=== PATIENT | male | born 1945 | race Caucasian/White ===

== ENCOUNTER → 2017-02-13 | Outpatient (CLI) | payer OTHER, MEDICARE | LOC: RAD 08:57 | PROVIDERS: ATTEND Specialist | DX: C20 Malignant neoplasm of rectum (principal); C78.7 Secondary malignant neoplasm of liver and intrahepatic bile duct | CPT/HCPCS: 71250; 74176 ==

== ENCOUNTER → 2017-05-06 | Outpatient (CLI) | payer OTHER, MEDICARE ==
--- NOTE | 2017-05-06 10:31 | RADIOLOGY REPORT (SQ) ---
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 Images reviewed with lung, soft tissue and bone windows. Reconstructed coronal and sagittal MPR images reviewed. All images st ored on PACS. All CT scanners at this facility use dose modulation, iterative reconstruction, and/or weight based d osing when appropriate to reduce radiation dose to as low as reasonably achievable (ALARA). [facility]: Dose Right [facility]: CareDose [facility]: Dose Right [facility]: Teradose 4D [facility]: [employer] RADIATION DOSE: Up-to-date CT equipment and radiation dose reduction techniques were employed. CTDIv ol: 7.8 - 9.2 mGy. DLP: 831 mGy-cm. mGy. LIMITATIONS: No technical limitations. FINDINGS: LUNGS AND PLEURA: There are no pulmonary nodules. There is subsegmental atelectasis versu s limited infiltrate in the right lower lobe posteriorly. There is no pleural effusion. HILAR AND MEDIASTINAL STRUCTURES: No identified masses or abnormal nodes. No obvious aneurysm. HEART AND VASCULAR STRUCTURES: No aneurysm. No pericardial effusion. UPPER ABDOMEN: See separate report of the CT of the abdomen. THYROID AND OTHER SOFT TISSUES: No masses. No adenopathy. BONES: No significant finding. HARDWARE: There is injection port on the right. OTHER: No other significant findings. IMPRESSION: 1. There is no evidence of metastases in the chest. 2. There is subsegmental atelectasis versus infiltrate in the right lower lobe posteriorly. TECHNICAL DOCUMENTATION: JOB ID: [id number] Quality ID # [id number]: Final reports with documentation of one or more dose reduction techniques (e.g., Au tomated exposure control, adjustment of the mA and/or kV according to patient size, use of iterative reconstruction technique) 2010 [employer]- All Rights Reserved
--- NOTE | 2017-05-06 10:55 | RADIOLOGY REPORT (SQ) ---
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 Images reviewed with lung, soft tissue, and bone windows. Reconstructed coronal and sagittal MPR images reviewed. Al l images stored on PACS. All CT scanners at this facility use dose modulation, iterative reconstruction, and/or weight based d osing when appropriate to reduce radiation dose to as low as reasonably achievable (ALARA). [facility]: Dose Right [facility]: CareDose [facility]: Dose Right [facility]: Teradose 4D [facility]: [employer] RADIATION DOSE: 17mGy. LIMITATIONS: None. FINDINGS: LOWER CHEST: See separate report of the CT of the chest. NON-CONTRASTED LIVER, SPLEEN, ADRENALS: There is continued improvement in the hepatic metastases. A lesion in the dome of the liver that measured 34 mm on the earlier study measures 28 mm on the curren t study. The spleen is unremarkable. The adrenal glands are normal. PANCREAS: No masses. No peripancreatic inflammatory changes. GALLBLADDER: Several gallstones are present. The largest is about 10 mm. There is no ductal dilatat ion. RIGHT KIDNEY AND URETER: No suspicious masses. Assessment limited by lack of IV contrast. No signif icant calcifications. No hydronephrosis or hydroureter. LEFT KIDNEY AND URETER: No suspicious masses. Assessment limited by lack of IV contrast. No signifi cant calcifications. No hydronephrosis or hydroureter. AORTA AND RETROPERITONEUM: No aneurysm. No retroperitoneal masses or adenopathy. BOWEL AND PERITONEAL CAVITY: An ostomy is present in the left abdomen. There is no evidence of obstr uction. There are diverticula arising from the sigmoid colon with no associated inflammatory changes . A rectal mass is present seen best on image 84 series 604. This mass appears slightly more bulky than on the prior study from February. The mass measures 40 mm in transverse diameter on image 84 serie s 604. On the comparable coronal image from the prior study this mass measures 35.6 mm. APPENDIX: Normal. PELVIS, BLADDER, AND ABDOMINAL WALL:Rectal mass as described above. The urinary bladder is unremarka ble. The prostate gland is prominent. BONES: No osseous metastases are seen. OTHER: No other significant finding. IMPRESSION: 1. There is improvement in the appearance of the hepatic metastases. 2. The rectal mass appears to have increased in bulk slightly. 3. Diverticulosis coli. 4. Prominent prostate gland. TECHNICAL DOCUMENTATION: JOB ID: [id number] Quality ID # 436: Final reports with documentation of one or more dose reduction techniques (e.g., Au tomated exposure control, adjustment of the mA and/or kV according to patient size, use of iterative reconstruction technique) 2010 [email or web address]- All Rights Reserved
== END ==
LOC: RAD 09:03
PROVIDERS: ATTEND Specialist
DX: C20 Malignant neoplasm of rectum (principal)
CPT/HCPCS: 71250; 74176

== ENCOUNTER → 2017-07-22 | Outpatient (CLI) | payer MEDICARE ==
--- NOTE | 2017-07-22 11:30 | RADIOLOGY REPORT (SQ) ---
EXAM DESCRIPTION: CT CHEST WITHOUT COMPLETED DATE/TIME: 07/22/2017 9:11 am REASON FOR STUDY: RECTAL CA (C20) C20 MALIGNANT NEOPLASM OF RECTUM COMPARISON: 05/06/2017 TECHNIQUE: CT scan performed of the chest without intravenous contrast. Images reviewed with lung, soft tissue and bone windows. Reconstructed coronal and sagittal MPR images reviewed. All images st ored on PACS. All CT scanners at this facility use dose modulation, iterative reconstruction, and/or weight based d osing when appropriate to reduce radiation dose to as low as reasonably achievable (ALARA). [facility]: Dose Right [facility]: CareDose [facility]: Dose Right [facility]: Teradose 4D [facility]: [employer] RADIATION DOSE: mGy. LIMITATIONS: No technical limitations. FINDINGS: LUNGS AND PLEURA: There are no suspicious pulmonary nodules. There is bibasilar interstit ial airspace disease most likely fibrosis. There is a small pneumatocele in the superior segment of the left lower lobe unchanged. HILAR AND MEDIASTINAL STRUCTURES: No identified masses or abnormal nodes. No obvious aneurysm. HEART AND VASCULAR STRUCTURES: No aneurysm. No pericardial effusion. UPPER ABDOMEN: Stable in appearance. There are hepatic metastases. THYROID AND OTHER SOFT TISSUES: No masses. No adenopathy. BONES: No significant finding. HARDWARE: None in the chest. OTHER: No other significant findings. IMPRESSION: No interval change in the chest. 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 No evidence of m etastatic disease. TECHNICAL DOCUMENTATION: JOB ID: [id number] Quality ID # 436: Final reports with documentation of one or more dose reduction techniques (e.g., Au tomated exposure control, adjustment of the mA and/or kV according to patient size, use of iterative reconstruction technique) 2010 [email or web address]- All Rights Reserved
--- NOTE | 2017-07-22 11:43 | RADIOLOGY REPORT (SQ) ---
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 Images reviewed with lung, soft tissue, and bone windows. Reconstructed coronal and sagittal MPR images revi ewed. All images stored on PACS. All CT scanners at this facility use dose modulation, iterative reconstruction, and/or weight based d osing when appropriate to reduce radiation dose to as low as reasonably achievable (ALARA). [facility]: Dose Right [facility]: CareDose [facility]: Dose Right [facility]: Teradose 4D [facility]: [employer] RADIATION DOSE: Up-to-date CT equipment and radiation dose reduction techniques were employed. CTDIv ol: 6.6 - 8.0 mGy. DLP: 713 mGy-cm.mGy. LIMITATIONS: None. FINDINGS: LOWER CHEST: See separate report of the CT of the chest. NON-CONTRASTED LIVER, SPLEEN, ADRENALS: Hepatic metastases. The lesion measured and dome of the live r on the earlier study now measures 31.4 mm, an increase in size since the most recent previous study . 2 smaller adjacent lesions are slightly smaller than on the earlier study. PANCREAS: No masses. No peripancreatic inflammatory changes. GALLBLADDER: Cholelithiasis. RIGHT KIDNEY AND URETER: No suspicious masses. Assessment limited by lack of IV contrast. No signif icant calcifications. No hydronephrosis or hydroureter. LEFT KIDNEY AND URETER: No suspicious masses. Assessment limited by lack of IV contrast. No signifi cant calcifications. No hydronephrosis or hydroureter. AORTA AND RETROPERITONEUM: No aneurysm. No retroperitoneal masses or adenopathy. BOWEL AND PERITONEAL CAVITY: A colostomy is present on the left with associated ventral hernia that c ontains a loop of bowel. There is no evidence of bowel obstruction. Sigmoid diverticula are present . There is no significant change in the appearance of the rectum. APPENDIX: Not identified. PELVIS, BLADDER, AND ABDOMINAL WALL:There is a colostomy in the left lower quadrant. There is a loop of small bowel within it with no evidence of obstruction. BONES: No significant findings. OTHER: No other significant finding. IMPRESSION: 1. Hepatic metastases. 1 in the dome of the liver is slightly larger than on the prior study, but 2 smaller adjacent lesions are slightly smaller. 2. The rectum appears stable. 3. Colostomy with ventral hernia containing a loop of small bowel with no evidence of obstruction. 4. Diverticulosis coli. COMMENT: Quality ID # 436: Final reports with documentation of one or more dose reduction techniques (e.g., Automated exposure control, adjustment of the mA and/or kV according to patient size, use of iterative reconstruction technique) TECHNICAL DOCUMENTATION: JOB ID: [id number] 8226 [email or web address]- All Rights Reserved
== END ==
LOC: RAD 08:44
PROVIDERS: ATTEND Physician Assistant
DX: C20 Malignant neoplasm of rectum (principal); C78.7 Secondary malignant neoplasm of liver and intrahepatic bile duct
CPT/HCPCS: 71250; 74176

== ENCOUNTER → 2017-10-25 | Outpatient (CLI) | payer MEDICARE ==
--- NOTE | 2017-10-25 08:56 | RADIOLOGY REPORT (SQ) ---
EXAM DESCRIPTION: CT ABD/PELVIS WITH IV ORAL COMPLETED DATE/TIME: 10/25/2017 8:16 am REASON FOR STUDY: RECTAL CA (C20) C20 MALIGNANT NEOPLASM OF RECTUM COMPARISON: Prior CT chest abdomen and pelvis 10/22/2016, 02/13/2017, 05/06/2017, 07/22/2017 TECHNIQUE: CT scan of the abdomen and pelvis performed using helical scanning technique with dynamic intravenous contrast injection. Patient drank oral contrast. Images reviewed with lung, soft tissue , and bone windows. Reconstructed coronal and sagittal MPR images reviewed. Delayed images for evalua tion of the urinary system also acquired. All images stored on PACS. All CT scanners at this facility use dose modulation, iterative reconstruction, and/or weight based d osing when appropriate to reduce radiation dose to as low as reasonably achievable (ALARA). [facility]: Dose Right [facility]: CareDose [facility]: Dose Right [facility]: Teradose 4D [facility]: [employer] CONTRAST TYPE AND DOSE: contrast/concentration: Isovue 370.00 mg/ml; Total Contrast Delivered: 92.0 ml; Total Saline Delivered: 62.0 ml Patient has had prior episodes of hives after IV contrast. He was pre-medicated today with an oral s teroid prep and had no immediate post injection allergic reaction. RENAL FUNCTION: Creatinine 1.2 RADIATION DOSE: CT Rad equipment meets quality standard of care and radiation dose reduction techniq ues were employed. CTDIvol: 8.6 - 9.9 mGy. DLP: 1028 mGy-cm.. LIMITATIONS: None. FINDINGS: LOWER CHEST: No significant findings. No nodules or infiltrates. LIVER: Index lesion in the subdiaphragmatic right lobe liver on axial image 6, currently 2.6 cm in si ze (was 2.6 cm on 07/22/2017, 2.7 cm on 05/06/2017, and 3.4 cm 02/13/2017. Multiple other less than 2 cm liver lesions are stable compared to prior exams. Normal contrast enhancement of the portal veins and hepatic veins. SPLEEN: Normal size. No focal lesions. PANCREAS: No masses. No significant calcifications. No adjacent inflammation or peripancreatic fluid collections. Pancreatic duct not dilated. GALLBLADDER: Gallstones. No inflammatory changes to suggest cholecystitis. ADRENAL GLANDS: No significant masses or asymmetry. RIGHT KIDNEY AND URETER: No solid masses. Less than 1 cm right lower pole renal cortical cyst No sig nificant calcifications. No hydronephrosis or hydroureter. LEFT KIDNEY AND URETER: No solid masses. No significant calcifications. No hydronephrosis or hydr oureter. AORTA AND VESSELS: No aneurysm. No dissection. Renal arteries, SMA, celiac without stenosis. RETROPERITONEUM: No retroperitoneal adenopathy, hemorrhage or masses. BOWEL AND PERITONEAL CAVITY: Patient drank oral contrast. There is no evidence of bowel obstruction. Patient is post left lower quadrant colostomy with a moderate-sized stomal hernia containing multip le small bowel loops which are nonobstructed. There is a right inguinal hernia containing nonobstruc lizette small bowel loops. At the distal sigmoid colon, a soft tissue mass is present measuring 6 x 4.4 cm in size, best shown o n axial image 72 (stable compared to 07/22/2017, slightly larger than on 05/06/2017 and 02/13/2017 where it measured about 5.4 x 3.8 cm in size). Residual sigmoid colon diverticuli without CT signs of acute diverticulitis. No free intraperitoneal air or fluid. APPENDIX: Normal. PELVIS: No mass. No free fluid. Normal bladder. ABDOMINAL WALL: Right lower quadrant inguinal hernia containing nonobstructed small bowel. Stomal he rnia containing nonobstructed small bowel BONES: No significant or acute findings. OTHER: No other significant finding. IMPRESSION: Stable appearance compared to 07/22/2017, stable liver metastatic lesions, primary rectos igmoid soft tissue tumor in the pelvis. TECHNICAL DOCUMENTATION: JOB ID: [id number] Quality ID # 436: Final reports with documentation of one or more dose reduction techniques (e.g., Au tomated exposure control, adjustment of the mA and/or kV according to patient size, use of iterative reconstruction technique) 2010 [employer]- All Rights Reserved
== END ==
LOC: RAD 10-24 09:07
PROVIDERS: ATTEND Internal Medicine Hematology & Oncology
DX: C20 Malignant neoplasm of rectum (principal); C78.7 Secondary malignant neoplasm of liver and intrahepatic bile duct
CPT/HCPCS: 74177

== ENCOUNTER → 2018-03-20 | Outpatient (CLI) | payer OTHER ==
--- NOTE | 2018-03-20 12:17 | RADIOLOGY REPORT (SQ) ---
EXAM DESCRIPTION: CT ABD/PELVIS WITH IV ORAL COMPLETED DATE/TIME: 03/20/2018 9:17 am REASON FOR STUDY: RECTAL CA (C20) C20 MALIGNANT NEOPLASM OF RECTUM COMPARISON: 10/25/2017 TECHNIQUE: CT scan of the abdomen and pelvis performed with intravenous and oral contrast using rd karlene scanning technique with dynamic intravenous contrast injection. Images reviewed with lung, soft t issue, and bone windows. Reconstructed coronal and sagittal MPR images reviewed. Delayed images for e valuation of the urinary system also acquired. All images stored on PACS. All CT scanners at this facility use dose modulation, iterative reconstruction, and/or weight based d osing when appropriate to reduce radiation dose to as low as reasonably achievable (ALARA). [facility]: Dose Right [facility]: CareDose [facility]: Dose Right [facility]: Teradose 4D [facility]: [employer] CONTRAST TYPE AND DOSE: contrast/concentration: Isovue 370.00 mg/ml; Total Contrast Delivered: 90.0 ml; Total Saline Delivered: 70.0 ml Patient pre-medicated due to history of contrast allergy. RENAL FUNCTION: BUN 16 creatinine 1.1 RADIATION DOSE: CT Rad equipment meets quality standard of care and radiation dose reduction techniq ues were employed. CTDIvol: 6.6 - 7.5 mGy. DLP: 1217 mGy-cm. . LIMITATIONS: None. FINDINGS: LOWER CHEST: No significant findings. No nodules or infiltrates. LIVER: Stable poorly marginated low-density lesions in the liver, the largest subdiaphragmatic right lobe measuring about 2.3 cm. No new lesions. SPLEEN: Normal size. No focal lesions. PANCREAS: No masses. No significant calcifications. No adjacent inflammation or peripancreatic fluid collections. Pancreatic duct not dilated. GALLBLADDER: No identified stones by CT criteria. No inflammatory changes to suggest cholecystitis. ADRENAL GLANDS: No significant masses or asymmetry. RIGHT KIDNEY AND URETER: No solid masses. No significant calcifications. No hydronephrosis or hyd roureter. LEFT KIDNEY AND URETER: No solid masses. No significant calcifications. No hydronephrosis or hydr oureter. AORTA AND VESSELS: No aneurysm. RETROPERITONEUM: No retroperitoneal adenopathy, hemorrhage or masses. BOWEL AND PERITONEAL CAVITY: Rectosigmoid mass 4.8 x 4.3 cm AP by transverse diameter, previously abo ut 6.0 x 4.5 cm. No adenopathy or ascites. APPENDIX: Normal. PELVIS: See above. Normal urinary bladder. ABDOMINAL WALL: Large left lower quadrant anterior abdominal wall parastomal hernia. BONES: No acute findings. OTHER: No other significant finding. IMPRESSION: 1. Slight decrease in size of rectosigmoid mass. 2. Stable hepatic metastasis. TECHNICAL DOCUMENTATION: JOB ID: [id number] Quality ID # 436: Final reports with documentation of one or more dose reduction techniques (e.g., Au tomated exposure control, adjustment of the mA and/or kV according to patient size, use of iterative reconstruction technique) 2010 [employer]- All Rights Reserved Reading location - IP/workstation name: [email or web address]
== END ==
LOC: RAD 08:25
PROVIDERS: ATTEND Internal Medicine Hematology & Oncology
DX: C20 Malignant neoplasm of rectum (principal)
CPT/HCPCS: 74177

== ENCOUNTER → 2018-07-08 | Outpatient (CLI) | payer OTHER ==
--- NOTE | 2018-07-08 12:10 | RADIOLOGY REPORT (SQ) ---
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 Images reviewed with lung, soft tissue and bone windows. Reconstructed coronal and sagittal MPR and MIP images reviewed. All images stored on PACS. All CT scanners at this facility use dose modulation, iterative reconstruction, and/or weight based d osing when appropriate to reduce radiation dose to as low as reasonably achievable (ALARA). [facility]: Dose Right [facility]: CareDose [facility]: Dose Right [facility]: Teradose 4D [facility]: [employer] CONTRAST TYPE AND DOSE: 89.5 mL Isovue 370 RENAL FUNCTION: Creatinine 1.3 RADIATION DOSE: . LIMITATIONS: None. FINDINGS: LUNGS AND PLEURA: There is a new 10.5 mm nodule in the superior segment of the right lower lobe. This is suspicious for metastatic disease. Basilar interstitial markings remain prominent wi th mild bronchiectasis consistent with fibrosis. HILAR AND MEDIASTINAL STRUCTURES: No identified masses or abnormal nodes. HEART AND VASCULAR STRUCTURES: No aneurysm or dissection. No central pulmonary emboli. No pericardi al effusion. HARDWARE: [id number] is in place. UPPER ABDOMEN: Small hepatic lesions are again noted. Please refer to the CT abdomen pelvis for furt her discussion. THYROID AND OTHER SOFT TISSUES: No masses. No adenopathy. BONES: No significant finding. OTHER: No other significant finding. IMPRESSION: New 10.5 mm nodule in the superior segment right lower lobe. Neoplasm is suspected. TECHNICAL DOCUMENTATION: JOB ID: [id number] Quality ID # 436: Final reports with documentation of one or more dose reduction techniques (e.g., Au tomated exposure control, adjustment of the mA and/or kV according to patient size, use of iterative reconstruction technique) 2010 [employer] All Rights Reserved Reading location - IP/workstation name: [email or web address]
--- NOTE | 2018-07-08 12:15 | RADIOLOGY REPORT (SQ) ---
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 No oral contrast. Images reviewed with lung, soft tissue, and bone windows. Reconstructed coronal and sagittal MPR images reviewed. Delayed images for evaluation of the urinary system also acquired. All images stored on PACS. All CT scanners at this facility use dose modulation, iterative reconstruction, and/or weight based d osing when appropriate to reduce radiation dose to as low as reasonably achievable (ALARA). [facility]: Dose Right [facility]: CareDose [facility]: Dose Right [facility]: Teradose 4D [facility]: [employer] CONTRAST TYPE AND DOSE: contrast/concentration: Isovue 350.00 mg/ml; Total Contrast Delivered: 89.0 ml; Total Saline Delivered: 70.0 ml RENAL FUNCTION: Creatinine 1.3 RADIATION DOSE: CT Rad equipment meets quality standard of care and radiation dose reduction techniq ues were employed. CTDIvol: 5.9 - 7.3 mGy. DLP: 1454 mGy-cm.. LIMITATIONS: None. FINDINGS: LOWER CHEST: Basilar fibrosis is again noted. LIVER: There are persistent areas of decreased attenuation within the dome of the liver consistent wi th known metastases. There stable lesions in the left lobe and inferior aspect of the right lobe. N o new findings in the liver. SPLEEN: Normal size. No focal lesions. PANCREAS: No masses. No significant calcifications. No adjacent inflammation or peripancreatic fluid collections. Pancreatic duct not dilated. GALLBLADDER: There are gallstones. No inflammation. ADRENAL GLANDS: No significant masses or asymmetry. RIGHT KIDNEY AND URETER: No solid masses. No significant calcifications. No hydronephrosis or hyd roureter. LEFT KIDNEY AND URETER: No solid masses. No significant calcifications. No hydronephrosis or hydr oureter. AORTA AND VESSELS: No aneurysm. No dissection. Renal arteries, SMA, celiac without stenosis. RETROPERITONEUM: No retroperitoneal adenopathy, hemorrhage or masses. BOWEL AND PERITONEAL CAVITY: There are postsurgical changes with an ostomy in the left lower quadrant . No obstruction. No inflammatory changes. The sigmoid mass is grossly unchanged. APPENDIX: Not identified. PELVIS: There are small left inguinal lymph nodes. These are stable in appearance. ABDOMINAL WALL: No masses. No hernias. BONES: There is an old left inferior pubic ramus fracture. No lytic or sclerotic process ease. OTHER: No other significant finding. IMPRESSION: 1. Sigmoid mass is grossly unchanged. 2. Multiple hepatic lesions are stable in appearance. TECHNICAL DOCUMENTATION: JOB ID: [id number] Quality ID # 436: Final reports with documentation of one or more dose reduction techniques (e.g., Au tomated exposure control, adjustment of the mA and/or kV according to patient size, use of iterative reconstruction technique) 2010 [employer]- All Rights Reserved Reading location - IP/workstation name: [email or web address]
== END ==
LOC: RAD 09:02
PROVIDERS: ATTEND Internal Medicine
DX: C20 Malignant neoplasm of rectum (principal); J84.10 Pulmonary fibrosis, unspecified; R91.1 Solitary pulmonary nodule; K80.80 Other cholelithiasis without obstruction; K76.9 Liver disease, unspecified
CPT/HCPCS: 71260; 74177; 82565

== ENCOUNTER 2018-09-22 17:49 | Emergency (ER) | payer OTHER, MEDICARE ==
--- NOTE | 2018-09-22 18:34 | ER Document Report ---
ED General <SAM DE LEON - Last Filed: 09/23/18 09:01> - General Mode of Arrival: Medic Information source: Patient, Relative, Emergency Med Personnel, [facility] Records TRAVEL OUTSIDE OF THE [place] IN LAST 30 DAYS: No - HPI Onset: This morning Onset/Duration: Sudden Quality of pain: Throbbing - Throbbing ongoing rectal pain Severity: Moderate Pain Level: 2 Associated symptoms: denies: Body/muscle aches, Chest pain, Fever, Nausea, Vomiting, Shortness of breath, Sweating, Weakness Exacerbated by: Denies Relieved by: Denies Similar symptoms previously: No Recently seen / treated by doctor: Yes <HONG HAM - Last Filed: 09/23/18 11:11> - General Stated Complaint: BLEEDING FROM STOMA Time Seen by Provider: 09/22/18 18:16 Notes: 72-year-old male with stage IV rectal cancer with metastasis, colectomy in 2017 presents via EMS from home with complaints of significant bleeding from his ostomy site. Patient was a long-term Coumadin user but was recently switched to Eliquis 1 week ago due to inability to control the patient's INR. Patient is currently undergoing chemotherapy with Dr. Currie. He also complains of rectal pain that has been ongoing for 4 months. Patient denies any fever, chills, nausea, vomiting, abdominal pain, trauma to the ostomy site. (HONG HAM) - Related Data Allergies/Adverse Reactions: Iodinated Contrast- Oral and IV Dye Adverse Reaction (Mild, Verified 10/21/16 20 :47) Hives Past Medical History - General Information source: Patient, Relative, Emergency Med Personnel, [facility] Records - Social History Smoking Status: Former Smoker Frequency of alcohol use: None Drug Abuse: None Lives with: Spouse/Significant other Family History: None, CAD - Father, Malignancy - Brother with prostate cancer. Father with bladder cancer. Patient has suicidal ideation: No Patient has homicidal ideation: No - Past Medical History Cardiac Medical History: Reports: Hx Hypertension, Hx Heart Murmur - Present since childhood Neurological Medical History: Denies: Hx Seizures Endocrine Medical History: Reports: Hx Diabetes Mellitus Type 2 - With peripheral neuropathy GI Medical History: Reports: Hx Irritable Bowel Past Surgical History: Reports: Hx Herniorrhaphy - Left inguinal, Hx Orthopedic Surgery - Left ankle-knee, neck - Immunizations Hx Pneumococcal Vaccination: 09/05/16 <HONG HAM - Last Filed: 09/23/18 11:11> Review of Systems <SAM DE LEON - Last Filed: 09/23/18 09:01> <HONG HAM - Last Filed: 09/23/18 11:11> - Review of Systems Notes: REVIEW OF SYSTEMS: CONSTITUTIONAL : Denies fever, chills, or sweats. Denies recent illness. Denies weight loss, recent hospitalizations. EENT: Denies visual changes, eye pain. Denies sore throat, oral lesions, difficulty swallowing. CARDIOVASCULAR: Denies chest pain. Denies palpitations. Denies lower extremity edema. RESPIRATORY: Denies cough. Denies shortness of breath, wheezing. GASTROINTESTINAL: Denies abdominal pain or distention. Denies nausea, vomiting , or diarrhea. Denies blood in vomitus, or per rectum. Denies black, tarry stools. Denies constipation. GENITOURINARY: Denies difficulty urinating, painful urination, frequency, blood in urine, testicular pain or penile discharge. MUSCULOSKELETAL: Denies back or neck pain or stiffness. Denies joint pain or swelling. SKIN: Denies rash, lesions or sores. HEMATOLOGIC : Denies easy bruising or bleeding. LYMPHATIC: Denies swollen glands. NEUROLOGICAL: Denies confusion or altered mental status. Denies loss of consciousness. Denies dizziness or lightheadedness. Denies headache. Denies weakness or paralysis. Denies problems difficulty with ambulation, slurred speech. Denies sensory loss, numbness, or tingling. Denies seizures. PSYCHIATRIC: Denies anxiety or stress. Denies depression, suicidal ideation, or (HONG HAM) Physical Exam <SAM DE LEON - Last Filed: 09/23/18 09:01> - Vital signs Interpretation: Hypertensive. No: Febrile <HONG HAM - Last Filed: 09/23/18 11:11> - Vital signs Vitals: Resp Pulse Ox 16 96 09/22/18 18:01 09/22/18 18:01 - Notes Notes: PHYSICAL EXAMINATION: GENERAL: Well-appearing, well-nourished and in no acute distress. HEAD: Atraumatic, normocephalic. EYES: Pupils equal round and reactive to light, extraocular movements intact, sclera anicteric, conjunctiva are normal. ENT: Nares patent, oropharynx clear without exudates. Moist mucous membranes. NECK: Normal range of motion, supple without lymphadenopathy LUNGS: Breath sounds clear to auscultation bilaterally and equal. No wheezes rales or rhonchi. HEART: Regular rate and rhythm without murmurs ABDOMEN: Mild distention, left-sided ostomy no active bleeding but with a towel full of blood covering it. Exam is without guarding,or rebound. Left-sided stomal hernia. Brown stool from the stoma with friable stoma surface. Musculoskeletal: Normal range of motion, no pitting or edema. No cyanosis. NEUROLOGICAL: Cranial nerves grossly intact. Normal speech, normal gait. Normal sensory, motor exams PSYCH: Normal mood, normal affect. SKIN: Pale (HONG HAM) Course - Laboratory Result Diagrams: 09/23/18 07:01 09/22/18 19:15 <SAM DE LEON - Last Filed: 09/23/18 09:01> - Laboratory Result Diagrams: 09/23/18 07:01 09/22/18 19:15 - Diagnostic Test Radiology reviewed: Image reviewed, Reports reviewed <HONG HAM - Last Filed: 09/23/18 11:11> - Re-evaluation Re-evalutation: 09/23/18 09:01 Hemoglobin has improved. Patient otherwise not had any more recurrence of bleeding while here in ER. Patient again was evaluated by Dr. Merlos who also consulted Dr. Luong he recommended the patient be discharged. Dr. Merlos stated that he relayed this to the patient's. I relayed to the patient that I also be will be discharged recommend following up with his specialist and Dr. Luong. (SAM DE LEON) 09/22/18 18:34 72-year-old male with metastatic rectal cancer presents with bleeding from his ostomy site. He states that he had 2 episodes of voluminous bright red bleeding from his ostomy site that started this morning. He states home health aides assessed him, observed him and that it did not reoccur until this afternoon. He denies any prior similar symptoms. He did recently switch from Coumadin to Eliquis 1 week ago. Vital signs reviewed upon arrival patient is hypertensive but afebrile and not tachycardic. Exam is significant for a well- appearing male in no acute distress. He does not appear toxic or dehydrated. He is in no acute distress. Patient's ostomy is not currently bleeding but there is a towel that is soaked with blood. I did contact Dr. Reyna to consult to him regarding whether or not imaging is required at this time. Patient's surgery was performed by Dr. Luong and 2016. 09/22/18 18:58 I did speak to Dr. Reyna who does not recommend any imaging at this time. He does recommend discontinuation of Eliquis, a hemoglobin check. If the patient is not actively bleeding he can be discharged home with follow-up with Dr. Luong. If he has another episode of bleeding he advises admission to the hospitalist with Dr. Luong on consult for tomorrow. 09/22/18 19:[address] a call out to the patient's oncologist Dr. Cordova. Patient's hemoglobin came back at 7.8. The most recent prior hemoglobin I have is from December 2016 where the patient's hemoglobin was 12.6. 09/22/18 20:[address] Fay saw the patient's oncologist reports that the patient's recent hemoglobin was approximately 10. He has not required any blood transfusions recently. She is agreeable with stopping Eliquis but states that Eliquis will remain in the patient's system for approximately 12 hours.. She states that he has had complaint of rectal pain for some time and recent CAT scans do not show any obvious reason that he should continue to have pain. His oncologist believes that there has been a progression of disease. 09/22/18 20:[address] Reyna after seeing patient's hemoglobin of 7.8. He still states that after transfusion at the patient has not replied that he can be discharged home. 09/22/18 20:53 Patient and were informed of my discussions with general surgery and oncology. They are agreeable with the planned of blood transfusion, observation and discharge home if no rebleeding occurs. 09/22/18 21:58 Spoke to the patient's oncologist again regarding whether the patient requires irradiated blood. She states unless the patient is neutropenic he can receive nonirradiated blood products. 11/12/18 23:06 Patient reevaluated again he has had no further bleeding. He reports that he has had several bowel movements into the ostomy without blood. He is currently receiving blood transfusion. 09/22/18 23:38 I was informed by the nurse that the patient had a recurrence of significant bleeding from the stoma. Dr. Reyna made aware and will see the patient. 09/23/18 00:10 Dr. Reyna at bedside and is requesting Xeroform. He believes the bleeding is coming from the friable skin of the stoma and not internally. He is requesting observation in the emergency department until the morning when Dr. Luong is due in. He states that he will speak to Dr. Luong and have the patient seen in the emergency department first thing. 09/23/18 00:[address] Reyna again who has ordered FFP for the patient and recommends repeat INR in the morning. The plan is still to keep the patient in the emergency department with evaluation by Dr. Luong in the morning. 09/23/18 02:24 Patient reevaluated he is resting comfortably. He is currently receiving FFP. He is already received 1 unit of PRBCs. He is having some rectal pain which again is not new for the patient. 09/23/18 11:09 Patient will continue to be observed in Emergency department per surgery request. Plan is for repeat surgical exam after PRBCs and FFP. Orders placed repeat blood work in am. (HONG HAM) - Vital Signs Vital signs: Temp Pulse Resp BP Pulse Ox 98.6 F 77 14 158/82 H 98 09/23/18 05:30 09/23/18 05:30 09/23/18 09:01 09/23/18 08:00 09/23/18 09:01 - Laboratory Laboratory results interpreted by hi: 09/22/18 09/22/18 09/22/18 19:15 19:15 20:37 RBC 2.37 L Hgb 7.8 L Hct 22.6 L RDW 16.2 H PT 18.6 H APTT 36.9 H Glucose 152 H ALT 20 L Total Protein 5.8 L Albumin 2.9 L Crossmatch 09/22/18 09/23/18 09/23/18 20:37 07:01 07:01 RBC 2.98 L Hgb 9.5 L Hct 27.4 L RDW 17.9 H PT 17.0 H APTT Glucose ALT Total Protein Albumin Crossmatch See Detail Critical Care Note - Critical Care Note Total time excluding time spent on procedures (mins): 50 - Minutes of critical care time spent in direct contact evaluating and reevaluating the patient, treating symptoms, reviewing labs and studies and speaking with family and consultants excluding any procedures <FATOUMATASATHISH - Last Filed: 09/23/18 11:11> Discharge <HALEYSAM - Last Filed: 09/23/18 09:01> <FATOUMATASATHISH - Last Filed: 09/23/18 11:11> - Discharge Clinical Impression: Stomal bleeding, History of DVT (deep vein thrombosis), Blood loss anemia, Elevated INR, Hyperglycemia, Hypoalbuminemia, Rectal cancer metastasized to liver Hypertension Qualifiers: Hypertension type: unspecified Qualified Code(s): I10 - Essential (primary) hypertension Condition: Good Disposition: HOME, SELF-CARE Instructions: Anemia ([facility]) Additional Instructions: Discontinue your Eliquis. I have discussed this with your oncologist and she is aware that this is our plan. Follow-up with Dr. Luong as already scheduled. Forms: Elevated Blood Pressure Referrals: KEVIN FATIMA MD [Primary Care Provider] - Follow up as needed PADMINI LUONG MD [ACTIVE STAFF] - Follow up tomorrow
[2018-09-22] MEDS ORDERED: PANTOPRAZOLE SODIUM 40 MG VIAL IV ONE (19:22)
[2018-09-22] MEDS ORDERED: ONDANSETRON HCL INJ/PF 4 MG/2 ML SDV IV ONE (19:22)
[2018-09-22] MEDS ORDERED: MORPHINE SULFATE 10 MG/ML INJ IV ONE (19:22)
[2018-09-22 19:34] LABS: ABSOLUTE EOSINOPHILS # (AUTO) 0.1 10^3/uL (0.0-0.6); ABSOLUTE LYMPHOCYTES (AUTO) 1.5 10^3/uL (0.5-4.7); ABSOLUTE MONOCYTES (AUTO) 0.7 10^3/uL (0.1-1.4); ABSOLUTE NEUT (AUTO) 3.2 10^3/uL (1.7-8.2); BASOPHILS % (AUTO) 0.5 % (0-2); HEMATOCRIT 22.6 % (37.9-51.0); LYMPHOCYTES % (AUTO) 27.3 % (13-45); MEAN CORPUSCULAR HEMOGLOBIN 32.8 pg (27.0-33.4); MEAN CORPUSCULAR HGB CONC 34.3 g/dL (32.0-36.0); MEAN CORPUSCULAR VOLUME 96 fl (80-97); MONOCYTES % (AUTO) 12.4 % (3-13); PLATELET COUNT 207 10^3/uL (150-450); RED BLOOD COUNT 2.37 10^6/uL (4.35-5.55); RED CELL DISTRIBUTION WIDTH 16.2 % (11.5-14.0); SEGMENTED NEUTROPHILS % (AUTO) 58.8 % (42-78); TOTAL CELLS COUNTED % (AUTO) 100 %; WHITE BLOOD COUNT 5.5 10^3/uL (4.0-10.5)
[2018-09-22 19:38] LABS: HEMOGLOBIN 7.8 g/dL (13.5-17.0)
[2018-09-22] MEDS ORDERED: NORMAL SALINE 250 ML IV PRN ×2 (19:43)
[2018-09-22 19:51] LABS: ALANINE AMINOTRANSFERASE 20 U/L (21-72); ALBUMIN 2.9 g/dL (3.5-5.0); ALKALINE PHOSPHATASE 82 U/L (38-126); ANION GAP 10 (5-19); ASPARTATE AMINO TRANSFERASE 28 U/L (17-59); BILIRUBIN,DIRECT 0.1 mg/dL (0.0-0.4); BILIRUBIN,TOTAL 0.2 mg/dL (0.2-1.3); BLOOD UREA NITROGEN 18 mg/dL (7-20); CALCIUM 9.2 mg/dL (8.4-10.2); CARBON DIOXIDE 24 mmol/L (22-30); CHLORIDE 105 mmol/L (98-107); GLUCOSE 152 mg/dL (75-110); POTASSIUM 4.1 mmol/L (3.6-5.0); SODIUM 138.9 mmol/L (137-145); TOTAL PROTEIN 5.8 g/dL (6.3-8.2)
[2018-09-22 21:19] LABS: INTERNATIONAL RATION (INR) 1.47; PROTHROMBIN TIME 18.6 SEC (11.4-15.4)
[2018-09-22 21:20] LABS: PARTIAL THROMBOPLASTIN TIME 36.9 SEC (23.5-35.8)
--- NOTE | 2018-09-22 21:32 | RADIOLOGY REPORT (SQ) ---
EXAM DESCRIPTION: XR ABDOMEN SUPINE AND ERECT WITH CHEST (ABD ACUTE SERIES) COMPLETED DATE/TME: 09/22/2018 19:33 CLINICAL HISTORY: 72 years, Male, abd distention COMPARISON: EXAM DESCRIPTION: CLINICAL HISTORY: abd distention COMPARISON: None. FINDINGS: Single view of the chest is submitted. There is moderate stool in the colon. Central catheter tip is at the distal SVC. Cardiac silhouette is normal. No focal parenchymal or pleural disease. No acute bony abnormality. There is no significant pulmonary vascular engorgement. IMPRESSION: Moderate stool. No other acute abnormality. NUMBER OF VIEWS: TECHNIQUE: LIMITATIONS: None. FINDINGS: IMPRESSION: 2010 [employer]- All Rights Reserved
[2018-09-22] MEDS ORDERED: FUROSEMIDE INJ/PF 20 MG/2 ML SDV IV ONE (23:06)
[2018-09-22] MEDS ORDERED: DIPHENHYDRAMINE HCL 50 MG/ML VIAL IV ONE (23:07)
[2018-09-22] MEDS ORDERED: TRANEXAMIC ACID INJ/PF 1,000 MG/10 ML SDV IV ONE (23:35)
[2018-09-23] MEDS ORDERED: NORMAL SALINE 250 ML IV PRN (00:17)
--- NOTE | 2018-09-23 00:17 | PDOC CONSULTATION ---
Consultation Consult Date: 09/22/18 Consult reason:: bleeding from stoma History of Present Illness Admission Date/PCP: KEVIN FATIMA MD Patient complains of: bleeding from stoma History of Present Illness: ALIYA LÓPEZ is a 72 year old male with metastatic rectal ca post colostomy by Dr Luong 2 years ago. Has been on coumadin but changed to Eloquis because of uncontrolled INR/PT. Also c/o rectal pains Today went to ED because of bleeding from the colostomy site and tonight bled again with a pulsatile flow from the caudal part of the colostomy. His stools sre not affected by this bleeding. Past Medical History Cardiac Medical History: Reports: Hypertension, Heart Murmur - Present since childhood Neurological Medical History: Denies: Seizures Endocrine Medical History: Reports: Diabetes Mellitus Type 2 - With peripheral neuropathy Past Surgical History Past Surgical History: Reports: Herniorrhaphy - Left inguinal, Orthopedic Surgery - Left ankle-knee, neck Social History Lives with: Spouse/Significant other Smoking Status: Former Smoker Frequency of Alcohol Use: None Hx Recreational Drug Use: No Drugs: None Hx Prescription Drug Abuse: No Family History Family History: None, CAD - Father, Malignancy - Brother with prostate cancer. Father with bladder cancer. Parental Family History Reviewed: Yes Children Family History Reviewed: No Sibling(s) Family History Reviewed.: No Medication/Allergy Home Medications: Amitriptyline HCl [Elavil 50 mg Tablet] 50 mg PO QHS 10/25/16 Amlodipine Besylate 10 mg PO DAILY 10/25/16 Biotin 10,000 mcg PO DAILY 10/25/16 Cholecalciferol (Vitamin D3) [Vitamin D3 5000 unit Capsule] 5,000 units PO DAILY 10/25/16 Cinnamon Bark [Cinnamon Bark 500 mg Capsule] 500 mg PO BID 10/25/16 Melatonin/Pyridoxine HCl (B6) [Melatonin 5 mg Tablet] 1 each PO DAILY 10/25/16 Metoprolol Tartrate 100 mg PO BID 10/25/16 Zinc 50 mg PO DAILY 10/25/16 Cyanocobalamin (Vitamin B-12) [Vitamin B-12 1000 mcg Tablet] 1,000 mcg PO DAILY #30 tablet 10/30/16 Docusate Sodium [Colace 100 mg Capsule] 100 mg PO Q12 #60 capsule 10/30/16 Ferrous Sulfate 325 mg PO BID #60 tablet. 10/30/16 Oxycodone HCl 5 mg PO Q4HP PRN #60 tablet 10/30/16 Allergies/Adverse Reactions: Iodinated Contrast- Oral and IV Dye Adverse Reaction (Mild, Verified 10/21/16 20 :47) Hives Review of Systems Constitutional: PRESENT: other - denies fever/chills Eyes: PRESENT: other - no visual/hearing changes Cardiovascular: PRESENT: other - no chest pains/cough Gastrointestinal: PRESENT: other - bleeding from colostomy site Genitourinary: PRESENT: other - no dysuria Integumentary: PRESENT: wounds - colostomy Neurological: PRESENT: other - no seizures Hematologic/Lymphatic: PRESENT: easy bleeding, easy bruising - along colostomy Physical Exam Vital Signs: Temp Pulse Resp BP Pulse Ox 98.8 F 66 18 153/75 H 100 09/22/18 22:40 09/22/18 22:40 09/22/18 22:40 09/22/18 22:40 09/22/18 22:40 Intake & Output 09/21/18 09/22/18 09/23/18 06:59 06:59 06:59 Intake Total 0 Balance 0 Weight 78.3 kg General appearance: PRESENT: no acute distress Head exam: PRESENT: atraumatic Eye exam: PRESENT: conjunctiva pale Mouth exam: PRESENT: moist Neck exam: PRESENT: full ROM Respiratory exam: PRESENT: clear to auscultation juan daniel Cardiovascular exam: PRESENT: RRR Pulses: PRESENT: normal radial pulses Vascular exam: PRESENT: normal capillary refill GI/Abdominal exam: PRESENT: other - colostomy is functioning. There is a raw area that looks friable around the ostomy site roughly about 5 cm. No active bleeding right now Rectal exam: PRESENT: deferred Extremities exam: PRESENT: full ROM Musculoskeletal exam: PRESENT: ambulatory Neurological exam: PRESENT: alert, oriented to person, oriented to place, oriented to time, oriented to situation Psychiatric exam: PRESENT: appropriate affect Skin exam: PRESENT: normal color, warm Results Laboratory Results: 09/22/18 19:15 09/22/18 19:15 09/22/18 09/22/18 09/22/18 19:15 19:15 20:37 WBC 5.5 RBC 2.37 L Hgb 7.8 L Hct 22.6 L MCV 96 MCH 32.8 MCHC 34.3 RDW 16.2 H Plt Count 207 Seg Neutrophils % 58.8 Lymphocytes % 27.3 Monocytes % 12.4 Eosinophils % 1.0 Basophils % 0.5 Absolute Neutrophils 3.2 Absolute Lymphocytes 1.5 Absolute Monocytes 0.7 Absolute Eosinophils 0.1 Absolute Basophils 0.0 Sodium 138.9 Potassium 4.1 Chloride 105 Carbon Dioxide 24 Anion Gap 10 BUN 18 Creatinine 0.93 Est GFR ( Amer) > 60 Est GFR (Non-Af Amer) > 60 Glucose 152 H Calcium 9.2 Total Bilirubin 0.2 AST 28 ALT 20 L Alkaline Phosphatase 82 Total Protein 5.8 L Albumin 2.9 L Blood Type AB POSITIVE Antibody Screen NEGATIVE Impressions: Acute Abdomen Series 09/22/18 19:33 IMPRESSION: Moderate stool. No other acute abnormality. NUMBER OF VIEWS: TECHNIQUE: LIMITATIONS: None. FINDINGS: IMPRESSION: 2010 [employer]- All Rights Reserved Assessment & Plan - Diagnosis (1) Blood loss anemia Is this a current diagnosis for this admission?: Yes (2) Elevated INR Is this a current diagnosis for this admission?: Yes (3) History of DVT (deep vein thrombosis) Is this a current diagnosis for this admission?: Yes (4) Rectal cancer metastasized to liver Is this a current diagnosis for this admission?: Yes (5) Status post colostomy Is this a current diagnosis for this admission?: Yes - Time Time Spent: 30 to 50 Minutes - Plan Summary Plan Summary: Transfuse Stopped eloquis May give 1 unit FFP The surface around ostomy appears friable and if the bleeder is isolated may cause more problems if this is sutured. Try medical therapy with FFP,Glue such as tisseel. Will re-evaluate in am after PRBC and FFP 2 pieces of xeroform gauze were applied on the surface to hopefully apply gentle pressure over it if bleeds again.
[2018-09-23] MEDS ORDERED: FENTANYL CITRATE INJ/PF 100 MCG/2 ML AMPUL IV ONE (02:05)
[2018-09-23] MEDS ORDERED: TRANEXAMIC ACID INJ/PF 1,000 MG/10 ML SDV IV ONE (03:02)
[2018-09-23] MEDS ORDERED: MORPHINE SULFATE 10 MG/ML INJ IV ONE (04:54)
[2018-09-23 07:20] LABS: HEMATOCRIT 27.4 % (37.9-51.0); MEAN CORPUSCULAR HEMOGLOBIN 31.9 pg (27.0-33.4); MEAN CORPUSCULAR HGB CONC 34.8 g/dL (32.0-36.0); PLATELET COUNT 218 10^3/uL (150-450); RED BLOOD COUNT 2.98 10^6/uL (4.35-5.55); RED CELL DISTRIBUTION WIDTH 17.9 % (11.5-14.0); WHITE BLOOD COUNT 6.5 10^3/uL (4.0-10.5)
[2018-09-23 07:34] LABS: HEMOGLOBIN 9.5 g/dL (13.5-17.0); MEAN CORPUSCULAR VOLUME 92 fl (80-97)
[2018-09-23 07:43] LABS: INTERNATIONAL RATION (INR) 1.32
[2018-09-23 09:25] VITALS: BP 158/82
--- NOTE | 2018-09-23 21:39 | PDOC PROGRESS REPORT ---
Subjective Progress Note for:: 09/23/18 Subjective:: no pains Reason For Visit: BLEEDING FROM STOMA Physical Exam Vital Signs: Temp Pulse Resp BP Pulse Ox 98.6 F 77 14 158/82 H 98 09/23/18 05:30 09/23/18 05:30 09/23/18 09:01 09/23/18 08:00 09/23/18 09:01 Intake & Output 09/22/18 09/23/18 09/24/18 06:59 06:59 06:59 Intake Total 517 Balance 517 Weight 78.3 kg Exam: colostomy site no bleeding and colostomy functioning Results Laboratory Results: 09/23/18 07:01 09/22/18 19:15 09/22/18 09/23/18 20:37 07:01 WBC 6.5 RBC 2.98 L Hgb 9.5 L Hct 27.4 L MCV 92 D MCH 31.9 MCHC 34.8 RDW 17.9 H Plt Count 218 Blood Type AB POSITIVE Antibody Screen NEGATIVE Impressions: Acute Abdomen Series 09/22/18 19:33 IMPRESSION: Moderate stool. No other acute abnormality. NUMBER OF VIEWS: TECHNIQUE: LIMITATIONS: None. FINDINGS: IMPRESSION: 2010 [employer]- All Rights Reserved Assessment & Plan - Diagnosis (1) Blood loss anemia Is this a current diagnosis for this admission?: Yes (2) Elevated INR Is this a current diagnosis for this admission?: Yes (3) History of DVT (deep vein thrombosis) Is this a current diagnosis for this admission?: Yes (4) Rectal cancer metastasized to liver Is this a current diagnosis for this admission?: Yes (5) Status post colostomy Is this a current diagnosis for this admission?: Yes - Time Time Spent with patient: 15-24 minutes - Plan Summary Plan Summary: After 2 units PRBC his hb is now 9.5 and after a unit of FFP his INR is now 1.3 His colostomy remains dry. He can be discharge this am to go to his oncologist for chemotherapy. Should be off Eloquis.
== END 2018-09-23 09:25 | disposition home or self-care (01) ==
LOC: ER 17:49
DX: K94.01 Colostomy hemorrhage (principal); C78.7 Secondary malignant neoplasm of liver and intrahepatic bile duct; E88.09 Other disorders of plasma-protein metabolism, not elsewhere classified; D50.0 Iron deficiency anemia secondary to blood loss (chronic); E11.65 Type 2 diabetes mellitus with hyperglycemia; I10 Essential (primary) hypertension; Z86.718 Personal history of other venous thrombosis and embolism; Z85.048 Personal history of other malignant neoplasm of rectum, rectosigmoid junction, and anus; Z79.01 Long term (current) use of anticoagulants
CPT/HCPCS: 36591; 96376; 99291; 96374; 96375; 86900; 86901; 36415; 36430; 86850; 85025; 85027; 85610; 85730; 80053; 86920; 74022; P9017; P9016; J1200; J3010; J1940; J2270 ×2; S0164; J2405; J3490

== ENCOUNTER 2018-09-25 05:40 | Observation (INO) | payer OTHER, MEDICARE ==
--- NOTE | 2018-09-25 06:00 | ER Document Report ---
ED Medical Screen (RME) - General Chief Complaint: Wound Recheck Stated Complaint: POSSIBLE BLEEDING Time Seen by Provider: 09/25/18 05:49 Notes: 72-year-old male chief complaint of bleeding from his stoma. Discharged yesterday after he had been admitted for bleeding from the same. Has stage IV rectal cancer, on chemotherapy, just taken off Eliquis because of bleeding problems. States he got up to go to the bathroom and it started sprain, bleeding has currently stopped, he denies feeling lightheaded or passing out. TRAVEL OUTSIDE OF THE [place] 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 Renal/ Medical History: Denies: Hx Peritoneal Dialysis GI Medical History: Reports: Hx Irritable Bowel Past Surgical History: Reports: Hx Herniorrhaphy - Left inguinal, Hx Orthopedic Surgery - Left ankle-knee, neck Physical Exam - Vital signs Vitals: Temp Pulse Resp BP Pulse Ox 98.7 F 70 18 160/78 H 98 09/25/18 05:48 09/25/18 05:48 09/25/18 05:48 09/25/18 05:48 09/25/18 05:48 - Abdominal Inspection: Other - Left lower abdominal swelling with stoma at the swelling site which is irritated and erythematous but not currently bleeding Course - Re-evaluation Re-evalutation: I have greeted and performed a rapid initial assessment of this patient. A comprehensive ED assessment and evaluation of the patient, analysis of test results and completion of the medical decision making process will be conducted by additional ED providers. - Vital Signs Vital signs: Temp Pulse Resp BP Pulse Ox 98.7 F 70 18 160/78 H 98 09/25/18 05:48 09/25/18 05:48 09/25/18 05:48 09/25/18 05:48 09/25/18 05:48 Doctor's Discharge - Discharge Referrals: KEVIN FATIMA MD [Primary Care Provider] - Follow up as needed
[2018-09-25] MEDS ORDERED: OXYCODONE HCL IR 5 MG TABLET PO ONE (06:43)
[2018-09-25 06:54] LABS: HEMATOCRIT 25.6 % (37.9-51.0); HEMOGLOBIN 8.8 g/dL (13.5-17.0); MEAN CORPUSCULAR HGB CONC 34.4 g/dL (32.0-36.0); MEAN CORPUSCULAR VOLUME 93 fl (80-97); PLATELET COUNT 238 10^3/uL (150-450); RED BLOOD COUNT 2.75 10^6/uL (4.35-5.55); RED CELL DISTRIBUTION WIDTH 18.7 % (11.5-14.0); WHITE BLOOD COUNT 5.1 10^3/uL (4.0-10.5)
[2018-09-25] MEDS ORDERED: MORPHINE SULFATE 10 MG/ML INJ IV ONE (06:59)
[2018-09-25 07:01] LABS: ALANINE AMINOTRANSFERASE 18 U/L (21-72); ALBUMIN 3.3 g/dL (3.5-5.0); ALKALINE PHOSPHATASE 75 U/L (38-126); ANION GAP 12 (5-19); ASPARTATE AMINO TRANSFERASE 28 U/L (17-59); BILIRUBIN,DIRECT 0.1 mg/dL (0.0-0.4); BILIRUBIN,TOTAL 0.2 mg/dL (0.2-1.3); BLOOD UREA NITROGEN 34 mg/dL (7-20); CALCIUM 9.2 mg/dL (8.4-10.2); CARBON DIOXIDE 21 mmol/L (22-30); CHLORIDE 109 mmol/L (98-107); GLUCOSE 107 mg/dL (75-110); SODIUM 141.7 mmol/L (137-145); TOTAL PROTEIN 6.5 g/dL (6.3-8.2)
[2018-09-25 07:03] LABS: INTERNATIONAL RATION (INR) 1.32
--- NOTE | 2018-09-25 07:06 | ER Document Report ---
ED General - General Chief Complaint: Wound Recheck Stated Complaint: POSSIBLE BLEEDING Time Seen by Provider: 09/25/18 05:49 TRAVEL OUTSIDE OF THE [place] IN LAST 30 DAYS: No - HPI Notes: Patient is a 72-year-old male that presents to the emergency department for chief complaint of bleeding from ostomy. Patient has metastatic rectal cancer and had a colostomy placed by Dr. Luong. Patient has had recent bleeding issues with his colostomy. He was seen here a few days ago for bleeding and had his Eliquis stopped. He has not been on anticoagulation since Saturday. The bleeding was able to be controlled and he was discharged home from the emergency room. Patient states he had more bleeding last night. It seems to be coming from an excoriated area on top of the ostomy. He denies any injury to the ostomy. He states that EMS was able to get bleeding controlled. He denies any lightheadedness nausea or vomiting. He does have rectal pain which is chronic for him and seems to be improving with his fentanyl patch. He is currently getting chemotherapy. Past Medical History: Metastatic rectal cancer Past Surgical History: Colostomy Social History: Denies drugs alcohol and tobacco Family History: Reviewed and noncontributory for presenting illness Allergies: Reviewed, see documented allergy list. REVIEW OF SYSTEMS: CONSTITUTIONAL : No fever No chills No diaphoresis No recent illness EENT: No vision changes No congestion No sore throat CARDIOVASCULAR: No chest pain No palpitations RESPIRATORY: No shortness of breath No cough No difficulty breathing GASTROINTESTINAL: No abdominal pain Rectal pain No nausea No vomiting No diarrhea GENITOURINARY: No dysuria No hematuria No difficulty urinating MUSCULOSKELETAL: No back pain No leg pain No arm pain SKIN: Bleeding ostomy No rashes No lesions LYMPHATIC: No swollen, enlarged glands. NEUROLOGICAL: No lightheadedness No headache No weakness No paresthesias PSYCHIATRIC: No anxiety No depression PHYSICAL EXAMINATION: Vital signs reviewed, nursing noted reviewed. GENERAL: Well-appearing, well-nourished and in no acute distress. HEAD: Atraumatic, normocephalic. EYES: Eyes appear normal, extraocular movements intact, sclera anicteric, conjunctiva are normal. ENT: nares patent, oropharynx clear without exudates. Moist mucous membranes. NECK: Normal range of motion, supple without lymphadenopathy LUNGS: Breath sounds clear to auscultation bilaterally and equal. No wheezes rales or rhonchi. HEART: Regular rate and rhythm without murmurs ABDOMEN: Soft, mild tenderness around ostomy site and left abdomen, normoactive bowel sounds. No rebound, guarding, or rigidity. No masses appreciated. EXTREMITIES: Nontender, good range of motion, no pitting or edema. NEUROLOGICAL: No focal neurological deficits. Moves all extremities spontaneously Motor and sensory grossly intact on exam. PSYCH: Normal mood, normal affect. SKIN: Warm, Dry, normal turgor. Excoriated ostomy in left lower abdomen with no active bleeding - Related Data Allergies/Adverse Reactions: Iodinated Contrast- Oral and IV Dye Adverse Reaction (Mild, Verified 10/21/16 20 :47) Hives Past Medical History - Social History Smoking Status: Former Smoker Chew tobacco use (# tins/day): No Frequency of alcohol use: None Drug Abuse: None Family History: None, CAD - Father, Malignancy - Brother with prostate cancer. Father with bladder cancer. Patient has suicidal ideation: No Patient has homicidal ideation: No - Past Medical History Cardiac Medical History: Reports: Hx Congestive Heart Failure, Hx Hypertension, Hx Heart Murmur - Present since childhood Neurological Medical History: Denies: Hx Seizures Endocrine Medical History: Reports: Hx Diabetes Mellitus Type 2 - With peripheral neuropathy Renal/ Medical History: Denies: Hx Peritoneal Dialysis GI Medical History: Reports: Hx Irritable Bowel Past Surgical History: Reports: Hx Bowel Surgery - colostomy, Hx Herniorrhaphy - Left inguinal, Hx Orthopedic Surgery - Left ankle-knee, neck - Immunizations Hx Pneumococcal Vaccination: 09/05/16 Review of Systems - Review of Systems Notes: Dictated Physical Exam - Vital signs Vitals: Temp Pulse Resp BP Pulse Ox 98.7 F 70 18 160/78 H 98 09/25/18 05:48 09/25/18 05:48 09/25/18 05:48 09/25/18 05:48 09/25/18 05:48 - Notes Notes: Dictated Course - Re-evaluation Re-evalutation: 09/25/18 07:13 Vitals reviewed. Nursing notes reviewed. Patient has no active bleeding at this time. I discussed his case with Dr. Scruggs, general surgery, who will admit the patient for likely revision of his ostomy because of his continued issues with bleeding. I also discussed patient's care with Dr. Stoll who will be placed on consult. Patient was given a dose of morphine for pain around his ostomy and rectum. Patient and family in agreement with this plan. Laboratory 09/25/18 09/25/18 06:25 06:25 WBC 5.1 RBC 2.75 L Hgb 8.8 L Hct 25.6 L MCV 93 MCH 32.0 MCHC 34.4 RDW 18.7 H Plt Count 238 Total Counted 100 Seg Neutrophils % Not Reportable Seg Neuts % (Manual) 54 Lymphocytes % Not Reportable Lymphocytes % (Manual) 34 Monocytes % Not Reportable Monocytes % (Manual) 9 Eosinophils % Not Reportable Eosinophils % (Manual) 2 Basophils % Not Reportable Basophils % (Manual) 0 Metamyelocytes % 1 H Absolute Neutrophils Not Reportable Abs Neuts (Manual) 2.8 Absolute Lymphocytes Not Reportable Abs Lymphs (Manual) 1.7 Absolute Monocytes Not Reportable Abs Monocytes (Manual) 0.5 Absolute Eosinophils Not Reportable Absolute Eos (Manual) 0.1 Absolute Basophils Not Reportable Abs Basophils (Manual) 0.0 Toxic Granulation 1+ Large Platelets PRESENT Platelet Comment ADEQUATE Anisocytosis 2+ Tear Drop Cells 1+ Ovalocytes 1+ Schistocytes SLIGHT Sodium 141.7 Potassium 4.0 Chloride 109 H Carbon Dioxide 21 L Anion Gap 12 BUN 34 H Creatinine 1.18 Est GFR ( Amer) > 60 Est GFR (Non-Af Amer) > 60 Glucose 107 Calcium 9.2 Total Bilirubin 0.2 Direct Bilirubin 0.1 Neonat Total Bilirubin Not Reportable Neonat Direct Bilirubin Not Reportable Neonat Indirect Bili Not Reportable AST 28 ALT 18 L Alkaline Phosphatase 75 Total Protein 6.5 Albumin 3.3 L 09/25/18 07:35 Lab work shows anemia with a hemoglobin of 8.8. Patient has no active bleeding and is hemodynamically stable, blood transfusion not currently indicated. He is stable at time of admission - Vital Signs Vital signs: Temp Pulse Resp BP Pulse Ox 98.7 F 70 19 140/79 H 99 09/25/18 05:48 09/25/18 05:48 09/25/18 07:01 09/25/18 07:01 09/25/18 07:01 - Laboratory Result Diagrams: 09/25/18 06:25 09/25/18 06:25 Laboratory results interpreted by me: 11/15/18 11/15/18 06:25 06:25 RBC 2.75 L Hgb 8.8 L Hct 25.6 L RDW 18.7 H Metamyelocytes % 1 H Chloride 109 H Carbon Dioxide 21 L BUN 34 H ALT 18 L Albumin 3.3 L Discharge - Discharge Clinical Impression: Bleeding from colostomy stoma, Rectal pain Anemia Qualifiers: Anemia type: other cause Other causes of anemia: other cause, not classified Qualified Code(s): D64.89 - Other specified anemias Condition: Stable Disposition: ADMITTED INPATIENT Admitting Provider: Surgicalist Unit Admitted: Surgical Floor
[2018-09-25 07:19] LABS: ABSOLUTE LYMPHOCYTES# (MANUAL) 1.7 10^3/uL (0.5-4.7); ABSOLUTE MONOCYTES # (MANUAL) 0.5 10^3/uL (0.1-1.4); ABSOLUTE NEUTROPHILS# (MANUAL) 2.8 10^3/uL (1.7-8.2); BASOPHILS % (MANUAL) 0 % (0-2); EOSINOPHILS % (MANUAL) 2 % (0-6); LYMPHOCYTES % (MANUAL) 34 % (13-45); METAMYELOCYTES % (MANUAL) 1 % (0); MONOCYTES % (MANUAL) 9 % (3-13); SEGMENTED NEUTROPHILS % (MAN) 54 % (42-78); TOTAL CELLS COUNTED 100
[2018-09-25 07:20] LABS: ANISOCYTOSIS 2+; OVALOCYTES 1+; PLATELET COMMENT ADEQUATE; PLATELET LARGE PRESENT; SCHISTOCYTES SLIGHT; TEAR DROP CELLS 1+; TOXIC GRANULATION 1+
[2018-09-25] MEDS ORDERED: OXYCODONE-ACETAMINOPHEN 5-325 MG TABLET PO PRN (08:37)
--- NOTE | 2018-09-25 08:37 | PDOC H&P ---
History of Present Illness Admission Date/PCP: 09/25/18 07:18 KEVIN FATIMA MD Patient complains of: Pelvic pain and bleeding at ostomy History of Present Illness: ALIYA LÓPEZ is a 72 year old male with history of metastatic rectal cancer diagnosed 2 years ago that was treated with diverting colostomy followed by chemotherapy. Patient was noted with liver metastasis at that time. Patient apparently had good response with chemotherapy with shrinkage of his liver tumors. He had been on Coumadin for left leg DVT in the remote past and this anticoagulation was switched over to Eliquis recently. Since switching over to Eliquis he has had bleeding from his stoma which was treated with local measures in the ER several days ago. He was subsequently sent home but he had recurrent arterial bleeding this morning that was controlled with compression. He has had no more bleeding since arrival to the emergency department. Patient has been experiencing over the past several weeks severe pelvic pain that is unrelenting. Somewhat improved with position. The pain has been somewhat tolerable with the fentanyl patch, allowing him to sleep. Past Medical History Cardiac Medical History: Reports: Congestive Heart Failure, Hypertension, Heart Murmur - Present since childhood Neurological Medical History: Denies: Seizures Endocrine Medical History: Reports: Diabetes Mellitus Type 2 - With peripheral neuropathy GI Medical History: Reports: Other - History of rectal cancer. Past Surgical History Past Surgical History: Reports: Colostomy, Herniorrhaphy - Left inguinal, Orthopedic Surgery - Left ankle-knee, neck, Other - Neck mass resection in the remote past Social History Smoking Status: Former Smoker Frequency of Alcohol Use: None Hx Recreational Drug Use: No Drugs: None Hx Prescription Drug Abuse: No Family History Family History: None, CAD - Father, Malignancy - Brother with prostate cancer. Father with bladder cancer. Parental Family History Reviewed: No Children Family History Reviewed: No Sibling(s) Family History Reviewed.: No Medication/Allergy Allergies/Adverse Reactions: Iodinated Contrast- Oral and IV Dye Adverse Reaction (Mild, Verified 10/21/16 20 :47) Hives Review of Systems All systems: reviewed and no additional remarkable complaints except as stated Constitutional: PRESENT: weight loss Gastrointestinal: PRESENT: constipation, other - Pelvic pain and bleeding at his ostomy Musculoskeletal: PRESENT: back pain Neurological: PRESENT: other - Diabetic neuropathy Hematologic/Lymphatic: PRESENT: easy bleeding Physical Exam Vital Signs: Temp Pulse Resp BP Pulse Ox 98.7 F 70 19 140/79 H 99 09/25/18 05:48 09/25/18 05:48 09/25/18 07:01 09/25/18 07:01 09/25/18 07:01 General appearance: PRESENT: no acute distress, cooperative Eye exam: PRESENT: conjunctiva pink Respiratory exam: PRESENT: rhonchi - At the right base Cardiovascular exam: PRESENT: RRR GI/Abdominal exam: PRESENT: other - Soft, nondistended, nontender to palpation. Left lower quadrant ostomy in place. There is friability at the edges but no active bleeding. There is a softball sized parastomal hernia that is not reducible. There is no erythema and there is no tenderness. Rectal exam: PRESENT: other - There is no erythema in the perianal region. There is prolapsed rectal tissue that is easily reducible. No fluctuance. There is no significant perianal pain with digital rectal exam. I can feel a mass coming down into the pelvis at the tip of my finger but I do not feel any mucosal irregularities. Extremities exam: PRESENT: other - No tenderness and no swelling. Neurological exam: PRESENT: alert, awake Psychiatric exam: PRESENT: appropriate affect Skin exam: PRESENT: warm Assessment & Plan - Diagnosis (1) Bleeding from colostomy stoma Is this a current diagnosis for this admission?: Yes Plan: Appears to have stopped. Will bring the patient in for observation in light of the recurrence of his bleeding. Check coag studies. With his recurrent bleed, will stop his anticoagulation indefinitely. (2) Pelvic pain Is this a current diagnosis for this admission?: Yes Plan: Likely due to his rectal cancer. We will plan to obtain a CT scan with oral and IV contrast after I have hydrated him sufficiently. (3) Rhonchi at right lung base Is this a current diagnosis for this admission?: Yes Plan: Will obtain a chest CT along with his abdominal pelvic CT in light of his pulmonary findings in this patient with history of metastatic rectal cancer.
[2018-09-25] MEDS ORDERED: FENTANYL 25 MCG/HR PATCH.TD72 TD SCH ×3 (10:00→20:12)
[2018-09-25] MEDS ORDERED: MORPHINE SULFATE 10 MG/ML INJ ONE (12:02)
[2018-09-25] MEDS: NORMAL SALINE 1000 ML 1,000 ML IV PRN (13:29)
[2018-09-25 15:26] LABS: PARTIAL THROMBOPLASTIN TIME 79.1 SEC (23.5-35.8)
[2018-09-25] MEDS: MORPHINE SULFATE 10 MG/ML INJ IV PRN (15:27)
--- NOTE | 2018-09-25 20:20 | PDOC PROGRESS REPORT ---
Subjective Progress Note for:: 09/25/18 Subjective:: Extremely poor control of his pelvic pain. Patient received morphine and he has his fentanyl patch on and he has had no relief. Reason For Visit: BLEEDING OSTOMY,METASTATIC RECTAL CANCER Physical Exam Vital Signs: Temp Pulse Resp BP Pulse Ox 99.6 F 78 16 162/73 H 98 09/25/18 19:53 09/25/18 19:53 09/25/18 19:53 09/25/18 19:53 09/25/18 19:53 Intake & Output 09/24/18 09/25/18 09/26/18 06:59 06:59 06:59 Intake Total 948 Output Total 475 Balance 473 Weight 76.2 kg General appearance: PRESENT: cooperative, mild distress - restless due to his pain Assessment & Plan - Diagnosis (1) Pelvic pain Is this a current diagnosis for this admission?: Yes Plan: Pending CT scan. Likely malignancy related. Patient has a contrast allergy and contrast protocol is being instituted tonight. Will hydrate the patient as well tonight and will plan CT scan tomorrow. In regards to his pain control will increase his fentanyl patch and restart his oxycodone. I will place consult to [place] pain management service for tomorrow. I have also addressed possible DNR status with the patient and patient does want to be at full resuscitation for now.
[2018-09-25] MEDS ORDERED: NORMAL SALINE 1000 ML 2,000 ML IV ONE (21:30)
[2018-09-25] MEDS: AMITRIPTYLINE HCL 50 MG TABLET PO SCH (21:33)
[2018-09-25] MEDS: FAMOTIDINE 20 MG TABLET PO PRN (21:33)
[2018-09-25] MEDS: DIPHENHYDRAMINE HCL 50 MG CAPSULE PO PRN (21:33)
[2018-09-25] MEDS: OXYCODONE HCL SR 10 MG TABLET PO SCH (21:34)
[2018-09-25] MEDS: PREDNISONE 20 MG TABLET PO PRN (21:34)
[2018-09-25] MEDS ORDERED: FENTANYL 25 MCG/HR PATCH.TD72 TD ONE (22:20)
[2018-09-26] MEDS: NORMAL SALINE 1000 ML 1,000 ML IV PRN ×3 (05:42→21:29)
[2018-09-26] MEDS: MORPHINE SULFATE 10 MG/ML INJ IV PRN (08:09)
[2018-09-26] MEDS: OXYCODONE-ACETAMINOPHEN 5-325 MG TABLET PO PRN ×4 (08:30→21:29)
--- NOTE | 2018-09-26 08:31 | PDOC CONSULTATION ---
Consultation Consult Date: 09/26/18 Consult reason:: Hematology/Oncology consultation was requested for patient with rectal cancer and active bleeding. History of Present Illness Admission Date/PCP: 09/25/18 07:18 KEVIN FATIMA MD History of Present Illness: ALIYA LÓPEZ is a 72 year old male who was diagnosed with Stage IV Rectal adenocarcinoma 10/2016. He had liver mets at the time of diagnosis. He underwent diverting colostomy in Oct 2016 and since that time has been on palliative chemotherapy. In Aug 2018, he showed signs of progression and chemotherapy was changed. It has not been thought that he has been a surgical candidate at any point thus far. Recently, he has been having increased BMs though his rectum as well as his ostomy site. His rectal pain has become worse. He had been on warfarin for recurrent DVTs until 2017 when he was changed to Eliquis. Over the last week, he has presented twice to the ED with arterial bleed at the site of his ostomy. His Eliquis was stopped. He has required blood transfusions due to the amount of bleeding. He also recently started on duragesic for the pain control. This morning, he states that he pain remained severe last night and the bleeding seems to have stopped. He is scheduled for CT scan this morning. Past Medical History Cardiac Medical History: Reports: Congestive Heart Failure, Hypertension, Heart Murmur - Present since childhood Neurological Medical History: Denies: Seizures Endocrine Medical History: Reports: Diabetes Mellitus Type 2 - With peripheral neuropathy Malignancy Medical History: Reports: Colorectal Cancer GI Medical History: Reports: Other - History of rectal cancer. Hematology: Reports: Other - DVTs Past Surgical History Past Surgical History: Reports: Colostomy, Herniorrhaphy - Left inguinal, Orthopedic Surgery - Left ankle-knee, neck, Other - Neck mass resection in the remote past. Port placement Social History Information Source: Patient Lives with: Spouse/Significant other Smoking Status: Former Smoker Frequency of Alcohol Use: None Hx Recreational Drug Use: No Drugs: None Hx Prescription Drug Abuse: No - Advance Directive Resuscitation Status: Full Code Family History Family History: CAD - Father, Malignancy - Brother with prostate cancer. Father with bladder cancer. Parental Family History Reviewed: Yes - Father of gallbladder cancer at age 81 Children Family History Reviewed: No Sibling(s) Family History Reviewed.: Yes - Brother with prostate cancer Medication/Allergy Home Medications: Amitriptyline HCl [Elavil 50 mg Tablet] 50 mg PO QHS 09/25/18 Ascorbic Acid [Vitamin C 500 mg Tablet] 500 mg PO DAILY 09/25/18 Zinc 50 mg PO DAILY 09/25/18 Allergies/Adverse Reactions: Iodinated Contrast- Oral and IV Dye Adverse Reaction (Mild, Verified 10/21/16 20 :47) Hives Review of Systems Constitutional: ABSENT: fever(s), headache(s) Eyes: ABSENT: visual disturbances Ears: ABSENT: hearing changes Nose, Mouth, and Throat: ABSENT: sore throat Cardiovascular: ABSENT: chest pain, palpitations Respiratory: ABSENT: dyspnea Gastrointestinal: PRESENT: other - Rectal pain, black stools, bleeding Genitourinary: ABSENT: dysuria Musculoskeletal: PRESENT: back pain Integumentary: ABSENT: rash Neurological: PRESENT: other - neuropathy. ABSENT: weakness Psychiatric: ABSENT: anxiety, depression Hematologic/Lymphatic: PRESENT: easy bleeding Physical Exam Vital Signs: Temp Pulse Resp BP Pulse Ox 99.4 F 78 16 153/72 H 100 09/25/18 23:41 09/25/18 23:41 09/25/18 23:41 09/25/18 23:41 09/25/18 23:41 Intake & Output 09/25/18 09/26/18 09/27/18 06:59 06:59 06:59 Intake Total 4598 Output Total 1575 Balance 3023 Weight 76.3 kg General appearance: PRESENT: no acute distress, thin Exam: 72 year old male. Head exam: PRESENT: normocephalic Eye exam: PRESENT: EOMI Mouth exam: PRESENT: tongue midline Teeth exam: PRESENT: edentulous Neck exam: ABSENT: lymphadenopathy, tenderness Respiratory exam: PRESENT: clear to auscultation juan daniel, unlabored Cardiovascular exam: PRESENT: RRR GI/Abdominal exam: PRESENT: soft, other - Ostomy with hernia. No current active bleeding.. ABSENT: tenderness Extremities exam: ABSENT: pedal edema Musculoskeletal exam: PRESENT: normal inspection Neurological exam: PRESENT: alert, awake, oriented to person, oriented to place , oriented to time, oriented to situation Psychiatric exam: PRESENT: appropriate affect Skin exam: PRESENT: normal color Assessment & Plan - Diagnosis (1) Rectal cancer metastasized to liver Is this a current diagnosis for this admission?: Yes Plan: Most recent chemotherapy was 5-FU, leukovorin, Irinotecan on 09/09/2018. Further treatment on hold. Await CT scan results (2) Bleeding from colostomy stoma Is this a current diagnosis for this admission?: Yes Plan: His blood thinners have been on hold. His PT/PTT are both elevated. I am unsure why. I will repeat these levels and add mixing study if still abnormal. His LFTs have been normal. (3) Rectal pain Is this a current diagnosis for this admission?: Yes Plan: Continue Duragesic 50 mcg q 72 hours as well as PRN pain meds. (4) History of DVT (deep vein thrombosis) Is this a current diagnosis for this admission?: Yes Plan: No blood thinners for now with active bleeding. - Plan Summary Plan Summary: Please feel free to call me with questions or concerns.
[2018-09-26] MEDS ORDERED: NORMAL SALINE 1000 ML 2,000 ML IV ONE (09:00)
[2018-09-26 09:15] LABS: INTERNATIONAL RATION (INR) 1.28; PROTHROMBIN TIME 16.6 SEC (11.4-15.4)
[2018-09-26 09:16] LABS: PARTIAL THROMBOPLASTIN TIME 36.9 SEC (23.5-35.8)
[2018-09-26] MEDS ORDERED: NORMAL SALINE 1000 ML 1,000 ML IV ONE ×2 (09:30→11:30)
[2018-09-26] MEDS: OXYCODONE HCL SR 10 MG TABLET PO SCH ×2 (09:35→21:26)
[2018-09-26] MEDS: ASCORBIC ACID 500 MG TABLET PO SCH (09:35)
[2018-09-26] MEDS: FAMOTIDINE 20 MG TABLET PO PRN (09:35)
[2018-09-26] MEDS: PREDNISONE 20 MG TABLET PO PRN (09:36)
[2018-09-26] MEDS: DIPHENHYDRAMINE HCL 50 MG CAPSULE PO PRN (09:36)
[2018-09-26] MEDS ORDERED: (PENDING PHARMACY ID) (Zinc [Zinc] 50 MG) PO SCH (10:00)
[2018-09-26] MEDS ORDERED: DIPHENHYDRAMINE HCL 50 MG CAPSULE PO ONE (14:00)
[2018-09-26] MEDS ORDERED: PREDNISONE 20 MG TABLET PO ONE (14:00)
[2018-09-26] MEDS ORDERED: FAMOTIDINE 20 MG TABLET PO ONE (14:00)
--- NOTE | 2018-09-26 14:49 | RADIOLOGY REPORT (SQ) ---
EXAM DESCRIPTION: CT CHEST WITH; CT ABD/PELVIS WITH IV ORAL COMPLETED DATE/TIME: 09/26/2018 2:11 pm REASON FOR STUDY: rectal cancer restaging COMPARISON: CT chest abdomen and pelvis 07/08/2018 CT abdomen pelvis 03/20/2018, 10/25/2017 CT chest 07/22/2017 CONTRAST TYPE AND DOSE: contrast/concentration: Isovue 350.00 mg/ml; Total Contrast Delivered: 82.0 ml; Total Saline Delivered: 68.0 ml RENAL FUNCTION: Creatinine 1.2 TECHNIQUE: CT scan of the chest performed using helical scanning technique with dynamic intravenous contrast injection. Images reviewed with lung, soft tissue and bone windows. Reconstructed coronal a nd sagittal MPR images reviewed. All images stored on PACS. CT scan of the abdomen and pelvis performed with intravenous and with oral contrastusing helical scan arpan technique with dynamic intravenous contrast injection. Images reviewed with lung, soft tissue a nd bone windows. Reconstructed coronal and sagittal MPR images reviewed. Delayed images for evaluat ion of the urinary system also acquired and evaluated. All images stored on PACS. All CT scanners at this facility use dose modulation, iterative reconstruction, and/or weight based d osing when appropriate to reduce radiation dose to as low as reasonably achievable (ALARA). [facility]: Dose Right [facility]: CareDose [facility]: Dose Right [facility]: Teradose 4D [facility]: Smart Technologies RADIATION DOSE: CT Rad equipment meets quality standard of care and radiation dose reduction techniq ues were employed. CTDIvol: 6.2 - 7.3 mGy. DLP: 1098 mGy-cm. . LIMITATIONS: None. FINDINGS: CHEST: LUNGS AND PLEURA: Increasing size and number of pulmonary nodules compared to prior CT chest exam 06/12 as follows: 1.7 cm nodule superior segment right lower lobe image 52 (was 1 cm diameter 07/08/2018) 1 cm lingular nodule axial image 78 (was less than 5 mm diameter 07/08/2018) Multiple new less than 5 mm nodules are present around the periphery of both lungs Stable scarring in the right posterior costophrenic sulcus. No pleural effusions. No pneumothorax. No acute infiltrates. HILAR AND MEDIASTINAL STRUCTURES: No identified masses or abnormal nodes. HEART AND VASCULAR STRUCTURES: No aneurysm or dissection. No central pulmonary emboli. No pericardi al effusion. HARDWARE: Right jugular central line tip superior vena cava THYROID AND OTHER SOFT TISSUES: No masses. No adenopathy. BONES: No significant finding. OTHER: No other significant finding. ABDOMEN AND PELVIS: LIVER: Increase in size of liver metastatic lesions, index lesions are as follows: Posterior right lobe liver 3.9 x 3.7 cm axial image 21 (was 2.2 x 2 cm 07/08/2018) Left lobe liver 4.2 x 3.1 cm axial image 24 (was 3.4 x 2.3 cm 07/08/2018) SPLEEN: Normal size. No focal lesions. PANCREAS: No masses. No significant calcifications. No adjacent inflammation or peripancreatic fluid collections. Pancreatic duct not dilated. GALLBLADDER: Gallstones are present. No gallbladder wall thickening or pericholecystic fluid ADRENAL GLANDS: No significant masses or asymmetry. RIGHT KIDNEY AND URETER: No solid masses. No significant calcification. No hydronephrosis or hydroure ter. LEFT KIDNEY AND URETER: No solid masses. No significant calcification. No hydronephrosis or hydrouret er. AORTA AND VESSELS: No aneurysm. No dissection. Renal arteries, SMA, celiac without stenosis. RETROPERITONEUM: No retroperitoneal adenopathy, hemorrhage or masses. BOWEL AND PERITONEAL CAVITY: Patient drank oral contrast. No bowel obstruction. Left lower quadrant colostomy with stomal hernia containing multiple nonobstructed small bowel loops. Patient has a Brian pouch with residual tumor measuring 11 cm craniocaudad by 7 cm transverse by 7 cm AP. There is loss of discrete fat planes between the mass and presacral fat, and increased atten uation of the fat in the perirectal region. Blurring of fat planes between the colon mass and semina l vesicle/ prostate. These findings represent progression of pelvic disease. APPENDIX: Normal. ABDOMINAL WALL: Left lower quadrant colostomy with stomal hernia containing nonobstructed small bowel loops PELVIS: Residual colon tumor along the Brian pouch, increased in size since 07/08/2018 now with bl urring of fat planes between the mass and the presacral fat, and between the mass and the prostate an d seminal vesicles BONES: No significant or acute findings. OTHER: No other significant finding. IMPRESSION: Progression of disease in the chest, liver, and pelvis TECHNICAL DOCUMENTATION: JOB ID: [id number] Quality ID # [id number]: Final reports with documentation of one or more dose reduction techniques (e.g., Au tomated exposure control, adjustment of the mA and/or kV according to patient size, use of iterative reconstruction technique) 2010 [employer]- All Rights Reserved Reading location - IP/workstation name: [email or web address]
--- NOTE | 2018-09-26 15:15 | PDOC PROGRESS REPORT ---
Subjective Progress Note for:: 09/26/18 Subjective:: Patient a little confused; is having good ostomy output. Reason For Visit: BLEEDING OSTOMY,METASTATIC RECTAL CANCER Physical Exam Vital Signs: Temp Pulse Resp BP Pulse Ox 98.0 F 71 12 176/87 H 97 09/26/18 11:26 09/26/18 11:26 09/26/18 11:26 09/26/18 11:26 09/26/18 11:26 Intake & Output 09/25/18 09/26/18 09/27/18 06:59 06:59 06:59 Intake Total 4598 733 Output Total 1575 Balance 3023 733 Weight 76.3 kg General appearance: PRESENT: no acute distress GI/Abdominal exam: PRESENT: other - Parastomal hernia appreciated, soft and partially reducible; copious amount of stool in the bag Results Impressions: Abdomen/Pelvis CT 09/25/18 00:00 IMPRESSION: Progression of disease in the chest, liver, and pelvis Chest CT 09/25/18 00:00 IMPRESSION: Progression of disease in the chest, liver, and pelvis Assessment & Plan - Diagnosis (1) Metastasis from rectal cancer Is this a current diagnosis for this admission?: Yes Plan: Impression: Patient just returned from CT scanning of the chest abdomen and pelvis. There are multiple pulmonary metastases, and the 2 dominant liver metastases and pelvic tumor have all expanded in size. The radiologist impression is that the disease has progressed. Recommendations: 1. I spoke with Dr. Stoll who is patient's medical oncologist currently following the patient in the hospital. I suggested that the patient be transferred to the internal medicine service as the principal problem at this point is diffuse metastatic disease refractory to therapeutic intent. I will make an effort to contact the on-call hospitalist and facilitate transfer. 2. Please reconsult surgery if specific service required. - Time Time Spent with patient: 15-24 minutes Smoking Cessation Education: over 10 minutes
--- NOTE | 2018-09-26 17:58 | PDOC PROGRESS REPORT ---
Subjective Progress Note for:: 09/26/18 Subjective:: I returned today to discuss CT results and plans for further treatment. Reason For Visit: BLEEDING OSTOMY,METASTATIC RECTAL CANCER Physical Exam Vital Signs: Temp Pulse Resp BP Pulse Ox 98.0 F 71 12 176/87 H 97 09/26/18 11:26 09/26/18 11:26 09/26/18 11:26 09/26/18 11:26 09/26/18 11:26 Intake & Output 09/25/18 09/26/18 09/27/18 06:59 06:59 06:59 Intake Total 4598 733 Output Total 1575 Balance 3023 733 Weight 76.3 kg Results Impressions: Abdomen/Pelvis CT 09/25/18 00:00 IMPRESSION: Progression of disease in the chest, liver, and pelvis Chest CT 09/25/18 00:00 IMPRESSION: Progression of disease in the chest, liver, and pelvis Assessment & Plan - Diagnosis (1) Rectal cancer metastasized to liver Is this a current diagnosis for this admission?: Yes (2) Bleeding from colostomy stoma Is this a current diagnosis for this admission?: Yes (3) Rectal pain Is this a current diagnosis for this admission?: Yes (4) History of DVT (deep vein thrombosis) Is this a current diagnosis for this admission?: Yes - Time Time Spent with patient: 25-34 minutes - Plan Summary Plan Summary: Patient was seen while was on phone during conference call and Dr. Lowery (Hospitalist). Patient was also discussed with Dr. Luong earlier today. I reviewed the CT report with the patient and in detail and a copy was given to them. There has been marked progression in the primary tumor in the rectum, as well as the liver and lungs. I gave patient list of NCCN recommendations for further systemic treatments. They will consider these options. However, these cannot be started until he is out of the hospital. No further anticoagulation. Further decision as to bleeding to be determined by Surgeons and primary team. His PT/PTT have greatly improved, but PT was still elevated. May consider oral Vit k 5 mg PO x 2-3 doses. However, I believe most of the bleeding is due to anatomic problems. I will continue to follow. Please call with any questions.
--- NOTE | 2018-09-26 19:40 | PDOC CONSULTATION ---
Consultation Consult Date: 09/26/18 Attending physician:: JUSTIN HILL Consult reason:: Nonsurgical complications of metastatic colorectal cancer. History of Present Illness Admission Date/PCP: 09/25/18 07:18 KEVIN FATIMA MD Patient complains of: Acute arterial bleeding from his ostomy site History of Present Illness: ALIYA MCKEON is a 72 year old male who has presented to the emergency room on 2 occasions over the last several days with acute severe (requiring transfusion ) bright red arterial bleeding from his colostomy site. The bleeding appeared to be coming from the division of a small artery located superficially in the soft tissues just beneath the mucosa of the "lip" of the colostomy. The bleeding was controlled with pressure and with an injection to induce cautery ( probably epinephrine). The patient has also has severe abdominal pain and back pain related to his metastatic colorectal cancer which was the reason for his colostomy to have been placed 2 years ago. Recently he has been using fentanyl patches for his pain and was also started on Eliquis for control of his hypercoagulable state secondary to his carcinoma. He has a history of deep venous thromboses and prior to Eliquis had been on Coumadin. He was initially admitted to the hospital by the surgical service but as there is no surgically treatable disease that have asked the hospitalist service to consult and assume care. The patient is also being seen by the oncology service. Past Medical History Cardiac Medical History: Reports: Congestive Heart Failure, Hypertension, Heart Murmur - Present since childhood Pulmonary Medical History: Denies: Asthma, Chronic Obstructive Pulmonary Disease (COPD), Sleep Apnea EENT Medical History: Reports: None, Other - DVTs Neurological Medical History: Denies: Multiple Sclerosis, Seizures Endocrine Medical History: Reports: Diabetes Mellitus Type 2 - With peripheral neuropathy Denies: Diabetes Mellitus Type 1, Hyperthyroidism Renal/ Medical History: Denies: Chronic Kidney Disease, Nephrolithiasis Malignancy Medical History: Reports: Colorectal Cancer GI Medical History: Reports: Other - History of rectal cancer. 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 Port placement Social History Information Source: Patient Lives with: Spouse/Significant other Smoking Status: Former Smoker Frequency of Alcohol Use: None Hx Recreational Drug Use: No Drugs: None Hx Prescription Drug Abuse: No - Advance Directive Resuscitation Status: Full Code Surrogate healthcare decision maker:: Family History Family History: CAD - Father, Malignancy - Brother with prostate cancer. Father with bladder cancer. Parental Family History Reviewed: Yes Children Family History Reviewed: Yes Sibling(s) Family History Reviewed.: Yes Medication/Allergy Home Medications: Amitriptyline HCl [Elavil 50 mg Tablet] 50 mg PO QHS 09/25/18 Ascorbic Acid [Vitamin C 500 mg Tablet] 500 mg PO DAILY 09/25/18 Zinc 50 mg PO DAILY 09/25/18 Allergies/Adverse Reactions: Iodinated Contrast- Oral and IV Dye Adverse Reaction (Mild, Verified 10/21/16 20 :47) Hives Review of Systems Constitutional: ABSENT: anorexia, chills, fever(s) Eyes: ABSENT: visual disturbances, other - Ocular pain Ears: ABSENT: hearing changes, other - Ear pain Nose, Mouth, and Throat: ABSENT: mouth pain, sore throat Cardiovascular: ABSENT: chest pain, dyspnea on exertion, orthropnea, palpitations Respiratory: ABSENT: cough, dyspnea Gastrointestinal: PRESENT: as per HPI, abdominal pain - Chronic, other - Arterial bleeding from colostomy margin. ABSENT: bloating, constipation, diarrhea, dysphagia, hematochezia, melena, nausea, vomiting Genitourinary: ABSENT: dysuria, hematuria Musculoskeletal: ABSENT: deformity, joint swelling Integumentary: ABSENT: pruritus, rash Neurological: PRESENT: numbness - Left lower extremity, paresthesias - Left lower extremity, tingling - Left lower extremity. ABSENT: abnormal speech, confusion, convulsions, focal weakness, memory loss, tremor(s) Psychiatric: ABSENT: anxiety, depression, hallucinations Endocrine: ABSENT: cold intolerance, heat intolerance Hematologic/Lymphatic: PRESENT: easy bleeding - Especially when on warfarin, easy bruising - Especially when on warfarin Allergic/Immunologic: ABSENT: seasonal rhinorrhea, other - Insect bite allergies Physical Exam Vital Signs: Temp Pulse Resp BP Pulse Ox 98.2 F 73 16 180/81 H 95 09/26/18 14:56 09/26/18 14:56 09/26/18 14:56 09/26/18 14:56 09/26/18 14:56 Intake & Output 09/24/18 09/25/18 09/26/18 23:59 23:59 23:59 Intake Total 1948 3974 Output Total 475 1100 Balance 1473 2874 Weight 76.2 kg 76.3 kg General appearance: PRESENT: no acute distress, cooperative Head exam: PRESENT: atraumatic, normocephalic Eye exam: PRESENT: conjunctiva pink, EOMI Ear exam: PRESENT: normal external ear exam. ABSENT: bleeding, drainage Mouth exam: PRESENT: neck supple, tongue midline Neck exam: ABSENT: JVD, thyromegaly, tracheal deviation Respiratory exam: PRESENT: clear to auscultation juan daniel, symmetrical, unlabored Cardiovascular exam: PRESENT: RRR. ABSENT: clicks, diastolic murmur, gallop, rubs, systolic murmur Vascular exam: PRESENT: normal capillary refill. ABSENT: pallor GI/Abdominal exam: PRESENT: hernia - Large hernia at the base of the colostomy easily reducible., normal bowel sounds, soft. ABSENT: distended, tenderness Rectal exam: PRESENT: deferred Extremities exam: ABSENT: joint swelling, pedal edema Musculoskeletal exam: PRESENT: ambulatory, full ROM. ABSENT: deformity, dislocation Neurological exam: PRESENT: alert, oriented to person, oriented to place, oriented to time, oriented to situation, CN II-XII grossly intact. ABSENT: motor sensory deficit - To gross exam Psychiatric exam: PRESENT: appropriate affect, normal mood Skin exam: PRESENT: dry, intact, warm. ABSENT: jaundice, rash, urticaria Results Impressions: Abdomen/Pelvis CT 09/25/18 00:00 IMPRESSION: Progression of disease in the chest, liver, and pelvis Chest CT 09/25/18 00:00 IMPRESSION: Progression of disease in the chest, liver, and pelvis Assessment & Plan - Diagnosis (1) Bleeding from colostomy stoma Is this a current diagnosis for this admission?: Yes Plan: Patient's bleeding from his colostomy stoma is currently resolved. If he continues to have hemostasis over the next 24-48 hours he will be discharged to home and follow-up with Dr. Stoll at her oncology clinic for further evaluation and treatment. As there is no surgical disease present at this time the hospitalist service will take over the care of Mr. Mckeon. Thank you for your consultation and will look forward to working with you again in the future. (2) Blood loss anemia Is this a current diagnosis for this admission?: Yes Plan: Patient did have anemia secondary to his acute blood loss and did require transfusion. His hemoglobin will be followed by daily evaluations of his CBC. (3) Colorectal cancer, stage IV Is this a current diagnosis for this admission?: Yes Plan: Patient has significant pain related to his locally invasive and metastatic disease. His pain control will be continued utilizing IV morphine for severe breakthrough pain, oral oxycodone for lesser breakthrough pain and fentanyl ( dermal patch) as the baseline pain control agent. (4) Hypertension Qualifiers: Hypertension type: essential hypertension Qualified Code(s): I10 - Essential (primary) hypertension Is this a current diagnosis for this admission?: Yes Plan: Patient has essential hypertension and at the present time he is taking no antihypertensive agents. Blood pressure control will be closely considered but as he has no longer having significant bleeding it would probably be appropriate to start him back on a appropriate antihypertensive agent to control his essential hypertension. The metabolic factors associated with hypertension will be followed with a daily metabolic profile and magnesium level. (5) Diabetes mellitus type 2 in nonobese Is this a current diagnosis for this admission?: Yes Plan: Patient gives a history of having diabetes which he has been controlling with diet. Hemoglobin A1c will be obtained to evaluate his status. Additionally his endocrine status will be evaluated utilizing a panel and a lipid profile and a thyroid panel. (6) Chronic anticoagulation Is this a current diagnosis for this admission?: Yes Plan: Chronic anticoagulation has been discontinued due to the patient's arterial bleeding requiring transfusion. At some point in the future this may be reconsidered however at the present time and for this foreseeable near future there is no intent to resume anticoagulation (7) History of DVT (deep vein thrombosis) Is this a current diagnosis for this admission?: Yes Plan: Patient has a history of DVT for which he was on chronic anticoagulation. He has a hypercoagulable state due to his carcinoma. However with the patient's acute arterial bleeding requiring transfusion it is been decided that the patient should not have further anticoagulation therapy as the risk of the DVT is not as severe as the risk of an acute life-threatening hemorrhage. - Time Time Spent: Greater than 70 Minutes Within: within 72 hours
[2018-09-26] MEDS: AMITRIPTYLINE HCL 50 MG TABLET PO SCH (21:30)
[2018-09-27] MEDS: MORPHINE SULFATE 10 MG/ML INJ IV PRN ×2 (00:08→12:47)
[2018-09-27] MEDS: OXYCODONE-ACETAMINOPHEN 5-325 MG TABLET PO PRN ×2 (07:24→15:23)
[2018-09-27] MEDS: NORMAL SALINE 1000 ML 1,000 ML IV PRN (07:24)
[2018-09-27 09:03] LABS: INTERNATIONAL RATION (INR) 1.29; PROTHROMBIN TIME 16.7 SEC (11.4-15.4)
[2018-09-27 09:04] LABS: PARTIAL THROMBOPLASTIN TIME 33.4 SEC (23.5-35.8)
[2018-09-27 09:08] LABS: HEMATOCRIT 25.3 % (37.9-51.0); HEMOGLOBIN 8.7 g/dL (13.5-17.0); MEAN CORPUSCULAR HEMOGLOBIN 31.8 pg (27.0-33.4); MEAN CORPUSCULAR HGB CONC 34.4 g/dL (32.0-36.0); MEAN CORPUSCULAR VOLUME 92 fl (80-97); PLATELET COUNT 229 10^3/uL (150-450); RED BLOOD COUNT 2.74 10^6/uL (4.35-5.55); RED CELL DISTRIBUTION WIDTH 18.8 % (11.5-14.0); WHITE BLOOD COUNT 5.4 10^3/uL (4.0-10.5)
[2018-09-27 09:13] LABS: ALANINE AMINOTRANSFERASE 17 U/L (21-72); ALBUMIN 2.9 g/dL (3.5-5.0); ALKALINE PHOSPHATASE 72 U/L (38-126); ANION GAP 12 (5-19); ASPARTATE AMINO TRANSFERASE 26 U/L (17-59); BILIRUBIN,DIRECT 0.1 mg/dL (0.0-0.4); BILIRUBIN,TOTAL 0.3 mg/dL (0.2-1.3); BLOOD UREA NITROGEN 19 mg/dL (7-20); CARBON DIOXIDE 19 mmol/L (22-30); CHLORIDE 110 mmol/L (98-107); GLUCOSE 120 mg/dL (75-110); POTASSIUM 3.8 mmol/L (3.6-5.0); SODIUM 140.9 mmol/L (137-145); TOTAL PROTEIN 5.8 g/dL (6.3-8.2)
[2018-09-27 09:27] LABS: ABSOLUTE LYMPHOCYTES# (MANUAL) 1.5 10^3/uL (0.5-4.7); ABSOLUTE MONOCYTES # (MANUAL) 0.5 10^3/uL (0.1-1.4); ABSOLUTE NEUTROPHILS# (MANUAL) 3.3 10^3/uL (1.7-8.2); BASOPHILS % (MANUAL) 0 % (0-2); EOSINOPHILS % (MANUAL) 0 % (0-6); LYMPHOCYTES % (MANUAL) 28 % (13-45); METAMYELOCYTES % (MANUAL) 1 % (0); MONOCYTES % (MANUAL) 10 % (3-13); SEGMENTED NEUTROPHILS % (MAN) 61 % (42-78); TOTAL CELLS COUNTED 100
[2018-09-27 09:30] LABS: PLATELET CLUMPS PRESENT; PLATELET COMMENT ADEQUATE; POIKILOCYTOSIS 1+; TEAR DROP CELLS 1+
[2018-09-27] MEDS ORDERED: PHYTONADIONE 5 MG TABLET PO SCH (10:00)
[2018-09-27] MEDS: OXYCODONE HCL SR 10 MG TABLET PO SCH (11:23)
[2018-09-27] MEDS: ASCORBIC ACID 500 MG TABLET PO SCH (11:25)
--- NOTE | 2018-09-27 13:00 | PDOC DISCHARGE SUMMARY ---
General - Admit/Disc Date/PCP Admission Date/Primary Care Provider: 09/25/18 07:18 KEVIN FATIMA MD Discharge Date: 09/27/18 - Discharge Diagnosis (1) Bleeding from colostomy stoma Is this a current diagnosis for this admission?: Yes Summary: Patient's bleeding from his colostomy stoma is currently resolved. If he continues to have hemostasis over the next 24-48 hours he will be discharged to home and follow-up with Dr. Stoll at her oncology clinic for further evaluation and treatment. (2) Blood loss anemia Is this a current diagnosis for this admission?: Yes Summary: Patient did have anemia secondary to his acute blood loss and did require transfusion. His hemoglobin was followed with daily evaluations of his CBC. (3) Colorectal cancer, stage IV Is this a current diagnosis for this admission?: Yes Summary: Patient has significant pain related to his locally invasive and metastatic disease. His pain control will be continued oral OxyContin and a Duragesic patch for severe breakthrough pain, oral oxycodone. (4) Hypertension Is this a current diagnosis for this admission?: Yes Summary: Patient has essential hypertension and was restarted on metoprolol 100 mg p.o. prior to discharge to be continued with his home metoprolol 100 mg p.o. twice daily therapy. (5) Diabetes mellitus type 2 in nonobese Is this a current diagnosis for this admission?: Yes Summary: Patient gives a history of having diabetes which he has been controlling with diet. Diet control will be continued upon discharge. (6) Chronic anticoagulation Is this a current diagnosis for this admission?: Yes Summary: Chronic anticoagulation has been discontinued due to the patient's arterial bleeding requiring transfusion. At some point in the future this may be reconsidered however at the present time and for this foreseeable near future there is no intent to resume anticoagulation. (7) History of DVT (deep vein thrombosis) Is this a current diagnosis for this admission?: Yes Summary: Patient had been on chronic anticoagulation for this problem. At this point patient will discontinue use of anticoagulants which may be resumed at some future date by his primary care provider, surgeon or oncologist. - Additional Information Resuscitation Status: Full Code Discharge Diet: As Tolerated, Diabetic Discharge Activity: Activity As Tolerated, Walk Frequently Prescriptions: Fentanyl [Duragesic 50 Mcg/Hr Transdermal Patch] 1 each TD Q3D 30 Days #10 patch.td72 Oxycodone HCl/Acetaminophen [Percocet 5-325 mg Tablet] 1 tab PO Q4HP PRN 10 Days #30 tablet PRN Reason: Oxycodone HCl [Oxycontin Sr 10 mg Tablet] 10 mg PO Q12 30 Days #60 tab.sr.12h Home Medications: Amitriptyline HCl [Elavil 50 mg Tablet] 50 mg PO QHS 09/25/18 Ascorbic Acid [Vitamin C 500 mg Tablet] 500 mg PO DAILY 09/25/18 Zinc 50 mg PO DAILY 09/25/18 Fentanyl [Duragesic 50 Mcg/Hr Transdermal Patch] 1 each TD Q3D 30 Days #10 patch.td72 09/27/18 Oxycodone HCl [Oxycontin Sr 10 mg Tablet] 10 mg PO Q12 30 Days #60 tab.sr.12h Oxycodone HCl/Acetaminophen [Percocet 5-325 mg Tablet] 1 tab PO Q4HP PRN 10 Days #30 tablet 09/27/18 History of Present Illness Patient complains of: Bleeding from colostomy site History of Present Illness: ALIYA LÓPEZ is a 72 year old male who has presented to the emergency room on 2 occasions over the last several days with acute severe (requiring transfusion ) bright red arterial bleeding from his colostomy site. The bleeding appeared to be coming from the division of a small artery located superficially in the soft tissues just beneath the mucosa of the "lip" of the colostomy. The bleeding was controlled with pressure and with an injection to induce cautery ( probably epinephrine). The patient has also has severe abdominal pain and back pain related to his metastatic colorectal cancer which was the reason for his colostomy to have been placed 2 years ago. Recently he has been using fentanyl patches for his pain and was also started on Eliquis for control of his hypercoagulable state secondary to his carcinoma. He has a history of deep venous thromboses and prior to Eliquis had been on Coumadin. He was initially admitted to the hospital by the surgical service but as there is no surgically treatable disease that have asked the hospitalist service to consult and assume care. The patient is also being seen by the oncology service. Hospital Course Hospital Course: Mr. López had no new bleeding for 72 hours and therefore it was felt he could be discharged to home in improved and stable condition on the afternoon of 09/27. Patient will be seen in follow-up by his oncologist and his surgeon at appointments of their choosing. He is feeling quite well today but is somewhat upset after reading through his CAT scan report which I provided for him. He feels that he was not completely informed or correctly informed at the time of his previous CAT scan which showed metastatic disease that he was told to the best of his recollection of events that his CAT scan showed that he was clear of cancer. I have asked the patient to discuss this matter with his oncologist and his surgeon at his upcoming visits. Physical Exam Vital Signs: Temp Pulse Resp BP Pulse Ox 98.5 F 55 L 16 168/71 H 100 09/27/18 07:57 09/27/18 07:57 09/27/18 07:57 09/27/18 07:57 09/27/18 07:57 Intake & Output 09/25/18 09/26/18 09/27/18 23:59 23:59 23:59 Intake Total 1948 4819 1432 Output Total 475 1100 Balance 1473 3719 1432 Weight 76.2 kg 76.3 kg 76.8 kg General appearance: PRESENT: no acute distress, cooperative Head exam: PRESENT: atraumatic, normocephalic Eye exam: PRESENT: conjunctiva pink, EOMI Ear exam: PRESENT: normal external ear exam Mouth exam: PRESENT: neck supple Respiratory exam: PRESENT: clear to auscultation juan daniel, symmetrical, unlabored Cardiovascular exam: PRESENT: RRR, other - No murmurs clicks gallops or rubs Vascular exam: PRESENT: normal capillary refill. ABSENT: pallor Rectal exam: PRESENT: deferred Extremities exam: ABSENT: joint swelling, pedal edema Musculoskeletal exam: PRESENT: ambulatory. ABSENT: deformity, dislocation Neurological exam: PRESENT: alert, oriented to person, oriented to place, oriented to time, oriented to situation, CN II-XII grossly intact. ABSENT: motor sensory deficit - On gross exam Psychiatric exam: PRESENT: appropriate affect, normal mood Skin exam: PRESENT: dry, intact, warm. ABSENT: jaundice, rash, urticaria Results Laboratory Results: 09/27/18 08:50 09/27/18 08:50 09/27/18 09/27/18 08:50 08:50 WBC 5.4 RBC 2.74 L Hgb 8.7 L Hct 25.3 L MCV 92 MCH 31.8 MCHC 34.4 RDW 18.8 H Plt Count 229 Seg Neutrophils % Not Reportable Lymphocytes % Not Reportable Monocytes % Not Reportable Eosinophils % Not Reportable Basophils % Not Reportable Absolute Neutrophils Not Reportable Absolute Lymphocytes Not Reportable Absolute Monocytes Not Reportable Absolute Eosinophils Not Reportable Absolute Basophils Not Reportable Sodium 140.9 Potassium 3.8 Chloride 110 H Carbon Dioxide 19 L Anion Gap 12 BUN 19 Creatinine 0.88 Est GFR ( Amer) > 60 Est GFR (Non-Af Amer) > 60 Glucose 120 H Calcium 9.0 Magnesium 2.0 Total Bilirubin 0.3 AST 26 ALT 17 L Alkaline Phosphatase 72 Total Protein 5.8 L Albumin 2.9 L Impressions: Abdomen/Pelvis CT 09/25/18 00:00 IMPRESSION: Progression of disease in the chest, liver, and pelvis Chest CT 09/25/18 00:00 IMPRESSION: Progression of disease in the chest, liver, and pelvis Qualifiers - * PATIENT BEING DISCHARGED WITH ANY OF THE FOLLOWING DIAGNOSIS: No Plan Discharge Plan: Discharged home in improved and stable condition Time Spent: Greater than 30 Minutes
[2018-09-27] MEDS ORDERED: METOPROLOL SUCCINATE 50 MG TAB.SR.24H PO ONE (13:30)
[2018-09-27 14:39] VITALS: BP 179/73
--- NOTE | 2018-09-27 14:46 | PDOC PROGRESS REPORT ---
Subjective Progress Note for:: 09/27/18 Subjective:: Patient having increased pain today. Had more discharge/stool from rectum. No further bleeding from ostomy. Reason For Visit: BLEEDING OSTOMY,METASTATIC RECTAL CANCER Physical Exam Vital Signs: Temp Pulse Resp BP Pulse Ox 98.9 F 67 20 179/73 H 100 09/27/18 12:33 09/27/18 12:33 09/27/18 12:33 09/27/18 12:33 09/27/18 12:33 Intake & Output 09/26/18 09/27/18 09/28/18 06:59 06:59 06:59 Intake Total 4598 2609 992 Output Total 1575 Balance 3023 2609 992 Weight 76.3 kg 76.8 kg General appearance: PRESENT: no acute distress, well-developed, well-nourished Head exam: PRESENT: normocephalic Eye exam: PRESENT: EOMI Teeth exam: PRESENT: other - Dentures in place. Respiratory exam: PRESENT: unlabored GI/Abdominal exam: PRESENT: soft, other - hernia at ostomy. Ostomy functioning well. Extremities exam: ABSENT: pedal edema Musculoskeletal exam: PRESENT: normal inspection Neurological exam: PRESENT: alert, awake, oriented to person, oriented to place , oriented to time, oriented to situation Psychiatric exam: PRESENT: appropriate affect Skin exam: PRESENT: normal color Results Laboratory Results: 09/27/18 08:50 09/27/18 08:50 09/27/18 09/27/18 08:50 08:50 WBC 5.4 RBC 2.74 L Hgb 8.7 L Hct 25.3 L MCV 92 MCH 31.8 MCHC 34.4 RDW 18.8 H Plt Count 229 Seg Neutrophils % Not Reportable Lymphocytes % Not Reportable Monocytes % Not Reportable Eosinophils % Not Reportable Basophils % Not Reportable Absolute Neutrophils Not Reportable Absolute Lymphocytes Not Reportable Absolute Monocytes Not Reportable Absolute Eosinophils Not Reportable Absolute Basophils Not Reportable Sodium 140.9 Potassium 3.8 Chloride 110 H Carbon Dioxide 19 L Anion Gap 12 BUN 19 Creatinine 0.88 Est GFR ( Amer) > 60 Est GFR (Non-Af Amer) > 60 Glucose 120 H Calcium 9.0 Magnesium 2.0 Total Bilirubin 0.3 AST 26 ALT 17 L Alkaline Phosphatase 72 Total Protein 5.8 L Albumin 2.9 L Impressions: Abdomen/Pelvis CT 09/25/18 00:00 IMPRESSION: Progression of disease in the chest, liver, and pelvis Chest CT 09/25/18 00:00 IMPRESSION: Progression of disease in the chest, liver, and pelvis Assessment & Plan - Diagnosis (1) Rectal cancer metastasized to liver Is this a current diagnosis for this admission?: Yes Plan: He is considering further treatment options. Will plan to start in the next 1- 2 weeks. Due to the progression in all area, I believe systemic chemotherapy is the best option currently. (2) Bleeding from colostomy stoma Is this a current diagnosis for this admission?: Yes Plan: Currently controlled. Patient's ostomy phlange will be changed prior to discharge to make sure no further bleeding prior to discharge. His port will be de-accessed prior to admission. (3) Rectal pain Is this a current diagnosis for this admission?: Yes Plan: He will continue duragesic 50 mcg for now and I will continue to adjust as outpatient, as needed. (4) History of DVT (deep vein thrombosis) Is this a current diagnosis for this admission?: Yes Plan: All blood thinners currently on hold, but will need to consider restarting something in the near future if no further bleeding. His PT/PTT were both elevated on admission. Unsure as to why. Perhaps antibiotic or diet related. Now back to normal. - Plan Summary Plan Summary: I agree with plans for discharge today. Will follow-up as scheduled in my office.
[2018-09-28] MEDS ORDERED: FENTANYL 25 MCG/HR PATCH.TD72 TD SCH (17:00)
== END 2018-09-27 15:45 | disposition home or self-care (01) ==
LOC: ER 05:40 → EH 07:18 → INTOOBSV 07:18 → 3N 09:40 → 4S 14:22
PROVIDERS: ADMIT Surgery; ATTEND Emergency Medicine
DX: K94.01 Colostomy hemorrhage (principal); Y83.3 Surgical operation with formation of external stoma as the cause of abnormal reaction of the patient, or of later complication, without mention of misadventure at the time of the procedure; D62 Acute posthemorrhagic anemia; C18.9 Malignant neoplasm of colon, unspecified; C78.7 Secondary malignant neoplasm of liver and intrahepatic bile duct; C79.89 Secondary malignant neoplasm of other specified sites; C78.01 Secondary malignant neoplasm of right lung; G89.3 Neoplasm related pain (acute) (chronic); I10 Essential (primary) hypertension; M54.9 Dorsalgia, unspecified; E11.42 Type 2 diabetes mellitus with diabetic polyneuropathy; D68.69 Other thrombophilia; K59.00 Constipation, unspecified; M81.0 Age-related osteoporosis without current pathological fracture; K43.5 Parastomal hernia without obstruction or gangrene; R10.2 Pelvic and perineal pain; K62.89 Other specified diseases of anus and rectum; Z79.01 Long term (current) use of anticoagulants; Z86.718 Personal history of other venous thrombosis and embolism; Z87.891 Personal history of nicotine dependence; Z86.14 Personal history of Methicillin resistant Staphylococcus aureus infection; Z91.041 Radiographic dye allergy status
CPT/HCPCS: 99284; 96374; 86900; 86901; 36415 ×3; 86850; 83735; 85025 ×2; 85610 ×3; 85730 ×3; 80053 ×2; 71260; 74177; J3490 ×4; J2270 ×2; J7512 ×2; J7030 ×3; J1642

== ENCOUNTER 2018-09-27 19:20 | Emergency (ER) | payer OTHER, MEDICARE ==
--- NOTE | 2018-09-27 20:37 | ER Document Report ---
ED General - General Chief Complaint: GI Bleeding Stated Complaint: COLOSTOMY PROBLEM Time Seen by Provider: 09/27/18 20:10 Mode of Arrival: Ambulatory Information source: Patient Notes: 72-year-old male presents emergency department complaints of shortness of breath , arterial bleeding from his colostomy site. Patient was in the emergency department on 09/22/18 and 09/25/18 for similar. Patient was admitted to the hospitalist with a surgical consult. The bleeding was coming from a division of a small artery located superficially in the soft tissue just beneath the mucosa of the colostomy. It was controlled with pressure and injection to induce cautery. Patient was initially on Coumadin because he has a history of DVT. He is switched to Eliquis last week. Patient had CT of the chest, abdomen pelvis in the hospital which showed metastatic colorectal cancer. Oncology was consulted. Patient was discharged 3 hours ago. Says that he was sitting on the toilet when he noticed something retrofit installer his colostomy bag. He saw it was filled with blood. He removed the colostomy bag and applied direct pressure. Patient says that he's now having shortness of breath. is concerned he has a PE with his history of DVT and cessation of anticoagulants. Intermittent chest pain throughout the last few days. No current chest pain. TRAVEL OUTSIDE OF THE [place] IN LAST 30 DAYS: No - HPI Onset: Just prior to arrival Onset/Duration: Sudden Quality of pain: Achy Associated symptoms: Chest pain, Shortness of breath Exacerbated by: Denies Relieved by: Denies Similar symptoms previously: Yes Recently seen / treated by doctor: Yes - Related Data Allergies/Adverse Reactions: Iodinated Contrast- Oral and IV Dye Adverse Reaction (Mild, Verified 10/21/16 20 :47) Hives Past Medical History - General Information source: Patient - Social History Smoking Status: Never Smoker Chew tobacco use (# tins/day): No Family History: CAD - Father, Malignancy - Brother with prostate cancer. Father with bladder cancer. 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 Denies: Hx Diabetes Mellitus Type 1, Hx Hyperthyroidism Renal/ Medical History: Denies: Hx Peritoneal Dialysis Malignancy Medical History: Reports Hx Colorectal Cancer GI Medical History: Reports: Hx Irritable Bowel. Denies: Hx Cirrhosis, Hx Crohn 's Disease, Hx Ulcerative Colitis Musculoskeletal Medical History: Reports Hx Arthritis, Denies Hx Fibromyalgia, Denies Hx Gout Skin Medical History: Denies Hx Eczema, Denies Hx Psoriasis Infectious Medical History: Reports: Hx MRSA - Left leg cellulitis Past Surgical History: Reports: Hx Bowel Surgery - colostomy, Hx Colostomy, Hx Herniorrhaphy - Left inguinal, Hx Orthopedic Surgery - Left ankle-knee, neck, Other - Neck mass resection in the remote past. Port placement - Immunizations Hx Pneumococcal Vaccination: 09/05/16 Review of Systems - Review of Systems Constitutional: No symptoms reported EENT: No symptoms reported Cardiovascular: Chest pain Respiratory: Short of breath Gastrointestinal: Other - bleeding from colostomy bag Genitourinary: No symptoms reported Male Genitourinary: No symptoms reported Musculoskeletal: No symptoms reported Skin: No symptoms reported Hematologic/Lymphatic: No symptoms reported Neurological/Psychological: No symptoms reported -: Yes All other systems reviewed and negative Physical Exam - Vital signs Vitals: Resp Pulse Ox 19 99 09/27/18 19:29 09/27/18 19:29 - Notes Notes: PHYSICAL EXAMINATION: GENERAL: Well-appearing, well-nourished and in no acute distress. HEAD: Atraumatic, normocephalic. EYES: Pupils equal round and reactive to light, extraocular movements intact, sclera anicteric, conjunctiva are normal. ENT: Nares patent, oropharynx clear without exudates. Moist mucous membranes. NECK: Normal range of motion, supple without lymphadenopathy LUNGS: Breath sounds clear to auscultation bilaterally and equal. No wheezes rales or rhonchi. HEART: Regular rate and rhythm without murmurs ABDOMEN: Soft, no active bleeding from stoma. Surface of stoma appears friable. Normal active bowel sounds. Musculoskeletal: Normal range of motion, no pitting or edema. No cyanosis. NEUROLOGICAL: Cranial nerves grossly intact. Normal speech, normal gait. Normal sensory, motor exams PSYCH: Normal mood, normal affect. SKIN: Warm, Dry, normal turgor, no rashes or lesions noted. Course - Re-evaluation Re-evalutation: 09/27/18 23:38 No bleeding from stoma site in the ED. Labs and imaging obtained. Hemoglobin and PT similar to previous. Troponin was negative. CTA chest done as the d- deimer was elevated and patient complained of shortness of breath. No PE, Dissection appreciated. On re-evaluation, vitals are stable. Patient has no complaints. No bleeding from stoma site. I will discharge patient home to follow up with General surgery and oncology outpatient. Patient and are agreeable with the plan of care. 09/27/18 23:45 EKG: rate 64, [place] interval 168, QRSD 92, QTc 405. Normal sinus rhythm. - Vital Signs Vital signs: Temp Pulse Resp BP Pulse Ox 97.6 F 71 14 166/82 H 98 09/27/18 19:45 09/27/18 19:45 09/27/18 22:01 09/27/18 22:00 09/27/18 22:01 - Laboratory Result Diagrams: 09/27/18 19:40 09/27/18 19:40 Laboratory results interpreted by me: 09/27/18 09/27/18 09/27/18 19:40 19:40 19:40 RBC 2.89 L Hgb 9.3 L Hct 26.8 L RDW 18.4 H Metamyelocytes % 1 H PT 16.6 H D-Dimer 2.66 H Chloride 109 H Carbon Dioxide 21 L BUN 29 H Glucose 163 H ALT 19 L Total Protein 6.1 L Albumin 3.0 L Discharge - Discharge Clinical Impression: Colostomy hemorrhage Condition: Good Disposition: HOME, SELF-CARE Instructions: High Blood Pressure ([facility]) Additional Instructions: Follow up with your general surgeon and oncologist this week. Take medications as directed. Return for worsening symptoms. Referrals: KEVIN FATIMA MD [Primary Care Provider] - Follow up as needed
[2018-09-27 20:47] LABS: INTERNATIONAL RATION (INR) 1.28; PROTHROMBIN TIME 16.6 SEC (11.4-15.4)
[2018-09-27 20:48] LABS: PARTIAL THROMBOPLASTIN TIME 30.9 SEC (23.5-35.8)
[2018-09-27 20:50] LABS: D-DIMER 2.66 ug/mL (0.00-0.50)
[2018-09-27 20:51] LABS: HEMATOCRIT 26.8 % (37.9-51.0); HEMOGLOBIN 9.3 g/dL (13.5-17.0); MEAN CORPUSCULAR HGB CONC 34.5 g/dL (32.0-36.0); MEAN CORPUSCULAR VOLUME 93 fl (80-97); PLATELET COUNT 247 10^3/uL (150-450); RED BLOOD COUNT 2.89 10^6/uL (4.35-5.55); RED CELL DISTRIBUTION WIDTH 18.4 % (11.5-14.0); WHITE BLOOD COUNT 6.4 10^3/uL (4.0-10.5)
[2018-09-27 20:52] LABS: ALANINE AMINOTRANSFERASE 19 U/L (21-72); ALKALINE PHOSPHATASE 77 U/L (38-126); ANION GAP 9 (5-19); ASPARTATE AMINO TRANSFERASE 36 U/L (17-59); BILIRUBIN,DIRECT 0.3 mg/dL (0.0-0.4); BILIRUBIN,TOTAL 0.4 mg/dL (0.2-1.3); BLOOD UREA NITROGEN 29 mg/dL (7-20); CALCIUM 9.3 mg/dL (8.4-10.2); CARBON DIOXIDE 21 mmol/L (22-30); CHLORIDE 109 mmol/L (98-107); GLUCOSE 163 mg/dL (75-110); POTASSIUM 3.6 mmol/L (3.6-5.0); SODIUM 139.3 mmol/L (137-145); TOTAL PROTEIN 6.1 g/dL (6.3-8.2)
--- NOTE | 2018-09-27 21:18 | RADIOLOGY REPORT (SQ) ---
EXAM DESCRIPTION: XR CHEST 1 VIEW COMPLETED DATE/TME: 09/27/2018 20:35 CLINICAL HISTORY: 72 years, Male, chest pain COMPARISON: EXAM DESCRIPTION: CLINICAL HISTORY: chest pain COMPARISON: None. FINDINGS: Single view of the chest is submitted. Central catheter tip is at the right atrium. Cardiac silhouette is normal. No focal parenchymal or pleural disease. No acute bony abnormality. There is no significant pulmonary vascular engorgement. IMPRESSION: No evidence of acute cardiopulmonary disease. NUMBER OF VIEWS: TECHNIQUE: LIMITATIONS: None. FINDINGS: IMPRESSION: 2010 [facility] [employer]- All Rights Reserved
[2018-09-27] MEDS ORDERED: METHYLPREDNISOLONE INJ 125 MG/2 ML SDV IV ONE (21:23)
[2018-09-27] MEDS ORDERED: DIPHENHYDRAMINE HCL 50 MG/ML VIAL IV ONE (21:23)
[2018-09-27 21:26] LABS: ABSOLUTE LYMPHOCYTES# (MANUAL) 1.8 10^3/uL (0.5-4.7); ABSOLUTE MONOCYTES # (MANUAL) 0.6 10^3/uL (0.1-1.4); BASOPHILS % (MANUAL) 0 % (0-2); EOSINOPHILS % (MANUAL) 0 % (0-6); LYMPHOCYTES % (MANUAL) 28 % (13-45); METAMYELOCYTES % (MANUAL) 1 % (0); MONOCYTES % (MANUAL) 10 % (3-13); SEGMENTED NEUTROPHILS % (MAN) 61 % (42-78); TOTAL CELLS COUNTED 100
[2018-09-27 21:28] LABS: ANISOCYTOSIS 1+; POIKILOCYTOSIS 3+; TOXIC GRANULATION SLIGHT
[2018-09-27 21:29] LABS: HELMET CELLS 1+; OVALOCYTES 2+; PLATELET COMMENT ADEQUATE; TEAR DROP CELLS 2+
[2018-09-27] MEDS ORDERED: HYDROMORPHONE HCL INJ/PF 2 MG/ML AMPULE IV ONE (22:00)
--- NOTE | 2018-09-27 23:23 | RADIOLOGY REPORT (SQ) ---
EXAM DESCRIPTION: CT CHEST ANGIOGRAPHY WITHOUT THEN WITH IV CONTRAST COMPLETED DATE/TME: 09/27/2018 21:22 CLINICAL HISTORY: 72 years, Male, shortness of breath COMPARISON: None. TECHNIQUE: 633 Images stored on PACS. All CT scanners at this facility use dose modulation, iterative reconstruction, and/or weight based dosing when appropriate to reduce radiation dose to as low as reasonably achievable (ALARA). [facility]: Dose Right [facility]: CareDose [facility]: Dose Right [facility]: Teradose 4D [facility]: Matchbox LIMITATIONS: None. FINDINGS: Focfid-w-Wlqw catheter in place. The mediastinal vasculature enhances normally. There is no intraluminal filling defect to suggest pulmonary embolus. Negative for thoracic aortic aneurysm or dissection. Limited evaluation of the upper abdomen shows fatty infiltrative change to the liver. Nodular contour to the liver likely reflecting cirrhotic change. The spleen is enlarged measuring 16.5 cm. Multiple varices throughout the upper abdomen. A prominent appearance to the adrenal glands bilaterally. Osseous structures of the thorax are grossly intact. No pneumothorax. The visualized airways are patent. There are multiple noncalcified pulmonary nodules bilaterally, worrisome for metastatic disease. The largest is in the posterior right lung base measuring 1.68 cm. Minor bibasilar bronchiectasis and bronchial wall thickening. Minor emphysematous changes. Possible cavitary component to one of the nodules measuring 4.5 mm, in the right middle lobe anteriorly. IMPRESSION: Negative for pulmonary embolus, thoracic aortic aneurysm, or dissection. Multiple bilateral pulmonary nodules, highly suspicious for metastatic disease. The largest is in the posterior right lung base. Fatty infiltrate of change to the liver with suspected cirrhotic change. Splenomegaly with extensive varices of the upper abdomen. TECHNICAL DOCUMENTATION: Quality ID # [id number]: Final reports with documentation of one or more dose reduction techniques (e.g., Automated exposure control, adjustment of the mA and/or kV according to patient size, use of iterative reconstruction technique) 2010 [employer]- All Rights Reserved
[2018-09-28] VITALS: BP 180/86
--- NOTE | 2018-09-28 10:48 | EKG REPORT ---
SEVERITY:- NORMAL ECG - SINUS RHYTHM : Confirmed by: Krishna Jay 28-Sep-2018 10:48:06
== END 2018-09-28 | disposition home or self-care (01) ==
LOC: ER 19:20
DX: K94.01 Colostomy hemorrhage (principal); I50.9 Heart failure, unspecified; R07.9 Chest pain, unspecified; I11.0 Hypertensive heart disease with heart failure; E11.9 Type 2 diabetes mellitus without complications; Z86.14 Personal history of Methicillin resistant Staphylococcus aureus infection
CPT/HCPCS: 93005; 99285; 96374; 96375; 36415; 85025; 85610; 85730; 80053; 84484; 85379; 71045; 71275; 93010; J1200; J2930; J1170

== ENCOUNTER 2018-09-28 23:17 | Inpatient (IN) | payer OTHER, MEDICARE ==
[2018-09-29 00:45] LABS: HEMATOCRIT 23.8 % (37.9-51.0); HEMOGLOBIN 8.1 g/dL (13.5-17.0); MEAN CORPUSCULAR HEMOGLOBIN 31.6 pg (27.0-33.4); MEAN CORPUSCULAR VOLUME 93 fl (80-97); PLATELET COUNT 254 10^3/uL (150-450); RED BLOOD COUNT 2.56 10^6/uL (4.35-5.55); RED CELL DISTRIBUTION WIDTH 18.3 % (11.5-14.0); WHITE BLOOD COUNT 11.8 10^3/uL (4.0-10.5)
[2018-09-29 00:54] LABS: ALANINE AMINOTRANSFERASE 17 U/L (21-72); ALBUMIN 3.1 g/dL (3.5-5.0); ALKALINE PHOSPHATASE 82 U/L (38-126); ANION GAP 14 (5-19); ASPARTATE AMINO TRANSFERASE 33 U/L (17-59); BILIRUBIN,DIRECT 0.2 mg/dL (0.0-0.4); BILIRUBIN,TOTAL 0.2 mg/dL (0.2-1.3); BLOOD UREA NITROGEN 37 mg/dL (7-20); CALCIUM 9.2 mg/dL (8.4-10.2); CARBON DIOXIDE 21 mmol/L (22-30); CHLORIDE 107 mmol/L (98-107); GLUCOSE 227 mg/dL (75-110); LIPASE 121.7 U/L (23-300); POTASSIUM 4.3 mmol/L (3.6-5.0); SODIUM 141.7 mmol/L (137-145)
[2018-09-29 01:07] LABS: ABSOLUTE LYMPHOCYTES# (MANUAL) 3.5 10^3/uL (0.5-4.7); ABSOLUTE MONOCYTES # (MANUAL) 1.2 10^3/uL (0.1-1.4); ABSOLUTE NEUTROPHILS# (MANUAL) 7.1 10^3/uL (1.7-8.2); BASOPHILS % (MANUAL) 0 % (0-2); EOSINOPHILS % (MANUAL) 0 % (0-6); LYMPHOCYTES % (MANUAL) 30 % (13-45); MONOCYTES % (MANUAL) 10 % (3-13); SEGMENTED NEUTROPHILS % (MAN) 60 % (42-78); TOTAL CELLS COUNTED 100
[2018-09-29 01:08] LABS: ANISOCYTOSIS 2+; PLATELET COMMENT ADEQUATE; POLYCHROMASIA 1+
[2018-09-29 01:12] LABS: INTERNATIONAL RATION (INR) 1.17; PARTIAL THROMBOPLASTIN TIME 29.9 SEC (23.5-35.8); PROTHROMBIN TIME 15.5 SEC (11.4-15.4)
--- NOTE | 2018-09-29 01:21 | ER Document Report ---
ED GI Bleed / Rectal Pain - General Chief Complaint: GI Bleeding Stated Complaint: GI BLEED Time Seen by Provider: 09/28/18 23:59 Mode of Arrival: Ambulatory Information source: Patient, Parent TRAVEL OUTSIDE OF THE [place] IN LAST 30 DAYS: No - HPI Patient complains to provider of: Other - bleeding from stoma persistently despite 2 prior visits for the same. The patient has a history of metastatic colon cancer in the past with metastases to the lungs for which she has been evaluated. He did require cautery in the past for what was believed to be an artery bleeding near his stoma site. Upon leaving the hospital yesterday he had a return of bleeding last night believes he bled approximately 900 cc of blood into his ostomy bag. He is got irritated skin around the ostomy complains of pain through there denies fevers or chills or trauma to the site. Nothing seemed to make it better or worse. He did stop his blood thinning medications prior to arrival this time and has not taken any of his Eliquis for the last several days. - Related Data Allergies/Adverse Reactions: Iodinated Contrast- Oral and IV Dye Adverse Reaction (Mild, Verified 09/28/18 23 :27) Hives Past Medical History - General Information source: Patient, Relative - Social History Smoking Status: Former Smoker Frequency of alcohol use: None Drug Abuse: None Family History: CAD - Father, Malignancy - Brother with prostate cancer. Father with bladder cancer. 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 Denies: Hx Diabetes Mellitus Type 1, Hx Hyperthyroidism Renal/ Medical History: Denies: Hx Peritoneal Dialysis Malignancy Medical History: Reports Hx Colorectal Cancer GI Medical History: Reports: Hx Irritable Bowel. Denies: Hx Cirrhosis, Hx Crohn 's Disease, Hx Ulcerative Colitis Musculoskeletal Medical History: Reports Hx Arthritis, Denies Hx Fibromyalgia, Denies Hx Gout Skin Medical History: Denies Hx Eczema, Denies Hx Psoriasis Infectious Medical History: Reports: Hx MRSA - Left leg cellulitis Past Surgical History: Reports: Hx Bowel Surgery - colostomy, Hx Colostomy, Hx Herniorrhaphy - Left inguinal, Hx Orthopedic Surgery - Left ankle-knee, neck, Other - Neck mass resection in the remote past. Port placement - Immunizations Hx Pneumococcal Vaccination: 09/05/16 Review of Systems - Review of Systems -: Yes All other systems reviewed and negative Physical Exam - Vital signs Vitals: Temp Pulse Resp BP Pulse Ox 98.6 F 72 17 172/81 H 99 09/28/18 23:30 09/28/18 23:30 09/28/18 23:30 09/28/18 23:30 09/28/18 23:30 - General General appearance: Appears well, Alert - HEENT Head: Normocephalic, Atraumatic Eyes: Normal Pupils: PERRL - Respiratory Respiratory status: No respiratory distress Chest status: Nontender Breath sounds: Normal Chest palpation: Normal - Cardiovascular Rhythm: Regular Heart sounds: Normal auscultation Murmur: No - Abdominal Inspection: Other - Ostomy in the left lower quadrant which is bulging, erythematous, irritated in the surrounding skin, bruising pink with some stigmata of previous bleeding. - Back Back: Normal, Nontender - Extremities General upper extremity: Normal inspection, Nontender, Normal color, Normal ROM , Normal temperature General lower extremity: Normal inspection, Nontender, Normal color, Normal ROM , Normal temperature, Normal weight bearing. No: Cary's sign - Neurological Neuro grossly intact: Yes Cognition: Normal Orientation: AAOx4 [place] Coma Scale Eye Opening: Spontaneous [place] Coma Scale Verbal: Oriented Faisal Coma Scale Motor: Obeys Commands Faisal Coma Scale Total: 15 Speech: Normal Motor strength normal: LUE, RUE, LLE, RLE Sensory: Normal - Psychological Associated symptoms: Normal affect, Normal mood Course - Re-evaluation Re-evalutation: 09/30/18 05:23 There is a 72-year-old male presents for recurrent bleeding from the stoma. Previously was on blood thinner, does have metastatic colon cancer. Patient is hemostatic at this time. We will obtain CBC type and screen chemistry. CBC demonstrates a marked diminished hemoglobin and hematocrit to his previous, his BUN/creatinine ratio is markedly elevated suggestive of a GI bleed. He currently is hemodynamically stable, have deferred administration of blood products at this time contacted on-call surgeon Dr. Alvarez who notes that this patient's prognosis seems somewhat poor. Believe that this patient however is still considering treatment for his metastatic lesions as such we will plan for admission to the hospital for evaluation by medicine service potential transfusion and oncology consultation. General surgeon Dr. Galeas is agreed to evaluate this patient in the inpatient setting. We will plan for continued monitoring and reassessment as necessary. - Vital Signs Vital signs: Temp Pulse Resp BP Pulse Ox 99.9 F 80 20 158/70 H 100 09/30/18 04:41 09/30/18 04:41 09/30/18 04:41 09/30/18 04:41 09/30/18 04:41 - Laboratory Result Diagrams: 09/29/18 14:20 09/29/18 06:12 Laboratory results interpreted by me: 09/29/18 09/29/18 09/29/18 00:29 00:29 00:29 WBC 11.8 H RBC 2.56 L Hgb 8.1 L Hct 23.8 L RDW 18.3 H PT 15.5 H Carbon Dioxide 21 L BUN 37 H Glucose 227 H ALT 17 L Total Protein 6.0 L Albumin 3.1 L Crossmatch 09/29/18 00:29 WBC RBC Hgb Hct RDW PT Carbon Dioxide BUN Glucose ALT Total Protein Albumin Crossmatch See Detail Discharge - Discharge Clinical Impression: Stomal bleeding GI bleed Qualifiers: GI bleed type/associated pathology: unspecified gastrointestinal hemorrhage type Qualified Code(s): K92.2 - Gastrointestinal hemorrhage, unspecified Condition: Stable Disposition: ADMITTED INPATIENT Admitting Provider: Hospitalist Unit Admitted: Telemetry
[2018-09-29] MEDS ORDERED: LIDOCAINE 5% OINTMENT 35.44 GM TP ONE (02:00)
[2018-09-29] MEDS ORDERED: LIDOCAINE 5% OINTMENT 35.44 GM ONE (02:23)
[2018-09-29] MEDS ORDERED: METOCLOPRAMIDE HCL INJ/PF 10 MG/2 ML SDV IV PRN (02:47)
[2018-09-29] MEDS ORDERED: ACETAMINOPHEN 325 MG TABLET PO PRN (02:47)
[2018-09-29] MEDS ORDERED: MAG HYDROX/AL HYDROX/SIMETH SUSP 30 ML UDCUP PO PRN (02:47)
[2018-09-29] MEDS ORDERED: OXYCODONE-ACETAMINOPHEN 5-325 MG TABLET PO PRN ×3 (02:47→02:54)
[2018-09-29] MEDS ORDERED: PROMETHAZINE HCL 25 MG SUPP.RECT PR PRN (02:47)
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
[2018-09-29 06:25] LABS: MEAN CORPUSCULAR HEMOGLOBIN 31.8 pg (27.0-33.4); MEAN CORPUSCULAR HGB CONC 34.5 g/dL (32.0-36.0); MEAN CORPUSCULAR VOLUME 92 fl (80-97); PLATELET COUNT 231 10^3/uL (150-450); RED BLOOD COUNT 2.49 10^6/uL (4.35-5.55); RED CELL DISTRIBUTION WIDTH 18.3 % (11.5-14.0); WHITE BLOOD COUNT 9.9 10^3/uL (4.0-10.5)
[2018-09-29 06:27] LABS: HEMOGLOBIN 7.9 g/dL (13.5-17.0)
--- NOTE | 2018-09-29 06:27 | PDOC CONSULTATION ---
Consultation Consult Date: 09/29/18 Consult reason:: Bleeding from ostomy History of Present Illness Admission Date/PCP: 09/29/18 03:11 KEVIN FATIMA MD History of Present Illness: ALIYA LÓPEZ is a 72 year old male seen at the request of the hospitalist service. This patient has a known history of metastatic colorectal cancer. The patient was recently released from the hospital. Patient has intermittent colostomy bleeding. The patient has been off of his anticoagulation for many days now. Patient reports that at home a small artery began bleeding within the colostomy. The patient reports that he lost approximately 1 L of blood. The patient came to the emergency department and with 20 minutes of arriving, the bleeding spontaneously resolved. Patient has had no bleeding since. His bleeding occurs intermittently, without warning. Nothing makes it worse. Nothing makes it better. 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 Denies: Diabetes Mellitus Type 1, Hyperthyroidism Malignancy Medical History: Reports: Colorectal Cancer - Widely metastatic GI Medical History: Denies: Cirrhosis, Crohn's Disease, Ulcerative Colitis Musculoskeltal Medical History: Reports: Arthritis Denies: Fibromyalgia, Gout Skin Medical History: Denies: Eczema, Psoriasis Infectious Medical History: Reports: 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 Port placement Social History Smoking Status: Former Smoker Frequency of Alcohol Use: None Hx Recreational Drug Use: No Drugs: None Hx Prescription Drug Abuse: No Family History Family History: CAD - Father, Malignancy - Brother with prostate cancer. Father with bladder cancer. Parental Family History Reviewed: Yes Children Family History Reviewed: Yes Sibling(s) Family History Reviewed.: Yes Medication/Allergy Home Medications: Amitriptyline HCl [Elavil 50 mg Tablet] 50 mg PO QHS 09/25/18 Ascorbic Acid [Vitamin C 500 mg Tablet] 500 mg PO DAILY 09/25/18 Zinc 50 mg PO DAILY 09/25/18 Fentanyl [Duragesic 50 Mcg/Hr Transdermal Patch] 1 each TD Q3D 30 Days #10 patch.td72 09/27/18 Oxycodone HCl [Oxycodone HCl 10 MG Tablet] 10 mg PO Q3H 09/29/18 Allergies/Adverse Reactions: Iodinated Contrast- Oral and IV Dye Adverse Reaction (Mild, Verified 09/28/18 23 :27) Hives Review of Systems Constitutional: PRESENT: anorexia, weakness. ABSENT: fever(s) Eyes: ABSENT: visual disturbances Ears: ABSENT: hearing changes Nose, Mouth, and Throat: ABSENT: sore throat Cardiovascular: ABSENT: chest pain, palpitations Respiratory: ABSENT: cough, dyspnea Gastrointestinal: PRESENT: constipation. ABSENT: abdominal pain, bloating, nausea, vomiting Genitourinary: ABSENT: dysuria Musculoskeletal: ABSENT: back pain Integumentary: ABSENT: pruritus, rash Neurological: ABSENT: abnormal movements, abnormal speech, confusion, convulsions, dizziness Psychiatric: ABSENT: anxiety, depression Endocrine: ABSENT: cold intolerance, heat intolerance Hematologic/Lymphatic: PRESENT: easy bleeding, easy bruising Physical Exam Vital Signs: Temp Pulse Resp BP Pulse Ox 98.4 F 60 12 159/75 H 99 09/29/18 05:11 09/29/18 05:11 09/29/18 05:11 09/29/18 05:11 09/29/18 05:11 Intake & Output 09/27/18 09/28/18 09/29/18 06:59 06:59 06:59 Weight 73.8 kg General appearance: PRESENT: no acute distress Head exam: PRESENT: atraumatic, normocephalic Eye exam: PRESENT: EOMI, PERRLA Mouth exam: PRESENT: moist Neck exam: ABSENT: meningismus, tenderness, thyromegaly, tracheal deviation Respiratory exam: PRESENT: clear to auscultation juan daniel, unlabored. ABSENT: accessory muscle use, chest wall tenderness, tachypnea, wheezes Cardiovascular exam: PRESENT: RRR Pulses: PRESENT: normal radial pulses Vascular exam: PRESENT: pallor GI/Abdominal exam: PRESENT: hernia - Parastomal hernia present, soft. ABSENT: distended, firm, guarding, tenderness Rectal exam: PRESENT: deferred Extremities exam: ABSENT: clubbing Musculoskeletal exam: ABSENT: deformity Neurological exam: PRESENT: alert, awake, oriented to person, oriented to place , oriented to time, oriented to situation, CN II-XII grossly intact Psychiatric exam: ABSENT: agitated, anxious, depressed Focused psych exam: ABSENT: delusional Skin exam: ABSENT: cyanosis, erythema, jaundice Assessment & Plan - Diagnosis (1) Colorectal cancer, stage IV Is this a current diagnosis for this admission?: Yes (2) Colostomy hemorrhage Is this a current diagnosis for this admission?: Yes - Plan Summary Plan Summary: This is a 72-year-old male with metastatic colorectal cancer and recurrent bleeding at his colostomy. Upon my evaluation there is no bleeding at the colostomy. The colostomy appliance was taken off and the colostomy was digitally inspected. I could not elicit any bleeding at the bedside today. The patient cannot positively identify where the bleeding was coming from. I have recommended that the patient walk around in an attempt to induce bleeding so that the area may be sutured closed. If bleeding recurs, suture ligation of the vessel can be performed. I will follow this patient with you. I have recommended discontinuation of all anticoagulation and antiplatelets. I have discussed treatment options with the patient this morning. I have recommended hospice as the most reasonable next step in his care. The patient is not interested in hospice at present.
[2018-09-29 06:44] LABS: ANION GAP 12 (5-19); BLOOD UREA NITROGEN 33 mg/dL (7-20); CARBON DIOXIDE 21 mmol/L (22-30); CHLORIDE 107 mmol/L (98-107); GLUCOSE 149 mg/dL (75-110); SODIUM 139.6 mmol/L (137-145)
--- NOTE | 2018-09-29 09:30 | Operative Report ---
Operative Report DATE OF SURGERY: 09/29/18 PREOPERATIVE DIAGNOSIS: Arterial bleeding from colostomy likely due to arteriovenous malformations; metastatic rectal carcinoma POSTOPERATIVE DIAGNOSIS: Same OPERATION: Cauterization of multiple potential bleeding sites from ostomy SURGEON: PADMINI LUNA ANESTHESIA: Other - None TISSUE REMOVED OR ALTERED: See below COMPLICATIONS: None ESTIMATED BLOOD LOSS: None INTRAOPERATIVE FINDINGS: See below PROCEDURE: Patient was examined on the third floor. He is placed supine position ostomy appliance removed. Of note there is a large circumferential parastomal hernia, partially reducible ; not strangulated. With the ostomy appliance removed, at the 630 to 7 o'clock position is a 1 cm soft tissue nodule at the mucosa-epithelial margin which is suspicious for a metastatic implant. It is not a cyst contrary to the patient's belief. The ostomy mucosa itself is pink healthy and the ureter is patent and easily accepts and index finger. There were multiple small violaceous to red micro spots on the inferior side of the ostomy mucosa which where the sites that the patient states the arterial bleeding was coming from. These well may have been small AVMs. I used silver nitrate and spot tapped several of those areas. There was no bleeding. The procedure was deemed complete. Ostomy alliance reapplied. Patient tolerated procedure well Recommendations: 1. Close observation; there is no other option at this point except to manage this condition expectantly. I discussed this with the patient and Dr. Stoll 2. Patient's CODE STATUS and levels of aggressiveness needs to be discussed again. I did tell the patient that with a full code, if he were to have a cardiorespiratory arrest, the entire resuscitation team would enter the room, execute the ACLS algorithm, and if necessary put him on a ventilator. I think this explanation was helpful to the patient. He states he does not want to be resuscitated in such a fashion. I told him that we could continue to take care of him, even experiment with other anti-neoplastic drugs etc. but long as he is a full code, and has a arrest, the entire ACLS algorithm will be activated. He would like to discuss this more with his and Dr. Cordova
--- NOTE | 2018-09-29 09:37 | PDOC CONSULTATION ---
Consultation Consult Date: 09/29/18 Consult reason:: Hematology/Oncology Consultation was requested for patient with rectal cancer and acute bleeding. History of Present Illness Admission Date/PCP: 09/29/18 03:11 KEVIN FATIMA MD History of Present Illness: ALIYA LÓPEZ is a 72 year old male who was just discharged from this institution 2 days ago with the same problem. He has been treated for colo- rectal cancer but the cancer continues to progress. He has an ostomy which has had acute, severe, arterial bleeding off an on for the past week. All of his anticoagulants have been on hold for the past week due to the bleeding. However , every time he is seen by surgery, the bleeding has stopped. This morning, he states that the bleeding stopped as soon as he got back to the hospital. Otherwise, no new complaints. 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 Port placement Social History Information Source: Patient Occupation: retired Lives with: Spouse/Significant other Smoking Status: Former Smoker Frequency of Alcohol Use: None Hx Recreational Drug Use: No Drugs: None Hx Prescription Drug Abuse: No Family History Family History: CAD - Father, Malignancy - Brother with prostate cancer. Father with bladder cancer. Parental Family History Reviewed: Yes - Father with gallbladder cancer age 81. Children Family History Reviewed: No Sibling(s) Family History Reviewed.: Yes - Brother with Prostate cancer Medication/Allergy Home Medications: Amitriptyline HCl [Elavil 50 mg Tablet] 50 mg PO QHS 09/25/18 Ascorbic Acid [Vitamin C 500 mg Tablet] 500 mg PO DAILY 09/25/18 Zinc 50 mg PO DAILY 09/25/18 Fentanyl [Duragesic 50 Mcg/Hr Transdermal Patch] 1 each TD Q3D 30 Days #10 patch.td72 09/27/18 Oxycodone HCl [Oxycodone HCl 10 MG Tablet] 10 mg PO Q3H 09/29/18 Allergies/Adverse Reactions: Iodinated Contrast- Oral and IV Dye Adverse Reaction (Mild, Verified 09/28/18 23 :27) Hives Review of Systems Constitutional: ABSENT: fever(s), headache(s) Eyes: ABSENT: visual disturbances Ears: ABSENT: hearing changes Nose, Mouth, and Throat: ABSENT: sore throat Cardiovascular: ABSENT: chest pain Respiratory: ABSENT: dyspnea Gastrointestinal: PRESENT: other - as per HPI. Continued "purging" from rectum in addition to output form colostomy. Genitourinary: ABSENT: dysuria Musculoskeletal: ABSENT: back pain Integumentary: ABSENT: rash Neurological: ABSENT: abnormal speech, syncope Hematologic/Lymphatic: PRESENT: easy bleeding Physical Exam Vital Signs: Temp Pulse Resp BP Pulse Ox 98.0 F 64 22 H 141/60 H 99 09/29/18 09:27 09/29/18 09:27 09/29/18 09:27 09/29/18 09:27 09/29/18 09:27 Intake & Output 09/28/18 09/29/18 09/30/18 06:59 06:59 06:59 Intake Total 486 Output Total 0 Balance 0 486 Weight 73.8 kg General appearance: PRESENT: well-developed, well-nourished Exam: 72 year old male. He has been loosing weight recently. Head exam: PRESENT: atraumatic, normocephalic Eye exam: PRESENT: EOMI Mouth exam: PRESENT: moist Teeth exam: PRESENT: other - Dentures in place, but do not fit well. Neck exam: ABSENT: lymphadenopathy, tenderness Respiratory exam: PRESENT: clear to auscultation juan daniel, unlabored Cardiovascular exam: PRESENT: RRR. ABSENT: systolic murmur Pulses: PRESENT: normal dorsalis pedis pul GI/Abdominal exam: PRESENT: soft, other - Ostomy seems to be functioning well.. ABSENT: tenderness Extremities exam: ABSENT: pedal edema Musculoskeletal exam: PRESENT: normal inspection Neurological exam: PRESENT: alert, awake, oriented to person, oriented to place , oriented to time, oriented to situation Psychiatric exam: PRESENT: appropriate affect Focused psych exam: ABSENT: pressured speech, psychomotor agitation Skin exam: PRESENT: normal color Results Laboratory Results: 09/29/18 06:12 09/29/18 06:12 09/29/18 09/29/18 06:12 06:12 WBC 9.9 RBC 2.49 L Hgb 7.9 L Hct 23.0 L MCV 92 MCH 31.8 MCHC 34.5 RDW 18.3 H Plt Count 231 Sodium 139.6 Potassium 4.0 Chloride 107 Carbon Dioxide 21 L Anion Gap 12 BUN 33 H Creatinine 1.08 Est GFR ( Amer) > 60 Est GFR (Non-Af Amer) > 60 Glucose 149 H Calcium 9.0 Assessment & Plan - Diagnosis (1) Colorectal cancer, stage IV Is this a current diagnosis for this admission?: Yes Plan: Patient is agreeable to starting a new chemotherapy regimen SOL, as surgical and other options have been exhausted. (2) Bleeding from colostomy stoma Is this a current diagnosis for this admission?: Yes Plan: Dr. Luong to use cauterization for this and to follow. (3) Blood loss anemia Is this a current diagnosis for this admission?: Yes Plan: May transfuse to keep HGB >8. (4) Chronic anticoagulation Is this a current diagnosis for this admission?: Yes Plan: All anticoagulation has been stopped due to active bleeding. - Plan Summary Plan Summary: Patient was discussed with Dr. Luong. Will discuss CODE status with . Please call with questions.
[2018-09-29] MEDS ORDERED: (PENDING PHARMACY ID) (Zinc [Zinc] 50 MG) PO SCH (10:00)
[2018-09-29] MEDS ORDERED: FENTANYL 50 MCG/HR PATCH.TD72 TD SCH (10:00)
[2018-09-29] MEDS ORDERED: OXYCODONE HCL SR 10 MG TABLET PO SCH (10:00)
[2018-09-29] MEDS: ASCORBIC ACID 500 MG TABLET PO SCH (10:27)
[2018-09-29] MEDS: OXYCODONE HCL IR 5 MG TABLET PO PRN ×3 (13:03→20:18)
[2018-09-29 14:47] LABS: HEMATOCRIT 24.9 % (37.9-51.0); HEMOGLOBIN 8.6 g/dL (13.5-17.0); MEAN CORPUSCULAR HEMOGLOBIN 31.7 pg (27.0-33.4); MEAN CORPUSCULAR HGB CONC 34.6 g/dL (32.0-36.0); MEAN CORPUSCULAR VOLUME 92 fl (80-97); PLATELET COUNT 203 10^3/uL (150-450); RED BLOOD COUNT 2.72 10^6/uL (4.35-5.55); RED CELL DISTRIBUTION WIDTH 18.1 % (11.5-14.0); WHITE BLOOD COUNT 8.8 10^3/uL (4.0-10.5)
[2018-09-29 15:26] LABS: ABSOLUTE LYMPHOCYTES# (MANUAL) 2.5 10^3/uL (0.5-4.7); ABSOLUTE MONOCYTES # (MANUAL) 1.3 10^3/uL (0.1-1.4); BASOPHILS % (MANUAL) 0 % (0-2); EOSINOPHILS % (MANUAL) 0 % (0-6); LYMPHOCYTES % (MANUAL) 28 % (13-45); METAMYELOCYTES % (MANUAL) 1 % (0); MONOCYTES % (MANUAL) 15 % (3-13); SEGMENTED NEUTROPHILS % (MAN) 56 % (42-78); TOTAL CELLS COUNTED 100
[2018-09-29 15:28] LABS: ANISOCYTOSIS 2+; OVALOCYTES SLIGHT; PLATELET COMMENT ADEQUATE; POIKILOCYTOSIS 1+; POLYCHROMASIA SLIGHT; TEAR DROP CELLS SLIGHT
[2018-09-29] MEDS ORDERED: HYDROMORPHONE HCL INJ/PF 2 MG/ML AMPULE IV PRN (18:06)
[2018-09-29] MEDS: FENTANYL 75 MCG/HR PATCH.TD72 TD SCH (18:34)
[2018-09-29] MEDS: AMITRIPTYLINE HCL 50 MG TABLET PO SCH (22:20)
[2018-09-29] MEDS: LIDOCAINE 5% (700 MG) TRANSDERMAL ADH..PATCH TP SCH (22:20)
[2018-09-30] MEDS ORDERED: METOPROLOL TARTRATE PF/INJ 5 MG/5 ML SDV IV PRN (00:13)
[2018-09-30] MEDS ORDERED: AMLODIPINE BESYLATE 5 MG TABLET PO ONE (00:15)
[2018-09-30] MEDS ORDERED: METOPROLOL TARTRATE 25 MG TABLET PO ONE (00:15)
[2018-09-30] MEDS: OXYCODONE HCL IR 5 MG TABLET PO PRN ×4 (00:34→19:46)
[2018-09-30 06:41] LABS: HEMATOCRIT 24.2 % (37.9-51.0); HEMOGLOBIN 8.5 g/dL (13.5-17.0); MEAN CORPUSCULAR HEMOGLOBIN 31.9 pg (27.0-33.4); MEAN CORPUSCULAR HGB CONC 34.9 g/dL (32.0-36.0); MEAN CORPUSCULAR VOLUME 91 fl (80-97); PLATELET COUNT 171 10^3/uL (150-450); RED BLOOD COUNT 2.65 10^6/uL (4.35-5.55); RED CELL DISTRIBUTION WIDTH 17.9 % (11.5-14.0)
--- NOTE | 2018-09-30 08:13 | PDOC PROGRESS REPORT ---
Subjective Progress Note for:: 09/30/18 Subjective:: Patient states that the pain has improved with addition of the lidoderm. He was able to get some sleep last night. However, acute bleeding did return briefly, for which he applied immediate pressure and was able to stop the bleeding. He is now constipated. ROS: no dyspnea. No chest pain. Rectal pain continues, but improved. Poor appetite. Reason For Visit: OSTOMY BLEEDING Physical Exam Vital Signs: Temp Pulse Resp BP Pulse Ox 99.9 F 80 20 158/70 H 100 09/30/18 04:41 09/30/18 04:41 09/30/18 04:41 09/30/18 04:41 09/30/18 04:41 Intake & Output 09/29/18 09/30/18 10/01/18 06:59 06:59 06:59 Intake Total 1436 Output Total 0 250 Balance 0 1186 Weight 73.8 kg 77.7 kg General appearance: PRESENT: no acute distress, well-developed, well-nourished Head exam: PRESENT: normocephalic Eye exam: PRESENT: EOMI Respiratory exam: PRESENT: clear to auscultation juan daniel, unlabored Cardiovascular exam: PRESENT: RRR GI/Abdominal exam: PRESENT: soft, other - Ostomy unchanged.. ABSENT: tenderness Neurological exam: PRESENT: alert, awake, oriented to person, oriented to place , oriented to time, oriented to situation Psychiatric exam: PRESENT: appropriate affect Skin exam: PRESENT: normal color Results Laboratory Results: 09/30/18 06:23 09/29/18 06:12 09/29/18 09/30/18 14:20 06:23 WBC 8.8 10.0 RBC 2.72 L 2.65 L Hgb 8.6 L 8.5 L Hct 24.9 L 24.2 L MCV 92 91 MCH 31.7 31.9 MCHC 34.6 34.9 RDW 18.1 H 17.9 H Plt Count 203 171 Seg Neutrophils % Not Reportable Lymphocytes % Not Reportable Monocytes % Not Reportable Eosinophils % Not Reportable Basophils % Not Reportable Absolute Neutrophils Not Reportable Absolute Lymphocytes Not Reportable Absolute Monocytes Not Reportable Absolute Eosinophils Not Reportable Absolute Basophils Not Reportable Assessment & Plan - Diagnosis (1) Colorectal cancer, stage IV Is this a current diagnosis for this admission?: Yes Plan: Treatment currently on hold, but expect to start new line of systemic therapy once discharged from hospital. (2) Bleeding from colostomy stoma Is this a current diagnosis for this admission?: Yes Plan: Still occuring. Will continue to work with surgery today about this to try to see if there is any surgical intervention that may be possible to help stop further bleeding. (3) Blood loss anemia Is this a current diagnosis for this admission?: Yes Plan: HGB currently stable. Will continue to monitor and transfuse as needed. (4) Chronic anticoagulation Is this a current diagnosis for this admission?: Yes Plan: All anticoagulation currently on hold. - Plan Summary Plan Summary: I will add Senna S RTC and Miralax PRN, as patient now on duragesic and constipated. Continue currrent pain regiman. Family is upset that his BP meds are not same as home. However, family is the only one who has an accurate list of what patient is on at home.
[2018-09-30] MEDS: HYDROMORPHONE HCL INJ/PF 2 MG/ML AMPULE IV PRN ×4 (08:16→19:48)
[2018-09-30] MEDS ORDERED: LISINOPRIL 5 MG TABLET PO SCH (08:30)
--- NOTE | 2018-09-30 10:18 | PDOC PROGRESS REPORT ---
Subjective Progress Note for:: 09/30/18 Subjective:: ALIYA LÓPEZ is a 72 year old male with medical history stage IV colorectal cancer and history of DVT currently on Eliquis. Presented to ED complaining of bleeding through his ostomy. And has multiple admissions for above-mentioned reason. Colon cancer was diagnosed on October 2017 colon cancer with colostomy in place which was done in October 2017, he used to be on Coumadin however was switched to Eliquis. As per patient's daughter who is a nurse he has been doing multiple ostomy bleeds since being started on Eliquis. Patient was admitted here at [facility] on September 22, 2018 for ostomy bleed he received 1 PRBC and surgery and oncology was consulted and patient was discharged home. On September 25 patient was readmitted for ostomy bleed and again surgery oncology were consulted and patient was discharged home on September 27 for medical management. He came back on 09/28/2018 complaining of another episode of ostomy bleed about 800 cc. Oncology and surgery were consulted again for further management and recommendations. 09/29/2018. No acute events overnight. Patient is status post multiple cauterization of ostomy by surgery. No further bleeding occurred since admission. On my encounter patient is awake alert and in no acute distress accompanied by his daughter who is a nurse and very involved in his medical care. Patient is denying any shortness of breath, nausea, vomiting, chest pain or any urinary symptoms. Patient and his daughter have decided to continue with medical management. Hematology oncology is on board and patient is scheduled to start his chemotherapy 09/30/2018. No acute events overnight except for one episode of acute bleeding from his ostomy site which was stopped by applying immediate pressure by the patient. Patient's pain is controlled however now has constipation. Appetite still poor. Denies any fever, chills, nausea, chest pain or any urinary symptoms. Reason For Visit: OSTOMY BLEEDING Physical Exam Vital Signs: Temp Pulse Resp BP Pulse Ox 99.9 F 80 20 158/70 H 100 09/30/18 04:41 09/30/18 04:41 09/30/18 04:41 09/30/18 04:41 09/30/18 04:41 Intake & Output 09/29/18 09/30/18 10/01/18 06:59 06:59 06:59 Intake Total 1436 Output Total 0 250 Balance 0 1186 Weight 73.8 kg 77.7 kg General appearance: PRESENT: no acute distress, well-developed, well-nourished Head exam: PRESENT: atraumatic, normocephalic Eye exam: PRESENT: conjunctiva pink, EOMI, PERRLA. ABSENT: scleral icterus Ear exam: PRESENT: normal external ear exam Mouth exam: PRESENT: moist, tongue midline Neck exam: ABSENT: carotid bruit, JVD, lymphadenopathy, thyromegaly Respiratory exam: PRESENT: clear to auscultation juan daniel. ABSENT: rales, rhonchi, wheezes Cardiovascular exam: PRESENT: RRR. ABSENT: diastolic murmur, rubs, systolic murmur Pulses: PRESENT: normal dorsalis pedis pul Vascular exam: PRESENT: normal capillary refill GI/Abdominal exam: PRESENT: normal bowel sounds, soft, other - Ostomy remains unchanged no sign of active bleeding.. ABSENT: distended, guarding, mass, organolmegaly, rebound, tenderness Rectal exam: PRESENT: deferred Extremities exam: PRESENT: full ROM. ABSENT: calf tenderness, clubbing, pedal edema Neurological exam: PRESENT: alert, awake, oriented to person, oriented to place , oriented to time, oriented to situation, CN II-XII grossly intact. ABSENT: motor sensory deficit Psychiatric exam: PRESENT: appropriate affect, normal mood. ABSENT: homicidal ideation, suicidal ideation Skin exam: PRESENT: dry, intact, warm. ABSENT: cyanosis, rash Results Laboratory Results: 09/30/18 06:23 09/29/18 06:12 09/29/18 09/30/18 14:20 06:23 WBC 8.8 10.0 RBC 2.72 L 2.65 L Hgb 8.6 L 8.5 L Hct 24.9 L 24.2 L MCV 92 91 MCH 31.7 31.9 MCHC 34.6 34.9 RDW 18.1 H 17.9 H Plt Count 203 171 Seg Neutrophils % Not Reportable Lymphocytes % Not Reportable Monocytes % Not Reportable Eosinophils % Not Reportable Basophils % Not Reportable Absolute Neutrophils Not Reportable Absolute Lymphocytes Not Reportable Absolute Monocytes Not Reportable Absolute Eosinophils Not Reportable Absolute Basophils Not Reportable Assessment & Plan - Diagnosis (1) Bleeding from colostomy stoma Is this a current diagnosis for this admission?: Yes Plan: Status post cauterization by surgery 09/29/2018. Had another episode of bleeding from his ostomy which was stopped by applying pressure. Surgery following. Follow-up recommendations. Hemodynamically stable. Hemoglobin 8.5. Monitor H&H transfuse if under 7, actively bleeding or unstable. (2) Blood loss anemia Is this a current diagnosis for this admission?: Yes Plan: As problem #1. (3) Chronic anticoagulation Is this a current diagnosis for this admission?: Yes Plan: Due to history of DVT. Currently on hold due to GI bleed. (4) Colorectal cancer, stage IV Is this a current diagnosis for this admission?: Yes Plan: Chemo therapy currently on hold. Will be restarted after discharge as per hematology/oncology note. (5) Diabetes mellitus type 2 in nonobese Is this a current diagnosis for this admission?: Yes Plan: Continue long-acting insulin, sliding scale insulin, Accu-Chek, hypoglycemic protocol. Diabetic diet. Adjust insulin dosage as needed. (6) History of DVT (deep vein thrombosis) Is this a current diagnosis for this admission?: Yes Plan: History of DVT. Anticoagulation on hold due to recent bleeding. CTA 2 days prior to this admission was negative for any PE. Daughter who is a nurse believes that recurrent ostomy bleeding may have been caused by Eliquis. She wants to restart his father on Coumadin. (7) Hypertension Qualifiers: Hypertension type: essential hypertension Qualified Code(s): I10 - Essential (primary) hypertension Is this a current diagnosis for this admission?: Yes Plan: Not controlled. Continue calcium channel blockers. Started lisinopril 5 mg. Monitor vitals. Adjust meds as needed. (8) Constipation Is this a current diagnosis for this admission?: Yes Plan: Likely due to chronic opioid and TCA intake. Restart home bowel regimen.
[2018-09-30] MEDS: ASCORBIC ACID 500 MG TABLET PO SCH (11:11)
[2018-09-30] MEDS: SENNOSIDES/DOCUSATE 8.6-50 MG 1 EACH TABLET PO SCH ×2 (11:11→19:50)
[2018-09-30] MEDS: AMLODIPINE BESYLATE 5 MG TABLET PO SCH (11:13)
[2018-09-30] MEDS ORDERED: LUBIPROSTONE 24 MCG CAPSULE PO ONE (18:30)
[2018-09-30] MEDS: AMITRIPTYLINE HCL 50 MG TABLET PO SCH (21:06)
[2018-09-30] MEDS: LIDOCAINE 5% (700 MG) TRANSDERMAL ADH..PATCH TP SCH (21:06)
[2018-10-01 05:09] LABS: HEMATOCRIT 25.8 % (37.9-51.0); HEMOGLOBIN 8.8 g/dL (13.5-17.0); MEAN CORPUSCULAR HEMOGLOBIN 31.6 pg (27.0-33.4); MEAN CORPUSCULAR HGB CONC 34.3 g/dL (32.0-36.0); MEAN CORPUSCULAR VOLUME 92 fl (80-97); PLATELET COUNT 168 10^3/uL (150-450); RED CELL DISTRIBUTION WIDTH 17.7 % (11.5-14.0); WHITE BLOOD COUNT 15.2 10^3/uL (4.0-10.5)
[2018-10-01 05:32] LABS: ALANINE AMINOTRANSFERASE 26 U/L (21-72); ALBUMIN 2.6 g/dL (3.5-5.0); ALKALINE PHOSPHATASE 83 U/L (38-126); ANION GAP 10 (5-19); ASPARTATE AMINO TRANSFERASE 36 U/L (17-59); BILIRUBIN,DIRECT 0.2 mg/dL (0.0-0.4); BILIRUBIN,TOTAL 0.6 mg/dL (0.2-1.3); BLOOD UREA NITROGEN 22 mg/dL (7-20); CALCIUM 8.8 mg/dL (8.4-10.2); CARBON DIOXIDE 22 mmol/L (22-30); CHLORIDE 104 mmol/L (98-107); GLUCOSE 222 mg/dL (75-110); SODIUM 135.5 mmol/L (137-145); TOTAL PROTEIN 5.3 g/dL (6.3-8.2)
[2018-10-01 05:36] LABS: ABSOLUTE LYMPHOCYTES# (MANUAL) 2.1 10^3/uL (0.5-4.7); ABSOLUTE MONOCYTES # (MANUAL) 2.7 10^3/uL (0.1-1.4); ABSOLUTE NEUTROPHILS# (MANUAL) 10.3 10^3/uL (1.7-8.2); BAND NEUTROPHILS % (MANUAL) 2 % (3-5); BASOPHILS % (MANUAL) 0 % (0-2); EOSINOPHILS % (MANUAL) 0 % (0-6); LYMPHOCYTES % (MANUAL) 14 % (13-45); METAMYELOCYTES % (MANUAL) 1 % (0); MONOCYTES % (MANUAL) 18 % (3-13); SEGMENTED NEUTROPHILS % (MAN) 65 % (42-78); TOTAL CELLS COUNTED 100
[2018-10-01 05:38] LABS: ANISOCYTOSIS 1+; PLATELET COMMENT ADEQUATE; POLYCHROMASIA 1+; SCHISTOCYTES 1+; TOXIC GRANULATION 1+
[2018-10-01] MEDS ORDERED: CEFTRIAXONE 1 GM/D5W RTU 1 GM/50 ML RTUPB IV SCH (08:00)
[2018-10-01] MEDS: AMLODIPINE BESYLATE 5 MG TABLET PO SCH (08:42)
[2018-10-01] MEDS: OXYCODONE HCL IR 5 MG TABLET PO PRN ×5 (08:42→21:26)
--- NOTE | 2018-10-01 08:50 | PDOC PROGRESS REPORT ---
Subjective Progress Note for:: 10/01/18 Subjective:: Patient states constipation has now been relieved after good BM yesterday. Pain is better. Very little further bleeding, but did not get up much yesterday. Again discussed all medication, plans for further chemo, need to move around and try to illicit further bleeding. Patient was seen with Dr. Alvarez as well. ROS: good appetite. continued pain in rectum. Some dyspnea last night. Reason For Visit: OSTOMY BLEEDING Physical Exam Vital Signs: Temp Pulse Resp BP Pulse Ox 100.0 F 96 20 148/81 H 98 09/30/18 23:28 10/01/18 07:00 09/30/18 23:28 09/30/18 23:28 09/30/18 23:28 Intake & Output 09/30/18 10/01/18 10/02/18 06:59 06:59 06:59 Intake Total 1436 1192 Output Total 250 Balance 1186 1192 Weight 77.7 kg 78.2 kg General appearance: PRESENT: well-developed, well-nourished Head exam: PRESENT: normocephalic Respiratory exam: PRESENT: clear to auscultation juan daniel, unlabored Cardiovascular exam: PRESENT: RRR GI/Abdominal exam: PRESENT: other - Unchanged from previously Extremities exam: ABSENT: pedal edema Neurological exam: PRESENT: alert, awake, other - Very hard of hearing. Psychiatric exam: PRESENT: appropriate affect Skin exam: PRESENT: normal color Results Laboratory Results: 10/01/18 04:47 10/01/18 04:47 10/01/18 10/01/18 04:47 04:47 WBC 15.2 H RBC 2.80 L Hgb 8.8 L Hct 25.8 L MCV 92 MCH 31.6 MCHC 34.3 RDW 17.7 H Plt Count 168 Seg Neutrophils % Not Reportable Lymphocytes % Not Reportable Monocytes % Not Reportable Eosinophils % Not Reportable Basophils % Not Reportable Absolute Neutrophils Not Reportable Absolute Lymphocytes Not Reportable Absolute Monocytes Not Reportable Absolute Eosinophils Not Reportable Absolute Basophils Not Reportable Sodium 135.5 L Potassium 4.0 Chloride 104 Carbon Dioxide 22 Anion Gap 10 BUN 22 H Creatinine 0.97 Est GFR ( Amer) > 60 Est GFR (Non-Af Amer) > 60 Glucose 222 H Calcium 8.8 Magnesium 2.1 Total Bilirubin 0.6 AST 36 ALT 26 Alkaline Phosphatase 83 Total Protein 5.3 L Albumin 2.6 L Assessment & Plan - Diagnosis (1) Colorectal cancer, stage IV Is this a current diagnosis for this admission?: Yes Plan: Plan to start Regorafenib on discharge. Patient and agree. I will arrange. (2) Bleeding from colostomy stoma Is this a current diagnosis for this admission?: Yes Plan: PT/PTT normal. all blood thinners should be out of his system at this point. Dr. Alvarez available all day if needed. Patient will try to be much more active today. (3) Blood loss anemia Is this a current diagnosis for this admission?: Yes Plan: HGB remains stable. No indication for transfusion at this time. (4) Chronic anticoagulation Is this a current diagnosis for this admission?: Yes Plan: I do not believe it is safe to restart ANY anticoagulation at this time. Will watch for evidence of DVT/PE.
[2018-10-01] MEDS: LISINOPRIL 5 MG TABLET PO SCH (09:18)
[2018-10-01] MEDS: ZINC SULFATE 220 MG CAPSULE PO SCH (09:18)
[2018-10-01] MEDS: ASCORBIC ACID 500 MG TABLET PO SCH (09:21)
[2018-10-01] MEDS: SENNOSIDES/DOCUSATE 8.6-50 MG 1 EACH TABLET PO SCH ×2 (09:21→17:30)
[2018-10-01] MEDS: MEGESTROL ACETATE SUSP 400 MG/10 ML UDCUP PO SCH (09:22)
[2018-10-01] MEDS: PHARMACY COMMUNICATION ORDER MC SCH (09:31)
[2018-10-01] MEDS: CEFTRIAXONE SODIUM 1,000 MG in DEXTROSE 5%-WATER 50 ML IV SCH (09:37)
[2018-10-01] MEDS ORDERED: (PENDING PHARMACY ID) (Megestrol Acetate [Megestrol Acetate] 20 ML) PO SCH (10:00)
[2018-10-01] MEDS ORDERED: FENTANYL 50 MCG/HR PATCH.TD72 TD SCH (10:00)
[2018-10-01] MEDS ORDERED: CEFOXITIN 1 GM/D5W RTU 1 GM/50 ML RTUPB IV SCH (10:00)
--- NOTE | 2018-10-01 10:47 | PDOC PROGRESS REPORT ---
Subjective Progress Note for:: 10/01/18 Subjective:: This is a 72-year-old male with a complaint of bleeding at his colostomy site. The patient has had no further bleeding since admission. The patient denies chest pain, shortness of breath, dizziness, headache, fevers, chills, malaise, nausea, vomiting. His ostomy is productive of stool. The patient is not taking his Eliquis. Reason For Visit: OSTOMY BLEEDING Physical Exam Vital Signs: Temp Pulse Resp BP Pulse Ox 100.0 F 96 20 148/81 H 98 09/30/18 23:28 10/01/18 07:00 09/30/18 23:28 09/30/18 23:28 09/30/18 23:28 Intake & Output 09/30/18 10/01/18 10/02/18 06:59 06:59 06:59 Intake Total 1436 1192 Output Total 250 Balance 1186 1192 Weight 77.7 kg 78.2 kg General appearance: PRESENT: no acute distress, cooperative Head exam: PRESENT: atraumatic, normocephalic Eye exam: PRESENT: EOMI, PERRLA Mouth exam: PRESENT: moist, neck supple Neck exam: ABSENT: meningismus, tenderness, thyromegaly, tracheal deviation Respiratory exam: PRESENT: unlabored. ABSENT: chest wall tenderness, tachypnea , wheezes Cardiovascular exam: PRESENT: RRR Pulses: PRESENT: normal radial pulses Vascular exam: PRESENT: normal capillary refill GI/Abdominal exam: PRESENT: hernia - Parastomal hernia present, soft, other - Colostomy pink without signs of bleeding.. ABSENT: distended, tenderness Rectal exam: PRESENT: deferred Extremities exam: ABSENT: clubbing Musculoskeletal exam: ABSENT: deformity Neurological exam: PRESENT: alert, awake, oriented to person, oriented to place , oriented to time, oriented to situation, CN II-XII grossly intact Psychiatric exam: ABSENT: agitated, anxious, depressed Focused psych exam: ABSENT: delusional Skin exam: ABSENT: cyanosis, erythema, jaundice Results Laboratory Results: 10/01/18 04:47 10/01/18 04:47 10/01/18 10/01/18 04:47 04:47 WBC 15.2 H RBC 2.80 L Hgb 8.8 L Hct 25.8 L MCV 92 MCH 31.6 MCHC 34.3 RDW 17.7 H Plt Count 168 Seg Neutrophils % Not Reportable Lymphocytes % Not Reportable Monocytes % Not Reportable Eosinophils % Not Reportable Basophils % Not Reportable Absolute Neutrophils Not Reportable Absolute Lymphocytes Not Reportable Absolute Monocytes Not Reportable Absolute Eosinophils Not Reportable Absolute Basophils Not Reportable Sodium 135.5 L Potassium 4.0 Chloride 104 Carbon Dioxide 22 Anion Gap 10 BUN 22 H Creatinine 0.97 Est GFR ( Amer) > 60 Est GFR (Non-Af Amer) > 60 Glucose 222 H Calcium 8.8 Magnesium 2.1 Total Bilirubin 0.6 AST 36 ALT 26 Alkaline Phosphatase 83 Total Protein 5.3 L Albumin 2.6 L Assessment & Plan - Diagnosis (1) Colorectal cancer, stage IV Is this a current diagnosis for this admission?: Yes (2) Colostomy hemorrhage Is this a current diagnosis for this admission?: Yes - Plan Summary Plan Summary: This is a 72-year-old male who reports bleeding at his colostomy site. The patient has had no further bleeding since admission. I have encouraged the patient to perform some amount of activity prior to being discharged home. If he experiences any bleeding, he has been encouraged to have the nurses contact me immediately. If an area of bleeding can be identified, suture ligation of this area is possible. Otherwise, the patient may be discharged home whenever medically stable.
--- NOTE | 2018-10-01 11:58 | PDOC PROGRESS REPORT ---
Subjective Progress Note for:: 10/01/18 Subjective:: ALIYA LÓPEZ is a 72 year old male with medical history stage IV colorectal cancer and history of DVT currently on Eliquis. Presented to ED complaining of bleeding through his ostomy. And has multiple admissions for above-mentioned reason. Colon cancer was diagnosed on October 2017 colon cancer with colostomy in place which was done in October 2017, he used to be on Coumadin however was switched to Eliquis. As per patient's daughter who is a nurse he has been doing multiple ostomy bleeds since being started on Eliquis. Patient was admitted here at [facility] on September 22, 2018 for ostomy bleed he received 1 PRBC and surgery and oncology was consulted and patient was discharged home. On September 25 patient was readmitted for ostomy bleed and again surgery oncology were consulted and patient was discharged home on September 27 for medical management. He came back on 09/28/2018 complaining of another episode of ostomy bleed about 800 cc. Oncology and surgery were consulted again for further management and recommendations. 09/29/2018. No acute events overnight. Patient is status post multiple cauterization of ostomy by surgery. No further bleeding occurred since admission. On my encounter patient is awake alert and in no acute distress accompanied by his daughter who is a nurse and very involved in his medical care. Patient is denying any shortness of breath, nausea, vomiting, chest pain or any urinary symptoms. Patient and his daughter have decided to continue with medical management. Hematology oncology is on board and patient is scheduled to start his chemotherapy 09/30/2018. No acute events overnight except for one episode of acute bleeding from his ostomy site which was stopped by applying immediate pressure by the patient. Patient's pain is controlled however now has constipation. Appetite still poor. Denies any fever, chills, nausea, chest pain or any urinary symptoms. 10/01/2018. No acute events overnight. Patient stating that he had more shortness of breath on exertion overnight. No bleeding from ostomy since yesterday. Constipation has been improving. Patient has been improving. Patient denies any fever, chills, nausea, vomiting, chest pain or any urinary symptoms. Reason For Visit: OSTOMY BLEEDING Physical Exam Vital Signs: Temp Pulse Resp BP Pulse Ox 100.0 F 96 20 148/81 H 98 09/30/18 23:28 10/01/18 07:00 09/30/18 23:28 09/30/18 23:28 09/30/18 23:28 Intake & Output 09/30/18 10/01/18 10/02/18 06:59 06:59 06:59 Intake Total 1436 1192 Output Total 250 Balance 1186 1192 Weight 77.7 kg 78.2 kg General appearance: PRESENT: no acute distress, well-developed, well-nourished Respiratory exam: PRESENT: clear to auscultation juan daniel. ABSENT: rales, rhonchi, wheezes Cardiovascular exam: PRESENT: RRR. ABSENT: diastolic murmur, rubs, systolic murmur GI/Abdominal exam: PRESENT: normal bowel sounds, soft, other - Ostomy unchanged. No sign of bleeding.. ABSENT: distended, guarding, mass, organolmegaly, rebound, tenderness Results Laboratory Results: 10/01/18 04:47 10/01/18 04:47 10/01/18 10/01/18 04:47 04:47 WBC 15.2 H RBC 2.80 L Hgb 8.8 L Hct 25.8 L MCV 92 MCH 31.6 MCHC 34.3 RDW 17.7 H Plt Count 168 Seg Neutrophils % Not Reportable Lymphocytes % Not Reportable Monocytes % Not Reportable Eosinophils % Not Reportable Basophils % Not Reportable Absolute Neutrophils Not Reportable Absolute Lymphocytes Not Reportable Absolute Monocytes Not Reportable Absolute Eosinophils Not Reportable Absolute Basophils Not Reportable Sodium 135.5 L Potassium 4.0 Chloride 104 Carbon Dioxide 22 Anion Gap 10 BUN 22 H Creatinine 0.97 Est GFR ( Amer) > 60 Est GFR (Non-Af Amer) > 60 Glucose 222 H Calcium 8.8 Magnesium 2.1 Total Bilirubin 0.6 AST 36 ALT 26 Alkaline Phosphatase 83 Total Protein 5.3 L Albumin 2.6 L Assessment & Plan - Diagnosis (1) Bleeding from colostomy stoma Is this a current diagnosis for this admission?: Yes Plan: Status post cauterization by surgery 09/29/2018. No more episodes of bleeding since yesterday. Surgery following. Follow-up recommendations. Hemodynamically stable. Hemoglobin 8.5. Monitor H&H transfuse if under 7, actively bleeding or unstable. (2) Blood loss anemia Is this a current diagnosis for this admission?: Yes Plan: As problem #1. (3) Chronic anticoagulation Is this a current diagnosis for this admission?: Yes Plan: Due to history of DVT. Currently on hold due to GI bleed. (4) Colorectal cancer, stage IV Is this a current diagnosis for this admission?: Yes Plan: Chemo therapy currently on hold. Will be restarted after discharge as per hematology/oncology note. (5) Diabetes mellitus type 2 in nonobese Is this a current diagnosis for this admission?: Yes Plan: Continue long-acting insulin, sliding scale insulin, Accu-Chek, hypoglycemic protocol. Diabetic diet. Adjust insulin dosage as needed. (6) Constipation Is this a current diagnosis for this admission?: Yes Plan: Likely due to chronic opioid and TCA intake. Started Amitiza yesterday. Restart home bowel regimen.
--- NOTE | 2018-10-01 12:41 | RADIOLOGY REPORT (SQ) ---
EXAM DESCRIPTION: CHEST SINGLE VIEW COMPLETED DATE/TIME: 10/01/2018 12:15 pm REASON FOR STUDY: SOB COMPARISON: Chest films 09/22/2018, 09/27/2018 CT angio chest 09/27/2018 EXAM PARAMETERS: NUMBER OF VIEWS: One view. TECHNIQUE: Single frontal radiographic view of the chest acquired. RADIATION DOSE: NA LIMITATIONS: None. FINDINGS: LUNGS AND PLEURA: Several small lung nodules are present worrisome for metastatic disease. No acute infiltrates. No pleural effusion. No pneumothorax. MEDIASTINUM AND HILAR STRUCTURES: No masses. Contour normal. HEART AND VASCULAR STRUCTURES: Heart normal in size. Normal vasculature. BONES: No acute findings. HARDWARE: Right permanent central line tip superior vena cava OTHER: No other significant finding. IMPRESSION: No acute findings. Lung metastatic nodules TECHNICAL DOCUMENTATION: JOB ID: [id number] [employer]- All Rights Reserved Reading location - IP/workstation name: [email or web address]
[2018-10-01 13:54] LABS: ANION GAP 11 (5-19); BLOOD UREA NITROGEN 24 mg/dL (7-20); CALCIUM 8.6 mg/dL (8.4-10.2); CARBON DIOXIDE 23 mmol/L (22-30); CHLORIDE 102 mmol/L (98-107); GLUCOSE 185 mg/dL (75-110); POTASSIUM 3.6 mmol/L (3.6-5.0); SODIUM 135.5 mmol/L (137-145)
[2018-10-01] MEDS: AMITRIPTYLINE HCL 50 MG TABLET PO SCH (21:24)
[2018-10-01] MEDS: LIDOCAINE 5% (700 MG) TRANSDERMAL ADH..PATCH TP SCH (21:25)
[2018-10-02] MEDS: OXYCODONE HCL IR 5 MG TABLET PO PRN ×6 (05:04→21:40)
[2018-10-02 06:49] LABS: HEMATOCRIT 23.8 % (37.9-51.0); HEMOGLOBIN 8.1 g/dL (13.5-17.0); MEAN CORPUSCULAR HEMOGLOBIN 31.3 pg (27.0-33.4); MEAN CORPUSCULAR VOLUME 92 fl (80-97); PLATELET COUNT 152 10^3/uL (150-450); RED BLOOD COUNT 2.59 10^6/uL (4.35-5.55); WHITE BLOOD COUNT 14.8 10^3/uL (4.0-10.5)
[2018-10-02 07:23] LABS: ABSOLUTE LYMPHOCYTES# (MANUAL) 1.6 10^3/uL (0.5-4.7); ABSOLUTE MONOCYTES # (MANUAL) 2.8 10^3/uL (0.1-1.4); ABSOLUTE NEUTROPHILS# (MANUAL) 10.4 10^3/uL (1.7-8.2); BAND NEUTROPHILS % (MANUAL) 5 % (3-5); BASOPHILS % (MANUAL) 0 % (0-2); EOSINOPHILS % (MANUAL) 0 % (0-6); LYMPHOCYTES % (MANUAL) 11 % (13-45); METAMYELOCYTES % (MANUAL) 2 % (0); MONOCYTES % (MANUAL) 19 % (3-13); SEGMENTED NEUTROPHILS % (MAN) 63 % (42-78); TOTAL CELLS COUNTED 100
[2018-10-02 07:25] LABS: ANISOCYTOSIS 2+; OVALOCYTES 1+; PLATELET COMMENT ADEQUATE; POIKILOCYTOSIS 1+; POLYCHROMASIA SLIGHT; TEAR DROP CELLS 1+
[2018-10-02] MEDS: ASCORBIC ACID 500 MG TABLET PO SCH (09:02)
[2018-10-02] MEDS: LISINOPRIL 5 MG TABLET PO SCH (09:02)
[2018-10-02] MEDS: MEGESTROL ACETATE SUSP 400 MG/10 ML UDCUP PO SCH (09:02)
[2018-10-02] MEDS: SENNOSIDES/DOCUSATE 8.6-50 MG 1 EACH TABLET PO SCH ×2 (09:02→17:11)
[2018-10-02] MEDS: CEFTRIAXONE SODIUM 1,000 MG in DEXTROSE 5%-WATER 50 ML IV SCH (09:02)
[2018-10-02] MEDS: AMLODIPINE BESYLATE 5 MG TABLET PO SCH (09:02)
[2018-10-02] MEDS: ZINC SULFATE 220 MG CAPSULE PO SCH (09:02)
[2018-10-02] MEDS: FENTANYL 75 MCG/HR PATCH.TD72 TD SCH (09:03)
[2018-10-02] MEDS: PHARMACY COMMUNICATION ORDER MC SCH (09:03)
[2018-10-02] MEDS ORDERED: LEVOFLOXACIN 500 MG TABLET PO SCH (10:00)
[2018-10-02] MEDS: LUBIPROSTONE 8 MCG CAPSULE PO SCH ×2 (10:08→17:11)
--- NOTE | 2018-10-02 11:36 | PDOC PROGRESS REPORT ---
Subjective Progress Note for:: 10/02/18 Subjective:: ALIYA LÓPEZ is a 72 year old male with medical history stage IV colorectal cancer and history of DVT currently on Eliquis. Presented to ED complaining of bleeding through his ostomy. And has multiple admissions for above-mentioned reason. Colon cancer was diagnosed on October 2017 colon cancer with colostomy in place which was done in October 2017, he used to be on Coumadin however was switched to Eliquis. As per patient's daughter who is a nurse he has been doing multiple ostomy bleeds since being started on Eliquis. Patient was admitted here at [facility] on September 22, 2018 for ostomy bleed he received 1 PRBC and surgery and oncology was consulted and patient was discharged home. On September 25 patient was readmitted for ostomy bleed and again surgery oncology were consulted and patient was discharged home on September 27 for medical management. He came back on 09/28/2018 complaining of another episode of ostomy bleed about 800 cc. Oncology and surgery were consulted again for further management and recommendations. 09/29/2018. No acute events overnight. Patient is status post multiple cauterization of ostomy by surgery. No further bleeding occurred since admission. On my encounter patient is awake alert and in no acute distress accompanied by his daughter who is a nurse and very involved in his medical care. Patient is denying any shortness of breath, nausea, vomiting, chest pain or any urinary symptoms. Patient and his daughter have decided to continue with medical management. Hematology oncology is on board and patient is scheduled to start his chemotherapy 09/30/2018. No acute events overnight except for one episode of acute bleeding from his ostomy site which was stopped by applying immediate pressure by the patient. Patient's pain is controlled however now has constipation. Appetite still poor. Denies any fever, chills, nausea, chest pain or any urinary symptoms. 10/01/2018. No acute events overnight. Patient stating that he had more shortness of breath on exertion overnight. No bleeding from ostomy since yesterday. Constipation has been improving. Patient has been improving. Patient denies any fever, chills, nausea, vomiting, chest pain or any urinary symptoms. Reason For Visit: OSTOMY BLEEDING Physical Exam Vital Signs: Temp Pulse Resp BP Pulse Ox 99.7 F 88 16 144/76 H 100 10/02/18 07:11 10/02/18 07:11 10/02/18 07:11 10/02/18 07:11 10/02/18 07:11 Intake & Output 10/01/18 10/02/18 10/03/18 06:59 06:59 06:59 Intake Total 1192 1700 50 Output Total 200 Balance 1192 1500 50 Weight 78.2 kg 77.7 kg General appearance: PRESENT: no acute distress, well-developed, well-nourished Respiratory exam: PRESENT: clear to auscultation juan daniel. ABSENT: rales, rhonchi, wheezes Cardiovascular exam: PRESENT: RRR. ABSENT: diastolic murmur, rubs, systolic murmur GI/Abdominal exam: PRESENT: normal bowel sounds, soft, other - ostomy unchanged. no sign of bleeding. ABSENT: distended, guarding, mass, organolmegaly, rebound, tenderness Results Laboratory Results: 10/02/18 06:30 10/01/18 13:23 10/01/18 10/02/18 13:23 06:30 WBC 14.8 H RBC 2.59 L Hgb 8.1 L Hct 23.8 L MCV 92 MCH 31.3 MCHC 34.0 RDW 18.0 H Plt Count 152 Seg Neutrophils % Not Reportable Lymphocytes % Not Reportable Monocytes % Not Reportable Eosinophils % Not Reportable Basophils % Not Reportable Absolute Neutrophils Not Reportable Absolute Lymphocytes Not Reportable Absolute Monocytes Not Reportable Absolute Eosinophils Not Reportable Absolute Basophils Not Reportable Sodium 135.5 L Potassium 3.6 Chloride 102 Carbon Dioxide 23 Anion Gap 11 BUN 24 H Creatinine 0.93 Est GFR ( Amer) > 60 Est GFR (Non-Af Amer) > 60 Glucose 185 H Calcium 8.6 Impressions: Chest X-Ray 10/01/18 00:00 IMPRESSION: No acute findings. Lung metastatic nodules Assessment & Plan - Diagnosis (1) Leukocytosis Qualifiers: Leukocytosis type: bandemia Qualified Code(s): D72.825 - Bandemia Is this a current diagnosis for this admission?: Yes Plan: Mild leukocytosis with bandemia. He was having shortness of breath and was febrile on 10/01/2018. Shortness of breath have improved and he has been afebrile for the last 24 hours. Prelim blood culture positive for gram-positive rods 1 out of 2. Continue empiric antibiotics. Follow-up cultures. (2) Bleeding from colostomy stoma Is this a current diagnosis for this admission?: Yes Plan: Status post cauterization by surgery 09/29/2018. No more episodes of bleeding since yesterday. Surgery following. Follow-up recommendations. Hemodynamically stable. Hemoglobin 8.1. Monitor H&H transfuse if under 7, actively bleeding or unstable. (3) Blood loss anemia Is this a current diagnosis for this admission?: Yes Plan: As problem #1. (4) Chronic anticoagulation Is this a current diagnosis for this admission?: Yes Plan: Due to history of DVT. Currently on hold due to GI bleed. (5) Colorectal cancer, stage IV Is this a current diagnosis for this admission?: Yes Plan: Chemo therapy currently on hold. Will be restarted after discharge as per hematology/oncology note. (6) Diabetes mellitus type 2 in nonobese Is this a current diagnosis for this admission?: Yes Plan: Continue long-acting insulin, sliding scale insulin, Accu-Chek, hypoglycemic protocol. Diabetic diet. Adjust insulin dosage as needed. (7) Constipation Is this a current diagnosis for this admission?: Yes Plan: Improving PT had had 3 bowel movements in the last 24 hours. Likely opioid and TCA induced. Started Amitiza 09/30/2018. Restart home bowel regimen.
[2018-10-02] MEDS: AMITRIPTYLINE HCL 50 MG TABLET PO SCH (21:40)
[2018-10-02] MEDS: LIDOCAINE 5% (700 MG) TRANSDERMAL ADH..PATCH TP SCH (21:40)
[2018-10-03] MEDS: OXYCODONE HCL IR 5 MG TABLET PO PRN ×7 (00:26→23:02)
[2018-10-03 06:53] LABS: HEMATOCRIT 22.5 % (37.9-51.0); MEAN CORPUSCULAR HEMOGLOBIN 31.4 pg (27.0-33.4); MEAN CORPUSCULAR HGB CONC 34.3 g/dL (32.0-36.0); MEAN CORPUSCULAR VOLUME 92 fl (80-97); RED BLOOD COUNT 2.46 10^6/uL (4.35-5.55); RED CELL DISTRIBUTION WIDTH 17.5 % (11.5-14.0); WHITE BLOOD COUNT 14.1 10^3/uL (4.0-10.5)
[2018-10-03 06:59] LABS: HEMOGLOBIN 7.7 g/dL (13.5-17.0)
[2018-10-03 07:05] LABS: ALANINE AMINOTRANSFERASE 27 U/L (21-72); ALBUMIN 2.4 g/dL (3.5-5.0); ALKALINE PHOSPHATASE 103 U/L (38-126); ANION GAP 11 (5-19); ASPARTATE AMINO TRANSFERASE 36 U/L (17-59); BILIRUBIN,DIRECT 0.2 mg/dL (0.0-0.4); BILIRUBIN,TOTAL 0.4 mg/dL (0.2-1.3); BLOOD UREA NITROGEN 24 mg/dL (7-20); CALCIUM 9.3 mg/dL (8.4-10.2); CARBON DIOXIDE 20 mmol/L (22-30); CHLORIDE 103 mmol/L (98-107); GLUCOSE 201 mg/dL (75-110); POTASSIUM 4.7 mmol/L (3.6-5.0); SODIUM 134.2 mmol/L (137-145); TOTAL PROTEIN 5.2 g/dL (6.3-8.2)
[2018-10-03 07:20] LABS: ABSOLUTE LYMPHOCYTES# (MANUAL) 2.3 10^3/uL (0.5-4.7); ABSOLUTE MONOCYTES # (MANUAL) 0.7 10^3/uL (0.1-1.4); BAND NEUTROPHILS % (MANUAL) 2 % (3-5); BASOPHILS % (MANUAL) 1 % (0-2); EOSINOPHILS % (MANUAL) 0 % (0-6); LYMPHOCYTES % (MANUAL) 16 % (13-45); METAMYELOCYTES % (MANUAL) 2 % (0); MONOCYTES % (MANUAL) 5 % (3-13); SEGMENTED NEUTROPHILS % (MAN) 74 % (42-78); TOTAL CELLS COUNTED 100
[2018-10-03 07:21] LABS: POLYCHROMASIA SLIGHT
[2018-10-03 07:22] LABS: ANISOCYTOSIS 1+; OVALOCYTES 1+; PLATELET CLUMPS PRESENT; PLATELET COUNT 127 10^3/uL (150-450); POIKILOCYTOSIS 1+; SCHISTOCYTES SLIGHT
[2018-10-03] MEDS: AMLODIPINE BESYLATE 5 MG TABLET PO SCH (10:01)
[2018-10-03] MEDS: LISINOPRIL 5 MG TABLET PO SCH (10:01)
[2018-10-03] MEDS: MEGESTROL ACETATE SUSP 400 MG/10 ML UDCUP PO SCH (10:01)
[2018-10-03] MEDS: LUBIPROSTONE 8 MCG CAPSULE PO SCH ×2 (10:01→17:19)
[2018-10-03] MEDS: SENNOSIDES/DOCUSATE 8.6-50 MG 1 EACH TABLET PO SCH ×2 (10:01→17:19)
[2018-10-03] MEDS: ZINC SULFATE 220 MG CAPSULE PO SCH (10:01)
[2018-10-03] MEDS: CEFTRIAXONE SODIUM 1,000 MG in DEXTROSE 5%-WATER 50 ML IV SCH (10:02)
[2018-10-03] MEDS: ASCORBIC ACID 500 MG TABLET PO SCH (10:03)
[2018-10-03] MEDS: PHARMACY COMMUNICATION ORDER MC SCH (10:07)
--- NOTE | 2018-10-03 10:33 | PDOC PROGRESS REPORT ---
Subjective Progress Note for:: 10/03/18 Subjective:: ALIYA LÓPEZ is a 72 year old male with medical history stage IV colorectal cancer and history of DVT currently on Eliquis. Presented to ED complaining of bleeding through his ostomy. And has multiple admissions for above-mentioned reason. Colon cancer was diagnosed on October 2017 colon cancer with colostomy in place which was done in October 2017, he used to be on Coumadin however was switched to Eliquis. As per patient's daughter who is a nurse he has been doing multiple ostomy bleeds since being started on Eliquis. Patient was admitted here at [facility] on September 22, 2018 for ostomy bleed he received 1 PRBC and surgery and oncology was consulted and patient was discharged home. On September 25 patient was readmitted for ostomy bleed and again surgery oncology were consulted and patient was discharged home on September 27 for medical management. He came back on 09/28/2018 complaining of another episode of ostomy bleed about 800 cc. Oncology and surgery were consulted again for further management and recommendations. 09/29/2018. No acute events overnight. Patient is status post multiple cauterization of ostomy by surgery. No further bleeding occurred since admission. On my encounter patient is awake alert and in no acute distress accompanied by his daughter who is a nurse and very involved in his medical care. Patient is denying any shortness of breath, nausea, vomiting, chest pain or any urinary symptoms. Patient and his daughter have decided to continue with medical management. Hematology oncology is on board and patient is scheduled to start his chemotherapy 09/30/2018. No acute events overnight except for one episode of acute bleeding from his ostomy site which was stopped by applying immediate pressure by the patient. Patient's pain is controlled however now has constipation. Appetite still poor. Denies any fever, chills, nausea, chest pain or any urinary symptoms. 10/01/2018. No acute events overnight. Patient stating that he had more shortness of breath on exertion overnight. No bleeding from ostomy since yesterday. Constipation has been improving. Patient has been improving. Patient denies any fever, chills, nausea, vomiting, chest pain or any urinary symptoms. 10/03/2018. No acute events overnight. Mild shortness of breath on exertion. Denies any fever chills nausea vomiting diarrhea. Has not had any more ostomy please. P.o. tolerant and ambulatory. Reason For Visit: OSTOMY BLEEDING Physical Exam Vital Signs: Temp Pulse Resp BP Pulse Ox 98.7 F 94 16 166/73 H 100 10/03/18 07:30 10/03/18 07:30 10/03/18 07:30 10/03/18 07:30 10/03/18 07:30 Intake & Output 10/02/18 10/03/18 10/04/18 06:59 06:59 06:59 Intake Total 1700 882 Output Total 200 Balance 1500 882 Weight 77.7 kg General appearance: PRESENT: no acute distress, well-developed, well-nourished Respiratory exam: PRESENT: clear to auscultation juan daniel. ABSENT: rales, rhonchi, wheezes Cardiovascular exam: PRESENT: RRR. ABSENT: diastolic murmur, rubs, systolic murmur GI/Abdominal exam: PRESENT: normal bowel sounds, soft, other - Ostomy unchanged. No sign of bleeding.. ABSENT: distended, guarding, mass, organolmegaly, rebound, tenderness Neurological exam: PRESENT: alert, awake, oriented to person, oriented to place , oriented to time, oriented to situation, CN II-XII grossly intact. ABSENT: motor sensory deficit Results Laboratory Results: 10/03/18 06:30 10/03/18 06:30 10/03/18 10/03/18 06:30 06:30 WBC 14.1 H RBC 2.46 L Hgb 7.7 L Hct 22.5 L MCV 92 MCH 31.4 MCHC 34.3 RDW 17.5 H Plt Count 127 L Seg Neutrophils % Not Reportable Lymphocytes % Not Reportable Monocytes % Not Reportable Eosinophils % Not Reportable Basophils % Not Reportable Absolute Neutrophils Not Reportable Absolute Lymphocytes Not Reportable Absolute Monocytes Not Reportable Absolute Eosinophils Not Reportable Absolute Basophils Not Reportable Sodium 134.2 L Potassium 4.7 Chloride 103 Carbon Dioxide 20 L Anion Gap 11 BUN 24 H Creatinine 0.93 Est GFR ( Amer) > 60 Est GFR (Non-Af Amer) > 60 Glucose 201 H Calcium 9.3 Total Bilirubin 0.4 AST 36 ALT 27 Alkaline Phosphatase 103 Total Protein 5.2 L Albumin 2.4 L 10/01/18 08:53 Blood Blood Culture - Final Clostridium Perfringens Impressions: Chest X-Ray 10/01/18 00:00 IMPRESSION: No acute findings. Lung metastatic nodules Assessment & Plan - Diagnosis (1) Leukocytosis Qualifiers: Leukocytosis type: bandemia Qualified Code(s): D72.825 - Bandemia Is this a current diagnosis for this admission?: Yes Plan: Mild leukocytosis with bandemia. He was having shortness of breath and was febrile on 10/01/2018. Shortness of breath have improved and he has been afebrile for the last 24 hours. Blood culture 1/2+ for Clostridium perfringens negative beta-lactamase. Day 3 of IV ceftriaxone. Prelim cultures from ostomy positive for gram-positive cocci and gram-negative rods. (2) Bleeding from colostomy stoma Is this a current diagnosis for this admission?: Yes Plan: Status post cauterization by surgery 09/29/2018. No more episodes of bleeding since yesterday. Surgery following. Follow-up recommendations. Hemoglobin 7.7 from 8.1. Transfuse 1 PRBC. H&H tomorrow. (3) Blood loss anemia Is this a current diagnosis for this admission?: Yes Plan: As problem #2. (4) Chronic anticoagulation Is this a current diagnosis for this admission?: Yes Plan: Due to history of DVT. Currently on hold due to GI bleed. (5) Colorectal cancer, stage IV Is this a current diagnosis for this admission?: Yes Plan: Chemo therapy currently on hold. Will be restarted after discharge as per hematology/oncology note. (6) Diabetes mellitus type 2 in nonobese Is this a current diagnosis for this admission?: Yes Plan: Continue long-acting insulin, sliding scale insulin, Accu-Chek, hypoglycemic protocol. Diabetic diet. Adjust insulin dosage as needed. (7) Constipation Is this a current diagnosis for this admission?: Yes Plan: Improving PT had had 3 bowel movements in the last 24 hours. Likely opioid and TCA induced. Started Amitiza 09/30/2018. Restart home bowel regimen. (8) Hypertension Is this a current diagnosis for this admission?: Yes Plan: Start on calcium channel camilla and TAMMY. Adjust dose as needed. Monitor vitals.
[2018-10-03] MEDS ORDERED: LISINOPRIL 5 MG TABLET PO SCH (10:34)
[2018-10-03] MEDS ORDERED: LISINOPRIL 10 MG TABLET PO SCH (11:00)
[2018-10-03] MEDS: DOXYCYCLINE HYCLATE 100 MG in DEXTROSE 5%-WATER 250 ML IV SCH (22:03)
[2018-10-03] MEDS: AMITRIPTYLINE HCL 50 MG TABLET PO SCH (22:03)
[2018-10-03] MEDS: HYDROMORPHONE HCL INJ/PF 2 MG/ML AMPULE IV PRN (22:10)
[2018-10-03] MEDS: LIDOCAINE 5% (700 MG) TRANSDERMAL ADH..PATCH TP SCH (22:13)
[2018-10-03] MEDS: CLINDAMYCIN HCL 150 MG CAPSULE PO SCH (22:20)
[2018-10-04] MEDS: OXYCODONE HCL IR 5 MG TABLET PO PRN ×6 (02:16→18:40)
[2018-10-04] MEDS: CLINDAMYCIN HCL 150 MG CAPSULE PO SCH ×3 (05:30→21:10)
[2018-10-04 06:37] LABS: HEMATOCRIT 27.3 % (37.9-51.0); HEMOGLOBIN 9.3 g/dL (13.5-17.0); MEAN CORPUSCULAR HEMOGLOBIN 30.8 pg (27.0-33.4); MEAN CORPUSCULAR HGB CONC 34.1 g/dL (32.0-36.0); MEAN CORPUSCULAR VOLUME 90 fl (80-97); PLATELET COUNT 159 10^3/uL (150-450); RED BLOOD COUNT 3.02 10^6/uL (4.35-5.55); RED CELL DISTRIBUTION WIDTH 17.9 % (11.5-14.0); WHITE BLOOD COUNT 13.6 10^3/uL (4.0-10.5)
[2018-10-04 06:43] LABS: ALANINE AMINOTRANSFERASE 29 U/L (21-72); ALBUMIN 2.8 g/dL (3.5-5.0); ALKALINE PHOSPHATASE 129 U/L (38-126); ANION GAP 11 (5-19); ASPARTATE AMINO TRANSFERASE 29 U/L (17-59); BILIRUBIN,DIRECT 0.2 mg/dL (0.0-0.4); BILIRUBIN,TOTAL 0.4 mg/dL (0.2-1.3); BLOOD UREA NITROGEN 22 mg/dL (7-20); CALCIUM 10.1 mg/dL (8.4-10.2); CARBON DIOXIDE 23 mmol/L (22-30); CHLORIDE 101 mmol/L (98-107); GLUCOSE 209 mg/dL (75-110); POTASSIUM 4.8 mmol/L (3.6-5.0); SODIUM 135.4 mmol/L (137-145); TOTAL PROTEIN 5.8 g/dL (6.3-8.2)
[2018-10-04 06:54] LABS: ABSOLUTE LYMPHOCYTES# (MANUAL) 2.2 10^3/uL (0.5-4.7); ABSOLUTE MONOCYTES # (MANUAL) 1.5 10^3/uL (0.1-1.4); ABSOLUTE NEUTROPHILS# (MANUAL) 9.9 10^3/uL (1.7-8.2); BAND NEUTROPHILS % (MANUAL) 4 % (3-5); BASOPHILS % (MANUAL) 0 % (0-2); EOSINOPHILS % (MANUAL) 0 % (0-6); LYMPHOCYTES % (MANUAL) 15 % (13-45); METAMYELOCYTES % (MANUAL) 2 % (0); MONOCYTES % (MANUAL) 11 % (3-13); SEGMENTED NEUTROPHILS % (MAN) 67 % (42-78); TOTAL CELLS COUNTED 100
[2018-10-04 06:55] LABS: ANISOCYTOSIS 2+; PLATELET COMMENT ADEQUATE
[2018-10-04] MEDS: AMLODIPINE BESYLATE 5 MG TABLET PO SCH (08:36)
[2018-10-04] MEDS: LISINOPRIL 10 MG TABLET PO SCH (09:35)
[2018-10-04] MEDS: SENNOSIDES/DOCUSATE 8.6-50 MG 1 EACH TABLET PO SCH ×2 (09:35→17:07)
[2018-10-04] MEDS: ASCORBIC ACID 500 MG TABLET PO SCH (09:35)
[2018-10-04] MEDS: POLYETHYLENE GLYCOL 3350 POWDER 17 GM/1 PACKET PO PRN (09:35)
[2018-10-04] MEDS: DOXYCYCLINE HYCLATE 100 MG in DEXTROSE 5%-WATER 250 ML IV SCH ×2 (09:39→21:10)
[2018-10-04] MEDS: ZINC SULFATE 220 MG CAPSULE PO SCH (09:39)
[2018-10-04] MEDS: PHARMACY COMMUNICATION ORDER MC SCH (09:40)
[2018-10-04] MEDS: MEGESTROL ACETATE SUSP 400 MG/10 ML UDCUP PO SCH (09:40)
[2018-10-04] MEDS: LUBIPROSTONE 8 MCG CAPSULE PO SCH (09:40)
--- NOTE | 2018-10-04 09:44 | PDOC PROGRESS REPORT ---
Subjective Progress Note for:: 10/04/18 Subjective:: ALIYA LÓPEZ is a 72 year old male with medical history stage IV colorectal cancer and history of DVT currently on Eliquis. Presented to ED complaining of bleeding through his ostomy. And has multiple admissions for above-mentioned reason. Colon cancer was diagnosed on October 2017 colon cancer with colostomy in place which was done in October 2017, he used to be on Coumadin however was switched to Eliquis. As per patient's daughter who is a nurse he has been doing multiple ostomy bleeds since being started on Eliquis. Patient was admitted here at [facility] on September 22, 2018 for ostomy bleed he received 1 PRBC and surgery and oncology was consulted and patient was discharged home. On September 25 patient was readmitted for ostomy bleed and again surgery oncology were consulted and patient was discharged home on September 27 for medical management. He came back on 09/28/2018 complaining of another episode of ostomy bleed about 800 cc. Oncology and surgery were consulted again for further management and recommendations. 09/29/2018. No acute events overnight. Patient is status post multiple cauterization of ostomy by surgery. No further bleeding occurred since admission. On my encounter patient is awake alert and in no acute distress accompanied by his daughter who is a nurse and very involved in his medical care. Patient is denying any shortness of breath, nausea, vomiting, chest pain or any urinary symptoms. Patient and his daughter have decided to continue with medical management. Hematology oncology is on board and patient is scheduled to start his chemotherapy 09/30/2018. No acute events overnight except for one episode of acute bleeding from his ostomy site which was stopped by applying immediate pressure by the patient. Patient's pain is controlled however now has constipation. Appetite still poor. Denies any fever, chills, nausea, chest pain or any urinary symptoms. 10/01/2018. No acute events overnight. Patient stating that he had more shortness of breath on exertion overnight. No bleeding from ostomy since yesterday. Constipation has been improving. Patient has been improving. Patient denies any fever, chills, nausea, vomiting, chest pain or any urinary symptoms. 10/03/2018. No acute events overnight. Mild shortness of breath on exertion. Denies any fever chills nausea vomiting diarrhea. Has not had any more ostomy please. P.o. tolerant and ambulatory. 12/04/2017. No acute events overnight. Patient is very pleasant and cooperative with physical examination and on my encounter he sitting in his bed in no apparent acute distress. Denies any recurrence of bleeding from ostomy, he is ambulatory and p.o. tolerant. Denies any shortness of breath on ambulation. Reason For Visit: OSTOMY BLEEDING Physical Exam Vital Signs: Temp Pulse Resp BP Pulse Ox 98.4 F 103 H 16 151/84 H 93 10/04/18 07:47 10/04/18 07:47 10/04/18 07:47 10/04/18 07:47 10/04/18 07:47 Intake & Output 10/03/18 10/04/18 10/05/18 06:59 06:59 06:59 Intake Total 882 1420 Balance 882 1420 General appearance: PRESENT: no acute distress, well-developed, well-nourished Respiratory exam: PRESENT: clear to auscultation juan daniel. ABSENT: rales, rhonchi, wheezes Pulses: PRESENT: normal dorsalis pedis pul GI/Abdominal exam: PRESENT: normal bowel sounds, soft, other - Ostomy unchanged. No active sign of bleeding.. ABSENT: distended, guarding, mass, organolmegaly, rebound, tenderness Results Laboratory Results: 10/04/18 05:55 10/04/18 05:55 10/03/18 10/04/18 10/04/18 11:57 05:55 05:55 WBC 13.6 H RBC 3.02 L Hgb 9.3 L Hct 27.3 L MCV 90 MCH 30.8 MCHC 34.1 RDW 17.9 H Plt Count 159 Seg Neutrophils % Not Reportable Lymphocytes % Not Reportable Monocytes % Not Reportable Eosinophils % Not Reportable Basophils % Not Reportable Absolute Neutrophils Not Reportable Absolute Lymphocytes Not Reportable Absolute Monocytes Not Reportable Absolute Eosinophils Not Reportable Absolute Basophils Not Reportable Sodium 135.4 L Potassium 4.8 Chloride 101 Carbon Dioxide 23 Anion Gap 11 BUN 22 H Creatinine 0.94 Est GFR ( Amer) > 60 Est GFR (Non-Af Amer) > 60 Glucose 209 H Calcium 10.1 Magnesium 2.0 Total Bilirubin 0.4 AST 29 ALT 29 Alkaline Phosphatase 129 H Total Protein 5.8 L Albumin 2.8 L Blood Type AB POSITIVE Antibody Screen NEGATIVE Impressions: Chest X-Ray 10/01/18 00:00 IMPRESSION: No acute findings. Lung metastatic nodules Assessment & Plan - Diagnosis (1) Leukocytosis Qualifiers: Leukocytosis type: bandemia Qualified Code(s): D72.825 - Bandemia Is this a current diagnosis for this admission?: Yes Plan: Mild leukocytosis with bandemia. He was having shortness of breath and was febrile on 10/01/2018. Shortness of breath have improved and he has been afebrile for the last 24 hours. Blood culture positive for 1/2 Clostridium perfringens. Negative beta- lactamase. Switch to command and doxy on 10/03/2018. Pending ED consult. (2) Bleeding from colostomy stoma Is this a current diagnosis for this admission?: Yes Plan: Status post cauterization by surgery 09/29/2018. No more episodes of bleeding since yesterday. Surgery following. Follow-up recommendations. Hemodynamically stable. Hemoglobin more than 9. Monitor H&H transfuse if under 7, actively bleeding or unstable. (3) Blood loss anemia Is this a current diagnosis for this admission?: Yes Plan: As problem #1. (4) Chronic anticoagulation Is this a current diagnosis for this admission?: Yes Plan: Due to history of DVT. Currently on hold due to GI bleed. (5) Colorectal cancer, stage IV Is this a current diagnosis for this admission?: Yes Plan: Chemo therapy currently on hold. Will be restarted after discharge as per hematology/oncology note. (6) Diabetes mellitus type 2 in nonobese Is this a current diagnosis for this admission?: Yes Plan: Continue long-acting insulin, sliding scale insulin, Accu-Chek, hypoglycemic protocol. Diabetic diet. Adjust insulin dosage as needed. (7) Constipation Is this a current diagnosis for this admission?: Yes Plan: Improving PT had had 3 bowel movements in the last 24 hours. Likely opioid and TCA induced. Started Amitiza 09/30/2018. Restart home bowel regimen. (8) Hypertension Is this a current diagnosis for this admission?: Yes Plan: Not controlled. Increase lisinopril to 40 mg. Continue calcium channel blockers. Adjust meds as needed. Monitor vitals.
--- NOTE | 2018-10-04 11:26 | PDOC CONSULTATION ---
Consultation Consult Date: 10/04/18 Attending physician:: SEGUNDO FOWLER Consult reason:: Drainage from ostomy appliance History of Present Illness Admission Date/PCP: 09/29/18 03:11 KEVIN FATIMA MD History of Present Illness: ALIYA LÓPEZ is a 72 year old male Patient is well-known to the surgical service. He was hospitalized earlier this week for bleeding from his colostomy which was felt secondary to multiple small AVMs. He has had no further bleeding according to nursing staff. He did have some pus draining from the inside of his colostomy at the skin-mucosal interface. I told the patient last week that I thought he had a tumor implant in his ostomy. Patient remains a full code. 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 Port placement Social History Lives with: Spouse/Significant other Smoking Status: Former Smoker Frequency of Alcohol Use: None Hx Recreational Drug Use: No Drugs: None Hx Prescription Drug Abuse: No Family History Family History: CAD - Father, Malignancy - Brother with prostate cancer. Father with bladder cancer. Parental Family History Reviewed: Yes Children Family History Reviewed: Yes Sibling(s) Family History Reviewed.: Yes Medication/Allergy Home Medications: Amitriptyline HCl [Elavil 50 mg Tablet] 100 mg PO QHS 09/25/18 Ascorbic Acid [Vitamin C 500 mg Tablet] 500 mg PO DAILY 09/25/18 Fentanyl [Duragesic 50 Mcg/Hr Transdermal Patch] 1 each TD Q3D 30 Days #10 [id number] 09/27/18 Amlodipine Besylate [Norvasc 10 mg Tablet] 10 mg PO DAILYP PRN 09/29/18 Cetirizine HCl [Zyrtec 10 mg Tablet] 10 mg PO WSUPPER 09/29/18 Docusate Sodium [Colace 100 mg Capsule] 100 mg PO BID 09/29/18 Glyburide 1.25 mg PO BID 09/29/18 Lidocaine HCl [Xylocaine 5% Ointment 35.44 gm] 1 applic TP DAILY 09/29/18 Magic Mouthwash (Diphenhydramine, Hydrocortisone, Nystatin) 10 ml PO QID Megestrol Acetate 20 ml PO DAILY 09/29/18 Oxycodone HCl [Oxycodone HCl 10 MG Tablet] 10 mg PO Q4HP PRN 09/29/18 Metoprolol Tartrate [Lopressor 100 mg Tablet] 100 mg PO BIDP PRN 09/30/18 Sennosides [Ex-Lax Maximum Strength] 50 mg PO BID 09/30/18 Allergies/Adverse Reactions: Iodinated Contrast- Oral and IV Dye Adverse Reaction (Mild, Verified 09/28/18 23 :27) Hives Physical Exam Vital Signs: Temp Pulse Resp BP Pulse Ox 98.4 F 103 H 16 151/84 H 93 10/04/18 07:47 10/04/18 07:47 10/04/18 07:47 10/04/18 07:47 10/04/18 07:47 Intake & Output 10/03/18 10/04/18 10/05/18 06:59 06:59 06:59 Intake Total 882 1420 Balance 882 1420 General appearance: PRESENT: no acute distress GI/Abdominal exam: PRESENT: other - Appliance bag removed. No active bleeding. Mucosa pink healthy; at the 12 o'clock position of the mucosa-epithelial junction is a 1-1/2 cm firm with exfoliating, raw surface. No active bleed; no active drainage currently Results Laboratory Results: 10/04/18 05:55 10/04/18 05:55 10/03/18 10/04/18 10/04/18 11:57 05:55 05:55 WBC 13.6 H RBC 3.02 L Hgb 9.3 L Hct 27.3 L MCV 90 MCH 30.8 MCHC 34.1 RDW 17.9 H Plt Count 159 Seg Neutrophils % Not Reportable Lymphocytes % Not Reportable Monocytes % Not Reportable Eosinophils % Not Reportable Basophils % Not Reportable Absolute Neutrophils Not Reportable Absolute Lymphocytes Not Reportable Absolute Monocytes Not Reportable Absolute Eosinophils Not Reportable Absolute Basophils Not Reportable Sodium 135.4 L Potassium 4.8 Chloride 101 Carbon Dioxide 23 Anion Gap 11 BUN 22 H Creatinine 0.94 Est GFR ( Amer) > 60 Est GFR (Non-Af Amer) > 60 Glucose 209 H Calcium 10.1 Magnesium 2.0 Total Bilirubin 0.4 AST 29 ALT 29 Alkaline Phosphatase 129 H Total Protein 5.8 L Albumin 2.8 L Blood Type AB POSITIVE Antibody Screen NEGATIVE Impressions: Chest X-Ray 10/01/18 00:00 IMPRESSION: No acute findings. Lung metastatic nodules Assessment & Plan - Diagnosis (1) Colorectal cancer, stage IV Is this a current diagnosis for this admission?: Yes Plan: Impression: Likely tumor implant at ostomy site Recommendations: 1. I explained this to the nursing staff; unfortunately the patient does not have the cognitive capacity to understand the implications of a tumor implant at his ostomy site. There are no family members at bedside. 2. Per nursing staff, there is a disconnect between the patient and family's goals and expectations, and the reality of the encroaching metastatic disease that will take the patient's life. Again, I have suggested palliative care course but that has not taken hold. 3. Reconsult surgery as needed.
--- NOTE | 2018-10-04 14:09 | PDOC PROGRESS REPORT ---
Subjective Progress Note for:: 10/04/18 Subjective:: Patient sleeping peacefully but awakens easily. Reports no further bleeding. Pain comes and goes. Lidoderm helps greatly. ROS: No constipation. No chest pain. Positive Hiccups and some hallucinations. Reason For Visit: OSTOMY BLEEDING Physical Exam Vital Signs: Temp Pulse Resp BP Pulse Ox 98.3 F 100 16 185/80 H 100 10/04/18 11:24 10/04/18 13:37 10/04/18 11:24 10/04/18 11:24 10/04/18 11:24 Intake & Output 10/03/18 10/04/18 10/05/18 06:59 06:59 06:59 Intake Total 882 1420 237 Balance 882 1420 237 General appearance: PRESENT: no acute distress, well-developed, well-nourished Head exam: PRESENT: normocephalic Eye exam: PRESENT: EOMI Respiratory exam: PRESENT: clear to auscultation juan daniel, unlabored Cardiovascular exam: PRESENT: RRR GI/Abdominal exam: PRESENT: other - Ostomy and hernia unchanged. Extremities exam: ABSENT: pedal edema Neurological exam: PRESENT: alert, awake, oriented to person, oriented to place , oriented to time, oriented to situation Psychiatric exam: PRESENT: appropriate affect Skin exam: PRESENT: normal color Results Laboratory Results: 10/04/18 05:55 10/04/18 05:55 10/04/18 10/04/18 05:55 05:55 WBC 13.6 H RBC 3.02 L Hgb 9.3 L Hct 27.3 L MCV 90 MCH 30.8 MCHC 34.1 RDW 17.9 H Plt Count 159 Seg Neutrophils % Not Reportable Lymphocytes % Not Reportable Monocytes % Not Reportable Eosinophils % Not Reportable Basophils % Not Reportable Absolute Neutrophils Not Reportable Absolute Lymphocytes Not Reportable Absolute Monocytes Not Reportable Absolute Eosinophils Not Reportable Absolute Basophils Not Reportable Sodium 135.4 L Potassium 4.8 Chloride 101 Carbon Dioxide 23 Anion Gap 11 BUN 22 H Creatinine 0.94 Est GFR ( Amer) > 60 Est GFR (Non-Af Amer) > 60 Glucose 209 H Calcium 10.1 Magnesium 2.0 Total Bilirubin 0.4 AST 29 ALT 29 Alkaline Phosphatase 129 H Total Protein 5.8 L Albumin 2.8 L Impressions: Chest X-Ray 10/01/18 00:00 IMPRESSION: No acute findings. Lung metastatic nodules Assessment & Plan - Diagnosis (1) Colorectal cancer, stage IV Is this a current diagnosis for this admission?: Yes Plan: Plan to start new treatment regimen on discharge. He has had marked progression over the past few weeks, despite therapy. (2) Bleeding from colostomy stoma Is this a current diagnosis for this admission?: Yes Plan: Now resolved. Surgery following. (3) Blood loss anemia Is this a current diagnosis for this admission?: Yes Plan: s/p transfusion. Currently stable. (4) Chronic anticoagulation Is this a current diagnosis for this admission?: Yes Plan: On hold for now. - Plan Summary Plan Summary: Culture results notes. I agree with antibiotics. Hopefully, patient will be ready for discharge in 1-2 days. Will keep pain meds the same for now.
[2018-10-04] MEDS: LUBIPROSTONE 24 MCG CAPSULE PO SCH (17:07)
[2018-10-04] MEDS: HYDROMORPHONE HCL INJ/PF 2 MG/ML AMPULE IV PRN (20:43)
[2018-10-04] MEDS: AMITRIPTYLINE HCL 50 MG TABLET PO SCH (21:10)
[2018-10-04] MEDS: LIDOCAINE 5% (700 MG) TRANSDERMAL ADH..PATCH TP SCH (23:40)
[2018-10-05] MEDS: OXYCODONE HCL IR 5 MG TABLET PO PRN ×5 (02:22→22:54)
[2018-10-05] MEDS: CLINDAMYCIN HCL 150 MG CAPSULE PO SCH ×3 (05:17→21:22)
[2018-10-05 06:33] LABS: HEMATOCRIT 27.1 % (37.9-51.0); HEMOGLOBIN 9.2 g/dL (13.5-17.0); MEAN CORPUSCULAR HEMOGLOBIN 30.8 pg (27.0-33.4); MEAN CORPUSCULAR HGB CONC 33.9 g/dL (32.0-36.0); MEAN CORPUSCULAR VOLUME 91 fl (80-97); PLATELET COUNT 170 10^3/uL (150-450); RED BLOOD COUNT 2.99 10^6/uL (4.35-5.55); WHITE BLOOD COUNT 17.6 10^3/uL (4.0-10.5)
[2018-10-05 06:42] LABS: ALANINE AMINOTRANSFERASE 26 U/L (21-72); ALBUMIN 2.8 g/dL (3.5-5.0); ALKALINE PHOSPHATASE 137 U/L (38-126); ANION GAP 14 (5-19); ASPARTATE AMINO TRANSFERASE 29 U/L (17-59); BILIRUBIN,DIRECT 0.2 mg/dL (0.0-0.4); BILIRUBIN,TOTAL 0.4 mg/dL (0.2-1.3); BLOOD UREA NITROGEN 18 mg/dL (7-20); CALCIUM 9.7 mg/dL (8.4-10.2); CARBON DIOXIDE 21 mmol/L (22-30); CHLORIDE 101 mmol/L (98-107); GLUCOSE 217 mg/dL (75-110); POTASSIUM 4.8 mmol/L (3.6-5.0); SODIUM 135.7 mmol/L (137-145); TOTAL PROTEIN 5.9 g/dL (6.3-8.2)
[2018-10-05 07:47] LABS: ABSOLUTE LYMPHOCYTES# (MANUAL) 1.6 10^3/uL (0.5-4.7); ABSOLUTE MONOCYTES # (MANUAL) 1.4 10^3/uL (0.1-1.4); ABSOLUTE NEUTROPHILS# (MANUAL) 14.4 10^3/uL (1.7-8.2); BAND NEUTROPHILS % (MANUAL) 1 % (3-5); BASOPHILS % (MANUAL) 0 % (0-2); EOSINOPHILS % (MANUAL) 1 % (0-6); LYMPHOCYTES % (MANUAL) 9 % (13-45); MONOCYTES % (MANUAL) 8 % (3-13); SEGMENTED NEUTROPHILS % (MAN) 81 % (42-78); TOTAL CELLS COUNTED 100
[2018-10-05 07:48] LABS: ANISOCYTOSIS 2+; OVALOCYTES 1+; PLATELET COMMENT ADEQUATE; POIKILOCYTOSIS 1+; POLYCHROMASIA SLIGHT; TOXIC GRANULATION 1+
[2018-10-05] MEDS: HYDROMORPHONE HCL INJ/PF 2 MG/ML AMPULE IV PRN ×2 (08:38→12:43)
[2018-10-05] MEDS: POLYETHYLENE GLYCOL 3350 POWDER 17 GM/1 PACKET PO PRN (08:48)
[2018-10-05] MEDS: AMLODIPINE BESYLATE 5 MG TABLET PO SCH (09:03)
[2018-10-05] MEDS: DOXYCYCLINE HYCLATE 100 MG in DEXTROSE 5%-WATER 250 ML IV SCH ×2 (10:47→21:21)
[2018-10-05] MEDS: MEGESTROL ACETATE SUSP 400 MG/10 ML UDCUP PO SCH (10:47)
[2018-10-05] MEDS: LISINOPRIL 10 MG TABLET PO SCH (10:48)
[2018-10-05] MEDS: SENNOSIDES/DOCUSATE 8.6-50 MG 1 EACH TABLET PO SCH ×2 (10:48→18:00)
[2018-10-05] MEDS: ASCORBIC ACID 500 MG TABLET PO SCH (10:48)
[2018-10-05] MEDS: CARVEDILOL 6.25 MG TABLET PO SCH ×2 (10:49→21:20)
[2018-10-05] MEDS: FENTANYL 75 MCG/HR PATCH.TD72 TD SCH (10:49)
[2018-10-05] MEDS: LUBIPROSTONE 24 MCG CAPSULE PO SCH ×2 (10:50→18:00)
[2018-10-05] MEDS: ZINC SULFATE 220 MG CAPSULE PO SCH (10:50)
[2018-10-05] MEDS: PHARMACY COMMUNICATION ORDER MC SCH (13:30)
--- NOTE | 2018-10-05 14:33 | PDOC PROGRESS REPORT ---
Subjective Progress Note for:: 10/05/18 Subjective:: Patient reports no significant changes overnight. He was having very hard stools so was given laxatives and now had large amount soft/liquid stool per ostomy. No fevers. ROS: Pain unchanged. No dyspnea. No leg swelling. Reason For Visit: OSTOMY BLEEDING Physical Exam Vital Signs: Temp Pulse Resp BP Pulse Ox 98.9 F 95 16 164/83 H 99 10/05/18 11:34 10/05/18 11:34 10/05/18 11:34 10/05/18 11:34 10/05/18 11:34 Intake & Output 10/04/18 10/05/18 10/06/18 06:59 06:59 06:59 Intake Total 1420 1227 827 Balance 1420 1227 827 Weight 79.3 kg General appearance: PRESENT: no acute distress, well-developed, well-nourished Head exam: PRESENT: normocephalic Respiratory exam: PRESENT: clear to auscultation juan daniel, unlabored Cardiovascular exam: PRESENT: RRR GI/Abdominal exam: PRESENT: other - Unchanged from previously. Extremities exam: ABSENT: pedal edema Neurological exam: PRESENT: alert, awake Psychiatric exam: PRESENT: appropriate affect Skin exam: PRESENT: normal color Results Laboratory Results: 10/05/18 05:15 10/05/18 05:15 10/05/18 10/05/18 05:15 05:15 WBC 17.6 H RBC 2.99 L Hgb 9.2 L Hct 27.1 L MCV 91 MCH 30.8 MCHC 33.9 RDW 18.0 H Plt Count 170 Seg Neutrophils % Not Reportable Lymphocytes % Not Reportable Monocytes % Not Reportable Eosinophils % Not Reportable Basophils % Not Reportable Absolute Neutrophils Not Reportable Absolute Lymphocytes Not Reportable Absolute Monocytes Not Reportable Absolute Eosinophils Not Reportable Absolute Basophils Not Reportable Sodium 135.7 L Potassium 4.8 Chloride 101 Carbon Dioxide 21 L Anion Gap 14 BUN 18 Creatinine 0.99 Est GFR ( Amer) > 60 Est GFR (Non-Af Amer) > 60 Glucose 217 H Calcium 9.7 Total Bilirubin 0.4 AST 29 ALT 26 Alkaline Phosphatase 137 H Total Protein 5.9 L Albumin 2.8 L Impressions: Chest X-Ray 10/01/18 00:00 IMPRESSION: No acute findings. Lung metastatic nodules Assessment & Plan - Diagnosis (1) Colorectal cancer, stage IV Is this a current diagnosis for this admission?: Yes Plan: Plan to start a new regimen upon discharge as soon as this is available. (2) Bleeding from colostomy stoma Is this a current diagnosis for this admission?: Yes Plan: This now seems to have resolved. If further bleeding, may consider surgery or radiation for the bleeding, but otherwise, continue to monitor. His HGB has remained stable. (3) Blood loss anemia Is this a current diagnosis for this admission?: Yes Plan: HGB currently stable. He did receive pRBCs earlier this admission. (4) Chronic anticoagulation Is this a current diagnosis for this admission?: Yes Plan: All anticoagulation on hold for now. May consider Lovenox in the future, but I do not believe further oral agents will be safe at this point. - Plan Summary Plan Summary: OK for discharge from my standpoint. I will continue to see him as outpatient. Please call me if needed.
[2018-10-05] MEDS ORDERED: PROMETHAZINE HCL 25 MG TABLET PO PRN (16:18)
--- NOTE | 2018-10-05 16:59 | PDOC PROGRESS REPORT ---
Subjective Progress Note for:: 10/05/18 Subjective:: ALIYA LÓPEZ is a 72 year old male with medical history stage IV colorectal cancer and history of DVT currently on Eliquis. Presented to ED complaining of bleeding through his ostomy. And has multiple admissions for above-mentioned reason. Colon cancer was diagnosed on October 2017 colon cancer with colostomy in place which was done in October 2017, he used to be on Coumadin however was switched to Eliquis. As per patient's daughter who is a nurse he has been doing multiple ostomy bleeds since being started on Eliquis. Patient was admitted here at [facility] on September 22, 2018 for ostomy bleed he received 1 PRBC and surgery and oncology was consulted and patient was discharged home. On September 25 patient was readmitted for ostomy bleed and again surgery oncology were consulted and patient was discharged home on September 27 for medical management. He came back on 09/28/2018 complaining of another episode of ostomy bleed about 800 cc. Oncology and surgery were consulted again for further management and recommendations. 09/29/2018. No acute events overnight. Patient is status post multiple cauterization of ostomy by surgery. No further bleeding occurred since admission. On my encounter patient is awake alert and in no acute distress accompanied by his daughter who is a nurse and very involved in his medical care. Patient is denying any shortness of breath, nausea, vomiting, chest pain or any urinary symptoms. Patient and his daughter have decided to continue with medical management. Hematology oncology is on board and patient is scheduled to start his chemotherapy 09/30/2018. No acute events overnight except for one episode of acute bleeding from his ostomy site which was stopped by applying immediate pressure by the patient. Patient's pain is controlled however now has constipation. Appetite still poor. Denies any fever, chills, nausea, chest pain or any urinary symptoms. 10/01/2018. No acute events overnight. Patient stating that he had more shortness of breath on exertion overnight. No bleeding from ostomy since yesterday. Constipation has been improving. Patient has been improving. Patient denies any fever, chills, nausea, vomiting, chest pain or any urinary symptoms. 10/03/2018. No acute events overnight. Mild shortness of breath on exertion. Denies any fever chills nausea vomiting diarrhea. Has not had any more ostomy please. P.o. tolerant and ambulatory. 10/04/2018. No acute events overnight. Patient is very pleasant and cooperative with physical examination and on my encounter he sitting in his bed in no apparent acute distress. Denies any recurrence of bleeding from ostomy, he is ambulatory and p.o. tolerant. Denies any shortness of breath on ambulation. 09/04/2018. No acute events overnight. Patient has not had any recurrence of ostomy bleeding. Constipated in the morning which resolved his bowel regimen. Denies any fever, chills, nausea, vomiting, diarrhea or any urinary symptoms. Reason For Visit: OSTOMY BLEEDING Physical Exam Vital Signs: Temp Pulse Resp BP Pulse Ox 98.3 F 100 16 136/79 H 100 10/05/18 16:07 10/05/18 16:07 10/05/18 16:07 10/05/18 16:07 10/05/18 16:07 Intake & Output 10/04/18 10/05/18 10/06/18 06:59 06:59 06:59 Intake Total 1420 1227 827 Balance 1420 1227 827 Weight 79.3 kg General appearance: PRESENT: no acute distress, well-developed, well-nourished Head exam: PRESENT: atraumatic, normocephalic Respiratory exam: PRESENT: clear to auscultation juan daniel. ABSENT: rales, rhonchi, wheezes GI/Abdominal exam: PRESENT: normal bowel sounds, soft, other - Ostomy unchanged no sign of bleeding. ABSENT: distended, guarding, mass, organolmegaly, rebound , tenderness Neurological exam: PRESENT: alert, awake, oriented to person, oriented to place , oriented to time, oriented to situation, CN II-XII grossly intact. ABSENT: motor sensory deficit Skin exam: PRESENT: dry, intact, warm. ABSENT: cyanosis, rash Results Laboratory Results: 10/05/18 05:15 10/05/18 05:15 10/05/18 10/05/18 05:15 05:15 WBC 17.6 H RBC 2.99 L Hgb 9.2 L Hct 27.1 L MCV 91 MCH 30.8 MCHC 33.9 RDW 18.0 H Plt Count 170 Seg Neutrophils % Not Reportable Lymphocytes % Not Reportable Monocytes % Not Reportable Eosinophils % Not Reportable Basophils % Not Reportable Absolute Neutrophils Not Reportable Absolute Lymphocytes Not Reportable Absolute Monocytes Not Reportable Absolute Eosinophils Not Reportable Absolute Basophils Not Reportable Sodium 135.7 L Potassium 4.8 Chloride 101 Carbon Dioxide 21 L Anion Gap 14 BUN 18 Creatinine 0.99 Est GFR ( Amer) > 60 Est GFR (Non-Af Amer) > 60 Glucose 217 H Calcium 9.7 Total Bilirubin 0.4 AST 29 ALT 26 Alkaline Phosphatase 137 H Total Protein 5.9 L Albumin 2.8 L Impressions: Chest X-Ray 10/01/18 00:00 IMPRESSION: No acute findings. Lung metastatic nodules Assessment & Plan - Diagnosis (1) Leukocytosis Qualifiers: Leukocytosis type: bandemia Qualified Code(s): D72.825 - Bandemia Is this a current diagnosis for this admission?: Yes Plan: Worsening leukocytosis. He was having shortness of breath and was febrile on 10/01/2018. Blood culture positive for 1/2 Clostridium perfringens. Negative beta- lactamase. Switched antibiotics to doxycycline and clindamycin on 10/03/2018. Pending ED consult. (2) Bleeding from colostomy stoma Is this a current diagnosis for this admission?: Yes Plan: Status post cauterization by surgery 09/29/2018. No more episodes of bleeding since yesterday. Surgery following. Follow-up recommendations. Hemodynamically stable. H&H stable. Monitor H&H transfuse if under 7, actively bleeding or unstable. (3) Blood loss anemia Is this a current diagnosis for this admission?: Yes Plan: As problem #1. (4) Chronic anticoagulation Is this a current diagnosis for this admission?: Yes Plan: Due to history of DVT. Currently on hold due to GI bleed. (5) Colorectal cancer, stage IV Is this a current diagnosis for this admission?: Yes Plan: Chemo therapy currently on hold. Will be restarted after discharge as per hematology/oncology note. (6) Diabetes mellitus type 2 in nonobese Is this a current diagnosis for this admission?: Yes Plan: Continue long-acting insulin, sliding scale insulin, Accu-Chek, hypoglycemic protocol. Diabetic diet. Adjust insulin dosage as needed. (7) Constipation Is this a current diagnosis for this admission?: Yes Plan: Opioid induced. Continue bowel regimen. Started Amitiza 09/30/2018. (8) Hypertension Is this a current diagnosis for this admission?: Yes Plan: Not controlled. Increase lisinopril to 40 mg. Amlodipine 5 mg. Added carvedilol 6.25 p.o. twice daily. Adjust meds as needed. Monitor vitals.
[2018-10-05] MEDS: LIDOCAINE 5% (700 MG) TRANSDERMAL ADH..PATCH TP SCH (21:21)
[2018-10-05] MEDS: AMITRIPTYLINE HCL 50 MG TABLET PO SCH (21:21)
[2018-10-06] MEDS: CLINDAMYCIN HCL 150 MG CAPSULE PO SCH ×2 (05:08→13:20)
[2018-10-06] MEDS: OXYCODONE HCL IR 5 MG TABLET PO PRN ×3 (05:08→14:46)
[2018-10-06 05:25] LABS: HEMATOCRIT 26.9 % (37.9-51.0); HEMOGLOBIN 9.1 g/dL (13.5-17.0); MEAN CORPUSCULAR HEMOGLOBIN 30.5 pg (27.0-33.4); MEAN CORPUSCULAR HGB CONC 33.7 g/dL (32.0-36.0); MEAN CORPUSCULAR VOLUME 91 fl (80-97); PLATELET COUNT 190 10^3/uL (150-450); RED BLOOD COUNT 2.98 10^6/uL (4.35-5.55); WHITE BLOOD COUNT 15.8 10^3/uL (4.0-10.5)
[2018-10-06 05:43] LABS: ANION GAP 11 (5-19)
[2018-10-06 06:08] LABS: ABSOLUTE LYMPHOCYTES# (MANUAL) 2.5 10^3/uL (0.5-4.7); ABSOLUTE MONOCYTES # (MANUAL) 1.3 10^3/uL (0.1-1.4); BASOPHILS % (MANUAL) 0 % (0-2); EOSINOPHILS % (MANUAL) 0 % (0-6); LYMPHOCYTES % (MANUAL) 16 % (13-45); MONOCYTES % (MANUAL) 8 % (3-13); SEGMENTED NEUTROPHILS % (MAN) 76 % (42-78); TOTAL CELLS COUNTED 100
[2018-10-06 06:09] LABS: ANISOCYTOSIS 1+; PLATELET COMMENT ADEQUATE; POLYCHROMASIA 1+
[2018-10-06 06:11] LABS: ALANINE AMINOTRANSFERASE 31 U/L (21-72); ALBUMIN 2.6 g/dL (3.5-5.0); ALKALINE PHOSPHATASE 132 U/L (38-126); ASPARTATE AMINO TRANSFERASE 30 U/L (17-59); BILIRUBIN,DIRECT 0.3 mg/dL (0.0-0.4); BILIRUBIN,TOTAL 0.4 mg/dL (0.2-1.3); BLOOD UREA NITROGEN 24 mg/dL (7-20); CALCIUM 9.5 mg/dL (8.4-10.2); CARBON DIOXIDE 24 mmol/L (22-30); CHLORIDE 100 mmol/L (98-107); GLUCOSE 206 mg/dL (75-110); POTASSIUM 4.6 mmol/L (3.6-5.0); SODIUM 135.2 mmol/L (137-145); TOTAL PROTEIN 5.7 g/dL (6.3-8.2)
[2018-10-06] MEDS: AMLODIPINE BESYLATE 5 MG TABLET PO SCH (08:36)
[2018-10-06] MEDS: HYDROMORPHONE HCL INJ/PF 2 MG/ML AMPULE IV PRN ×3 (08:37→16:56)
--- NOTE | 2018-10-06 08:58 | PDOC PROGRESS REPORT ---
Subjective Progress Note for:: 10/06/18 Subjective:: Patient feeling much better after large BM yesterday. Pain controlled. No further bleeding. Daughter at bedside and asks many questions. ROS: No constipation. Good appetite. No headache. Reason For Visit: OSTOMY BLEEDING Physical Exam Vital Signs: Temp Pulse Resp BP Pulse Ox 97.4 F 88 16 161/80 H 96 10/06/18 08:36 10/06/18 08:36 10/06/18 08:36 10/06/18 08:36 10/06/18 08:36 Intake & Output 10/05/18 10/06/18 10/07/18 06:59 06:59 06:59 Intake Total 1227 2236 Balance 1227 2236 Weight 79.3 kg 69.6 kg General appearance: PRESENT: well-developed, well-nourished Head exam: PRESENT: normocephalic Respiratory exam: PRESENT: clear to auscultation juan daniel, unlabored Cardiovascular exam: PRESENT: RRR GI/Abdominal exam: PRESENT: other - Unchanged with ostomy and hernia. Extremities exam: ABSENT: pedal edema Neurological exam: PRESENT: alert, awake Psychiatric exam: PRESENT: appropriate affect Skin exam: PRESENT: normal color Results Laboratory Results: 10/06/18 05:00 10/06/18 05:00 10/06/18 10/06/18 05:00 05:00 WBC 15.8 H RBC 2.98 L Hgb 9.1 L Hct 26.9 L MCV 91 MCH 30.5 MCHC 33.7 RDW 18.0 H Plt Count 190 Seg Neutrophils % Not Reportable Lymphocytes % Not Reportable Monocytes % Not Reportable Eosinophils % Not Reportable Basophils % Not Reportable Absolute Neutrophils Not Reportable Absolute Lymphocytes Not Reportable Absolute Monocytes Not Reportable Absolute Eosinophils Not Reportable Absolute Basophils Not Reportable Sodium 135.2 L Potassium 4.6 Chloride 100 Carbon Dioxide 24 Anion Gap 11 BUN 24 H Creatinine 1.09 Est GFR ( Amer) > 60 Est GFR (Non-Af Amer) > 60 Glucose 206 H Calcium 9.5 Total Bilirubin 0.4 AST 30 ALT 31 Alkaline Phosphatase 132 H Total Protein 5.7 L Albumin 2.6 L 10/02/18 12:05 Abdomen - Right Side Gram Stain - Final 10/02/18 12:05 Abdomen - Right Side Wound Culture - Final Pseudomonas Aeruginosa Enterococcus Faecalis(Group D) Yeast, Not Evita Albicans Impressions: Chest X-Ray 10/01/18 00:00 IMPRESSION: No acute findings. Lung metastatic nodules Assessment & Plan - Diagnosis (1) Colorectal cancer, stage IV Is this a current diagnosis for this admission?: Yes Plan: We again discussed possible treatment choices. I again expressed my opinion that systemic therapy is the best course of action and I am hopeful this will be started within the week, but nothing can be started with the active infection. We also discussed radiation therapy. Although radiation therapy is another possible treatment strategy, I do not believe it is a good idea to use the systemic therapy at the same time as radiation therapy. Therefore, systemic therapy would need to be placed on hold to have the radiation. If uncontrolled bleeding, I would agree with this strategy, but at present I believe systemic is better choice, with best chance of long-term control of the cancer. (2) Bleeding from colostomy stoma Is this a current diagnosis for this admission?: Yes Plan: No further bleeding. (3) Blood loss anemia Is this a current diagnosis for this admission?: Yes Plan: HGB currently stable. (4) Chronic anticoagulation Is this a current diagnosis for this admission?: Yes Plan: No further blood thinners at this time. - Plan Summary Plan Summary: Patient remains on antibiotics for infection. I am hopeful this will be cleared shortly and patient may be discharged to start further chemotherapy. Await approval of chemo agents from insurance. Daughter asks about having MTHFR gene mutation tested as she feels this will help guide us with further treatment options. I am happy to order this blood test in my office on follow- up, but am unsure how this information will help us in the future. I will investigate further.
[2018-10-06] MEDS: ASCORBIC ACID 500 MG TABLET PO SCH (09:07)
[2018-10-06] MEDS: SENNOSIDES/DOCUSATE 8.6-50 MG 1 EACH TABLET PO SCH ×2 (09:07→17:36)
[2018-10-06] MEDS: CARVEDILOL 6.25 MG TABLET PO SCH ×2 (09:07→21:52)
[2018-10-06] MEDS: LISINOPRIL 10 MG TABLET PO SCH (09:09)
[2018-10-06] MEDS: LUBIPROSTONE 24 MCG CAPSULE PO SCH ×2 (09:10→17:36)
[2018-10-06] MEDS: MEGESTROL ACETATE SUSP 400 MG/10 ML UDCUP PO SCH (09:10)
[2018-10-06] MEDS: ZINC SULFATE 220 MG CAPSULE PO SCH (09:11)
[2018-10-06] MEDS: DOXYCYCLINE HYCLATE 100 MG in DEXTROSE 5%-WATER 250 ML IV SCH (09:12)
[2018-10-06] MEDS ORDERED: DEXTROSE 40% GEL 15 GM TUBE PO PRN ×2 (11:02)
[2018-10-06] MEDS ORDERED: DEXTROSE 50%-WATER 25 GM/50 ML DISP.SYRIN IV PRN ×2 (11:02)
[2018-10-06] MEDS ORDERED: GLUCAGON,HUMAN RECOMB 1 MG INJ SUBCUT PRN (11:02)
[2018-10-06] MEDS: PHARMACY COMMUNICATION ORDER MC SCH (12:49)
--- NOTE | 2018-10-06 17:42 | PDOC PROGRESS REPORT ---
Subjective Progress Note for:: 10/06/18 Subjective:: ALIYA LÓPEZ is a 72 year old male with medical history stage IV colorectal cancer and history of DVT currently on Eliquis. Presented to ED complaining of bleeding through his ostomy. And has multiple admissions for above-mentioned reason. Colon cancer was diagnosed on October 2017 colon cancer with colostomy in place which was done in October 2017, he used to be on Coumadin however was switched to Eliquis. As per patient's daughter who is a nurse he has been doing multiple ostomy bleeds since being started on Eliquis. Patient was admitted here at [facility] on September 22, 2018 for ostomy bleed he received 1 PRBC and surgery and oncology was consulted and patient was discharged home. On September 25 patient was readmitted for ostomy bleed and again surgery oncology were consulted and patient was discharged home on September 27 for medical management. He came back on 09/28/2018 complaining of another episode of ostomy bleed about 800 cc. Oncology and surgery were consulted again for further management and recommendations. 09/29/2018. No acute events overnight. Patient is status post multiple cauterization of ostomy by surgery. No further bleeding occurred since admission. On my encounter patient is awake alert and in no acute distress accompanied by his daughter who is a nurse and very involved in his medical care. Patient is denying any shortness of breath, nausea, vomiting, chest pain or any urinary symptoms. Patient and his daughter have decided to continue with medical management. Hematology oncology is on board and patient is scheduled to start his chemotherapy 09/30/2018. No acute events overnight except for one episode of acute bleeding from his ostomy site which was stopped by applying immediate pressure by the patient. Patient's pain is controlled however now has constipation. Appetite still poor. Denies any fever, chills, nausea, chest pain or any urinary symptoms. 10/01/2018. No acute events overnight. Patient stating that he had more shortness of breath on exertion overnight. No bleeding from ostomy since yesterday. Constipation has been improving. Patient has been improving. Patient denies any fever, chills, nausea, vomiting, chest pain or any urinary symptoms. 10/03/2018. No acute events overnight. Mild shortness of breath on exertion. Denies any fever chills nausea vomiting diarrhea. Has not had any more ostomy please. P.o. tolerant and ambulatory. 10/04/2018. No acute events overnight. Patient is very pleasant and cooperative with physical examination and on my encounter he sitting in his bed in no apparent acute distress. Denies any recurrence of bleeding from ostomy, he is ambulatory and p.o. tolerant. Denies any shortness of breath on ambulation. 10/05/2018. No acute events overnight. Patient has not had any recurrence of ostomy bleeding. Constipated in the morning which resolved his bowel regimen. Denies any fever, chills, nausea, vomiting, diarrhea or any urinary symptoms. 10/05/2018. Acute events overnight. Patient had another episode of ostomy bleeding around 11 AM. Surgery was called and bleeding stopped. Otherwise patient has been doing well denies any nausea vomiting diarrhea or constipation he has been ambulatory and denies any shortness of breath any fever chills or any chest pain. Reason For Visit: OSTOMY BLEEDING Physical Exam Vital Signs: Temp Pulse Resp BP Pulse Ox 98.9 F 83 18 134/75 H 100 10/06/18 16:14 10/06/18 16:14 10/06/18 16:14 10/06/18 16:14 10/06/18 16:14 Intake & Output 10/05/18 10/06/18 10/07/18 06:59 06:59 06:59 Intake Total 1227 2486 707 Balance 1227 2486 707 Weight 79.3 kg 69.6 kg General appearance: PRESENT: no acute distress, well-developed, well-nourished Respiratory exam: PRESENT: clear to auscultation juan daniel. ABSENT: rales, rhonchi, wheezes Cardiovascular exam: PRESENT: RRR. ABSENT: diastolic murmur, rubs, systolic murmur Vascular exam: PRESENT: normal capillary refill GI/Abdominal exam: PRESENT: normal bowel sounds, soft, other - Unchanged ostomy. Bleeding had stopped at the time of my examination. ABSENT: distended , guarding, mass, organolmegaly, rebound, tenderness Results Laboratory Results: 10/06/18 05:00 10/06/18 05:00 10/06/18 10/06/18 05:00 05:00 WBC 15.8 H RBC 2.98 L Hgb 9.1 L Hct 26.9 L MCV 91 MCH 30.5 MCHC 33.7 RDW 18.0 H Plt Count 190 Seg Neutrophils % Not Reportable Lymphocytes % Not Reportable Monocytes % Not Reportable Eosinophils % Not Reportable Basophils % Not Reportable Absolute Neutrophils Not Reportable Absolute Lymphocytes Not Reportable Absolute Monocytes Not Reportable Absolute Eosinophils Not Reportable Absolute Basophils Not Reportable Sodium 135.2 L Potassium 4.6 Chloride 100 Carbon Dioxide 24 Anion Gap 11 BUN 24 H Creatinine 1.09 Est GFR ( Amer) > 60 Est GFR (Non-Af Amer) > 60 Glucose 206 H Calcium 9.5 Total Bilirubin 0.4 AST 30 ALT 31 Alkaline Phosphatase 132 H Total Protein 5.7 L Albumin 2.6 L 10/01/18 09:01 Blood Blood Culture - Final NO GROWTH IN 5 DAYS 10/02/18 12:05 Abdomen - Right Side Gram Stain - Final 10/02/18 12:05 Abdomen - Right Side Wound Culture - Final Pseudomonas Aeruginosa Enterococcus Faecalis(Group D) Yeast, Not Evita Albicans Impressions: Chest X-Ray 10/01/18 00:00 IMPRESSION: No acute findings. Lung metastatic nodules Assessment & Plan - Diagnosis (1) Leukocytosis Qualifiers: Leukocytosis type: bandemia Qualified Code(s): D72.825 - Bandemia Is this a current diagnosis for this admission?: Yes Plan: Persistent leukocytosis. Has been afebrile since 10/01/2018. Blood culture positive for 1/2 Clostridium perfringens. Negative beta- lactamase. Switched antibiotics to doxycycline and clindamycin on 10/03/2018. DC oxygen clindamycin as per ID recommendation. Start Augmentin [address] abdomen and pelvis to rule out any occult intra-abdominal collection. Follow -up ID recommendation. (2) Bleeding from colostomy stoma Is this a current diagnosis for this admission?: Yes Plan: Status post cauterization by surgery 09/29/2018. Patient had another episode of bleeding from ostomy on 10/08/2018 which was stabilized by surgery. Surgery following. Follow-up recommendations. Hemodynamically stable. H&H stable. Monitor H&H transfuse if under 7, actively bleeding or unstable. (3) Blood loss anemia Is this a current diagnosis for this admission?: Yes Plan: As problem #1. (4) Chronic anticoagulation Is this a current diagnosis for this admission?: Yes Plan: Due to history of DVT. Currently on hold due to GI bleed. (5) Colorectal cancer, stage IV Is this a current diagnosis for this admission?: Yes Plan: Chemo therapy currently on hold. Will be restarted after discharge as per hematology/oncology note. (6) Diabetes mellitus type 2 in nonobese Is this a current diagnosis for this admission?: Yes Plan: Continue long-acting insulin, sliding scale insulin, Accu-Chek, hypoglycemic protocol. Diabetic diet. Adjust insulin dosage as needed. (7) Constipation Is this a current diagnosis for this admission?: Yes Plan: Opioid induced. Continue bowel regimen. Started Amitiza 09/30/2018. (8) Hypertension Is this a current diagnosis for this admission?: Yes Plan: Improving. Continue lisinopril to 40 mg. Amlodipine 5 mg. Added carvedilol 6.25 p.o. twice daily. Adjust meds as needed. Monitor vitals.
--- NOTE | 2018-10-06 19:02 | Progress Note ---
Provider Note Provider Note: ID Consult Note - Follow Up Asked to review patient's chart by Dr Lafleur; case discussed briefly via telephone. Reviewed patient's chart. Pt not seen or examined. Mr. Mckeon is a 72 year old man with PMH including metastatic colon cancer and hx of DVT who was admitted due to recurrent bleeding from his colostomy site. He was found to have multiple potential bleeding sites that may have been small AVMs that required cauterization. During the hospitalization, his temperature increased to 100 F on 09/30 in conjunction with worsened tachycardia, and he was found to have a new leukocytosis on 10/01/18. WBC count has persisted in the 14-18k range. Blood cultures on 10/01/18 showed growth of Clostridium perfringens in one bottle. Pt was treated with Rocephin, then doxycycline and clindamycin. He has no complaints of fever/chills, vomiting or diarrhea, and no urinary symptoms. His abdomen has been noted to be soft and nontender with unchanged reducible hernia and no bleeding from ostomy. Impression/Recommendations sepsis due to Clostridium perfringens bacteremia - Bacteremia source is the GI tract; possibly a microperforation? - Pt clinically doing well but has persistent leukocytosis. - Suggest abdominal imaging to rule out any changes that would be suggestive of gross infectious pathology, such as an intraabdominal abscess. Pt has had a recent CT scan that shows multiple metastases that can be used for comparison. If no gross abscess, duration of antibiotic therapy can be short. Pt is currently on day 6 of effective antibiotics. A total of 10 days might be reasonable. - With pt able to tolerate PO, hemodynamically stable, benign exam, afebrile... Switch to PO Augmentin 500/125 TID at this point is reasonable. Augmentin is broader than is strictly necessary to treat Clostridium perfringens but source of bacteremia likely intraabdominal and typically polymicrobial in origin. Rehan Rivera MD [facility] pager [phone]
[2018-10-06] MEDS ORDERED: DIPHENHYDRAMINE HCL 50 MG/ML VIAL IV PRN (20:30)
[2018-10-06] MEDS ORDERED: FAMOTIDINE INJ/PF 20 MG/2 ML SDV IV PRN (20:30)
[2018-10-06] MEDS ORDERED: METHYLPREDNISOLONE INJ 125 MG/2 ML SDV IV PRN (20:30)
[2018-10-06] MEDS: AMOXICILLIN TR/POT CLAVULANATE 250-125 MG TAB PO SCH (21:52)
[2018-10-06] MEDS: AMITRIPTYLINE HCL 50 MG TABLET PO SCH (21:52)
[2018-10-06] MEDS: LIDOCAINE 5% (700 MG) TRANSDERMAL ADH..PATCH TP SCH (21:52)
--- NOTE | 2018-10-06 22:52 | RADIOLOGY REPORT (SQ) ---
EXAM DESCRIPTION: CT ABDOMEN PELVIS WITH IV CONTRAST COMPLETED DATE/TME: 10/06/2018 00:00 CLINICAL HISTORY: 72 years, Male, Rule out any intra-abdominal occult abscess COMPARISON: 09/26/2018 CT TECHNIQUE: 429 Images stored on PACS. All CT scanners at this facility use dose modulation, iterative reconstruction, and/or weight based dosing when appropriate to reduce radiation dose to as low as reasonably achievable (ALARA). [facility]: Dose Right [facility]: CareDose [facility]: Dose Right [facility]: Teradose 4D [facility]: Smart Torbit LIMITATIONS: None. FINDINGS: Limited evaluation of the lung bases shows partial visualization of multiple pulmonary nodules, also present on the prior CT. The largest is in the posterior right lung base and abuts the pleural surface. This measures 1.9 cm. Osseous structures of the abdomen/pelvis are grossly intact. There are several lesions throughout the liver consistent with metastatic disease. These were also present previously and are grossly similar in size and appearance. The largest is in the right hepatic lobe, measuring approximately 4.23 x 2.86 cm. Multiple gallstones are noted. The spleen is mildly enlarged at 14 cm. The adrenal glands, pancreas, and kidneys are unremarkable. Moderate atheromatous change. Left lower quadrant ostomy with peristomal hernia containing unremarkable appearing loops of bowel. No gross evidence for bowel obstruction. Poorly defined complex appearing soft tissue mass within the deep pelvis, appearing to be intimately associated with the previously described heart and out. The mass contains foci of gas and fluid and communication/fistula formation is not excluded. Approximate size of the mass is 7.78 cm AP by 6.47 cm transverse by 8.37 cm craniocaudad. There is lack of normal fat planes. Minor surrounding inflammatory changes are present. No free peritoneal air or free fluid. IMPRESSION: Little interval change when compared with the most recent CT. A poorly defined complex mass intimately associated with the patient's Brian pouch is present, and fistula formation is not excluded. Extensive hepatic metastases, as before. Multiple partially visualized pulmonary metastases. Left lower quadrant ostomy with peristomal hernia containing nondilated loops of bowel. TECHNICAL DOCUMENTATION: Quality ID # 436: Final reports with documentation of one or more dose reduction techniques (e.g., Automated exposure control, adjustment of the mA and/or kV according to patient size, use of iterative reconstruction technique) 2010 [employer]- All Rights Reserved
--- NOTE | 2018-10-06 23:57 | PDOC PROGRESS REPORT ---
Subjective Progress Note for:: 10/06/18 Subjective:: no pains Reason For Visit: OSTOMY BLEEDING Physical Exam Vital Signs: Temp Pulse Resp BP Pulse Ox 98.6 F 95 16 124/72 98 10/06/18 19:42 10/06/18 19:42 10/06/18 19:42 10/06/18 19:42 10/06/18 19:42 Intake & Output 10/05/18 10/06/18 10/07/18 06:59 06:59 06:59 Intake Total 1227 2486 707 Output Total 200 Balance 1227 2486 507 Weight 79.3 kg 69.6 kg Exam: had bleeding on colostomy this am. Stopped by placing surgicel and applying pressure. Has a small area of prominence just inferomedial to colostomy and appears to be an expansion of the tumor. No bleeding noted when examined after olacement of surgicel. Results Laboratory Results: 10/06/18 05:00 10/06/18 05:00 10/06/18 10/06/18 05:00 05:00 WBC 15.8 H RBC 2.98 L Hgb 9.1 L Hct 26.9 L MCV 91 MCH 30.5 MCHC 33.7 RDW 18.0 H Plt Count 190 Seg Neutrophils % Not Reportable Lymphocytes % Not Reportable Monocytes % Not Reportable Eosinophils % Not Reportable Basophils % Not Reportable Absolute Neutrophils Not Reportable Absolute Lymphocytes Not Reportable Absolute Monocytes Not Reportable Absolute Eosinophils Not Reportable Absolute Basophils Not Reportable Sodium 135.2 L Potassium 4.6 Chloride 100 Carbon Dioxide 24 Anion Gap 11 BUN 24 H Creatinine 1.09 Est GFR ( Amer) > 60 Est GFR (Non-Af Amer) > 60 Glucose 206 H Calcium 9.5 Total Bilirubin 0.4 AST 30 ALT 31 Alkaline Phosphatase 132 H Total Protein 5.7 L Albumin 2.6 L 10/01/18 09:01 Blood Blood Culture - Final NO GROWTH IN 5 DAYS 10/02/18 12:05 Abdomen - Right Side Gram Stain - Final 10/02/18 12:05 Abdomen - Right Side Wound Culture - Final Pseudomonas Aeruginosa Enterococcus Faecalis(Group D) Yeast, Not Evita Albicans Impressions: Chest X-Ray 10/01/18 00:00 IMPRESSION: No acute findings. Lung metastatic nodules Abdomen/Pelvis CT 10/06/18 00:00 IMPRESSION: Little interval change when compared with the most recent CT. A poorly defined complex mass intimately associated with the patient's Brian pouch is present, and fistula formation is not excluded. Extensive hepatic metastases, as before. Multiple partially visualized pulmonary metastases. Left lower quadrant ostomy with peristomal hernia containing nondilated loops of bowel. 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 Spoke to patient's and told her if it again bleeds to just apply pressure over a surgicel.. If further bleeds in hospital for possible cautery in the OR.
[2018-10-07] MEDS: AMOXICILLIN TR/POT CLAVULANATE 250-125 MG TAB PO SCH ×3 (05:35→22:06)
[2018-10-07 05:43] LABS: HEMOGLOBIN 9.7 g/dL (13.5-17.0); MEAN CORPUSCULAR HEMOGLOBIN 30.3 pg (27.0-33.4); MEAN CORPUSCULAR HGB CONC 33.3 g/dL (32.0-36.0); MEAN CORPUSCULAR VOLUME 91 fl (80-97); PLATELET COUNT 215 10^3/uL (150-450); RED BLOOD COUNT 3.18 10^6/uL (4.35-5.55); RED CELL DISTRIBUTION WIDTH 17.7 % (11.5-14.0); WHITE BLOOD COUNT 15.6 10^3/uL (4.0-10.5)
[2018-10-07 06:10] LABS: ABSOLUTE LYMPHOCYTES# (MANUAL) 1.4 10^3/uL (0.5-4.7); ABSOLUTE MONOCYTES # (MANUAL) 0.2 10^3/uL (0.1-1.4); BASOPHILS % (MANUAL) 0 % (0-2); EOSINOPHILS % (MANUAL) 0 % (0-6); LYMPHOCYTES % (MANUAL) 9 % (13-45); METAMYELOCYTES % (MANUAL) 1 % (0); MONOCYTES % (MANUAL) 1 % (3-13); SEGMENTED NEUTROPHILS % (MAN) 89 % (42-78); TOTAL CELLS COUNTED 100
[2018-10-07 06:13] LABS: OVALOCYTES 1+; PLATELET COMMENT ADEQUATE; POIKILOCYTOSIS 1+; SCHISTOCYTES SLIGHT; TEAR DROP CELLS 2+; TOXIC GRANULATION 1+; TOXIC VACUOLATION PRESENT
[2018-10-07 06:19] LABS: ALANINE AMINOTRANSFERASE 25 U/L (21-72); ALBUMIN 2.8 g/dL (3.5-5.0); ALKALINE PHOSPHATASE 141 U/L (38-126); ANION GAP 11 (5-19); ASPARTATE AMINO TRANSFERASE 26 U/L (17-59); BILIRUBIN,DIRECT 0.3 mg/dL (0.0-0.4); BILIRUBIN,TOTAL 0.5 mg/dL (0.2-1.3); BLOOD UREA NITROGEN 27 mg/dL (7-20); CALCIUM 9.8 mg/dL (8.4-10.2); CARBON DIOXIDE 22 mmol/L (22-30); CHLORIDE 102 mmol/L (98-107); GLUCOSE 304 mg/dL (75-110); POTASSIUM 5.2 mmol/L (3.6-5.0); SODIUM 135.4 mmol/L (137-145); TOTAL PROTEIN 6.1 g/dL (6.3-8.2)
[2018-10-07] MEDS: OXYCODONE HCL IR 5 MG TABLET PO PRN ×3 (07:50→18:36)
[2018-10-07] MEDS: AMLODIPINE BESYLATE 5 MG TABLET PO SCH (07:50)
--- NOTE | 2018-10-07 08:06 | PDOC PROGRESS REPORT ---
Subjective Progress Note for:: 10/07/18 Subjective:: Patient states small amount of bleeding yesterday, which stopped very quickly with pressure. Pain is overall improved. states she has been trying to get magic mouthwash ordered for 3 days. ROS: some GERD, continued rectal pain. Good appetite. Ambulating well. Reason For Visit: OSTOMY BLEEDING Physical Exam Vital Signs: Temp Pulse Resp BP Pulse Ox 98.8 F 82 16 128/93 H 99 10/07/18 03:21 10/07/18 07:00 10/07/18 03:21 10/07/18 03:21 10/07/18 03:21 Intake & Output 10/06/18 10/07/18 10/08/18 06:59 06:59 06:59 Intake Total 2486 707 Output Total 200 Balance 2486 507 Weight 69.6 kg 74.8 kg General appearance: PRESENT: well-developed, well-nourished Head exam: PRESENT: normocephalic Respiratory exam: PRESENT: unlabored GI/Abdominal exam: PRESENT: other - No change. Extremities exam: ABSENT: pedal edema Neurological exam: PRESENT: alert, awake Psychiatric exam: PRESENT: appropriate affect Skin exam: PRESENT: normal color Results Laboratory Results: 10/07/18 05:30 10/07/18 05:30 10/07/18 10/07/18 05:30 05:30 WBC 15.6 H RBC 3.18 L Hgb 9.7 L Hct 29.0 L MCV 91 MCH 30.3 MCHC 33.3 RDW 17.7 H Plt Count 215 Seg Neutrophils % Not Reportable Lymphocytes % Not Reportable Monocytes % Not Reportable Eosinophils % Not Reportable Basophils % Not Reportable Absolute Neutrophils Not Reportable Absolute Lymphocytes Not Reportable Absolute Monocytes Not Reportable Absolute Eosinophils Not Reportable Absolute Basophils Not Reportable Sodium 135.4 L Potassium 5.2 H Chloride 102 Carbon Dioxide 22 Anion Gap 11 BUN 27 H Creatinine 1.14 Est GFR ( Amer) > 60 Est GFR (Non-Af Amer) > 60 Glucose 304 H Calcium 9.8 Total Bilirubin 0.5 AST 26 ALT 25 Alkaline Phosphatase 141 H Total Protein 6.1 L Albumin 2.8 L 10/01/18 09:01 Blood Blood Culture - Final NO GROWTH IN 5 DAYS 10/02/18 12:05 Abdomen - Right Side Gram Stain - Final 10/02/18 12:05 Abdomen - Right Side Wound Culture - Final Pseudomonas Aeruginosa Enterococcus Faecalis(Group D) Yeast, Not Evita Albicans Impressions: Chest X-Ray 10/01/18 00:00 IMPRESSION: No acute findings. Lung metastatic nodules Abdomen/Pelvis CT 10/06/18 00:00 IMPRESSION: Little interval change when compared with the most recent CT. A poorly defined complex mass intimately associated with the patient's Brian pouch is present, and fistula formation is not excluded. Extensive hepatic metastases, as before. Multiple partially visualized pulmonary metastases. Left lower quadrant ostomy with peristomal hernia containing nondilated loops of bowel. TECHNICAL DOCUMENTATION: Quality ID # [id number]: Final reports with documentation of one or more dose reduction techniques (e.g., Automated exposure control, adjustment of the mA and/or kV according to patient size, use of iterative reconstruction technique) 2010 [employer]- All Rights Reserved Assessment & Plan - Diagnosis (1) Colorectal cancer, stage IV Is this a current diagnosis for this admission?: Yes (2) Bleeding from colostomy stoma Is this a current diagnosis for this admission?: Yes (3) Blood loss anemia Is this a current diagnosis for this admission?: Yes (4) Chronic anticoagulation Is this a current diagnosis for this admission?: Yes - Plan Summary Plan Summary: Although his WBC is still slightly elevated, this could also be due to the tumor. He has been afebrile. Repeat CT continues to show cancer, but no evidence of obvious abcess. Culture from his ostomy was positive, but this was from his ostomy, not a wound. Ultimately, he will need to start chemotherapy SOL. I am still working on getting the new chemo regimen for him. I will order the magic mouthwash. Continue pain meds without changes. Surgery continues to follow.
[2018-10-07] MEDS: ASCORBIC ACID 500 MG TABLET PO SCH (09:12)
[2018-10-07] MEDS: LISINOPRIL 10 MG TABLET PO SCH (09:12)
[2018-10-07] MEDS: SENNOSIDES/DOCUSATE 8.6-50 MG 1 EACH TABLET PO SCH ×2 (09:13→17:35)
[2018-10-07] MEDS: CARVEDILOL 6.25 MG TABLET PO SCH ×2 (09:13→22:06)
[2018-10-07] MEDS: LUBIPROSTONE 24 MCG CAPSULE PO SCH ×2 (09:14→17:35)
[2018-10-07] MEDS: MEGESTROL ACETATE SUSP 400 MG/10 ML UDCUP PO SCH (09:14)
[2018-10-07] MEDS: ZINC SULFATE 220 MG CAPSULE PO SCH (09:14)
[2018-10-07] MEDS: INSULIN LISPRO 100 UNIT/ML 3 ML VIAL SUBCUT PRN (10:13)
[2018-10-07] MEDS: HYDROMORPHONE HCL INJ/PF 2 MG/ML AMPULE IV PRN ×3 (10:14→22:09)
[2018-10-07] MEDS: PHARMACY COMMUNICATION ORDER MC SCH (10:52)
--- NOTE | 2018-10-07 11:49 | PDOC PROGRESS REPORT ---
Subjective Progress Note for:: 12/07/17 Subjective:: [birth year][id number]skn-old male with history of stage IV colorectal cancer and history of DVT on Eliquis presented to the ER with complaints of bleed through the ostomy site. He was diagnosed with colon cancer in October [address] which was done in October 2017 at that time he was on Coumadin and it was changed to Eliquis. During this hospital stay he received 1 unit of PRBC. By the oncologist Dr. Cordova seen by the surgical team. No acute events in the last 24 hours. Leading from the ostomy site. And is concerned about the infection around the ostomy site. Febrile. Denies any nausea vomiting diarrhea. Reason For Visit: OSTOMY BLEEDING Physical Exam Vital Signs: Temp Pulse Resp BP Pulse Ox 98.5 F 82 18 146/77 H 100 10/07/18 07:28 10/07/18 07:28 10/07/18 07:28 10/07/18 07:28 10/07/18 07:28 Intake & Output 10/06/18 10/07/18 10/08/18 06:59 06:59 06:59 Intake Total 2486 707 Output Total 200 Balance 2486 507 Weight 69.6 kg 74.8 kg General appearance: PRESENT: no acute distress Head exam: PRESENT: atraumatic Neck exam: ABSENT: carotid bruit, JVD, lymphadenopathy, thyromegaly Respiratory exam: PRESENT: clear to auscultation juan daniel. ABSENT: rales, rhonchi, wheezes Cardiovascular exam: PRESENT: RRR. ABSENT: diastolic murmur, rubs, systolic murmur GI/Abdominal exam: PRESENT: normal bowel sounds, other - Colostomy site may be showing signs of infection. Neurological exam: PRESENT: alert, awake, oriented to person, oriented to place , oriented to time, oriented to situation, CN II-XII grossly intact. ABSENT: motor sensory deficit Psychiatric exam: PRESENT: appropriate affect, normal mood. ABSENT: homicidal ideation, suicidal ideation Results Laboratory Results: 10/07/18 05:30 10/07/18 05:30 10/07/18 10/07/18 05:30 05:30 WBC 15.6 H RBC 3.18 L Hgb 9.7 L Hct 29.0 L MCV 91 MCH 30.3 MCHC 33.3 RDW 17.7 H Plt Count 215 Seg Neutrophils % Not Reportable Lymphocytes % Not Reportable Monocytes % Not Reportable Eosinophils % Not Reportable Basophils % Not Reportable Absolute Neutrophils Not Reportable Absolute Lymphocytes Not Reportable Absolute Monocytes Not Reportable Absolute Eosinophils Not Reportable Absolute Basophils Not Reportable Sodium 135.4 L Potassium 5.2 H Chloride 102 Carbon Dioxide 22 Anion Gap 11 BUN 27 H Creatinine 1.14 Est GFR ( Amer) > 60 Est GFR (Non-Af Amer) > 60 Glucose 304 H Calcium 9.8 Total Bilirubin 0.5 AST 26 ALT 25 Alkaline Phosphatase 141 H Total Protein 6.1 L Albumin 2.8 L 10/01/18 09:01 Blood Blood Culture - Final NO GROWTH IN 5 DAYS 10/02/18 12:05 Abdomen - Right Side Gram Stain - Final 10/02/18 12:05 Abdomen - Right Side Wound Culture - Final Pseudomonas Aeruginosa Enterococcus Faecalis(Group D) Yeast, Not Evita Albicans Impressions: Chest X-Ray 10/01/18 00:00 IMPRESSION: No acute findings. Lung metastatic nodules Abdomen/Pelvis CT 10/06/18 00:00 IMPRESSION: Little interval change when compared with the most recent CT. A poorly defined complex mass intimately associated with the patient's Brian pouch is present, and fistula formation is not excluded. Extensive hepatic metastases, as before. Multiple partially visualized pulmonary metastases. Left lower quadrant ostomy with peristomal hernia containing nondilated loops of bowel. TECHNICAL DOCUMENTATION: Quality ID # [id number]: Final reports with documentation of one or more dose reduction techniques (e.g., Automated exposure control, adjustment of the mA and/or kV according to patient size, use of iterative reconstruction technique) 2010 [employer]- All Rights Reserved Assessment & Plan - Diagnosis (1) Leukocytosis Qualifiers: Leukocytosis type: bandemia Qualified Code(s): D72.825 - Bandemia Is this a current diagnosis for this admission?: Yes Plan: 12/07/2017-persistent leukocytosis. Latest WBC is 15.6. Slight improvement compared to yesterday. Elevated WBC may be secondary to colon cancer. And is afebrile. 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 Patient is on p.o. Augmentin as per ID recommendations. CT abdomen pelvis was done and abscess was ruled out. (2) Bleeding from colostomy stoma Is this a current diagnosis for this admission?: Yes Plan: 10/07/2018-no bleed from the colostomy site was reported in the last 24 hours. Surgery is following the case. And is stable. Hemoglobin and hematocrit are stable. His hemoglobin is 9.7. (3) Chronic anticoagulation Is this a current diagnosis for this admission?: Yes Plan: 2017 Eliquis on hold.latest hemoglobin is 9.7. Has history of DVT. (4) Colorectal cancer, stage IV Is this a current diagnosis for this admission?: Yes Plan: 12/07/2017 oncology is following the patient. The planning to start chemotherapy soon. (5) Diabetes mellitus type 2 in nonobese Is this a current diagnosis for this admission?: Yes Plan: 12/07/2017 latest blood sugar is 3 was 7. It is on insulin sliding scale. Is on diabetic diet. Adjust the insulin sliding scale as needed. Go to order for hemoglobin A1c. 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 (7) Hypertension Is this a current diagnosis for this admission?: Yes Plan: 2017. His latest blood pressure is 146/77 with heart rate of 82. And is on lisinopril 40 mg p.o. daily, amlodipine 5 mg p.o. daily. Coreg was added yesterday , on 6.25 mg po bid of coreg - Time Time Spent with patient: 15-24 minutes Medications reviewed and adjusted accordingly: Yes
--- NOTE | 2018-10-07 17:41 | PDOC PROGRESS REPORT ---
Subjective Progress Note for:: 10/07/18 Subjective:: Claims he had a very small amount of bleeding from ostomy site more on a stool that he passed out. No bleeding now. H/H stable. Reason For Visit: OSTOMY BLEEDING Physical Exam Vital Signs: Temp Pulse Resp BP Pulse Ox 98.6 F 83 18 149/72 H 100 10/07/18 15:18 10/07/18 15:18 10/07/18 15:18 10/07/18 15:18 10/07/18 15:18 Intake & Output 10/06/18 10/07/18 10/08/18 06:59 06:59 06:59 Intake Total 2486 707 355 Output Total 200 Balance 2486 507 355 Weight 69.6 kg 74.8 kg Exam: abd is soft. No obvious bleeding from the ostomy site. Results Laboratory Results: 10/07/18 05:30 10/07/18 05:30 10/07/18 10/07/18 05:30 05:30 WBC 15.6 H RBC 3.18 L Hgb 9.7 L Hct 29.0 L MCV 91 MCH 30.3 MCHC 33.3 RDW 17.7 H Plt Count 215 Seg Neutrophils % Not Reportable Lymphocytes % Not Reportable Monocytes % Not Reportable Eosinophils % Not Reportable Basophils % Not Reportable Absolute Neutrophils Not Reportable Absolute Lymphocytes Not Reportable Absolute Monocytes Not Reportable Absolute Eosinophils Not Reportable Absolute Basophils Not Reportable Sodium 135.4 L Potassium 5.2 H Chloride 102 Carbon Dioxide 22 Anion Gap 11 BUN 27 H Creatinine 1.14 Est GFR ( Amer) > 60 Est GFR (Non-Af Amer) > 60 Glucose 304 H Calcium 9.8 Total Bilirubin 0.5 AST 26 ALT 25 Alkaline Phosphatase 141 H Total Protein 6.1 L Albumin 2.8 L Impressions: Chest X-Ray 10/01/18 00:00 IMPRESSION: No acute findings. Lung metastatic nodules Abdomen/Pelvis CT 10/06/18 00:00 IMPRESSION: Little interval change when compared with the most recent CT. A poorly defined complex mass intimately associated with the patient's Brian pouch is present, and fistula formation is not excluded. Extensive hepatic metastases, as before. Multiple partially visualized pulmonary metastases. Left lower quadrant ostomy with peristomal hernia containing nondilated loops of bowel. 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 Will sign off. Call PRN for any more bleesing.
[2018-10-07] MEDS: LIDOCAINE 5% (700 MG) TRANSDERMAL ADH..PATCH TP SCH (22:07)
[2018-10-07] MEDS: AMITRIPTYLINE HCL 50 MG TABLET PO SCH (22:07)
[2018-10-08] MEDS: INSULIN LISPRO 100 UNIT/ML 3 ML VIAL SUBCUT PRN ×4 (00:02→18:09)
[2018-10-08] MEDS: OXYCODONE HCL IR 5 MG TABLET PO PRN ×6 (01:02→22:39)
[2018-10-08] MEDS: HYDROMORPHONE HCL INJ/PF 2 MG/ML AMPULE IV PRN ×3 (04:45→20:43)
[2018-10-08 05:06] LABS: HEMATOCRIT 27.9 % (37.9-51.0); HEMOGLOBIN 9.3 g/dL (13.5-17.0); MEAN CORPUSCULAR HEMOGLOBIN 30.3 pg (27.0-33.4); MEAN CORPUSCULAR HGB CONC 33.4 g/dL (32.0-36.0); MEAN CORPUSCULAR VOLUME 91 fl (80-97); PLATELET COUNT 236 10^3/uL (150-450); RED BLOOD COUNT 3.07 10^6/uL (4.35-5.55); RED CELL DISTRIBUTION WIDTH 17.6 % (11.5-14.0); WHITE BLOOD COUNT 18.4 10^3/uL (4.0-10.5)
[2018-10-08 05:26] LABS: ALANINE AMINOTRANSFERASE 26 U/L (21-72); ALBUMIN 2.7 g/dL (3.5-5.0); ALKALINE PHOSPHATASE 123 U/L (38-126); ANION GAP 11 (5-19); ASPARTATE AMINO TRANSFERASE 25 U/L (17-59); BILIRUBIN,DIRECT 0.3 mg/dL (0.0-0.4); BILIRUBIN,TOTAL 0.3 mg/dL (0.2-1.3); BLOOD UREA NITROGEN 36 mg/dL (7-20); CALCIUM 10.2 mg/dL (8.4-10.2); CARBON DIOXIDE 24 mmol/L (22-30); CHLORIDE 104 mmol/L (98-107); GLUCOSE 223 mg/dL (75-110); POTASSIUM 4.7 mmol/L (3.6-5.0); SODIUM 138.9 mmol/L (137-145)
[2018-10-08 05:38] LABS: ABSOLUTE LYMPHOCYTES# (MANUAL) 2.6 10^3/uL (0.5-4.7); ABSOLUTE MONOCYTES # (MANUAL) 0.4 10^3/uL (0.1-1.4); ABSOLUTE NEUTROPHILS# (MANUAL) 15.5 10^3/uL (1.7-8.2); BASOPHILS % (MANUAL) 0 % (0-2); EOSINOPHILS % (MANUAL) 0 % (0-6); LYMPHOCYTES % (MANUAL) 14 % (13-45); MONOCYTES % (MANUAL) 2 % (3-13); SEGMENTED NEUTROPHILS % (MAN) 84 % (42-78); TOTAL CELLS COUNTED 100
[2018-10-08 05:39] LABS: ANISOCYTOSIS 1+; OVALOCYTES SLIGHT; PLATELET COMMENT ADEQUATE; POIKILOCYTOSIS SLIGHT; SCHISTOCYTES SLIGHT
[2018-10-08] MEDS: AMOXICILLIN TR/POT CLAVULANATE 250-125 MG TAB PO SCH ×2 (05:39→13:07)
[2018-10-08] MEDS: AMLODIPINE BESYLATE 5 MG TABLET PO SCH (08:42)
--- NOTE | 2018-10-08 08:43 | PDOC PROGRESS REPORT ---
Subjective Progress Note for:: 10/08/18 Subjective:: Patient frustrated that he is still in the hospital. States he didn't see any doctors yesterday and no one told him the results of the CT scan. However, I have been seeing him every day and ask every day if there is anything else that I can do for him. He denies any further bleeding. Pain seems to be controlled. No new problems voiced. ROS: Walking without difficulty. Ate cheesecake last night for his birthday and his sugar was high last night. Reason For Visit: OSTOMY BLEEDING Physical Exam Vital Signs: Temp Pulse Resp BP Pulse Ox 99.0 F 78 16 164/81 H 98 10/08/18 07:29 10/08/18 07:29 10/08/18 07:29 10/08/18 07:29 10/08/18 07:29 Intake & Output 10/07/18 10/08/18 10/09/18 06:59 06:59 06:59 Intake Total 707 592 Output Total 200 Balance 507 592 Weight 74.8 kg 76.4 kg General appearance: PRESENT: no acute distress Head exam: PRESENT: normocephalic Respiratory exam: PRESENT: unlabored Extremities exam: ABSENT: pedal edema Neurological exam: PRESENT: alert, awake, oriented to person, oriented to place , oriented to time, oriented to situation Psychiatric exam: PRESENT: appropriate affect Skin exam: PRESENT: normal color Results Laboratory Results: 10/08/18 04:32 10/08/18 04:32 10/08/18 10/08/18 04:32 04:32 WBC 18.4 H RBC 3.07 L Hgb 9.3 L Hct 27.9 L MCV 91 MCH 30.3 MCHC 33.4 RDW 17.6 H Plt Count 236 Seg Neutrophils % Not Reportable Lymphocytes % Not Reportable Monocytes % Not Reportable Eosinophils % Not Reportable Basophils % Not Reportable Absolute Neutrophils Not Reportable Absolute Lymphocytes Not Reportable Absolute Monocytes Not Reportable Absolute Eosinophils Not Reportable Absolute Basophils Not Reportable Sodium 138.9 Potassium 4.7 Chloride 104 Carbon Dioxide 24 Anion Gap 11 BUN 36 H Creatinine 1.19 Est GFR ( Amer) > 60 Est GFR (Non-Af Amer) > 60 Glucose 223 H Calcium 10.2 Magnesium 2.2 Total Bilirubin 0.3 AST 25 ALT 26 Alkaline Phosphatase 123 Total Protein 6.0 L Albumin 2.7 L Impressions: Chest X-Ray 10/01/18 00:00 IMPRESSION: No acute findings. Lung metastatic nodules Abdomen/Pelvis CT 10/06/18 00:00 IMPRESSION: Little interval change when compared with the most recent CT. A poorly defined complex mass intimately associated with the patient's Brian pouch is present, and fistula formation is not excluded. Extensive hepatic metastases, as before. Multiple partially visualized pulmonary metastases. Left lower quadrant ostomy with peristomal hernia containing nondilated loops of bowel. TECHNICAL DOCUMENTATION: Quality ID # [id number]: Final reports with documentation of one or more dose reduction techniques (e.g., Automated exposure control, adjustment of the mA and/or kV according to patient size, use of iterative reconstruction technique) 2010 [employer]- All Rights Reserved Assessment & Plan - Diagnosis (1) Colorectal cancer, stage IV Is this a current diagnosis for this admission?: Yes Plan: I again explained to him that the CT did not show anything new. Only known cancer. No obvious abcesses. Await new chemo meds. THese cannot be started until he is finished treatment for active infection. He is sitll on antibiotics currently. He did have a blood culture that was positive, but I have not seen any repeat blood cultures. (2) Bleeding from colostomy stoma Is this a current diagnosis for this admission?: Yes Plan: This appears to have resolved. No further blood thinners. (3) Blood loss anemia Is this a current diagnosis for this admission?: Yes (4) Chronic anticoagulation Is this a current diagnosis for this admission?: Yes - Plan Summary Plan Summary: I will sign off, but am available at any time. Please call if needed.
[2018-10-08] MEDS: ASCORBIC ACID 500 MG TABLET PO SCH (09:14)
[2018-10-08] MEDS: LISINOPRIL 10 MG TABLET PO SCH (09:14)
[2018-10-08] MEDS: SENNOSIDES/DOCUSATE 8.6-50 MG 1 EACH TABLET PO SCH ×2 (09:14→17:42)
[2018-10-08] MEDS: CARVEDILOL 6.25 MG TABLET PO SCH ×2 (09:14→21:05)
[2018-10-08] MEDS: FENTANYL 75 MCG/HR PATCH.TD72 TD SCH (09:15)
[2018-10-08] MEDS: LUBIPROSTONE 24 MCG CAPSULE PO SCH ×2 (09:16→17:42)
[2018-10-08] MEDS: ZINC SULFATE 220 MG CAPSULE PO SCH (09:17)
[2018-10-08] MEDS: MEGESTROL ACETATE SUSP 400 MG/10 ML UDCUP PO SCH (09:17)
[2018-10-08] MEDS: PHARMACY COMMUNICATION ORDER MC SCH (09:17)
[2018-10-08] MEDS: NYSTATIN/DEXAMETH/DIPHEN SUSP 120 ML PO PRN (09:18)
--- NOTE | 2018-10-08 11:38 | PDOC PROGRESS REPORT ---
Subjective Progress Note for:: 10/08/18 Subjective:: 10/07[birth year][id number]-rfda-old male with history of stage IV colorectal cancer and history of DVT on Eliquis presented to the ER with complaints of bleed through the ostomy site. He was diagnosed with colon cancer in October [address] which was done in October 2017 at that time he was on Coumadin and it was changed to Eliquis. During this hospital stay he received 1 unit of PRBC. By the oncologist Dr. Cordova seen by the surgical team. No acute events in the last 24 hours. Leading from the ostomy site. And is concerned about the infection around the ostomy site. Febrile. Denies any nausea vomiting diarrhea. 10/08/2018 and is still concerned about the infection around the ostomy site, is also concerned about increased WBC. He is also saying he is in constant pain but he says he is able to tolerate it. He and the family does not want to go home today. Reason For Visit: OSTOMY BLEEDING Physical Exam Vital Signs: Temp Pulse Resp BP Pulse Ox 99.0 F 78 16 164/81 H 98 10/08/18 07:29 10/08/18 07:29 10/08/18 07:29 10/08/18 07:29 10/08/18 07:29 Intake & Output 10/07/18 10/08/18 10/09/18 06:59 06:59 06:59 Intake Total 707 592 Output Total 200 Balance 507 592 Weight 74.8 kg 76.4 kg General appearance: PRESENT: no acute distress, mild distress Head exam: PRESENT: atraumatic Eye exam: PRESENT: PERRLA Neck exam: ABSENT: carotid bruit, JVD, lymphadenopathy, thyromegaly Respiratory exam: PRESENT: clear to auscultation juan daniel. ABSENT: rales, rhonchi, wheezes Cardiovascular exam: PRESENT: RRR. ABSENT: diastolic murmur, rubs, systolic murmur GI/Abdominal exam: PRESENT: other - Patient has a colostomy bag. Around the colostomy bag site there is evidence of infection. No bleeding from the colostomy site. Neurological exam: PRESENT: alert, awake, oriented to person, oriented to place , oriented to time, oriented to situation, CN II-XII grossly intact. ABSENT: motor sensory deficit Psychiatric exam: PRESENT: appropriate affect, normal mood. ABSENT: homicidal ideation, suicidal ideation Results Laboratory Results: 10/08/18 04:32 10/08/18 04:32 10/08/18 10/08/18 04:32 04:32 WBC 18.4 H RBC 3.07 L Hgb 9.3 L Hct 27.9 L MCV 91 MCH 30.3 MCHC 33.4 RDW 17.6 H Plt Count 236 Seg Neutrophils % Not Reportable Lymphocytes % Not Reportable Monocytes % Not Reportable Eosinophils % Not Reportable Basophils % Not Reportable Absolute Neutrophils Not Reportable Absolute Lymphocytes Not Reportable Absolute Monocytes Not Reportable Absolute Eosinophils Not Reportable Absolute Basophils Not Reportable Sodium 138.9 Potassium 4.7 Chloride 104 Carbon Dioxide 24 Anion Gap 11 BUN 36 H Creatinine 1.19 Est GFR ( Amer) > 60 Est GFR (Non-Af Amer) > 60 Glucose 223 H Calcium 10.2 Magnesium 2.2 Total Bilirubin 0.3 AST 25 ALT 26 Alkaline Phosphatase 123 Total Protein 6.0 L Albumin 2.7 L Impressions: Chest X-Ray 10/01/18 00:00 IMPRESSION: No acute findings. Lung metastatic nodules Abdomen/Pelvis CT 10/06/18 00:00 IMPRESSION: Little interval change when compared with the most recent CT. A poorly defined complex mass intimately associated with the patient's Brian pouch is present, and fistula formation is not excluded. Extensive hepatic metastases, as before. Multiple partially visualized pulmonary metastases. Left lower quadrant ostomy with peristomal hernia containing nondilated loops of bowel. TECHNICAL DOCUMENTATION: Quality ID # [id number]: Final reports with documentation of one or more dose reduction techniques (e.g., Automated exposure control, adjustment of the mA and/or kV according to patient size, use of iterative reconstruction technique) 2010 [employer]- All Rights Reserved Assessment & Plan - Diagnosis (1) Leukocytosis Qualifiers: Leukocytosis type: bandemia Qualified Code(s): D72.825 - Bandemia Is this a current diagnosis for this admission?: Yes Plan: 10/07/2018-persistent leukocytosis. Latest WBC is 15.6. Slight improvement compared to yesterday. Elevated WBC may be secondary to colon cancer. And is afebrile. 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 Patient is on p.o. Augmentin as per ID recommendations. CT abdomen pelvis was done and abscess was ruled out. 10/08/2018-bili BC today is 18,400. And compared to yesterday. Oncologist thinks it may be secondary to carcinoma. Patient has a low-grade fever of 99. Blood cultures from 10/02/2018 showing Clostridium perfringens, cultures from the ostomy site showing Pseudomonas aeruginosa, enterococcus, Evita albicans. Patient is on p.o. Augmentin. I am going to place a consult for ID. Going to start him on Diflucan 100 mg p.o. daily, also will start him on nystatin powder topical. (2) Bleeding from colostomy stoma Is this a current diagnosis for this admission?: Yes Plan: 10/07/2018-no bleed from the colostomy site was reported in the last 24 hours. Surgery is following the case. And is stable. Hemoglobin and hematocrit are stable. His hemoglobin is 9.7. 10/08/2018, more bleeding from the ostomy site in the last 24 hours. (3) Chronic anticoagulation Is this a current diagnosis for this admission?: Yes Plan: 2017 Eliquis on hold.latest hemoglobin is 9.7. Has history of DVT. 10/08/2018 because of the history of bleed from the ostomy site Eliquis is on hold. Because. There is no more bleeding from the ostomy site I am going to start him on a 2.5 mg of Eliquis. (4) Colorectal cancer, stage IV Is this a current diagnosis for this admission?: Yes Plan: 10/07/2018 oncology is following the patient. The planning to start chemotherapy soon. 10/08/2018 at [facility] spoke to me this morning, she thinks patient need to be started on chemotherapy soon. She also thinks patient's WBCs may be secondary to IV steroid use, and carcinoma. (5) Diabetes mellitus type 2 in nonobese Is this a current diagnosis for this admission?: Yes Plan: 10/07/2018 latest blood sugar is 73. It is on insulin sliding scale. Is on diabetic diet. Adjust the insulin sliding scale as needed. Go to order for hemoglobin A1c. 10/08/2018 and his latest blood sugar is 223. He is on insulin sliding scale. Patient's hemoglobin A1c is 7.0. A request for dietary consult. 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 10/08/2018 has history of chronic constipation, on amities up. No complaints today. (7) Hypertension Is this a current diagnosis for this admission?: Yes Plan: 2017. His latest blood pressure is 146/77 with heart rate of 82. And is on lisinopril 40 mg p.o. daily, amlodipine 5 mg p.o. daily. Coreg was added yesterday , on 6.25 mg po bid of coreg 10/08/2018 from pressure today is 164/81 may be secondary to pain he is in. He is on lisinopril 40 mg p.o. daily, amlodipine 5 mg p.o. daily, Coreg 6.25 mg p.o. twice daily. We will continue the current management. - Time Time Spent with patient: 15-24 minutes Medications reviewed and adjusted accordingly: Yes Anticipated discharge: Home
[2018-10-08] MEDS ORDERED: NYSTATIN CREAM 15 GM TP ONE (13:00)
[2018-10-08] MEDS: FLUCONAZOLE 100 MG TABLET PO SCH (13:07)
--- NOTE | 2018-10-08 17:57 | Progress Note ---
Provider Note Provider Note: ID Consult - Follow Up Note Reviewed patient's chart, including VS, imaging reports, providre reports, microbiology results and other pertinent labs. Pt not seen or examined. Discussed case briefly with Dr Alvarado via telephone. To summarize, On 10/01, pt was more SOB and had temperature of 100 F on 10/01/18 in conjunction with a new increase in WBCs, prompting blood cultures to be drawn. Clostridium perfringens was found in 1 set. Rocephin was started on 10/01, then changed to doxycycline/clindamycin on 10/03. By 10/06, pt was doing well apart from another episode of ostomy bleeding, which was his presenting complaint; otherwise he denied SOB, fever, chills, CP, NVD or constipation and was able to ambulate and tolerate PO intake without difficult and was afebrile, although leukocytosis was still present. I recommended switching to Augmentin 500/125 TID PO to continue treatment for the Clostridium perfringens and also include broader activity, given the likely polymicrobial source. Since that time, Pt has been receiving 250/125 TID Augmentin. Tmax in the last 24h was 99 F. Pt has no hemodynamic instability. Per most recent notes, pt's pain seems to be controlled, and no new problems were voiced by pt other than frustration with remaining in hospital. Pt was able to walk without difficulty. He is continuing to tolerating PO intake without difficulty. Abdomen is soft. Per discussion with Dr Alvarado, appearance of ostomy site is concerning for infection with erythema and swelling. Pt continues to have a leukocytosis. WBC count was 17.6k on 10/05 and 15.8k on 10/06 prior to switching to Augmentin. Since switching to Augmentin it has been 15.6k yesterday and 18.4k today. Imaging: CT scan this admission was read as showing a poorly defined complex mass intimately associated with the patient's Brian pouch. "The mass contains foci of gas and fluid and communication/fistula formation is not excluded... Minor inflammatory changes are present." Impression/Recommendations Pt has had Clostridium perfringens bacteremia that developed during this admission. He also has metastatic colon cancer with a pelvic mass, which is largely similar in appearance to recent prior CT, except with foci of gas and fluid that appears more noticable now. I do not know definitively what this finding represents in relation to his Clostridium perfringens bacteremia (e.g. inconsequential changes vs. reflection of sterile necrosis of the tumor if parts of the mass are outgrowing blood supply and becoming ischemic vs. an early evolving abscess). The best approach that I can present at this time is to continue Augmentin but at the dose of 500/125 TID PO for 2 weeks and to consider re-imaging at that point to decide whether there are continued inflammatory changes that suggest a need to continue Augmentin or if a defined collection has evolved despite Augmentin. It should be kept in mind that antibiotic therapy has its own limitations, with inability to penetrate areas of necrotic tissue or sizable pus collections, and if such develops, then drainage or debridement would be indicated. If the patient worsens clinically, it would also indcate a need for repeat imaging. Pt had a culture sent from a superficial swab around the ostomy site obtained on 10/02/18. This grew 1+ Pseudomonas, 4+ Enterococcus faecalis, and 3+ non- albicans Evita species. - Attempts to keep area clean and dry and use of nystatin powder topically might be reasonable if candidal intertrigo is suspected (based on moisture in the area, rash appearance, and superficial culture growth interpreted in this clinical context). - Superficial swabs present limited information since they often reflect colonization of the skin and will grow microbes even in absence of true infection. If infection is present, superficial swabs can grow the pathogen and also many microbes that are not involved. I would not recommend starting an antipseudomonal agent. Rehan Rivera MD [facility] Infectious Diseases pager [phone]
[2018-10-08] MEDS: AMITRIPTYLINE HCL 50 MG TABLET PO SCH (21:05)
[2018-10-08] MEDS: LIDOCAINE 5% (700 MG) TRANSDERMAL ADH..PATCH TP SCH (21:06)
[2018-10-08] MEDS: AMOXICILLIN TR/POT CLAVULANATE 500-125 MG TAB PO SCH (22:39)
[2018-10-09] MEDS: AMOXICILLIN TR/POT CLAVULANATE 500-125 MG TAB PO SCH ×3 (06:41→21:29)
[2018-10-09] MEDS: OXYCODONE HCL IR 5 MG TABLET PO PRN ×4 (06:46→18:40)
[2018-10-09] MEDS: AMLODIPINE BESYLATE 5 MG TABLET PO SCH (07:36)
[2018-10-09] MEDS: INSULIN LISPRO 100 UNIT/ML 3 ML VIAL SUBCUT PRN ×4 (07:54→22:35)
[2018-10-09] MEDS: FLUCONAZOLE 100 MG TABLET PO SCH (09:21)
[2018-10-09] MEDS: CARVEDILOL 6.25 MG TABLET PO SCH ×2 (09:21→21:29)
[2018-10-09] MEDS: HYDROMORPHONE HCL INJ/PF 2 MG/ML AMPULE IV PRN ×2 (09:21→21:39)
[2018-10-09] MEDS: SENNOSIDES/DOCUSATE 8.6-50 MG 1 EACH TABLET PO SCH ×2 (09:22→18:15)
[2018-10-09] MEDS: ASCORBIC ACID 500 MG TABLET PO SCH (09:22)
[2018-10-09] MEDS: LISINOPRIL 10 MG TABLET PO SCH (09:22)
[2018-10-09] MEDS: LUBIPROSTONE 24 MCG CAPSULE PO SCH ×2 (09:23→18:13)
[2018-10-09] MEDS: ZINC SULFATE 220 MG CAPSULE PO SCH (09:23)
[2018-10-09] MEDS: MEGESTROL ACETATE SUSP 400 MG/10 ML UDCUP PO SCH (09:23)
[2018-10-09] MEDS: PHARMACY COMMUNICATION ORDER MC SCH (09:25)
--- NOTE | 2018-10-09 09:34 | PDOC PROGRESS REPORT ---
Subjective Progress Note for:: 10/09/18 Subjective:: 10/07/20183074-33-dvxq-old male with history of stage IV colorectal cancer and history of DVT on Eliquis presented to the ER with complaints of bleed through the ostomy site. He was diagnosed with colon cancer in October [address] which was done in October 2017 at that time he was on Coumadin and it was changed to Eliquis. During this hospital stay he received 1 unit of PRBC. By the oncologist Dr. Cordova seen by the surgical team. No acute events in the last 24 hours. Leading from the ostomy site. And is concerned about the infection around the ostomy site. Febrile. Denies any nausea vomiting diarrhea. 10/08/2018 and is still concerned about the infection around the ostomy site, is also concerned about increased WBC. He is also saying he is in constant pain but he says he is able to tolerate it. He and the family does not want to go home today. 10/09/2018 patient is concerned about the infection around the ostomy site, he thinks that the tumor around the ostomy site is increasing in size patient and the family says his appetite is improved in the last couple of days other than the concern about the infection he said he is doing much better. Reason For Visit: OSTOMY BLEEDING Physical Exam Vital Signs: Temp Pulse Resp BP Pulse Ox 98.6 F 86 18 148/79 H 98 10/09/18 07:15 10/09/18 07:15 10/09/18 07:15 10/09/18 07:15 10/09/18 07:15 Intake & Output 10/08/18 10/09/18 10/10/18 06:59 06:59 06:59 Intake Total 592 1295 Balance 592 1295 Weight 76.4 kg 77.3 kg General appearance: PRESENT: no acute distress Head exam: PRESENT: atraumatic Eye exam: PRESENT: PERRLA Mouth exam: PRESENT: moist Neck exam: ABSENT: carotid bruit, JVD, lymphadenopathy, thyromegaly Respiratory exam: PRESENT: clear to auscultation juan daniel. ABSENT: rales, rhonchi, wheezes Cardiovascular exam: PRESENT: RRR. ABSENT: diastolic murmur, rubs, systolic murmur GI/Abdominal exam: PRESENT: normal bowel sounds, other - Ostomy site shows tissue growth probably may be secondary to tumor. No signs of infection.. ABSENT: tenderness Neurological exam: PRESENT: alert, awake, oriented to person, oriented to place , oriented to time, oriented to situation, CN II-XII grossly intact. ABSENT: motor sensory deficit Psychiatric exam: PRESENT: appropriate affect, normal mood. ABSENT: homicidal ideation, suicidal ideation Results Laboratory Results: 10/08/18 04:32 10/08/18 04:32 Impressions: Chest X-Ray 10/01/18 00:00 IMPRESSION: No acute findings. Lung metastatic nodules Abdomen/Pelvis CT 10/06/18 00:00 IMPRESSION: Little interval change when compared with the most recent CT. A poorly defined complex mass intimately associated with the patient's Brian pouch is present, and fistula formation is not excluded. Extensive hepatic metastases, as before. Multiple partially visualized pulmonary metastases. Left lower quadrant ostomy with peristomal hernia containing nondilated loops of bowel. TECHNICAL DOCUMENTATION: Quality ID # [id number]: Final reports with documentation of one or more dose reduction techniques (e.g., Automated exposure control, adjustment of the mA and/or kV according to patient size, use of iterative reconstruction technique) [address] [employer]- All Rights Reserved Assessment & Plan - Diagnosis (1) Leukocytosis Qualifiers: Leukocytosis type: bandemia Qualified Code(s): D72.825 - Bandemia Is this a current diagnosis for this admission?: Yes Plan: 10/07/2018-persistent leukocytosis. Latest WBC is 15.6. Slight improvement compared to yesterday. Elevated WBC may be secondary to colon cancer. And is afebrile. 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 Patient is on p.o. Augmentin as per ID recommendations. CT abdomen pelvis was done and abscess was ruled out. 10/08/2018-wBC today is 18,400. Oncologist thinks it may be secondary to carcinoma. Patient has a low-grade fever of 99. Blood cultures from 2017 showing Clostridium perfringens, cultures from the ostomy site showing Pseudomonas aeruginosa, enterococcus, Evita albicans. Patient is on p.o. Augmentin. I am going to place a consult for ID. Going to start him on Diflucan 100 mg p.o. daily, also will start him on nystatin powder topical. 10/09/2018 we are waiting for the WBC count for today. As mentioned above oncologist thinks increased WBC may be secondary to tumor. Patient is afebrile in the last 24 hours. I discussed the care with ID specialist Dr. Rivera she recommended to increase DrRobles Ocampoin dose to 500/125 mg p.o. 3 times a day. Patient is also getting p.o. Diflucan. Patient prefers to switch nystatin cream to nystatin powder. (2) Bleeding from colostomy stoma Is this a current diagnosis for this admission?: Yes Plan: 10/07/2018-no bleed from the colostomy site was reported in the last 24 hours. Surgery is following the case. And is stable. Hemoglobin and hematocrit are stable. His hemoglobin is 9.7. 10/08/2018,no more bleeding from the ostomy site in the last 24 hours. 10/09/2018 no bleeding from the ostomy site in the last 48 hours. Surgeons is handing him off from the case. We are waiting for the hemoglobin levels for today. (3) Chronic anticoagulation Is this a current diagnosis for this admission?: Yes Plan: 2017 Eliquis on hold.latest hemoglobin is 9.7. Has history of DVT. 10/08/2018 because of the history of bleed from the ostomy site Eliquis is on hold. Because. There is no more bleeding from the ostomy site I am going to start him on a 2.5 mg of Eliquis. 10/09/2018 and has history of DVTs, on Eliquis at home, I am going to start him on 2.5 mg p.o. Eliquis. Closely watch his the bleeding possibility from the ostomy site. (4) Colorectal cancer, stage IV Is this a current diagnosis for this admission?: Yes Plan: 10/07/2018 oncology is following the patient. The planning to start chemotherapy soon. 10/08/2018 Dr Cordova spoke to me this morning, she thinks patient need to be started on chemotherapy soon. She also thinks patient's WBCs may be secondary to IV steroid use, and carcinoma. 10/09/2018 patient has a stage IV colon cancer. He is waiting for the chemotherapy. The oncologist signed him off at this moment. (5) Diabetes mellitus type 2 in nonobese Is this a current diagnosis for this admission?: Yes Plan: 10/07/2018 latest blood sugar is 73. It is on insulin sliding scale. Is on diabetic diet. Adjust the insulin sliding scale as needed. Go to order for hemoglobin A1c. 10/08/2018 and his latest blood sugar is 223. He is on insulin sliding scale. Patient's hemoglobin A1c is 7.0. A request for dietary consult. 10/09/2018 latest blood sugars are 223. Insulin sliding scale. Patient's hemoglobin A1c is 7.0 we will continue the sliding scale. 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 10/08/2018 has history of chronic constipation, on amities up. No complaints today. 10/09/2018 and is on amities are no complaints today. (7) Hypertension Is this a current diagnosis for this admission?: Yes Plan: 2017. His latest blood pressure is 146/77 with heart rate of 82. And is on lisinopril 40 mg p.o. daily, amlodipine 5 mg p.o. daily. Coreg was added yesterday , on 6.25 mg po bid of coreg 10/08/2018 pressure today is 164/81 may be secondary to pain he is in. He is on lisinopril 40 mg p.o. daily, amlodipine 5 mg p.o. daily, Coreg 6.25 mg p.o. twice daily. We will continue the current management. 10/09/2018 blood pressure today is 148/80. She is on lisinopril 40 mg p.o. daily amlodipine 5 mg p.o. daily Coreg 6.5 mg p.o. twice daily. We will continue the present management. - Time Time Spent with patient: 15-24 minutes Medications reviewed and adjusted accordingly: Yes
[2018-10-09 10:47] LABS: HEMATOCRIT 31.5 % (37.9-51.0); HEMOGLOBIN 10.5 g/dL (13.5-17.0); MEAN CORPUSCULAR HEMOGLOBIN 30.7 pg (27.0-33.4); MEAN CORPUSCULAR HGB CONC 33.5 g/dL (32.0-36.0); MEAN CORPUSCULAR VOLUME 92 fl (80-97); PLATELET COUNT 295 10^3/uL (150-450); RED BLOOD COUNT 3.43 10^6/uL (4.35-5.55); RED CELL DISTRIBUTION WIDTH 17.4 % (11.5-14.0); WHITE BLOOD COUNT 16.8 10^3/uL (4.0-10.5)
[2018-10-09] MEDS: APIXABAN 2.5 MG TABLET PO SCH ×2 (10:49→18:14)
[2018-10-09] MEDS: NYSTATIN TOPICAL POWDER 15 GM TP SCH (10:50)
[2018-10-09 11:11] LABS: ALANINE AMINOTRANSFERASE 24 U/L (21-72); ALBUMIN 3.4 g/dL (3.5-5.0); ALKALINE PHOSPHATASE 143 U/L (38-126); ANION GAP 14 (5-19); ASPARTATE AMINO TRANSFERASE 29 U/L (17-59); BILIRUBIN,DIRECT 0.3 mg/dL (0.0-0.4); BILIRUBIN,TOTAL 0.4 mg/dL (0.2-1.3); BLOOD UREA NITROGEN 37 mg/dL (7-20); CALCIUM 10.4 mg/dL (8.4-10.2); CARBON DIOXIDE 25 mmol/L (22-30); CHLORIDE 99 mmol/L (98-107); GLUCOSE 208 mg/dL (75-110); POTASSIUM 4.5 mmol/L (3.6-5.0); SODIUM 138.4 mmol/L (137-145)
[2018-10-09 11:21] LABS: ABSOLUTE LYMPHOCYTES# (MANUAL) 3.5 10^3/uL (0.5-4.7); ABSOLUTE MONOCYTES # (MANUAL) 1.3 10^3/uL (0.1-1.4); ABSOLUTE NEUTROPHILS# (MANUAL) 11.9 10^3/uL (1.7-8.2); BAND NEUTROPHILS % (MANUAL) 1 % (3-5); BASOPHILS % (MANUAL) 0 % (0-2); EOSINOPHILS % (MANUAL) 0 % (0-6); LYMPHOCYTES % (MANUAL) 21 % (13-45); METAMYELOCYTES % (MANUAL) 1 % (0); MONOCYTES % (MANUAL) 8 % (3-13); SEGMENTED NEUTROPHILS % (MAN) 69 % (42-78); TOTAL CELLS COUNTED 100
[2018-10-09 11:23] LABS: ANISOCYTOSIS 2+; PLATELET COMMENT ADEQUATE; TOXIC GRANULATION 1+
[2018-10-09] MEDS: LIDOCAINE 5% (700 MG) TRANSDERMAL ADH..PATCH TP SCH (21:29)
[2018-10-09] MEDS: AMITRIPTYLINE HCL 50 MG TABLET PO SCH (21:29)
--- NOTE | 2018-10-09 21:41 | OPERATIVE REPORT E ---
Operative Report NAME: ALIYA LÓPEZ : 1945 AGE: 72Y DATE OF SURGERY: 10/09/2018 ROOM: 317 PREOPERATIVE DIAGNOSIS: BLEEDING FROM COLOSTOMY SITE. POSTOPERATIVE DIAGNOSIS: BLEEDING FROM COLOSTOMY SITE. OPERATION: Suture, ligature of bleeding from colostomy site. SURGEON: REJI DAVID M.D. INDICATION: This is a 72-year-old male who has been having off and on bleeding from the colostomy site. The patient has a tumor that appears to be expanding towards the colostomy site. Previous bleeders in the past are controlled with pressure using Surgicel. This time the patient apparently had a pumper, and pressure with Surgicel was applied. The nurses put a pressure dressing with the patient holding it and I took a look at it and there appears to be an area of bleeding towards the lower aspect, and I did put a Surgicel at this area and put pressure while waiting for sutures from the OR. After I got all the sutures from the OR and needle rico, the area appears to have stopped. A [id number] suture was placed on the skin close to the area where it was bleeding earlier. This may stop the bleeding completely since the patient apparently was put back on p.o. anticoagulant. We will reevaluate the patient in a.m. DICTATING PHYSICIAN: REJI DAVID M.D. [id number] PHY#: [id number] ID: [id number] JOB#: [id number] ACCT: [id number] cc:REJI DAVID M.D. >
[2018-10-10] MEDS: OXYCODONE HCL IR 5 MG TABLET PO PRN ×4 (02:24→23:50)
[2018-10-10 05:24] LABS: HEMOGLOBIN 8.8 g/dL (13.5-17.0); MEAN CORPUSCULAR HEMOGLOBIN 30.7 pg (27.0-33.4); MEAN CORPUSCULAR HGB CONC 33.7 g/dL (32.0-36.0); MEAN CORPUSCULAR VOLUME 91 fl (80-97); PLATELET COUNT 201 10^3/uL (150-450); RED BLOOD COUNT 2.86 10^6/uL (4.35-5.55); RED CELL DISTRIBUTION WIDTH 17.3 % (11.5-14.0); WHITE BLOOD COUNT 11.7 10^3/uL (4.0-10.5)
[2018-10-10 05:45] LABS: ALANINE AMINOTRANSFERASE 18 U/L (21-72); ALBUMIN 2.7 g/dL (3.5-5.0); ALKALINE PHOSPHATASE 107 U/L (38-126); ANION GAP 12 (5-19); ASPARTATE AMINO TRANSFERASE 24 U/L (17-59); BILIRUBIN,DIRECT 0.3 mg/dL (0.0-0.4); BILIRUBIN,TOTAL 0.4 mg/dL (0.2-1.3); BLOOD UREA NITROGEN 34 mg/dL (7-20); CALCIUM 9.7 mg/dL (8.4-10.2); CARBON DIOXIDE 23 mmol/L (22-30); CHLORIDE 102 mmol/L (98-107); GLUCOSE 243 mg/dL (75-110); POTASSIUM 4.6 mmol/L (3.6-5.0); SODIUM 136.9 mmol/L (137-145); TOTAL PROTEIN 5.7 g/dL (6.3-8.2)
[2018-10-10] MEDS: AMOXICILLIN TR/POT CLAVULANATE 500-125 MG TAB PO SCH ×3 (05:45→22:12)
[2018-10-10 05:54] LABS: ABSOLUTE MONOCYTES # (MANUAL) 1.1 10^3/uL (0.1-1.4); ABSOLUTE NEUTROPHILS# (MANUAL) 8.5 10^3/uL (1.7-8.2); BAND NEUTROPHILS % (MANUAL) 2 % (3-5); BASOPHILS % (MANUAL) 0 % (0-2); EOSINOPHILS % (MANUAL) 1 % (0-6); LYMPHOCYTES % (MANUAL) 17 % (13-45); MONOCYTES % (MANUAL) 9 % (3-13); SEGMENTED NEUTROPHILS % (MAN) 71 % (42-78); TOTAL CELLS COUNTED 100; TOXIC GRANULATION 1+
[2018-10-10 05:55] LABS: ANISOCYTOSIS 1+; PLATELET CLUMPS PRESENT; PLATELET COMMENT ADEQUATE; PLATELET LARGE PRESENT; SCHISTOCYTES 1+
[2018-10-10] MEDS: HYDROMORPHONE HCL INJ/PF 2 MG/ML AMPULE IV PRN ×3 (08:06→20:06)
[2018-10-10] MEDS: APIXABAN 2.5 MG TABLET PO SCH (09:50)
[2018-10-10] MEDS: AMLODIPINE BESYLATE 5 MG TABLET PO SCH (09:52)
[2018-10-10] MEDS: MEGESTROL ACETATE SUSP 400 MG/10 ML UDCUP PO SCH (09:53)
[2018-10-10] MEDS: ZINC SULFATE 220 MG CAPSULE PO SCH (09:53)
[2018-10-10] MEDS: ASCORBIC ACID 500 MG TABLET PO SCH (09:53)
[2018-10-10] MEDS: LUBIPROSTONE 24 MCG CAPSULE PO SCH ×2 (09:53→17:28)
[2018-10-10] MEDS: CARVEDILOL 6.25 MG TABLET PO SCH ×2 (09:53→22:12)
[2018-10-10] MEDS: LISINOPRIL 10 MG TABLET PO SCH (09:53)
[2018-10-10] MEDS: FLUCONAZOLE 100 MG TABLET PO SCH (09:53)
[2018-10-10] MEDS: SENNOSIDES/DOCUSATE 8.6-50 MG 1 EACH TABLET PO SCH ×2 (09:53→17:28)
[2018-10-10] MEDS: INSULIN LISPRO 100 UNIT/ML 3 ML VIAL SUBCUT PRN ×3 (09:59→22:11)
[2018-10-10] MEDS: PHARMACY COMMUNICATION ORDER MC SCH (10:04)
[2018-10-10] MEDS ORDERED: NORMAL SALINE 250 ML IV PRN ×2 (10:28)
--- NOTE | 2018-10-10 10:31 | PDOC PROGRESS REPORT ---
Subjective Progress Note for:: 10/10/18 Subjective:: 10/07/[id number]-qnqs-old male with history of stage IV colorectal cancer and history of DVT on Eliquis presented to the ER with complaints of bleed through the ostomy site. He was diagnosed with colon cancer in October [address] which was done in October 2017 at that time he was on Coumadin and it was changed to Eliquis. During this hospital stay he received 1 unit of PRBC. By the oncologist Dr. Cordova seen by the surgical team. No acute events in the last 24 hours. Leading from the ostomy site. And is concerned about the infection around the ostomy site. Febrile. Denies any nausea vomiting diarrhea. 10/08/2018 and is still concerned about the infection around the ostomy site, is also concerned about increased WBC. He is also saying he is in constant pain but he says he is able to tolerate it. He and the family does not want to go home today. 10/09/2018 patient is concerned about the infection around the ostomy site, he thinks that the tumor around the ostomy site is increasing in size patient and the family says his appetite is improved in the last couple of days other than the concern about the infection he said he is doing much better. 10/10/2018 patient has one episode of bit bleeding from the ostomy site last night and hemoglobin dropped from 10.5-8.8. And surgeons came and placed a suture at the bleeding site no more bleeding at this point patient is comfortably in the bed communicating very well. is concerned about his swallowing problems and requesting for speech therapy. Reason For Visit: OSTOMY BLEEDING Physical Exam Vital Signs: Temp Pulse Resp BP Pulse Ox 97.9 F 82 18 172/71 H 100 10/10/18 07:24 10/10/18 07:24 10/10/18 07:24 10/10/18 07:24 10/10/18 07:24 Intake & Output 10/09/18 10/10/18 10/11/18 06:59 06:59 06:59 Intake Total 1295 1174 Output Total 0 Balance 1295 1174 Weight 77.3 kg 77.2 kg General appearance: PRESENT: no acute distress Head exam: PRESENT: atraumatic Eye exam: PRESENT: PERRLA Neck exam: ABSENT: carotid bruit, JVD, lymphadenopathy, thyromegaly Respiratory exam: PRESENT: clear to auscultation juan daniel. ABSENT: rales, rhonchi, wheezes Cardiovascular exam: PRESENT: RRR. ABSENT: diastolic murmur, rubs, systolic murmur GI/Abdominal exam: PRESENT: other - Patient has a colostomy bag in the colostomy site was hard to palpate on erythematous but I did not see any signs of infection nystatin powder was applied at the ostomy site. Neurological exam: PRESENT: alert, awake, oriented to person, oriented to place , oriented to time, oriented to situation, CN II-XII grossly intact. ABSENT: motor sensory deficit Psychiatric exam: PRESENT: appropriate affect, normal mood. ABSENT: homicidal ideation, suicidal ideation Results Laboratory Results: 10/10/18 04:35 10/10/18 04:35 10/09/18 10/09/18 10/10/18 10:29 10:29 04:35 WBC 16.8 H 11.7 H RBC 3.43 L 2.86 L Hgb 10.5 L 8.8 L Hct 31.5 L 26.0 L MCV 92 91 MCH 30.7 30.7 MCHC 33.5 33.7 RDW 17.4 H 17.3 H Plt Count 295 201 Seg Neutrophils % Not Reportable Not Reportable Lymphocytes % Not Reportable Not Reportable Monocytes % Not Reportable Not Reportable Eosinophils % Not Reportable Not Reportable Basophils % Not Reportable Not Reportable Absolute Neutrophils Not Reportable Not Reportable Absolute Lymphocytes Not Reportable Not Reportable Absolute Monocytes Not Reportable Not Reportable Absolute Eosinophils Not Reportable Not Reportable Absolute Basophils Not Reportable Not Reportable Sodium 138.4 Potassium 4.5 Chloride 99 Carbon Dioxide 25 Anion Gap 14 BUN 37 H Creatinine 1.16 Est GFR ( Amer) > 60 Est GFR (Non-Af Amer) > 60 Glucose 208 H Calcium 10.4 H Magnesium 2.1 Total Bilirubin 0.4 AST 29 ALT 24 Alkaline Phosphatase 143 H Total Protein 7.0 Albumin 3.4 L 10/10/18 04:35 WBC RBC Hgb Hct MCV MCH MCHC RDW Plt Count Seg Neutrophils % Lymphocytes % Monocytes % Eosinophils % Basophils % Absolute Neutrophils Absolute Lymphocytes Absolute Monocytes Absolute Eosinophils Absolute Basophils Sodium 136.9 L Potassium 4.6 Chloride 102 Carbon Dioxide 23 Anion Gap 12 BUN 34 H Creatinine 1.06 Est GFR ( Amer) > 60 Est GFR (Non-Af Amer) > 60 Glucose 243 H Calcium 9.7 Magnesium 2.1 Total Bilirubin 0.4 AST 24 ALT 18 L Alkaline Phosphatase 107 Total Protein 5.7 L Albumin 2.7 L Impressions: Chest X-Ray 10/01/18 00:00 IMPRESSION: No acute findings. Lung metastatic nodules Abdomen/Pelvis CT 10/06/18 00:00 IMPRESSION: Little interval change when compared with the most recent CT. A poorly defined complex mass intimately associated with the patient's Brian pouch is present, and fistula formation is not excluded. Extensive hepatic metastases, as before. Multiple partially visualized pulmonary metastases. Left lower quadrant ostomy with peristomal hernia containing nondilated loops of bowel. TECHNICAL DOCUMENTATION: Quality ID # [id number]: Final reports with documentation of one or more dose reduction techniques (e.g., Automated exposure control, adjustment of the mA and/or kV according to patient size, use of iterative reconstruction technique) 2010 [employer]- All Rights Reserved Assessment & Plan - Diagnosis (1) Leukocytosis Qualifiers: Leukocytosis type: bandemia Qualified Code(s): D72.825 - Bandemia Is this a current diagnosis for this admission?: Yes Plan: 10/07/2018-persistent leukocytosis. Latest WBC is 15.6. Slight improvement compared to yesterday. Elevated WBC may be secondary to colon cancer. And is afebrile. 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 Patient is on p.o. Augmentin as per ID recommendations. CT abdomen pelvis was done and abscess was ruled out. 10/08/2018-wBC today is 18,400. Oncologist thinks it may be secondary to carcinoma. Patient has a low-grade fever of 99. Blood cultures from 2017 showing Clostridium perfringens, cultures from the ostomy site showing Pseudomonas aeruginosa, enterococcus, Evita albicans. Patient is on p.o. Augmentin. I am going to place a consult for ID. Going to start him on Diflucan 100 mg p.o. daily, also will start him on nystatin powder topical. 10/09/2018 we are waiting for the WBC count for today. As mentioned above oncologist thinks increased WBC may be secondary to tumor. Patient is afebrile in the last 24 hours. I discussed the care with ID specialist Dr. Stang she recommended to increase Dr. Ocampoin dose to 500/125 mg p.o. 3 times a day. Patient is also getting p.o. Diflucan. Patient prefers to switch nystatin cream to nystatin powder. 10/10/2018 the WBC today is 11.7 came down from 16.8 yesterday patient is afebrile. He is on Augmentin 500/125 mg p.o. every 8 hours. He is also on p.o. Diflucan. We will continue the present management. (2) Bleeding from colostomy stoma Is this a current diagnosis for this admission?: Yes Plan: 10/07/2018-no bleed from the colostomy site was reported in the last 24 hours. Surgery is following the case. And is stable. Hemoglobin and hematocrit are stable. His hemoglobin is 9.7. 10/08/2018,no more bleeding from the ostomy site in the last 24 hours. 10/09/2018 no bleeding from the ostomy site in the last 48 hours. Surgeons is handing him off from the case. We are waiting for the hemoglobin levels for today. 12/10/2017 patient has a big bleed from the ostomy site last night, surgeon came and placed sutures. Hemoglobin dropped to 10.5-8.8. He may need 1 unit of blood transfusion. At this moment there is no bleed from the ostomy site. (3) Chronic anticoagulation Is this a current diagnosis for this admission?: Yes Plan: 2017 Eliquis on hold.latest hemoglobin is 9.7. Has history of DVT. 10/08/2018 because of the history of bleed from the ostomy site Eliquis is on hold. Because. There is no more bleeding from the ostomy site I am going to start him on a 2.5 mg of Eliquis. 10/09/2018 and has history of DVTs, on Eliquis at home, I am going to start him on 2.5 mg p.o. Eliquis. Closely watch his the bleeding possibility from the ostomy site. 10/10/2018 history of DVT on Eliquis at home because of the recurrent bleeds from the ostomy site anticoagulation is on hold. (4) Colorectal cancer, stage IV Is this a current diagnosis for this admission?: Yes Plan: 10/07/2018 oncology is following the patient. The planning to start chemotherapy soon. 10/08/2018 Dr Cordova spoke to me this morning, she thinks patient need to be started on chemotherapy soon. She also thinks patient's WBCs may be secondary to IV steroid use, and carcinoma. 10/09/2018 patient has a stage IV colon cancer. He is waiting for the chemotherapy. The oncologist signed him off at this moment. 10/10/2018 patient is awaiting for chemotherapy. The oncologist signed him off. (5) Diabetes mellitus type 2 in nonobese Is this a current diagnosis for this admission?: Yes Plan: 10/07/2018 latest blood sugar is 73. It is on insulin sliding scale. Is on diabetic diet. Adjust the insulin sliding scale as needed. Go to order for hemoglobin A1c. 10/08/2018 and his latest blood sugar is 223. He is on insulin sliding scale. Patient's hemoglobin A1c is 7.0. A request for dietary consult. 10/09/2018 latest blood sugars are 223. Insulin sliding scale. Patient's hemoglobin A1c is 7.0 we will continue the sliding scale. 10/10/2018. Patient blood sugars are persistently high more than 200. I am going to put him on Levemir insulin. (6) Constipation Is this a current diagnosis for this admission?: Yes (7) Hypertension Is this a current diagnosis for this admission?: Yes Plan: 2017. His latest blood pressure is 146/77 with heart rate of 82. And is on lisinopril 40 mg p.o. daily, amlodipine 5 mg p.o. daily. Coreg was added yesterday , on 6.25 mg po bid of coreg 10/08/2018 pressure today is 164/81 may be secondary to pain he is in. He is on lisinopril 40 mg p.o. daily, amlodipine 5 mg p.o. daily, Coreg 6.25 mg p.o. twice daily. We will continue the current management. 10/09/2018 blood pressure today is 148/80. She is on lisinopril 40 mg p.o. daily amlodipine 5 mg p.o. daily Coreg 6.5 mg p.o. twice daily. We will continue the present management. 10/10/2018 patient blood pressure is elevated today 172/71 he is on lisinopril 40 mg daily, amlodipine 5 mg daily, Coreg 6.25 mg p.o. twice daily. I am going to increase amlodipine to 10 mg p.o. daily. - Time Time Spent with patient: 15-24 minutes Medications reviewed and adjusted accordingly: Yes Anticipated discharge: Home
[2018-10-10] MEDS: NYSTATIN TOPICAL POWDER 15 GM TP SCH (12:44)
[2018-10-10 18:19] LABS: HEMATOCRIT 31.3 % (37.9-51.0); HEMOGLOBIN 10.7 g/dL (13.5-17.0); MEAN CORPUSCULAR HEMOGLOBIN 30.9 pg (27.0-33.4); MEAN CORPUSCULAR VOLUME 91 fl (80-97); PLATELET COUNT 232 10^3/uL (150-450); RED BLOOD COUNT 3.45 10^6/uL (4.35-5.55); RED CELL DISTRIBUTION WIDTH 16.7 % (11.5-14.0); WHITE BLOOD COUNT 12.6 10^3/uL (4.0-10.5)
[2018-10-10 18:39] LABS: ABSOLUTE LYMPHOCYTES# (MANUAL) 2.1 10^3/uL (0.5-4.7); ABSOLUTE MONOCYTES # (MANUAL) 0.9 10^3/uL (0.1-1.4); ABSOLUTE NEUTROPHILS# (MANUAL) 9.6 10^3/uL (1.7-8.2); BASOPHILS % (MANUAL) 0 % (0-2); EOSINOPHILS % (MANUAL) 0 % (0-6); LYMPHOCYTES % (MANUAL) 17 % (13-45); MONOCYTES % (MANUAL) 7 % (3-13); SEGMENTED NEUTROPHILS % (MAN) 76 % (42-78); TOTAL CELLS COUNTED 100
[2018-10-10 18:40] LABS: ANISOCYTOSIS 1+; PLATELET COMMENT ADEQUATE; POIKILOCYTOSIS SLIGHT; TOXIC GRANULATION SLIGHT
[2018-10-10] MEDS: INSULIN DETEMIR 100 UNIT/ML 3 ML PEN SUBCUT SCH (22:11)
[2018-10-10] MEDS: AMLODIPINE BESYLATE 10 MG TABLET PO SCH (22:12)
[2018-10-10] MEDS: AMITRIPTYLINE HCL 50 MG TABLET PO SCH (22:12)
[2018-10-10] MEDS: LIDOCAINE 5% (700 MG) TRANSDERMAL ADH..PATCH TP SCH (22:19)
[2018-10-11] MEDS: OXYCODONE HCL IR 5 MG TABLET PO PRN ×5 (05:48→22:23)
[2018-10-11] MEDS: AMOXICILLIN TR/POT CLAVULANATE 500-125 MG TAB PO SCH ×3 (05:48→21:41)
[2018-10-11 06:24] LABS: ALANINE AMINOTRANSFERASE 19 U/L (21-72); ALBUMIN 2.8 g/dL (3.5-5.0); ALKALINE PHOSPHATASE 114 U/L (38-126); ANION GAP 13 (5-19); ASPARTATE AMINO TRANSFERASE 27 U/L (17-59); BILIRUBIN,DIRECT 0.2 mg/dL (0.0-0.4); BILIRUBIN,TOTAL 0.3 mg/dL (0.2-1.3); BLOOD UREA NITROGEN 31 mg/dL (7-20); CALCIUM 9.8 mg/dL (8.4-10.2); CARBON DIOXIDE 20 mmol/L (22-30); CHLORIDE 106 mmol/L (98-107); GLUCOSE 220 mg/dL (75-110); POTASSIUM 4.4 mmol/L (3.6-5.0); SODIUM 138.6 mmol/L (137-145)
[2018-10-11] MEDS: CARVEDILOL 6.25 MG TABLET PO SCH ×2 (08:47→21:46)
[2018-10-11] MEDS: LUBIPROSTONE 24 MCG CAPSULE PO SCH ×2 (08:47→16:59)
[2018-10-11] MEDS: FLUCONAZOLE 100 MG TABLET PO SCH (08:48)
[2018-10-11] MEDS: FENTANYL 75 MCG/HR PATCH.TD72 TD SCH (08:48)
[2018-10-11] MEDS: MEGESTROL ACETATE SUSP 400 MG/10 ML UDCUP PO SCH (08:48)
[2018-10-11] MEDS: NYSTATIN TOPICAL POWDER 15 GM TP SCH (08:49)
[2018-10-11] MEDS: LISINOPRIL 10 MG TABLET PO SCH (08:50)
[2018-10-11] MEDS: SENNOSIDES/DOCUSATE 8.6-50 MG 1 EACH TABLET PO SCH ×2 (08:50→16:59)
[2018-10-11] MEDS: INSULIN LISPRO 100 UNIT/ML 3 ML VIAL SUBCUT PRN ×3 (08:50→21:45)
[2018-10-11] MEDS: ZINC SULFATE 220 MG CAPSULE PO SCH (08:51)
[2018-10-11] MEDS: ASCORBIC ACID 500 MG TABLET PO SCH (08:51)
[2018-10-11] MEDS: PHARMACY COMMUNICATION ORDER MC SCH (09:52)
--- NOTE | 2018-10-11 10:32 | PDOC PROGRESS REPORT ---
Subjective Progress Note for:: 10/11/18 Subjective:: 10/07/[id number]-kphq-old male with history of stage IV colorectal cancer and history of DVT on Eliquis presented to the ER with complaints of bleed through the ostomy site. He was diagnosed with colon cancer in October [address] which was done in October 2017 at that time he was on Coumadin and it was changed to Eliquis. During this hospital stay he received 1 unit of PRBC. By the oncologist Dr. Cordova seen by the surgical team. No acute events in the last 24 hours. Leading from the ostomy site. And is concerned about the infection around the ostomy site. Febrile. Denies any nausea vomiting diarrhea. 10/08/2018 and is still concerned about the infection around the ostomy site, is also concerned about increased WBC. He is also saying he is in constant pain but he says he is able to tolerate it. He and the family does not want to go home today. 10/09/2018 patient is concerned about the infection around the ostomy site, he thinks that the tumor around the ostomy site is increasing in size patient and the family says his appetite is improved in the last couple of days other than the concern about the infection he said he is doing much better. 10/10/2018 patient has one episode of bit bleeding from the ostomy site last night and hemoglobin dropped from 10.5-8.8. And surgeons came and placed a suture at the bleeding site no more bleeding at this point patient is comfortably in the bed communicating very well. is concerned about his swallowing problems and requesting for speech therapy. 10/11/2018 no acute acute episodes in the last 24 hours. Patient thinks the tumor around the ostomy site is growing is concerned about it. He does not want to go home. He wants to know what is going on with the tumor he wants to speak to the surgeons about possible surgery. Reason For Visit: OSTOMY BLEEDING Physical Exam Vital Signs: Temp Pulse Resp BP Pulse Ox 98.6 F 82 16 168/84 H 100 10/11/18 07:32 10/11/18 07:32 10/11/18 07:32 10/11/18 07:32 10/11/18 07:32 Intake & Output 10/10/18 10/11/18 10/12/18 06:59 06:59 06:59 Intake Total 1174 1167 Output Total 0 Balance 1174 1167 Weight 77.2 kg 76.8 kg General appearance: PRESENT: no acute distress Head exam: PRESENT: atraumatic Eye exam: PRESENT: PERRLA Mouth exam: PRESENT: moist Neck exam: ABSENT: carotid bruit, JVD, lymphadenopathy, thyromegaly Respiratory exam: PRESENT: clear to auscultation juan daniel. ABSENT: rales, rhonchi, wheezes Cardiovascular exam: PRESENT: RRR. ABSENT: diastolic murmur, rubs, systolic murmur GI/Abdominal exam: PRESENT: soft, other - He has colostomy bag and the colostomy site was hard to palpate and patient is concerned the the lesion in the ostomy site is growing. No more bleeding from the ostomy site.. ABSENT: tenderness Neurological exam: PRESENT: alert, awake, oriented to person, oriented to place , oriented to time, oriented to situation, CN II-XII grossly intact. ABSENT: motor sensory deficit Psychiatric exam: PRESENT: appropriate affect, normal mood. ABSENT: homicidal ideation, suicidal ideation Results Laboratory Results: 10/10/18 18:00 10/11/18 05:23 10/10/18 10/10/18 10/11/18 11:27 18:00 05:23 WBC 12.6 H RBC 3.45 L Hgb 10.7 L Hct 31.3 L MCV 91 MCH 30.9 MCHC 34.0 RDW 16.7 H Plt Count 232 Seg Neutrophils % Not Reportable Lymphocytes % Not Reportable Monocytes % Not Reportable Eosinophils % Not Reportable Basophils % Not Reportable Absolute Neutrophils Not Reportable Absolute Lymphocytes Not Reportable Absolute Monocytes Not Reportable Absolute Eosinophils Not Reportable Absolute Basophils Not Reportable Sodium 138.6 Potassium 4.4 Chloride 106 Carbon Dioxide 20 L Anion Gap 13 BUN 31 H Creatinine 0.95 Est GFR ( Amer) > 60 Est GFR (Non-Af Amer) > 60 Glucose 220 H Calcium 9.8 Magnesium 2.1 Total Bilirubin 0.3 AST 27 ALT 19 L Alkaline Phosphatase 114 Total Protein 6.0 L Albumin 2.8 L Blood Type AB POSITIVE Antibody Screen NEGATIVE Impressions: Chest X-Ray 10/01/18 00:00 IMPRESSION: No acute findings. Lung metastatic nodules Abdomen/Pelvis CT 10/06/18 00:00 IMPRESSION: Little interval change when compared with the most recent CT. A poorly defined complex mass intimately associated with the patient's Brian pouch is present, and fistula formation is not excluded. Extensive hepatic metastases, as before. Multiple partially visualized pulmonary metastases. Left lower quadrant ostomy with peristomal hernia containing nondilated loops of bowel. TECHNICAL DOCUMENTATION: Quality ID # 436: Final reports with documentation of one or more dose reduction techniques (e.g., Automated exposure control, adjustment of the mA and/or kV according to patient size, use of iterative reconstruction technique) 2010 [employer] All Rights Reserved Assessment & Plan - Diagnosis (1) Leukocytosis Qualifiers: Leukocytosis type: bandemia Qualified Code(s): D72.825 - Bandemia Is this a current diagnosis for this admission?: Yes Plan: 10/07/2018-persistent leukocytosis. Latest WBC is 15.6. Slight improvement compared to yesterday. Elevated WBC may be secondary to colon cancer. And is afebrile. 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 Patient is on p.o. Augmentin as per ID recommendations. CT abdomen pelvis was done and abscess was ruled out. 10/08/2018-wBC today is 18,400. Oncologist thinks it may be secondary to carcinoma. Patient has a low-grade fever of 99. Blood cultures from 2017 showing Clostridium perfringens, cultures from the ostomy site showing Pseudomonas aeruginosa, enterococcus, Evita albicans. Patient is on p.o. Augmentin. I am going to place a consult for ID. Going to start him on Diflucan 100 mg p.o. daily, also will start him on nystatin powder topical. 10/09/2018 we are waiting for the WBC count for today. As mentioned above oncologist thinks increased WBC may be secondary to tumor. Patient is afebrile in the last 24 hours. I discussed the care with ID specialist Dr. Rivera she recommended to increase Dr. Ocampoin dose to 500/125 mg p.o. 3 times a day. Patient is also getting p.o. Diflucan. Patient prefers to switch nystatin cream to nystatin powder. 10/10/2018 the WBC today is 11.7 came down from 16.8 yesterday patient is afebrile. He is on Augmentin 500/125 mg p.o. every 8 hours. He is also on p.o. Diflucan. We will continue the present management. 10/11/2018 WBC is 12.6. Patient is afebrile. Patient got 1 unit of PRBC yesterday. Hemoglobin is 10.7 today. blood cultures are negative. (2) Bleeding from colostomy stoma Is this a current diagnosis for this admission?: Yes Plan: 10/07/2018-no bleed from the colostomy site was reported in the last 24 hours. Surgery is following the case. And is stable. Hemoglobin and hematocrit are stable. His hemoglobin is 9.7. 10/08/2018,no more bleeding from the ostomy site in the last 24 hours. 10/09/2018 no bleeding from the ostomy site in the last 48 hours. Surgeons is handing him off from the case. We are waiting for the hemoglobin levels for today. 10/10/2018 patient has a big bleed from the ostomy site last night, surgeon came and placed sutures. Hemoglobin dropped to 10.5-8.8. He may need 1 unit of blood transfusion. At this moment there is no bleed from the ostomy site. 10/11/2018 no bleed from the ostomy site. Hemoglobin is 10.7. (3) Chronic anticoagulation Is this a current diagnosis for this admission?: Yes Plan: 2017 Eliquis on hold.latest hemoglobin is 9.7. Has history of DVT. 10/08/2018 because of the history of bleed from the ostomy site Eliquis is on hold. Because. There is no more bleeding from the ostomy site I am going to start him on a 2.5 mg of Eliquis. 10/09/2018 and has history of DVTs, on Eliquis at home, I am going to start him on 2.5 mg p.o. Eliquis. Closely watch his the bleeding possibility from the ostomy site. 10/10/2018 history of DVT on Eliquis at home because of the recurrent bleeds from the ostomy site anticoagulation is on hold. 10/11/2018 patient has history of DVT, Eliquis was on hold because of the ostomt site bleed. (4) Colorectal cancer, stage IV Is this a current diagnosis for this admission?: Yes Plan: 10/07/2018 oncology is following the patient. The planning to start chemotherapy soon. 10/08/2018 Dr Cordova spoke to me this morning, she thinks patient need to be started on chemotherapy soon. She also thinks patient's WBCs may be secondary to IV steroid use, and carcinoma. 10/09/2018 patient has a stage IV colon cancer. He is waiting for the chemotherapy. The oncologist signed him off at this moment. 10/10/2018 patient is awaiting for chemotherapy. The oncologist signed him off. 10/11/2018 patient has a history of stage IV colon cancer and he is waiting to start the chemotherapy. (5) Diabetes mellitus type 2 in nonobese Is this a current diagnosis for this admission?: Yes Plan: 10/07/2018 latest blood sugar is 73. It is on insulin sliding scale. Is on diabetic diet. Adjust the insulin sliding scale as needed. Go to order for hemoglobin A1c. 10/08/2018 and his latest blood sugar is 223. He is on insulin sliding scale. Patient's hemoglobin A1c is 7.0. A request for dietary consult. 10/09/2018 latest blood sugars are 223. Insulin sliding scale. Patient's hemoglobin A1c is 7.0 we will continue the sliding scale. 10/10/2018. Patient blood sugars are persistently high more than 200. I am going to put him on Levemir insulin. 10/11/2018 latest blood sugar is 222. Patient is on insulin sliding scale, he was started on Levemir 10 units subcu nightly yesterday. We will continue the present management. 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 10/08/2018 has history of chronic constipation, on amitiza. No complaints today. 10/09/2018 and is on amitiza , no complaints today. 10/11/2018 patient on amitiza, complaints today (7) Hypertension Is this a current diagnosis for this admission?: Yes Plan: 2017. His latest blood pressure is 146/77 with heart rate of 82. And is on lisinopril 40 mg p.o. daily, amlodipine 5 mg p.o. daily. Coreg was added yesterday , on 6.25 mg po bid of coreg 10/08/2018 pressure today is 164/81 may be secondary to pain he is in. He is on lisinopril 40 mg p.o. daily, amlodipine 5 mg p.o. daily, Coreg 6.25 mg p.o. twice daily. We will continue the current management. 10/09/2018 blood pressure today is 148/80. She is on lisinopril 40 mg p.o. daily amlodipine 5 mg p.o. daily Coreg 6.5 mg p.o. twice daily. We will continue the present management. 10/10/2018 patient blood pressure is elevated today 172/71 he is on lisinopril 40 mg daily, amlodipine 5 mg daily, Coreg 6.25 mg p.o. twice daily. I am going to increase amlodipine to 10 mg p.o. daily. 10/11/2018 blood pressure today is 168/84. He is on lisinopril 40 mg daily, amlodipine 10 mg daily, Coreg 6.25 mg p.o. twice daily. We will continue the current management. - Time Time Spent with patient: 15-24 minutes Medications reviewed and adjusted accordingly: Yes Anticipated discharge: Home
[2018-10-11] MEDS: INSULIN DETEMIR 100 UNIT/ML 3 ML PEN SUBCUT SCH (21:40)
[2018-10-11] MEDS: AMLODIPINE BESYLATE 10 MG TABLET PO SCH (21:45)
[2018-10-11] MEDS: LIDOCAINE 5% (700 MG) TRANSDERMAL ADH..PATCH TP SCH (21:45)
[2018-10-11] MEDS: AMITRIPTYLINE HCL 50 MG TABLET PO SCH (21:46)
[2018-10-12] MEDS: OXYCODONE HCL IR 5 MG TABLET PO PRN ×7 (01:18→22:51)
[2018-10-12] MEDS: AMOXICILLIN TR/POT CLAVULANATE 500-125 MG TAB PO SCH ×3 (05:10→21:28)
[2018-10-12] MEDS: POLYETHYLENE GLYCOL 3350 POWDER 17 GM/1 PACKET PO PRN (05:14)
[2018-10-12] MEDS: INSULIN LISPRO 100 UNIT/ML 3 ML VIAL SUBCUT PRN ×4 (08:12→21:34)
[2018-10-12] MEDS: SENNOSIDES/DOCUSATE 8.6-50 MG 1 EACH TABLET PO SCH ×2 (09:59→16:59)
[2018-10-12] MEDS: LUBIPROSTONE 24 MCG CAPSULE PO SCH ×2 (09:59→17:00)
[2018-10-12] MEDS: ASCORBIC ACID 500 MG TABLET PO SCH (10:00)
[2018-10-12] MEDS: LISINOPRIL 10 MG TABLET PO SCH (10:00)
[2018-10-12] MEDS: FLUCONAZOLE 100 MG TABLET PO SCH (10:01)
[2018-10-12] MEDS: MEGESTROL ACETATE SUSP 400 MG/10 ML UDCUP PO SCH (10:01)
[2018-10-12] MEDS: ZINC SULFATE 220 MG CAPSULE PO SCH (10:01)
[2018-10-12] MEDS: CARVEDILOL 6.25 MG TABLET PO SCH (10:01)
[2018-10-12] MEDS: PHARMACY COMMUNICATION ORDER MC SCH (10:02)
[2018-10-12] MEDS: NYSTATIN/DEXAMETH/DIPHEN SUSP 120 ML PO PRN (10:03)
[2018-10-12] MEDS: NYSTATIN TOPICAL POWDER 15 GM TP SCH (10:04)
--- NOTE | 2018-10-12 10:49 | PDOC PROGRESS REPORT ---
Subjective Progress Note for:: 10/12/18 Subjective:: 10/07/[id number]-dhbf-old male with history of stage IV colorectal cancer and history of DVT on Eliquis presented to the ER with complaints of bleed through the ostomy site. He was diagnosed with colon cancer in October [address] which was done in October 2017 at that time he was on Coumadin and it was changed to Eliquis. During this hospital stay he received 1 unit of PRBC. By the oncologist Dr. Cordova seen by the surgical team. No acute events in the last 24 hours. Leading from the ostomy site. And is concerned about the infection around the ostomy site. Febrile. Denies any nausea vomiting diarrhea. 10/08/2018 and is still concerned about the infection around the ostomy site, is also concerned about increased WBC. He is also saying he is in constant pain but he says he is able to tolerate it. He and the family does not want to go home today. 10/09/2018 patient is concerned about the infection around the ostomy site, he thinks that the tumor around the ostomy site is increasing in size patient and the family says his appetite is improved in the last couple of days other than the concern about the infection he said he is doing much better. 10/10/2018 patient has one episode of bit bleeding from the ostomy site last night and hemoglobin dropped from 10.5-8.8. And surgeons came and placed a suture at the bleeding site no more bleeding at this point patient is comfortably in the bed communicating very well. is concerned about his swallowing problems and requesting for speech therapy. 10/11/2018 no acute acute episodes in the last 24 hours. Patient thinks the tumor around the ostomy site is growing is concerned about it. He does not want to go home. He wants to know what is going on with the tumor he wants to speak to the surgeons about possible surgery. 10/12/2018 she is comfortably sleeping in the bed woke up and calling communicating well he is still concerned about the mass around the ostomy site and possible bleeding. Reason For Visit: OSTOMY BLEEDING Physical Exam Vital Signs: Temp Pulse Resp BP Pulse Ox 98 F 96 12 158/92 H 100 10/12/18 08:00 10/12/18 08:00 10/12/18 08:00 10/12/18 08:00 10/12/18 08:00 Intake & Output 10/11/18 10/12/18 10/13/18 06:59 06:59 06:59 Intake Total 1167 800 Balance 1167 800 Weight 76.8 kg 75.7 kg General appearance: PRESENT: no acute distress Head exam: PRESENT: atraumatic Eye exam: PRESENT: PERRLA Neck exam: ABSENT: carotid bruit, JVD, lymphadenopathy, thyromegaly Respiratory exam: PRESENT: clear to auscultation juan daniel. ABSENT: rales, rhonchi, wheezes Cardiovascular exam: PRESENT: RRR. ABSENT: diastolic murmur, rubs, systolic murmur GI/Abdominal exam: PRESENT: soft, tenderness, other - Ostomy site looks clean there is no obvious bleeding as per the patient surgeon came and put a stitch at the possible bleeding site. Neurological exam: PRESENT: alert, awake, oriented to person, oriented to place , oriented to time, oriented to situation, CN II-XII grossly intact. ABSENT: motor sensory deficit Psychiatric exam: PRESENT: appropriate affect, normal mood. ABSENT: homicidal ideation, suicidal ideation Results Laboratory Results: 10/10/18 18:00 10/11/18 05:23 Impressions: Chest X-Ray 10/01/18 00:00 IMPRESSION: No acute findings. Lung metastatic nodules Abdomen/Pelvis CT 10/06/18 00:00 IMPRESSION: Little interval change when compared with the most recent CT. A poorly defined complex mass intimately associated with the patient's Brian pouch is present, and fistula formation is not excluded. Extensive hepatic metastases, as before. Multiple partially visualized pulmonary metastases. Left lower quadrant ostomy with peristomal hernia containing nondilated loops of bowel. TECHNICAL DOCUMENTATION: Quality ID # [id number]: Final reports with documentation of one or more dose reduction techniques (e.g., Automated exposure control, adjustment of the mA and/or kV according to patient size, use of iterative reconstruction technique) 2010 [employer]- All Rights Reserved Assessment & Plan - Diagnosis (1) Leukocytosis Qualifiers: Leukocytosis type: bandemia Qualified Code(s): D72.825 - Bandemia Is this a current diagnosis for this admission?: Yes Plan: 10/07/2018-persistent leukocytosis. Latest WBC is 15.6. Slight improvement compared to yesterday. Elevated WBC may be secondary to colon cancer. And is afebrile. 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 Patient is on p.o. Augmentin as per ID recommendations. CT abdomen pelvis was done and abscess was ruled out. 10/08/2018-wBC today is 18,400. Oncologist thinks it may be secondary to carcinoma. Patient has a low-grade fever of 99. Blood cultures from 2017 showing Clostridium perfringens, cultures from the ostomy site showing Pseudomonas aeruginosa, enterococcus, Evita albicans. Patient is on p.o. Augmentin. I am going to place a consult for ID. Going to start him on Diflucan 100 mg p.o. daily, also will start him on nystatin powder topical. 10/09/2018 we are waiting for the WBC count for today. As mentioned above oncologist thinks increased WBC may be secondary to tumor. Patient is afebrile in the last 24 hours. I discussed the care with ID specialist Dr. Rivera she recommended to increase Dr. Ocampoin dose to 500/125 mg p.o. 3 times a day. Patient is also getting p.o. Diflucan. Patient prefers to switch nystatin cream to nystatin powder. 10/10/2018 the WBC today is 11.7 came down from 16.8 yesterday patient is afebrile. He is on Augmentin 500/125 mg p.o. every 8 hours. He is also on p.o. Diflucan. We will continue the present management. 10/11/2018 WBC is 12.6. Patient is afebrile. Patient got 1 unit of PRBC yesterday. Hemoglobin is 10.7 today. blood cultures are negative. 10/12/2018 latest WBC is 12.6. Patient is afebrile. We are going to check his CBC again tomorrow. His latest hemoglobin is 10.7. blood Cultures are negative are negative. Culture from the ostomy site shows Pseudomonas, Aerococcus, yeast. And Augmentin p.o. And Diflucan 100 mg p.o. daily. (2) Bleeding from colostomy stoma Is this a current diagnosis for this admission?: Yes Plan: 10/07/2018-no bleed from the colostomy site was reported in the last 24 hours. Surgery is following the case. And is stable. Hemoglobin and hematocrit are stable. His hemoglobin is 9.7. 10/08/2018,no more bleeding from the ostomy site in the last 24 hours. 10/09/2018 no bleeding from the ostomy site in the last 48 hours. Surgeons is handing him off from the case. We are waiting for the hemoglobin levels for today. 10/10/2018 patient has a big bleed from the ostomy site last night, surgeon came and placed sutures. Hemoglobin dropped to 10.5-8.8. He may need 1 unit of blood transfusion. At this moment there is no bleed from the ostomy site. 10/11/2018 no bleed from the ostomy site. Hemoglobin is 10.7. 10/12/2018 Dr. Reyna came and put a stitch around the ostomy site prevent the bleeding. (3) Chronic anticoagulation Is this a current diagnosis for this admission?: Yes Plan: 2017 Eliquis on hold.latest hemoglobin is 9.7. Has history of DVT. 10/08/2018 because of the history of bleed from the ostomy site Eliquis is on hold. Because. There is no more bleeding from the ostomy site I am going to start him on a 2.5 mg of Eliquis. 10/09/2018 and has history of DVTs, on Eliquis at home, I am going to start him on 2.5 mg p.o. Eliquis. Closely watch his the bleeding possibility from the ostomy site. 10/10/2018 history of DVT on Eliquis at home because of the recurrent bleeds from the ostomy site anticoagulation is on hold. 10/11/2018 patient has history of DVT, Eliquis was on hold because of the ostomt site bleed. 10/12/2018 because the risk of bleeding Eliquis on hold. (4) Colorectal cancer, stage IV Is this a current diagnosis for this admission?: Yes Plan: 10/07/2018 oncology is following the patient. The planning to start chemotherapy soon. 10/08/2018 Dr Cordova spoke to me this morning, she thinks patient need to be started on chemotherapy soon. She also thinks patient's WBCs may be secondary to IV steroid use, and carcinoma. 10/09/2018 patient has a stage IV colon cancer. He is waiting for the chemotherapy. The oncologist signed him off at this moment. 10/10/2018 patient is awaiting for chemotherapy. The oncologist signed him off. 10/11/2018 patient has a history of stage IV colon cancer and he is waiting to start the chemotherapy. 10/14/2018 patient has a history of colon cancer stage IV with metastases. Waiting to start the chemotherapy. (5) Diabetes mellitus type 2 in nonobese Is this a current diagnosis for this admission?: Yes Plan: 10/07/2018 latest blood sugar is 73. It is on insulin sliding scale. Is on diabetic diet. Adjust the insulin sliding scale as needed. Go to order for hemoglobin A1c. 10/08/2018 and his latest blood sugar is 223. He is on insulin sliding scale. Patient's hemoglobin A1c is 7.0. A request for dietary consult. 10/09/2018 latest blood sugars are 223. Insulin sliding scale. Patient's hemoglobin A1c is 7.0 we will continue the sliding scale. 10/10/2018. Patient blood sugars are persistently high more than 200. I am going to put him on Levemir insulin. 10/11/2018 latest blood sugar is 222. Patient is on insulin sliding scale, he was started on Levemir 10 units subcu nightly yesterday. We will continue the present management. 10/12/2018. Latest blood sugar is 156. He is on Levemir 10 units subcu at night , on insulin sliding scale. (6) Constipation Is this a current diagnosis for this admission?: Yes (7) Hypertension Is this a current diagnosis for this admission?: Yes Plan: 2017. His latest blood pressure is 146/77 with heart rate of 82. And is on lisinopril 40 mg p.o. daily, amlodipine 5 mg p.o. daily. Coreg was added yesterday , on 6.25 mg po bid of coreg 10/08/2018 pressure today is 164/81 may be secondary to pain he is in. He is on lisinopril 40 mg p.o. daily, amlodipine 5 mg p.o. daily, Coreg 6.25 mg p.o. twice daily. We will continue the current management. 10/09/2018 blood pressure today is 148/80. She is on lisinopril 40 mg p.o. daily amlodipine 5 mg p.o. daily Coreg 6.5 mg p.o. twice daily. We will continue the present management. 10/10/2018 patient blood pressure is elevated today 172/71 he is on lisinopril 40 mg daily, amlodipine 5 mg daily, Coreg 6.25 mg p.o. twice daily. I am going to increase amlodipine to 10 mg p.o. daily. 10/11/2018 blood pressure today is 168/84. He is on lisinopril 40 mg daily, amlodipine 10 mg daily, Coreg 6.25 mg p.o. twice daily. We will continue the current management. Blood pressure is 158/92. Lisinopril 40 mg daily, amlodipine 10 mg daily, Coreg 6.25 mg p.o. twice daily. I am going to increase the Coreg to 12.5 mg p.o. twice daily. - Time Time Spent with patient: 15-24 minutes Medications reviewed and adjusted accordingly: Yes Anticipated discharge: Home
[2018-10-12] MEDS ORDERED: CARVEDILOL 12.5 MG TABLET PO SCH (12:00)
[2018-10-12] MEDS: GLYBURIDE 2.5 MG TABLET PO SCH (16:59)
[2018-10-12] MEDS: AMLODIPINE BESYLATE 10 MG TABLET PO SCH (21:26)
[2018-10-12] MEDS: CARVEDILOL 12.5 MG TABLET PO SCH (21:26)
[2018-10-12] MEDS: AMITRIPTYLINE HCL 50 MG TABLET PO SCH (21:26)
[2018-10-12] MEDS: LIDOCAINE 5% (700 MG) TRANSDERMAL ADH..PATCH TP SCH (21:27)
[2018-10-12] MEDS: INSULIN DETEMIR 100 UNIT/ML 3 ML PEN SUBCUT SCH (21:34)
[2018-10-13] MEDS: OXYCODONE HCL IR 5 MG TABLET PO PRN ×6 (03:53→21:59)
[2018-10-13] MEDS: AMOXICILLIN TR/POT CLAVULANATE 500-125 MG TAB PO SCH ×3 (05:12→21:58)
[2018-10-13 06:26] LABS: HEMATOCRIT 28.4 % (37.9-51.0); HEMOGLOBIN 9.6 g/dL (13.5-17.0); MEAN CORPUSCULAR HEMOGLOBIN 31.1 pg (27.0-33.4); MEAN CORPUSCULAR VOLUME 91 fl (80-97); PLATELET COUNT 210 10^3/uL (150-450); RED CELL DISTRIBUTION WIDTH 17.2 % (11.5-14.0); WHITE BLOOD COUNT 12.6 10^3/uL (4.0-10.5)
[2018-10-13 06:51] LABS: ALANINE AMINOTRANSFERASE 25 U/L (21-72); ALBUMIN 2.8 g/dL (3.5-5.0); ALKALINE PHOSPHATASE 97 U/L (38-126); ANION GAP 12 (5-19); ASPARTATE AMINO TRANSFERASE 30 U/L (17-59); BILIRUBIN,DIRECT 0.2 mg/dL (0.0-0.4); BILIRUBIN,TOTAL 0.4 mg/dL (0.2-1.3); BLOOD UREA NITROGEN 39 mg/dL (7-20); CALCIUM 9.4 mg/dL (8.4-10.2); CARBON DIOXIDE 22 mmol/L (22-30); CHLORIDE 106 mmol/L (98-107); GLUCOSE 150 mg/dL (75-110); POTASSIUM 4.9 mmol/L (3.6-5.0); SODIUM 140.3 mmol/L (137-145); TOTAL PROTEIN 5.9 g/dL (6.3-8.2)
[2018-10-13 06:57] LABS: ABSOLUTE LYMPHOCYTES# (MANUAL) 2.8 10^3/uL (0.5-4.7); ABSOLUTE MONOCYTES # (MANUAL) 0.5 10^3/uL (0.1-1.4); ABSOLUTE NEUTROPHILS# (MANUAL) 9.3 10^3/uL (1.7-8.2); BASOPHILS % (MANUAL) 0 % (0-2); EOSINOPHILS % (MANUAL) 0 % (0-6); LYMPHOCYTES % (MANUAL) 22 % (13-45); MONOCYTES % (MANUAL) 4 % (3-13); SEGMENTED NEUTROPHILS % (MAN) 74 % (42-78); TOTAL CELLS COUNTED 100
[2018-10-13 07:05] LABS: ANISOCYTOSIS 1+; HELMET CELLS SLIGHT; OVALOCYTES 1+; PLATELET COMMENT ADEQUATE; POIKILOCYTOSIS 1+; TEAR DROP CELLS 1+; TOXIC GRANULATION SLIGHT
--- NOTE | 2018-10-13 09:10 | PDOC PROGRESS REPORT ---
Subjective Progress Note for:: 10/13/18 Subjective:: Patient is frustrated and anxious to go home. No further bleeding in last 24 hours. Reason For Visit: OSTOMY BLEEDING Physical Exam Vital Signs: Temp Pulse Resp BP Pulse Ox 98.1 F 86 18 138/76 H 100 10/13/18 08:00 10/13/18 08:00 10/13/18 08:00 10/13/18 08:00 10/13/18 08:00 Intake & Output 10/12/18 10/13/18 10/14/18 06:59 06:59 06:59 Intake Total 800 1615 Output Total 0 Balance 800 1615 Weight 75.7 kg 77.7 kg General appearance: PRESENT: no acute distress, hard of hearing Head exam: PRESENT: normocephalic Respiratory exam: PRESENT: unlabored GI/Abdominal exam: PRESENT: other - Uncahnged from previous with ostomy and hernia. Extremities exam: ABSENT: pedal edema Neurological exam: PRESENT: alert, awake Psychiatric exam: PRESENT: appropriate affect Skin exam: PRESENT: normal color Results Laboratory Results: 10/13/18 05:15 10/13/18 05:15 10/13/18 10/13/18 05:15 05:15 WBC 12.6 H RBC 3.10 L Hgb 9.6 L Hct 28.4 L MCV 91 MCH 31.1 MCHC 34.0 RDW 17.2 H Plt Count 210 Seg Neutrophils % Not Reportable Lymphocytes % Not Reportable Monocytes % Not Reportable Eosinophils % Not Reportable Basophils % Not Reportable Absolute Neutrophils Not Reportable Absolute Lymphocytes Not Reportable Absolute Monocytes Not Reportable Absolute Eosinophils Not Reportable Absolute Basophils Not Reportable Sodium 140.3 Potassium 4.9 Chloride 106 Carbon Dioxide 22 Anion Gap 12 BUN 39 H Creatinine 1.20 Est GFR ( Amer) > 60 Est GFR (Non-Af Amer) > 60 Glucose 150 H Calcium 9.4 Magnesium 2.2 Total Bilirubin 0.4 AST 30 ALT 25 Alkaline Phosphatase 97 Total Protein 5.9 L Albumin 2.8 L Impressions: Chest X-Ray 10/01/18 00:00 IMPRESSION: No acute findings. Lung metastatic nodules Abdomen/Pelvis CT 10/06/18 00:00 IMPRESSION: Little interval change when compared with the most recent CT. A poorly defined complex mass intimately associated with the patient's Brian pouch is present, and fistula formation is not excluded. Extensive hepatic metastases, as before. Multiple partially visualized pulmonary metastases. Left lower quadrant ostomy with peristomal hernia containing nondilated loops of bowel. TECHNICAL DOCUMENTATION: Quality ID # 436: Final reports with documentation of one or more dose reduction techniques (e.g., Automated exposure control, adjustment of the mA and/or kV according to patient size, use of iterative reconstruction technique) 2010 [employer]- All Rights Reserved Assessment & Plan - Diagnosis (1) Colorectal cancer, stage IV Is this a current diagnosis for this admission?: Yes Plan: Awaiting Arrival or new oral chemo drug from [place] pharmacy. He will see me SOL once this arrives to begin new treatment. (2) Bleeding from colostomy stoma Is this a current diagnosis for this admission?: Yes Plan: Now appears resolved. Continue to monitor. Follow with surgery as outpatient. (3) Blood loss anemia Is this a current diagnosis for this admission?: Yes Plan: Currently stable. Has required transfusions during this admission. (4) Chronic anticoagulation Is this a current diagnosis for this admission?: Yes Plan: On hold. - Plan Summary Plan Summary: Agree with plans for discharge. I will follow as outpatient.
[2018-10-13] MEDS: ASCORBIC ACID 500 MG TABLET PO SCH (11:14)
[2018-10-13] MEDS: SENNOSIDES/DOCUSATE 8.6-50 MG 1 EACH TABLET PO SCH ×2 (11:15→17:10)
[2018-10-13] MEDS: CARVEDILOL 12.5 MG TABLET PO SCH ×2 (11:15→21:58)
[2018-10-13] MEDS: FLUCONAZOLE 100 MG TABLET PO SCH (11:15)
[2018-10-13] MEDS: LISINOPRIL 10 MG TABLET PO SCH (11:15)
[2018-10-13] MEDS: ZINC SULFATE 220 MG CAPSULE PO SCH (11:19)
[2018-10-13] MEDS: LUBIPROSTONE 24 MCG CAPSULE PO SCH ×2 (11:19→17:10)
[2018-10-13] MEDS: MEGESTROL ACETATE SUSP 400 MG/10 ML UDCUP PO SCH (11:19)
[2018-10-13] MEDS: PHARMACY COMMUNICATION ORDER MC SCH (11:20)
[2018-10-13] MEDS: NYSTATIN TOPICAL POWDER 15 GM TP SCH (11:20)
[2018-10-13] MEDS: GLYBURIDE 2.5 MG TABLET PO SCH ×2 (12:21→17:10)
--- NOTE | 2018-10-13 14:08 | PDOC DISCHARGE SUMMARY ---
General - Admit/Disc Date/PCP Admission Date/Primary Care Provider: 09/29/18 03:11 KEVIN FATIMA MD Discharge Date: 10/13/18 - Discharge Diagnosis (1) Leukocytosis Is this a current diagnosis for this admission?: Yes Summary: 10/07/2018-persistent leukocytosis. Latest WBC is 15.6. Slight improvement compared to yesterday. Elevated WBC may be secondary to colon cancer. And is afebrile. 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 Patient is on p.o. Augmentin as per ID recommendations. CT abdomen pelvis was done and abscess was ruled out. 10/08/2018-wBC today is 18,400. Oncologist thinks it may be secondary to carcinoma. Patient has a low-grade fever of 99. Blood cultures from 2017 showing Clostridium perfringens, cultures from the ostomy site showing Pseudomonas aeruginosa, enterococcus, Evita albicans. Patient is on p.o. Augmentin. I am going to place a consult for ID. Going to start him on Diflucan 100 mg p.o. daily, also will start him on nystatin powder topical. 10/09/2018 we are waiting for the WBC count for today. As mentioned above oncologist thinks increased WBC may be secondary to tumor. Patient is afebrile in the last 24 hours. I discussed the care with ID specialist Dr. Rivera she recommended to increase Dr. Ocampoin dose to 500/125 mg p.o. 3 times a day. Patient is also getting p.o. Diflucan. Patient prefers to switch nystatin cream to nystatin powder. 10/10/2018 the WBC today is 11.7 came down from 16.8 yesterday patient is afebrile. He is on Augmentin 500/125 mg p.o. every 8 hours. He is also on p.o. Diflucan. We will continue the present management. 10/11/2018 WBC is 12.6. Patient is afebrile. Patient got 1 unit of PRBC yesterday. Hemoglobin is 10.7 today. blood cultures are negative. 10/12/2018 latest WBC is 12.6. Patient is afebrile. We are going to check his CBC again tomorrow. His latest hemoglobin is 10.7. blood Cultures are negative are negative. Culture from the ostomy site shows Pseudomonas, enterococcus, yeast. And Augmentin p.o. And Diflucan 100 mg p.o. daily. 10/13/2018 patient's WBC is 12.6. He is on Augmentin 400/125 mg every 8 hours. Afebrile for more than 3-4 days. The cultures are negative. Check from the ostomy site shows Pseudomonas/enterococcus, yeast. Patient is going to go home on 1 week of Augmentin. (2) Bleeding from colostomy stoma Is this a current diagnosis for this admission?: Yes Summary: 10/07/2018-no bleed from the colostomy site was reported in the last 24 hours. Surgery is following the case. And is stable. Hemoglobin and hematocrit are stable. His hemoglobin is 9.7. 10/08/2018,no more bleeding from the ostomy site in the last 24 hours. 10/09/2018 no bleeding from the ostomy site in the last 48 hours. Surgeons is handing him off from the case. We are waiting for the hemoglobin levels for today. 10/10/2018 patient has a big bleed from the ostomy site last night, surgeon came and placed sutures. Hemoglobin dropped to 10.5-8.8. He may need 1 unit of blood transfusion. At this moment there is no bleed from the ostomy site. 10/11/2018 no bleed from the ostomy site. Hemoglobin is 10.7. 10/12/2018 Dr. Reyna came and put a stitch around the ostomy site prevent the bleeding. 10/13/2018-patient has multiple episodes of bleeding from the ostomy site. He visited to the emergency room several times for this problem. During the hospital stay cauterization was done. On 11/08/2018 he has in his episode of bleed from the ostomy site. Stitches were placed by Dr. Reyna. During the hospital stay he is off the anticoagulation because of the bleeding risk. He got 1 unit of blood transfusion on 10/10/2018. Latest hemoglobin is 9.6. Stable. No bleed noticed in the last 24 hours. 2 stitches were placed at the bleed site by the surgeons. Patient is going to follow-up with the surgeons as an outpatient. (3) Chronic anticoagulation Is this a current diagnosis for this admission?: Yes Summary: 2017 Eliquis on hold.latest hemoglobin is 9.7. Has history of DVT. 10/08/2018 because of the history of bleed from the ostomy site Eliquis is on hold. Because. There is no more bleeding from the ostomy site I am going to start him on a 2.5 mg of Eliquis. 10/09/2018 and has history of DVTs, on Eliquis at home, I am going to start him on 2.5 mg p.o. Eliquis. Closely watch his the bleeding possibility from the ostomy site. 10/10/2018 history of DVT on Eliquis at home because of the recurrent bleeds from the ostomy site anticoagulation is on hold. 10/11/2018 patient has history of DVT, Eliquis was on hold because of the ostomt site bleed. 10/12/2018 because the risk of bleeding Eliquis on hold. 10/13/2018 patient has history of DVT on Eliquis at home. Because of the recurrent history of bleed from the ostomy site Eliquis on hold. She was advised to continue to hold Eliquis at home until further recommendations. (4) Colorectal cancer, stage IV Is this a current diagnosis for this admission?: Yes Summary: 10/07/2018 oncology is following the patient. The planning to start chemotherapy soon. 10/08/2018 Dr Cordova spoke to me this morning, she thinks patient need to be started on chemotherapy soon. She also thinks patient's WBCs may be secondary to IV steroid use, and carcinoma. 10/09/2018 patient has a stage IV colon cancer. He is waiting for the chemotherapy. The oncologist signed him off at this moment. 10/10/2018 patient is awaiting for chemotherapy. The oncologist signed him off. 10/11/2018 patient has a history of stage IV colon cancer and he is waiting to start the chemotherapy. 10/12/2018 patient has a history of colon cancer stage IV with metastases. Waiting to start the chemotherapy. 10/13/2018 patient has a stage IV colon cancer with metastases. dr Trammell follow the patient during the hospital stay. Patient is supposed to start on chemotherapy medication soon. Patient has mass around the colostomy site may be secondary to metastasis. (5) Diabetes mellitus type 2 in nonobese Is this a current diagnosis for this admission?: Yes Summary: 10/07/2018 latest blood sugar is 73. It is on insulin sliding scale. Is on diabetic diet. Adjust the insulin sliding scale as needed. Go to order for hemoglobin A1c. 10/08/2018 and his latest blood sugar is 223. He is on insulin sliding scale. Patient's hemoglobin A1c is 7.0. A request for dietary consult. 10/09/2018 latest blood sugars are 223. Insulin sliding scale. Patient's hemoglobin A1c is 7.0 we will continue the sliding scale. 10/10/2018. Patient blood sugars are persistently high more than 200. I am going to put him on Levemir insulin. 10/11/2018 latest blood sugar is 222. Patient is on insulin sliding scale, he was started on Levemir 10 units subcu nightly yesterday. We will continue the present management. 10/12/2018. Latest blood sugar is 156. He is on Levemir 10 units subcu at night , on insulin sliding scale. 10/13/2018 patient history of diabetes mellitus. His latest blood sugar is 150. Patient is on glyburide 2.5 mg p.o. twice daily at home, Levemir 10 units subcu nightly advised him to continue the present medications once he is discharged. (6) Constipation Is this a current diagnosis for this admission?: Yes (7) Hypertension Is this a current diagnosis for this admission?: Yes Summary: 2017. His latest blood pressure is 146/77 with heart rate of 82. And is on lisinopril 40 mg p.o. daily, amlodipine 5 mg p.o. daily. Coreg was added yesterday , on 6.25 mg po bid of coreg 10/08/2018 pressure today is 164/81 may be secondary to pain he is in. He is on lisinopril 40 mg p.o. daily, amlodipine 5 mg p.o. daily, Coreg 6.25 mg p.o. twice daily. We will continue the current management. 10/09/2018 blood pressure today is 148/80. She is on lisinopril 40 mg p.o. daily amlodipine 5 mg p.o. daily Coreg 6.5 mg p.o. twice daily. We will continue the present management. 10/10/2018 patient blood pressure is elevated today 172/71 he is on lisinopril 40 mg daily, amlodipine 5 mg daily, Coreg 6.25 mg p.o. twice daily. I am going to increase amlodipine to 10 mg p.o. daily. 10/11/2018 blood pressure today is 168/84. He is on lisinopril 40 mg daily, amlodipine 10 mg daily, Coreg 6.25 mg p.o. twice daily. We will continue the current management. Blood pressure is 158/92. Lisinopril 40 mg daily, amlodipine 10 mg daily, Coreg 6.25 mg p.o. twice daily. I am going to increase the Coreg to 12.5 mg p.o. twice daily. 10/13/2018 today's blood pressure is 138/76. Better controlled. It is initially on lisinopril 40 mg daily, amlodipine 5 mg p.o. daily. During the hospital stay Coreg was added initially started at 6.25 mg p.o. twice daily later on what was increased to 12.5 mg p.o. twice daily. And amlodipine was also increased from 5 mg to 10 mg p.o. daily. Blood pressures are better controlled now. - Additional Information Discharge Diet: Diabetic Discharge Activity: Activity As Tolerated, Balance Activity w/Rest Prescriptions: Amlodipine Besylate [Norvasc 10 mg Tablet] 10 mg PO QHS #30 tablet Amox Tr/Potassium Clavulanate [Augmentin "500" Tablet] 1 tab PO Q8 #15 tablet Carvedilol [Coreg 12.5 mg Tablet] 12.5 mg PO Q12 #60 tablet Fluconazole [Diflucan 100 mg Tablet] 100 mg PO DAILY #5 tablet Lisinopril [Prinivil 10 mg Tablet] 40 mg PO DAILY #30 tablet Nystatin [Mycostatin Topical Powder 15 gm] 1 applic TP DAILY #1 bottle Sennosides/Docusate 8.6-50 mg [Senna Plus Tablet] 2 each PO BID #30 tablet Home Medications: Amitriptyline HCl [Elavil 50 mg Tablet] 100 mg PO QHS 09/25/18 Ascorbic Acid [Vitamin C 500 mg Tablet] 500 mg PO DAILY 09/25/18 Fentanyl [Duragesic 50 Mcg/Hr Transdermal Patch] 1 each TD Q3D 30 Days #10 patch.[id number] 09/27/18 Amlodipine Besylate [Norvasc 10 mg Tablet] 10 mg PO DAILYP PRN 09/29/18 Cetirizine HCl [Zyrtec 10 mg Tablet] 10 mg PO WSUPPER 09/29/18 Glyburide 1.25 mg PO BID 09/29/18 Lidocaine HCl [Xylocaine 5% Ointment 35.44 gm] 1 applic TP DAILY 09/29/18 Magic Mouthwash (Diphenhydramine, Hydrocortisone, Nystatin) 10 ml PO QID Megestrol Acetate 20 ml PO DAILY 09/29/18 Oxycodone HCl [Oxycodone HCl 10 MG Tablet] 10 mg PO Q4HP PRN 09/29/18 Metoprolol Tartrate [Lopressor 100 mg Tablet] 100 mg PO BIDP PRN 09/30/18 Sennosides [Ex-Lax Maximum Strength] 50 mg PO BID 09/30/18 Amlodipine Besylate [Norvasc 10 mg Tablet] 10 mg PO QHS #30 tablet 10/13/18 Amox Tr/Potassium Clavulanate [Augmentin "500" Tablet] 1 tab PO Q8 #15 tablet 10/13/18 Carvedilol [Coreg 12.5 mg Tablet] 12.5 mg PO Q12 #60 tablet 10/13/18 Fluconazole [Diflucan 100 mg Tablet] 100 mg PO DAILY #5 tablet 10/13/18 Glyburide [Diabeta 2.5 mg Tablet] 1.25 mg PO BID tablet 10/13/18 Lisinopril [Prinivil 10 mg Tablet] 40 mg PO DAILY #30 tablet 10/13/18 Lubiprostone [Amitiza 24 Mcg Capsule] 24 mcg PO BID capsule 10/13/18 Nystatin [Mycostatin Topical Powder 15 gm] 1 applic TP DAILY #1 bottle 10/13/18 Sennosides/Docusate 8.6-50 mg [Senna Plus Tablet] 2 each PO BID #30 tablet 10/13 Zinc Sulfate [Zinc-220 Capsule] 220 mg PO DAILY capsule 10/13/18 History of Present Illness History of Present Illness: ALIYA LÓPEZ is a 73 year old male with medical history remarkable for stage IV metastatic colon cancer. The patient has been in our facility several times with the same complaint of bleeding through the ostomy. Patient has history of colon cancer with colostomy in place which was done in October 2017, he has been on chronic Coumadin which was switched for Eliquis on September 17 as per his INR was nontherapeutic, patient was in our emergency department on September 22 with ostomy bleeding, at that time he received 1 unit of blood transfusion and after consultation with surgery and oncology he was discharged home. Patient was back on September 11 with similar symptoms, at this time the patient was admitted and surgery was consulted, medical management was advised, patient was again transfused with PRBC and discharged on September 27, the same day of the discharge he came back to the emergency department with a new episode of bleeding and was sent back home. He came back last night with a new episode of ostomy bleeding, approximately 800 cc, patient is accompanied by his daughter who is a nurse and is very upset regarding the situation. In the emergency department pressure was applied to the ostomy site and bleeding is stopped. Patient and his daughter tells me that they could observe a small artery bleeding out. Patient has been without anticoagulation since last Saturday. During his visit on September 27 he was complaining of shortness of breath and a CTA was done which was negative. Patient will be admitted for surgical consult. Patient follows with oncologist Dr. Cordova and is currently on chemotherapy. Physical Exam Vital Signs: Temp Pulse Resp BP Pulse Ox 98.1 F 86 18 136/77 H 100 10/13/18 12:57 10/13/18 12:57 10/13/18 12:57 10/13/18 12:57 10/13/18 12:57 Intake & Output 10/12/18 10/13/18 10/14/18 06:59 06:59 06:59 Intake Total 800 1615 472 Output Total 0 Balance 800 1615 472 Weight 75.7 kg 77.7 kg General appearance: PRESENT: no acute distress Head exam: PRESENT: atraumatic Eye exam: PRESENT: PERRLA Mouth exam: PRESENT: moist Neck exam: ABSENT: carotid bruit, JVD, lymphadenopathy, thyromegaly Respiratory exam: PRESENT: clear to auscultation juan daniel. ABSENT: rales, rhonchi, wheezes Cardiovascular exam: PRESENT: RRR. ABSENT: diastolic murmur, rubs, systolic murmur GI/Abdominal exam: PRESENT: other - On abdominal examination he has colostomy with colostomy bag present the hard area around the colostomy site on palpation there is no obvious bleeding present Neurological exam: PRESENT: alert, awake, oriented to person, oriented to place , oriented to time, oriented to situation, CN II-XII grossly intact. ABSENT: motor sensory deficit Psychiatric exam: PRESENT: appropriate affect, normal mood. ABSENT: homicidal ideation, suicidal ideation Results Laboratory Results: 10/13/18 05:15 10/13/18 05:15 10/13/18 10/13/18 05:15 05:15 WBC 12.6 H RBC 3.10 L Hgb 9.6 L Hct 28.4 L MCV 91 MCH 31.1 MCHC 34.0 RDW 17.2 H Plt Count 210 Seg Neutrophils % Not Reportable Lymphocytes % Not Reportable Monocytes % Not Reportable Eosinophils % Not Reportable Basophils % Not Reportable Absolute Neutrophils Not Reportable Absolute Lymphocytes Not Reportable Absolute Monocytes Not Reportable Absolute Eosinophils Not Reportable Absolute Basophils Not Reportable Sodium 140.3 Potassium 4.9 Chloride 106 Carbon Dioxide 22 Anion Gap 12 BUN 39 H Creatinine 1.20 Est GFR ( Amer) > 60 Est GFR (Non-Af Amer) > 60 Glucose 150 H Calcium 9.4 Magnesium 2.2 Total Bilirubin 0.4 AST 30 ALT 25 Alkaline Phosphatase 97 Total Protein 5.9 L Albumin 2.8 L Impressions: Chest X-Ray 10/01/18 00:00 IMPRESSION: No acute findings. Lung metastatic nodules Abdomen/Pelvis CT 10/06/18 00:00 IMPRESSION: Little interval change when compared with the most recent CT. A poorly defined complex mass intimately associated with the patient's Brian pouch is present, and fistula formation is not excluded. Extensive hepatic metastases, as before. Multiple partially visualized pulmonary metastases. Left lower quadrant ostomy with peristomal hernia containing nondilated loops of bowel. TECHNICAL DOCUMENTATION: Quality ID # 436: Final reports with documentation of one or more dose reduction techniques (e.g., Automated exposure control, adjustment of the mA and/or kV according to patient size, use of iterative reconstruction technique) 2010 [employer]- All Rights Reserved Qualifiers - * PATIENT BEING DISCHARGED WITH ANY OF THE FOLLOWING DIAGNOSIS: No VTE patient discharged on overlapping Therapy?: Yes
[2018-10-13] MEDS: LIDOCAINE 5% (700 MG) TRANSDERMAL ADH..PATCH TP SCH (21:57)
[2018-10-13] MEDS: AMLODIPINE BESYLATE 10 MG TABLET PO SCH (21:58)
[2018-10-13] MEDS: AMITRIPTYLINE HCL 50 MG TABLET PO SCH (21:58)
[2018-10-13] MEDS: INSULIN DETEMIR 100 UNIT/ML 3 ML PEN SUBCUT SCH (21:59)
[2018-10-14] MEDS: AMOXICILLIN TR/POT CLAVULANATE 500-125 MG TAB PO SCH ×3 (05:39→21:35)
[2018-10-14] MEDS: OXYCODONE HCL IR 5 MG TABLET PO PRN ×6 (05:39→23:41)
[2018-10-14] MEDS: FLUCONAZOLE 100 MG TABLET PO SCH (09:34)
[2018-10-14] MEDS: LISINOPRIL 10 MG TABLET PO SCH (09:34)
[2018-10-14] MEDS: ASCORBIC ACID 500 MG TABLET PO SCH (09:35)
[2018-10-14] MEDS: SENNOSIDES/DOCUSATE 8.6-50 MG 1 EACH TABLET PO SCH ×2 (09:35→17:14)
[2018-10-14] MEDS: CARVEDILOL 12.5 MG TABLET PO SCH ×2 (09:35→21:32)
[2018-10-14] MEDS: GLYBURIDE 2.5 MG TABLET PO SCH ×2 (09:37→17:14)
[2018-10-14] MEDS: MEGESTROL ACETATE SUSP 400 MG/10 ML UDCUP PO SCH (09:37)
[2018-10-14] MEDS: LUBIPROSTONE 24 MCG CAPSULE PO SCH ×2 (09:37→17:14)
[2018-10-14] MEDS: NYSTATIN TOPICAL POWDER 15 GM TP SCH (09:38)
[2018-10-14] MEDS: PHARMACY COMMUNICATION ORDER MC SCH (09:38)
[2018-10-14] MEDS: ZINC SULFATE 220 MG CAPSULE PO SCH (09:39)
--- NOTE | 2018-10-14 13:06 | PDOC PROGRESS REPORT ---
Subjective Progress Note for:: 10/14/18 Subjective:: Patient remains frustrated. Although he had planned to go home last night, he again had an acute bleed. Surgery was able to see him and cauterized more areas. Reason For Visit: OSTOMY BLEEDING Physical Exam Vital Signs: Temp Pulse Resp BP Pulse Ox 98.6 F 68 16 135/71 H 100 10/14/18 07:33 10/14/18 07:33 10/14/18 07:33 10/14/18 07:33 10/14/18 07:33 Intake & Output 10/13/18 10/14/18 10/15/18 06:59 06:59 06:59 Intake Total 1615 708 Output Total 0 0 Balance 1615 708 Weight 77.7 kg 75.2 kg General appearance: PRESENT: no acute distress, well-developed, well-nourished GI/Abdominal exam: PRESENT: other - Ostomy and hernia are unchanged. Ostomy bag was not removed. No active bleeding at present. Neurological exam: PRESENT: alert, awake Psychiatric exam: PRESENT: appropriate affect Skin exam: PRESENT: normal color Results Laboratory Results: 10/13/18 05:15 10/13/18 05:15 Impressions: Chest X-Ray 10/01/18 00:00 IMPRESSION: No acute findings. Lung metastatic nodules Abdomen/Pelvis CT 10/06/18 00:00 IMPRESSION: Little interval change when compared with the most recent CT. A poorly defined complex mass intimately associated with the patient's Brian pouch is present, and fistula formation is not excluded. Extensive hepatic metastases, as before. Multiple partially visualized pulmonary metastases. Left lower quadrant ostomy with peristomal hernia containing nondilated loops of bowel. TECHNICAL DOCUMENTATION: Quality ID # 436: Final reports with documentation of one or more dose reduction techniques (e.g., Automated exposure control, adjustment of the mA and/or kV according to patient size, use of iterative reconstruction technique) 2010 [employer]- All Rights Reserved Assessment & Plan - Diagnosis (1) Colorectal cancer, stage IV Is this a current diagnosis for this admission?: Yes (2) Bleeding from colostomy stoma Is this a current diagnosis for this admission?: Yes (3) Blood loss anemia Is this a current diagnosis for this admission?: Yes (4) Chronic anticoagulation Is this a current diagnosis for this admission?: Yes - Plan Summary Plan Summary: Will continue to follow, but await patient discharge. No further anticoagulation. I answered all questions. Continued to give support and encouragement.
--- NOTE | 2018-10-14 13:48 | PDOC PROGRESS REPORT ---
Subjective Progress Note for:: 10/14/18 Subjective:: Asked to reevaluate ostomy site that apparently bled last night. Dr. Luong had applied silver nitrate to the area at night. Reason For Visit: OSTOMY BLEEDING Physical Exam Vital Signs: Temp Pulse Resp BP Pulse Ox 98.6 F 68 16 135/71 H 100 10/14/18 07:33 10/14/18 07:33 10/14/18 07:33 10/14/18 07:33 10/14/18 07:33 Intake & Output 10/13/18 10/14/18 10/15/18 06:59 06:59 06:59 Intake Total 1615 708 Output Total 0 0 Balance 1615 708 Weight 77.7 kg 75.2 kg GI/Abdominal exam: PRESENT: other - Ostomy functioning and stoma is pink. There is no bleeding nor friable tissue noted. Evidence of silver nitrate application is noted. Large parastomal hernia. Results Laboratory Results: 10/13/18 05:15 10/13/18 05:15 Impressions: Chest X-Ray 10/01/18 00:00 IMPRESSION: No acute findings. Lung metastatic nodules Abdomen/Pelvis CT 10/06/18 00:00 IMPRESSION: Little interval change when compared with the most recent CT. A poorly defined complex mass intimately associated with the patient's Brian pouch is present, and fistula formation is not excluded. Extensive hepatic metastases, as before. Multiple partially visualized pulmonary metastases. Left lower quadrant ostomy with peristomal hernia containing nondilated loops of bowel. TECHNICAL DOCUMENTATION: Quality ID # 436: Final reports with documentation of one or more dose reduction techniques (e.g., Automated exposure control, adjustment of the mA and/or kV according to patient size, use of iterative reconstruction technique) 2010 [employer]- All Rights Reserved Assessment & Plan - Diagnosis (1) Bleeding from colostomy stoma Is this a current diagnosis for this admission?: Yes Plan: Appears to have stopped after silver nitrate application yesterday. May discharge patient home. I have discussed with the patient local measures at home if bleeding were to recur. Mainly taking off the ostomy apparatus, placing gauze or tissues over the bleeding and and applying focused pressure.
[2018-10-14 14:22] LABS: HEMATOCRIT 30.7 % (37.9-51.0); HEMOGLOBIN 10.3 g/dL (13.5-17.0); MEAN CORPUSCULAR HEMOGLOBIN 30.9 pg (27.0-33.4); MEAN CORPUSCULAR HGB CONC 33.5 g/dL (32.0-36.0); MEAN CORPUSCULAR VOLUME 92 fl (80-97); PLATELET COUNT 223 10^3/uL (150-450); RED BLOOD COUNT 3.33 10^6/uL (4.35-5.55); RED CELL DISTRIBUTION WIDTH 17.2 % (11.5-14.0); WHITE BLOOD COUNT 12.1 10^3/uL (4.0-10.5)
--- NOTE | 2018-10-14 20:33 | Progress Note ---
Provider Note Provider Note: Patient was apparently discharged yesterday but prior to discharge, he had some bright red bleeding from the ostomy site. Surgery did re-evaluate the patient and administered silver nitrate which stopped the bleeding. Otherwise, no other acute event overnight and no recurrence of bleeding. Patient's repeat hemoglobin today has been stable. Discussed with surgeon who deem patient will remain at risk for rebleeding but is not a candidate for ostomy revision due to his multiple metastases. This was also discussed by the surgeon with the patient. Will proceed with discharge today as planned.
[2018-10-14] MEDS: AMLODIPINE BESYLATE 10 MG TABLET PO SCH (21:32)
[2018-10-14] MEDS: AMITRIPTYLINE HCL 50 MG TABLET PO SCH (21:32)
[2018-10-14] MEDS: LIDOCAINE 5% (700 MG) TRANSDERMAL ADH..PATCH TP SCH (21:33)
[2018-10-14] MEDS: INSULIN DETEMIR 100 UNIT/ML 3 ML PEN SUBCUT SCH (21:34)
[2018-10-14] MEDS: INSULIN LISPRO 100 UNIT/ML 3 ML VIAL SUBCUT PRN (21:37)
[2018-10-15] MEDS: OXYCODONE HCL IR 5 MG TABLET PO PRN ×2 (03:33→06:32)
[2018-10-15 04:11] VITALS: BP 124/66
[2018-10-15] MEDS: AMOXICILLIN TR/POT CLAVULANATE 500-125 MG TAB PO SCH (05:12)
== END 2018-10-15 08:22 | disposition home or self-care (01) | DRG 357 ==
LOC: ER 23:17 → EH 09-29 03:11 → 3W 09-29 05:08
PROVIDERS: ADMIT Internal Medicine; ATTEND Internal Medicine
PROC: 0W3F3ZZ Control Bleeding in Abdominal Wall, Percutaneous Approach (ICD-10-PCS; principal; 2018-09-29)
PROC: 0W3F3ZZ Control Bleeding in Abdominal Wall, Percutaneous Approach (ICD-10-PCS; 2018-10-09)
DX: K94.01 Colostomy hemorrhage (principal); C18.9 Malignant neoplasm of colon, unspecified; C78.7 Secondary malignant neoplasm of liver and intrahepatic bile duct; C78.00 Secondary malignant neoplasm of unspecified lung; D50.0 Iron deficiency anemia secondary to blood loss (chronic); I11.0 Hypertensive heart disease with heart failure; I50.9 Heart failure, unspecified; K59.00 Constipation, unspecified; K46.9 Unspecified abdominal hernia without obstruction or gangrene; E11.42 Type 2 diabetes mellitus with diabetic polyneuropathy; M19.90 Unspecified osteoarthritis, unspecified site; Z86.14 Personal history of Methicillin resistant Staphylococcus aureus infection; Z87.891 Personal history of nicotine dependence; Z79.899 Other long term (current) drug therapy; Z91.041 Radiographic dye allergy status; Z86.718 Personal history of other venous thrombosis and embolism; Z79.01 Long term (current) use of anticoagulants; Z79.4 Long term (current) use of insulin
CPT/HCPCS: 36415; 36430; 71045; 74177; 80048; 80053; 82962; 83036; 83690; 83735; 85025; 85027; 85610; 85730; 86850; 86900; 86901; 86920; 87040; 87070; 87075; 87077; 87186; 87205; 99285; A9270 GY; A9270-GY; G8996-GN; G8997-GN; G8998-GN; J0696; J1170; J1200; J1815; J2765; J2930; J3490; J7060; P9016; S0028

== ENCOUNTER 2018-10-21 14:38 | Emergency (ER) | payer OTHER, MEDICARE ==
--- NOTE | 2018-10-21 16:33 | ER Document Report ---
ED Medical Screen (RME) - General Chief Complaint: High Blood Sugar Stated Complaint: BLOOD SUGAR ISSUES Time Seen by Provider: 10/21/18 16:21 Notes: Pt is a 73 year old male presenting to the ED CC high blood sugar. Pt. stated he was admitted to this facility recently and was given insulin for his blood sugar control. Patient states he has never been on insulin before he is always taking glyburide. States when he was discharged he was not sent home with any insulin states he was only supposed to take his glyburide. Patient states he noticed that his sugar was 461 this afternoon. States he took his glyburide at 1230. Patient is in the emergency room because he is worried that his sugars are elevated. Patient is denying all complaints to include chest pain, shortness of breath, lightheadedness, dizziness. Physical exam: Patient is pale in appearance, lung sounds clear and equal all gould, patient does have a colostomy bag noted left lower quadrant. I have greeted and performed a rapid initial assessment of this patient. A comprehensive ED assessment and evaluation of the patient, analysis of test results and completion of the medical decision making process will be conducted by additional ED providers. TRAVEL OUTSIDE OF THE [place] IN LAST 30 DAYS: No - Related Data Allergies/Adverse Reactions: Iodinated Contrast- Oral and IV Dye Adverse Reaction (Mild, Verified 10/21/18 14 :49) Hives Past Medical History - Past Medical History Cardiac Medical History: Reports: Hx Congestive Heart Failure, Hx Hypertension, Hx Heart Murmur - Present since childhood Pulmonary Medical History: Denies: Hx Asthma, Hx COPD, Hx Sleep Apnea Neurological Medical History: Denies: Hx Seizures Endocrine Medical History: Reports: Hx Diabetes Mellitus Type 2 - With peripheral neuropathy. Denies: Hx Diabetes Mellitus Type 1, Hx Hyperthyroidism Renal/ Medical History: Denies: Hx Peritoneal Dialysis Malignancy Medical History: Reports Hx Colorectal Cancer GI Medical History: Reports: Hx Irritable Bowel. Denies: Hx Cirrhosis, Hx Crohn 's Disease, Hx Ulcerative Colitis Musculoskeltal Medical History: Reports Hx Arthritis, Denies Hx Fibromyalgia, Denies Hx Gout Skin Medical History: Denies Hx Eczema, Denies Hx Psoriasis Infectious Medical History: Reports: Hx MRSA - Left leg cellulitis Past Surgical History: Reports: Hx Bowel Surgery - colostomy, Hx Colostomy, Hx Herniorrhaphy - Left inguinal, Hx Orthopedic Surgery - Left ankle-knee, neck, Other - Neck mass resection in the remote past. Port placement Physical Exam - Vital signs Vitals: Temp Pulse Resp BP Pulse Ox 98.2 F 80 22 H 162/86 H 100 10/21/18 15:00 10/21/18 15:00 10/21/18 15:00 10/21/18 15:00 10/21/18 15:00 Course - Vital Signs Vital signs: Temp Pulse Resp BP Pulse Ox 98.2 F 80 22 H 162/86 H 100 10/21/18 15:00 10/21/18 15:00 10/21/18 15:00 10/21/18 15:00 10/21/18 15:00 Doctor's Discharge - Discharge Referrals: KEVIN FATIMA MD [Primary Care Provider] - Follow up as needed
[2018-10-21 17:36] LABS: VENOUS BLOOD BASE EXCESS -6.2 mmol/L; VENOUS BLOOD HCO3 18.1 mmol/L (20-32); VENOUS BLOOD PCO2 31.6 mmHg (35-63); VENOUS BLOOD PH 7.38 (7.30-7.42)
[2018-10-21 17:41] LABS: HEMATOCRIT 28.1 % (37.9-51.0); HEMOGLOBIN 9.4 g/dL (13.5-17.0); MEAN CORPUSCULAR HEMOGLOBIN 31.5 pg (27.0-33.4); MEAN CORPUSCULAR HGB CONC 33.6 g/dL (32.0-36.0); MEAN CORPUSCULAR VOLUME 94 fl (80-97); PLATELET COUNT 143 10^3/uL (150-450); RED BLOOD COUNT 2.99 10^6/uL (4.35-5.55); RED CELL DISTRIBUTION WIDTH 18.2 % (11.5-14.0); WHITE BLOOD COUNT 14.1 10^3/uL (4.0-10.5)
[2018-10-21 18:06] LABS: ABSOLUTE MONOCYTES # (MANUAL) 1.6 10^3/uL (0.1-1.4); ABSOLUTE NEUTROPHILS# (MANUAL) 10.4 10^3/uL (1.7-8.2); BASOPHILS % (MANUAL) 0 % (0-2); EOSINOPHILS % (MANUAL) 1 % (0-6); LYMPHOCYTES % (MANUAL) 14 % (13-45); MONOCYTES % (MANUAL) 11 % (3-13); SEGMENTED NEUTROPHILS % (MAN) 74 % (42-78); TOTAL CELLS COUNTED 100
[2018-10-21 18:07] LABS: ANISOCYTOSIS 2+; PLATELET COMMENT DECREASED; POIKILOCYTOSIS 1+; TOXIC GRANULATION SLIGHT
[2018-10-21 18:32] LABS: ALANINE AMINOTRANSFERASE 44 U/L (21-72); ALBUMIN 3.1 g/dL (3.5-5.0); ALKALINE PHOSPHATASE 131 U/L (38-126); ANION GAP 10 (5-19); ASPARTATE AMINO TRANSFERASE 58 U/L (17-59); BILIRUBIN,DIRECT 0.4 mg/dL (0.0-0.4); BILIRUBIN,TOTAL 0.5 mg/dL (0.2-1.3); BLOOD UREA NITROGEN 25 mg/dL (7-20); CALCIUM 9.5 mg/dL (8.4-10.2); CARBON DIOXIDE 19 mmol/L (22-30); CHLORIDE 108 mmol/L (98-107); GLUCOSE 257 mg/dL (75-110); SODIUM 136.7 mmol/L (137-145); TOTAL PROTEIN 6.5 g/dL (6.3-8.2)
[2018-10-21] MEDS ORDERED: ACETAMINOPHEN 325 MG TABLET PO ONE (18:45)
--- NOTE | 2018-10-21 18:54 | ER Document Report ---
ED Blood Sugar Problem - General Chief Complaint: High Blood Sugar Stated Complaint: BLOOD SUGAR ISSUES Time Seen by Provider: 10/21/18 18:15 Mode of Arrival: Ambulatory Information source: Patient Notes: Patient is a 73-year-old male with a history of diabetes as well as metastatic colon cancer status post colectomy who presents with diffuse body pain as well as elevated blood sugar. Patient reports "being here all day and missed my pain medication." He also reports that his blood sugar has been "out of control " for the past 2-3 days, has been ranging between 200-400, denies abdominal pain or nausea above his baseline. Of note, patient reports taking his insulin prior to arrival. TRAVEL OUTSIDE OF THE [place] IN LAST 30 DAYS: No - HPI Onset: This morning Onset/Duration: Sudden Quality of pain: Achy, Pressure, Throbbing Severity: Severe Pain Level: 4 Blood sugar level at home: "Over 400" Insulin taken: Yes Glucose taken: No Associated symptoms: None Similar symptoms previously: No Recently seen / treated by doctor: No - Related Data Allergies/Adverse Reactions: Iodinated Contrast- Oral and IV Dye Adverse Reaction (Mild, Verified 10/21/18 14 :49) Hives Past Medical History - General Information source: Patient, Relative - Social History Smoking Status: Former Smoker Chew tobacco use (# tins/day): No Frequency of alcohol use: None Drug Abuse: None Lives with: Family Family History: Reviewed & Not Pertinent, CAD - Father, Malignancy - Brother with prostate cancer. Father with bladder cancer. Patient has suicidal ideation: No Patient has homicidal ideation: No - Past Medical History Cardiac Medical History: Reports: Hx Congestive Heart Failure, Hx Hypertension, Hx Heart Murmur - Present since childhood Pulmonary Medical History: Reports: None Denies: Hx Asthma, Hx COPD, Hx Sleep Apnea EENT Medical History: Reports: None Neurological Medical History: Reports: None. 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 Denies: Hx Diabetes Mellitus Type 1, Hx Hyperthyroidism Renal/ Medical History: Reports: None. Denies: Hx Peritoneal Dialysis Malignancy Medical History: Reports Hx Colorectal Cancer GI Medical History: Reports: Hx Irritable Bowel. Denies: Hx Cirrhosis, Hx Crohn 's Disease, Hx Ulcerative Colitis Musculoskeletal Medical History: Reports Hx Arthritis, Denies Hx Fibromyalgia, Denies Hx Gout Skin Medical History: Reports None, Denies Hx Eczema, Denies Hx Psoriasis Psychiatric Medical History: Reports: None Traumatic Medical History: Reports: None Infectious Medical History: Reports: Hx MRSA - Left leg cellulitis Past Surgical History: Reports: Hx Bowel Surgery - colostomy, Hx Colostomy, Hx Herniorrhaphy - Left inguinal, Hx Orthopedic Surgery - Left ankle-knee, neck, Other - Neck mass resection in the remote past. Port placement - Immunizations Immunizations up to date: Yes Hx Diphtheria, Pertussis, Tetanus Vaccination: Yes Hx Pneumococcal Vaccination: 09/05/16 Review of Systems - Review of Systems Constitutional: No symptoms reported EENT: No symptoms reported Cardiovascular: No symptoms reported Respiratory: No symptoms reported Gastrointestinal: Abdominal pain. denies: Nausea, Vomiting Genitourinary: No symptoms reported Male Genitourinary: No symptoms reported Musculoskeletal: See HPI, Back pain, Joint swelling, Muscle pain, Other - Chronic pain Skin: No symptoms reported Hematologic/Lymphatic: No symptoms reported Neurological/Psychological: No symptoms reported -: Yes All other systems reviewed and negative Physical Exam - Vital signs Vitals: Temp Pulse Resp BP Pulse Ox 98.2 F 80 22 H 162/86 H 100 10/21/18 15:00 10/21/18 15:00 10/21/18 15:00 10/21/18 15:00 10/21/18 15:00 Interpretation: Normal - General General appearance: Appears well, Alert In distress: None - HEENT Head: Normocephalic, Atraumatic Eyes: Normal Pupils: PERRL - Respiratory Respiratory status: No respiratory distress Chest status: Nontender Breath sounds: Normal Chest palpation: Normal - Cardiovascular Rhythm: Regular Heart sounds: Normal auscultation Murmur: No - Abdominal Inspection: Other - There is a colostomy in the left mid abdomen Distension: No distension Bowel sounds: Normal Tenderness: Nontender Organomegaly: No organomegaly - Rectal Notes: Deferred - Genitourinary Notes: Deferred - Back Back: Normal, Nontender - Extremities General upper extremity: Normal inspection, Nontender, Normal color, Normal ROM , Normal temperature General lower extremity: Normal inspection, Nontender, Normal color, Normal ROM , Normal temperature, Normal weight bearing. No: Cary's sign - Neurological Neuro grossly intact: Yes Cognition: Normal Orientation: AAOx4 Faisal Coma Scale Eye Opening: Spontaneous Faisal Coma Scale Verbal: Oriented Faisal Coma Scale Motor: Obeys Commands [place] Coma Scale Total: 15 Speech: Normal Motor strength normal: LUE, RUE, LLE, RLE Sensory: Normal - Psychological Associated symptoms: Normal affect, Normal mood - Skin Skin Temperature: Warm Skin Moisture: Dry Skin Color: Normal Course - Re-evaluation Re-evalutation: 10/21/18 21:32 Initial blood work shows no evidence of acute DKA. Patient will be given additional IV fluids as well as morphine for pain control and will be reassessed for discharge if improved. 10/21/18 23:06 Patient feels better. He will be discharged home with return precautions and follow-up as scheduled tomorrow morning. Patient is in agreement with and agrees with the plan. - Vital Signs Vital signs: Temp Pulse Resp BP Pulse Ox 98.2 F 80 22 H 162/86 H 100 10/21/18 15:00 10/21/18 15:00 10/21/18 15:00 10/21/18 15:00 10/21/18 15:00 - Laboratory Result Diagrams: 10/21/18 17:20 10/21/18 17:20 Laboratory results interpreted by me: 10/21/18 10/21/18 10/21/18 17:20 17:20 17:20 WBC 14.1 H RBC 2.99 L Hgb 9.4 L Hct 28.1 L RDW 18.2 H Plt Count 143 L Abs Neuts (Manual) 10.4 H Abs Monocytes (Manual) 1.6 H VBG pCO2 31.6 L VBG HCO3 18.1 L Sodium 136.7 L Chloride 108 H Carbon Dioxide 19 L BUN 25 H Glucose 257 H Alkaline Phosphatase 131 H Albumin 3.1 L Discharge - Discharge Clinical Impression: Hyperglycemia Chronic pain Qualifiers: Chronic pain type: due to neoplasm Qualified Code(s): G89.3 - Neoplasm related pain (acute) (chronic) Condition: Good Disposition: HOME, SELF-CARE Instructions: Hyperglycemia ([facility]) Additional Instructions: Please follow-up with your regular physician tomorrow as scheduled. Return to the emergency department immediately if you experience difficulty breathing, worsening pain, or have any other concerning symptom. Referrals: KEVIN FATIMA MD [Primary Care Provider] - Follow up as needed Print Language: Mongolian
[2018-10-21] MEDS ORDERED: NORMAL SALINE 1000 ML 1,000 ML IV ONE (19:31)
[2018-10-21] MEDS ORDERED: MORPHINE SULFATE 10 MG/ML INJ IV ONE (19:32)
[2018-10-21 23:25] VITALS: BP 160/79
== END 2018-10-21 23:31 | disposition home or self-care (01) ==
LOC: ER 14:38
DX: E11.65 Type 2 diabetes mellitus with hyperglycemia (principal); E11.42 Type 2 diabetes mellitus with diabetic polyneuropathy; Z79.4 Long term (current) use of insulin; G89.3 Neoplasm related pain (acute) (chronic); D49.9 Neoplasm of unspecified behavior of unspecified site; I10 Essential (primary) hypertension; Z87.891 Personal history of nicotine dependence; Z93.3 Colostomy status; Z85.048 Personal history of other malignant neoplasm of rectum, rectosigmoid junction, and anus; Z90.49 Acquired absence of other specified parts of digestive tract
CPT/HCPCS: 99283; 96361; 96374; 36415; 82962; 85025; 80053; 82803; J2270; J7030

== ENCOUNTER 2018-10-29 21:18 | Inpatient (IN) | payer OTHER, MEDICARE ==
[2018-10-29] MEDS ORDERED: HYDROMORPHONE HCL INJ/PF 2 MG/ML AMPULE ONE ×2 (21:23→22:40)
[2018-10-29] MEDS ORDERED: NORMAL SALINE 1000 ML 1,000 ML IV ONE ×2 (21:28→22:28)
[2018-10-29] MEDS ORDERED: HYDROMORPHONE HCL INJ/PF 2 MG/ML AMPULE IV ONE ×6 (21:28→22:57)
[2018-10-29] MEDS ORDERED: LABETALOL HCL INJ 20 MG/4 ML DISP.SYRIN IV ONE (21:29)
[2018-10-29] MEDS ORDERED: DIPHENHYDRAMINE HCL 50 MG/ML VIAL IV ONE (21:34)
[2018-10-29] MEDS ORDERED: METHYLPREDNISOLONE INJ 125 MG/2 ML SDV IV ONE (21:34)
[2018-10-29] MEDS ORDERED: FAMOTIDINE INJ/PF 20 MG/2 ML SDV IV ONE ×2 (21:34→21:35)
[2018-10-29] MEDS ORDERED: METHYLPREDNISOLONE INJ 125 MG/2 ML SDV ONE (21:35)
[2018-10-29] MEDS ORDERED: DIPHENHYDRAMINE HCL 50 MG/ML VIAL ONE (21:35)
[2018-10-29 21:40] LABS: HEMATOCRIT 32.2 % (37.9-51.0); HEMOGLOBIN 10.6 g/dL (13.5-17.0); MEAN CORPUSCULAR HEMOGLOBIN 30.6 pg (27.0-33.4); MEAN CORPUSCULAR HGB CONC 33.1 g/dL (32.0-36.0); MEAN CORPUSCULAR VOLUME 93 fl (80-97); PLATELET COUNT 307 10^3/uL (150-450); RED BLOOD COUNT 3.48 10^6/uL (4.35-5.55); RED CELL DISTRIBUTION WIDTH 17.4 % (11.5-14.0); WHITE BLOOD COUNT 20.3 10^3/uL (4.0-10.5)
--- NOTE | 2018-10-29 21:46 | ER Document Report ---
ED General - General Chief Complaint: Abdominal Pain >50 Stated Complaint: ABDOMINAL PAIN Time Seen by Provider: 10/29/18 21:26 Mode of Arrival: Medic Information source: Patient, Emergency Med Personnel Notes: 73-year-old male with a history of stage IV metastatic colon cancer presents emergency department with swelling to the area around the stoma and abdominal pain x 2 days. states that he's been constipated for the last 2 days. Tonight the pain began getting out of control. She denies fever, chills, dysuria, nausea, vomiting, diarrhea. Patient is getting chemotherapy through Dr. Currie. TRAVEL OUTSIDE OF THE [place] IN LAST 30 DAYS: No - HPI Onset: Other - 2 days Quality of pain: Sharp, Stabbing Severity: Severe Pain Level: 5 Associated symptoms: None Exacerbated by: Denies Relieved by: Denies Similar symptoms previously: Yes Recently seen / treated by doctor: Yes - Related Data Allergies/Adverse Reactions: Iodinated Contrast- Oral and IV Dye Adverse Reaction (Mild, Verified 10/29/18 22:39) Hives Past Medical History - General Information source: Patient - Social History Smoking Status: Former Smoker Family History: Reviewed & Not Pertinent, CAD - Father, Malignancy - Brother with prostate cancer. Father with bladder cancer. 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 Denies: Hx Diabetes Mellitus Type 1, Hx Hyperthyroidism Renal/ Medical History: Denies: Hx Peritoneal Dialysis Malignancy Medical History: Reports Hx Colorectal Cancer GI Medical History: Reports: Hx Irritable Bowel. Denies: Hx Cirrhosis, Hx Crohn's Disease, Hx Ulcerative Colitis Musculoskeletal Medical History: Reports Hx Arthritis, Denies Hx Fibromyalgia, Denies Hx Gout Skin Medical History: Denies Hx Eczema, Denies Hx Psoriasis Infectious Medical History: Reports: Hx MRSA - Left leg cellulitis Past Surgical History: Reports: Hx Bowel Surgery - colostomy, Hx Colostomy, Hx Herniorrhaphy - Left inguinal, Hx Orthopedic Surgery - Left ankle-knee, neck, Other - Neck mass resection in the remote past. Port placement - Immunizations Immunizations up to date: Yes Hx Diphtheria, Pertussis, Tetanus Vaccination: Yes Hx Pneumococcal Vaccination: 09/05/16 Review of Systems - Review of Systems Constitutional: No symptoms reported EENT: No symptoms reported Cardiovascular: No symptoms reported Respiratory: No symptoms reported Gastrointestinal: Abdomen distended, Abdominal pain Genitourinary: No symptoms reported Musculoskeletal: No symptoms reported Skin: No symptoms reported Hematologic/Lymphatic: No symptoms reported Neurological/Psychological: No symptoms reported -: Yes All other systems reviewed and negative Physical Exam - Vital signs Vitals: Resp BP Pulse Ox 36 H 212/119 H 94 10/29/18 21:22 10/29/18 21:22 10/29/18 21:22 - Notes Notes: PHYSICAL EXAMINATION: GENERAL: Ill appearing. Cachetic. In pain. HEAD: Atraumatic, normocephalic. EYES: Pupils equal round and reactive to light, extraocular movements intact, sclera anicteric, conjunctiva are normal. ENT: Nares patent, oropharynx clear without exudates. Moist mucous membranes. NECK: Normal range of motion, supple without lymphadenopathy LUNGS: Breath sounds clear to auscultation bilaterally and equal. No wheezes rales or rhonchi. HEART: Tachycardic. ABDOMEN: Swelling to the stoma area. Diffuse abdominal tenderness to palpation. Rigid abdomen. Normal active bowel sounds. Musculoskeletal: Normal range of motion, no pitting or edema. No cyanosis. NEUROLOGICAL: Cranial nerves grossly intact. Normal speech. Normal sensory, motor exams PSYCH: Normal mood, normal affect. SKIN: Warm, Dry, normal turgor, no rashes or lesions noted. Course - Re-evaluation Re-evalutation: 10/29/18 21:46 EKG: Ventricular rate 122, TN interval 148, QRS duration 92, QTc 439, sinus tachycardia, right axis deviation. No ST segment elevation. 10/29/18 23:08 CT abd/pelvis shows bowel perforation. Dr. Mahoney consulted. He evaluated the patient at bedside. He feels the patient is not a surgical candidate. We discussed code status with the . She's comfortable with making him DNR. We will admit him to the hospitalist for comfort care. 10/29/18 23:17 Dr. Robb contacted for admission. He's agreeable with admitting the patient. - Vital Signs Vital signs: Temp Pulse Resp BP Pulse Ox 98.6 F 19 172/89 H 91 L 10/29/18 21:24 10/29/18 22:22 10/29/18 22:22 10/29/18 22:22 - Laboratory Result Diagrams: 10/29/18 21:25 10/29/18 21:25 Laboratory results interpreted by me: 10/29/18 10/29/18 10/29/18 21:25 21:25 21:25 WBC 20.3 H RBC 3.48 L Hgb 10.6 L Hct 32.2 L RDW 17.4 H Seg Neuts % (Manual) 36 L Band Neutrophils % 6 H Abs Neuts (Manual) 8.5 H Abs Lymphs (Manual) 9.3 H Abs Monocytes (Manual) 2.0 H Sodium 136.0 L Potassium 5.4 H Carbon Dioxide 18 L BUN 30 H Glucose 200 H Lactic Acid 2.8 H Alkaline Phosphatase 215 H Albumin 3.1 L Discharge - Discharge Clinical Impression: Bowel perforation Condition: Critical Disposition: ADMITTED OBSERVATION Admitting Provider: Hospitalist Unit Admitted: Medical Floor Referrals: KEVIN FATIMA MD [Primary Care Provider] - Follow up as needed
[2018-10-29] MEDS ORDERED: LORAZEPAM INJ 2 MG/1 ML VIAL IV ONE ×2 (21:58→22:51)
[2018-10-29] MEDS ORDERED: LORAZEPAM INJ 2 MG/1 ML VIAL ONE (21:58)
[2018-10-29 22:02] LABS: ALANINE AMINOTRANSFERASE 26 U/L (21-72); ALBUMIN 3.1 g/dL (3.5-5.0); ALKALINE PHOSPHATASE 215 U/L (38-126); ANION GAP 14 (5-19); ASPARTATE AMINO TRANSFERASE 38 U/L (17-59); BILIRUBIN,DIRECT 0.3 mg/dL (0.0-0.4); BILIRUBIN,TOTAL 0.4 mg/dL (0.2-1.3); BLOOD UREA NITROGEN 30 mg/dL (7-20); CALCIUM 10.1 mg/dL (8.4-10.2); CARBON DIOXIDE 18 mmol/L (22-30); CHLORIDE 104 mmol/L (98-107); GLUCOSE 200 mg/dL (75-110); POTASSIUM 5.4 mmol/L (3.6-5.0); TOTAL PROTEIN 6.7 g/dL (6.3-8.2)
[2018-10-29] MEDS ORDERED: HYDRALAZINE HCL INJ/PF 20 MG/1 ML SDV ONE (22:17)
[2018-10-29 22:25] VITALS: BP 172/89
--- NOTE | 2018-10-29 22:33 | RADIOLOGY REPORT (SQ) ---
EXAM DESCRIPTION: CT ABDOMEN PELVIS WITH IV CONTRAST COMPLETED DATE/TME: 10/29/2018 21:27 CLINICAL HISTORY: 73 years, Male, abdominal pain This exam was performed according to our departmental dose-optimization program which includes automated exposure control, adjustment of the mA and/or kVp according to patient size and/or use of iterative reconstruction technique where applicable. Compared to CT abdomen pelvis dated 10/06/2018. FINDINGS: Visualized lung bases demonstrate multiple bilateral lung nodules, measuring up to 2.3 cm, consistent with metastatic disease. These are worsened compared to the prior study. Liver demonstrates multiple hypodense lesions, measuring up to 5.4 x 4.5 cm. These are worsened from the prior study. The spleen, pancreas, gallbladder, adrenal glands are within normal limits. No biliary dilatation. Mild right hydronephrosis. Right ureter is mildly dilated down to the level of the bladder. The hydronephrosis is worsened compared to the prior study. No dilated loops of bowel to suggest obstruction. There is moderate free intraperitoneal air noted in the abdomen. This is predominantly in the upper abdomen. There is a large ventral hernia on the left side of the abdomen containing long length of small bowel. There is mild wall thickening of the sigmoid colon. There is marked amount of wall thickening involving the rectum which is similar to the prior study. IMPRESSION: Moderate free intraperitoneal air. This is suspicious for bowel perforation. Mild wall thickening of the sigmoid colon noted which may be due to colitis. Marked thickening and inflammatory changes of the rectum, similar to the prior study. Worsening hepatic metastatic disease. Worsening lung metastases. Ventral hernias as described. Findings discussed with ER staff at the time of dictation.
[2018-10-29 22:38] LABS: ABSOLUTE LYMPHOCYTES# (MANUAL) 9.3 10^3/uL (0.5-4.7); ABSOLUTE NEUTROPHILS# (MANUAL) 8.5 10^3/uL (1.7-8.2); BAND NEUTROPHILS % (MANUAL) 6 % (3-5); BASOPHILS % (MANUAL) 0 % (0-2); EOSINOPHILS % (MANUAL) 2 % (0-6); LYMPHOCYTES % (MANUAL) 37 % (13-45); MONOCYTES % (MANUAL) 10 % (3-13); SEGMENTED NEUTROPHILS % (MAN) 36 % (42-78); TOTAL CELLS COUNTED 100; TOXIC GRANULATION 2+; TOXIC VACUOLATION PRESENT
[2018-10-29 22:39] LABS: ANISOCYTOSIS SLIGHT; PLATELET COMMENT ADEQUATE; PLATELET GIANT PRESENT
[2018-10-29] MEDS ORDERED: FENTANYL CITRATE INJ/PF 100 MCG/2 ML AMPUL IV ONE (23:10)
--- NOTE | 2018-10-29 23:19 | PDOC CONSULTATION ---
Consultation Consult Date: 10/29/18 Consult reason:: free intraperitoneal air. metastatic rectal cancer History of Present Illness Admission Date/PCP: KEVIN FATIMA MD History of Present Illness: ALIYA LÓPEZ is a 73 year old male with hx pof rectal cancer, colectomy with colostomy, large ventral paracolostomy hernia, severe abdominal pain which started all the sudden this evening. A CT scan A/P demonstrated free intraperitoneal air, multiple liver metastasis, large intraperitoneal neoplastic seedings, hydroureter, metastatic lung nodules. Accordomng to the Radiologist, the findings of today's CT scan are worse than the CT scan done one month earlier. 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 Port placement Social History Smoking Status: Former Smoker Frequency of Alcohol Use: None Hx Recreational Drug Use: No Drugs: None Hx Prescription Drug Abuse: No Family History Family History: Reviewed & Not Pertinent, CAD - Father, Malignancy - Brother with prostate cancer. Father with bladder cancer. Parental Family History Reviewed: No Children Family History Reviewed: No Sibling(s) Family History Reviewed.: No Medication/Allergy Home Medications: Amitriptyline HCl [Elavil 50 mg Tablet] 100 mg PO QHS 09/25/18 Ascorbic Acid [Vitamin C 500 mg Tablet] 500 mg PO DAILY 09/25/18 Fentanyl [Duragesic 50 Mcg/Hr Transdermal Patch] 1 each TD Q3D 30 Days #10 patch.[id number] 09/27/18 Amlodipine Besylate [Norvasc 10 mg Tablet] 10 mg PO DAILYP PRN 09/29/18 Cetirizine HCl [Zyrtec 10 mg Tablet] 10 mg PO WSUPPER 09/29/18 Glyburide 1.25 mg PO BID 09/29/18 Lidocaine HCl [Xylocaine 5% Ointment 35.44 gm] 1 applic TP DAILY 09/29/18 Magic Mouthwash (Diphenhydramine, Hydrocortisone, Nystatin) 10 ml PO QID Megestrol Acetate 20 ml PO DAILY 09/29/18 Oxycodone HCl [Oxycodone HCl 10 MG Tablet] 10 mg PO Q4HP PRN 09/29/18 Metoprolol Tartrate [Lopressor 100 mg Tablet] 100 mg PO BIDP PRN 09/30/18 Sennosides [Ex-Lax Maximum Strength] 50 mg PO BID 09/30/18 Amlodipine Besylate [Norvasc 10 mg Tablet] 10 mg PO QHS #30 tablet 10/13/18 Amox Tr/Potassium Clavulanate [Augmentin "500" Tablet] 1 tab PO Q8 #15 tablet 10/13/18 Carvedilol [Coreg 12.5 mg Tablet] 12.5 mg PO Q12 #60 tablet 10/13/18 Fluconazole [Diflucan 100 mg Tablet] 100 mg PO DAILY #5 tablet 10/13/18 Glyburide [Diabeta 2.5 mg Tablet] 1.25 mg PO BID tablet 10/13/18 Lisinopril [Prinivil 10 mg Tablet] 40 mg PO DAILY #30 tablet 10/13/18 Lubiprostone [Amitiza 24 Mcg Capsule] 24 mcg PO BID capsule 10/13/18 Nystatin [Mycostatin Topical Powder 15 gm] 1 applic TP DAILY #1 bottle 10/13/18 Sennosides/Docusate 8.6-50 mg [Senna Plus Tablet] 2 each PO BID #30 tablet 10/13/18 Zinc Sulfate [Zinc-220 Capsule] 220 mg PO DAILY capsule 10/13/18 Allergies/Adverse Reactions: Iodinated Contrast- Oral and IV Dye Adverse Reaction (Mild, Verified 10/29/18 22:39) Hives Physical Exam Vital Signs: Temp Pulse Resp BP Pulse Ox 98.6 F 19 172/89 H 91 L 10/29/18 21:24 10/29/18 22:22 10/29/18 22:22 10/29/18 22:22 Intake & Output 10/28/18 10/29/18 10/30/18 06:59 06:59 06:59 Intake Total 1000 Balance 1000 Weight 75.3 kg General appearance: PRESENT: severe distress, other - suffering, grimacing Head exam: PRESENT: atraumatic Mouth exam: PRESENT: dry mucosa Neck exam: PRESENT: full ROM Respiratory exam: PRESENT: clear to auscultation juan daniel Cardiovascular exam: PRESENT: RRR, tachycardia GI/Abdominal exam: PRESENT: rigid, tenderness - diffusely; ,with grimacing on palpation, other - left pimnk colostomy; large parastomal hernia Results Laboratory Results: 10/29/18 21:25 10/29/18 21:25 10/29/18 10/29/18 10/29/18 21:25 21:25 21:25 WBC 20.3 H RBC 3.48 L Hgb 10.6 L Hct 32.2 L MCV 93 MCH 30.6 MCHC 33.1 RDW 17.4 H Plt Count 307 Seg Neutrophils % Not Reportable Lymphocytes % Not Reportable Monocytes % Not Reportable Eosinophils % Not Reportable Basophils % Not Reportable Absolute Neutrophils Not Reportable Absolute Lymphocytes Not Reportable Absolute Monocytes Not Reportable Absolute Eosinophils Not Reportable Absolute Basophils Not Reportable Sodium 136.0 L Potassium 5.4 H Chloride 104 Carbon Dioxide 18 L Anion Gap 14 BUN 30 H Creatinine 1.06 Est GFR ( Amer) > 60 Est GFR (Non-Af Amer) > 60 Glucose 200 H Lactic Acid 2.8 H Calcium 10.1 Total Bilirubin 0.4 AST 38 ALT 26 Alkaline Phosphatase 215 H Total Protein 6.7 Albumin 3.1 L Lipase 80.0 Impressions: Abdomen/Pelvis CT 10/29/18 21:27 IMPRESSION: Moderate free intraperitoneal air. This is suspicious for bowel perforation. Mild wall thickening of the sigmoid colon noted which may be due to colitis. Marked thickening and inflammatory changes of the rectum, similar to the prior study. Worsening hepatic metastatic disease. Worsening lung metastases. Ventral hernias as described. Findings discussed with ER staff at the time of dictation. Assessment & Plan - Diagnosis (1) Free intraperitoneal air Is this a current diagnosis for this admission?: Yes (2) Metastasis from rectal cancer Is this a current diagnosis for this admission?: Yes - Plan Summary Plan Summary: A/ hx rectal cancer and colectomy/colostomy Severe abdominal pain with peritonela signs CT scan A/P shows free intraperitoneal with evidence of diffuse intraperitoneal, hepatic, and pulmonary metastasis Peritoneal signs on physical exam P/ Due to the presence of metastatized rectal cancer, this patient is not surgical candidate for any intervention as most surely he will suffer from an extremely poor post-surgical outcome. In addition, this surgery even if feasible and successful will not improve this patient quality of life. My recommendation is to avoid any intervention or heroic measures, to make this patient comfortable, and to allow nature to take its course. I will sign off. Please, call me with questions
[2018-10-29] MEDS ORDERED: FENTANYL 100 MCG/HR PATCH.TD72 TD ONE (23:30)
[2018-10-29] MEDS: HYDROMORPHONE HCL INJ/PF 2 MG/ML AMPULE IV PRN (23:30)
[2018-10-29] MEDS ORDERED: SCOPOLAMINE HYDROBROMIDE 1.5 MG PATCH.TD72 TD ONE (23:35)
[2018-10-29] MEDS ORDERED: SCOPOLAMINE HYDROBROMIDE 1.5 MG PATCH.TD72 ONE (23:45)
[2018-10-29] MEDS: LORAZEPAM INJ 2 MG/1 ML VIAL IV PRN (23:47)
[2018-10-30] MEDS: HYDROMORPHONE HCL INJ/PF 2 MG/ML AMPULE IV PRN ×2 (00:24→04:04)
[2018-10-30] MEDS: LORAZEPAM INJ 2 MG/1 ML VIAL IV PRN (01:29)
--- NOTE | 2018-10-30 04:44 | PDOC H&P ---
History of Present Illness Admission Date/PCP: 10/29/18 23:32 KEVIN FATIMA MD Patient complains of: Abdominal pain History of Present Illness: ALIYA LÓPEZ is a 73 year old male with a past medical history of stage IV metastatic colon cancer presenting with an abrupt onset of abdominal swelling about the stoma. In the emergency room he has a abdominal CT showing bowel perforation. Surgery is consulted who feel he has a poor surgical candidate recommending comfort measures only. The emergency department provider discloses his immediately terminal condition, and orders DNR, initiates comfort measures only. He receives several doses of IV Dilaudid, Ativan and referred to the hospitalist for admission. Patient had been receiving palliative chemotherapy and otherwise complaining of constipation. Patient's at bedside is clearly frustrated by this terminal complication. Patient's oncologist Dr. Stoll is consulted for family meeting, rationale and goals of comfort measures. 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 Port placement Social History Information Source: Patient Lives with: Family, Spouse/Significant other Smoking Status: Former Smoker Frequency of Alcohol Use: None Hx Recreational Drug Use: No Drugs: None Hx Prescription Drug Abuse: No - Advance Directive Resuscitation Status: Comfort Measures Only Family History Family History: Reviewed & Not Pertinent, CAD - Father, Malignancy - Brother with prostate cancer. Father with bladder cancer. Parental Family History Reviewed: No - Sedated Children Family History Reviewed: No Sibling(s) Family History Reviewed.: No Medication/Allergy Home Medications: Amitriptyline HCl [Elavil 50 mg Tablet] 100 mg PO QHS 09/25/18 Ascorbic Acid [Vitamin C 500 mg Tablet] 500 mg PO DAILY 09/25/18 Fentanyl [Duragesic 50 Mcg/Hr Transdermal Patch] 1 each TD Q3D 30 Days #10 patch.[id number] 09/27/18 Amlodipine Besylate [Norvasc 10 mg Tablet] 10 mg PO DAILYP PRN 09/29/18 Cetirizine HCl [Zyrtec 10 mg Tablet] 10 mg PO WSUPPER 09/29/18 Glyburide 1.25 mg PO BID 09/29/18 Lidocaine HCl [Xylocaine 5% Ointment 35.44 gm] 1 applic TP DAILY 09/29/18 Magic Mouthwash (Diphenhydramine, Hydrocortisone, Nystatin) 10 ml PO QID 09/29/18 Megestrol Acetate 20 ml PO DAILY 09/29/18 Oxycodone HCl [Oxycodone HCl 10 MG Tablet] 10 mg PO Q4HP PRN 09/29/18 Metoprolol Tartrate [Lopressor 100 mg Tablet] 100 mg PO BIDP PRN 09/30/18 Sennosides [Ex-Lax Maximum Strength] 50 mg PO BID 09/30/18 Amlodipine Besylate [Norvasc 10 mg Tablet] 10 mg PO QHS #30 tablet 10/13/18 Amox Tr/Potassium Clavulanate [Augmentin "500" Tablet] 1 tab PO Q8 #15 tablet 10/13/18 Carvedilol [Coreg 12.5 mg Tablet] 12.5 mg PO Q12 #60 tablet 10/13/18 Fluconazole [Diflucan 100 mg Tablet] 100 mg PO DAILY #5 tablet 10/13/18 Glyburide [Diabeta 2.5 mg Tablet] 1.25 mg PO BID tablet 10/13/18 Lisinopril [Prinivil 10 mg Tablet] 40 mg PO DAILY #30 tablet 10/13/18 Lubiprostone [Amitiza 24 Mcg Capsule] 24 mcg PO BID capsule 10/13/18 Nystatin [Mycostatin Topical Powder 15 gm] 1 applic TP DAILY #1 bottle 10/13/18 Sennosides/Docusate 8.6-50 mg [Senna Plus Tablet] 2 each PO BID #30 tablet 10/13/18 Zinc Sulfate [Zinc-220 Capsule] 220 mg PO DAILY capsule 10/13/18 Allergies/Adverse Reactions: Iodinated Contrast- Oral and IV Dye Adverse Reaction (Mild, Verified 10/29/18 22:39) Hives Review of Systems ROS unobtainable: Due to mental status - Sedated Physical Exam Vital Signs: Temp Pulse Resp BP Pulse Ox 98.6 F 30 H 172/89 H 88 L 10/29/18 21:24 10/30/18 01:45 10/29/18 22:22 10/30/18 01:45 Intake & Output 10/28/18 10/29/18 10/30/18 11:59 11:59 11:59 Intake Total 1783 Balance 1783 Weight 75.3 kg General appearance: PRESENT: severe distress, thin, other - Temporal wasting, cachexia Head exam: PRESENT: atraumatic, normocephalic Eye exam: PRESENT: conjunctiva pink, EOMI, PERRLA. ABSENT: scleral icterus Ear exam: PRESENT: normal external ear exam Mouth exam: PRESENT: moist, tongue midline Neck exam: ABSENT: carotid bruit, JVD, lymphadenopathy, thyromegaly Respiratory exam: PRESENT: accessory muscle use, crackles, retraction, symmetrical, tachypnea. ABSENT: rhonchi Cardiovascular exam: PRESENT: gallop, +S1, +S2, tachycardia Pulses: PRESENT: normal dorsalis pedis pul Vascular exam: PRESENT: normal capillary refill GI/Abdominal exam: PRESENT: diminished bowel sounds, distended, firm, guarding, hypoactive bowel sounds, rebound, rigid, tenderness. ABSENT: mass, organolmegaly Rectal exam: PRESENT: deferred Extremities exam: PRESENT: full ROM. ABSENT: calf tenderness, clubbing, pedal edema Neurological exam: PRESENT: altered, CN II-XII grossly intact. ABSENT: oriented to person, oriented to place, oriented to time Psychiatric exam: PRESENT: appropriate affect, normal mood. ABSENT: homicidal ideation, suicidal ideation Skin exam: PRESENT: dry, intact, warm. ABSENT: cyanosis, rash Results Laboratory Results: 10/29/18 21:25 10/29/18 21:25 10/29/18 10/29/18 10/29/18 21:25 21:25 21:25 WBC 20.3 H RBC 3.48 L Hgb 10.6 L Hct 32.2 L MCV 93 MCH 30.6 MCHC 33.1 RDW 17.4 H Plt Count 307 Seg Neutrophils % Not Reportable Lymphocytes % Not Reportable Monocytes % Not Reportable Eosinophils % Not Reportable Basophils % Not Reportable Absolute Neutrophils Not Reportable Absolute Lymphocytes Not Reportable Absolute Monocytes Not Reportable Absolute Eosinophils Not Reportable Absolute Basophils Not Reportable Sodium 136.0 L Potassium 5.4 H Chloride 104 Carbon Dioxide 18 L Anion Gap 14 BUN 30 H Creatinine 1.06 Est GFR ( Amer) > 60 Est GFR (Non-Af Amer) > 60 Glucose 200 H Lactic Acid 2.8 H Calcium 10.1 Total Bilirubin 0.4 AST 38 ALT 26 Alkaline Phosphatase 215 H Total Protein 6.7 Albumin 3.1 L Lipase 80.0 Impressions: Abdomen/Pelvis CT 10/29/18 21:27 IMPRESSION: Moderate free intraperitoneal air. This is suspicious for bowel perforation. Mild wall thickening of the sigmoid colon noted which may be due to colitis. Marked thickening and inflammatory changes of the rectum, similar to the prior study. Worsening hepatic metastatic disease. Worsening lung metastases. Ventral hernias as described. Findings discussed with ER staff at the time of dictation. Assessment & Plan - Diagnosis (1) Bowel perforation Is this a current diagnosis for this admission?: Yes Plan: Given terminal comorbidity of stage IV colon cancer on palliative chemotherapy he is not a surgical candidate. Comfort measures only initiated. (2) Colorectal cancer, stage IV Is this a current diagnosis for this admission?: Yes Plan: Oncology consulted - Time Time Spent: 50 to 70 Minutes
--- NOTE | 2018-10-30 05:14 | PDOC CONSULTATION ---
Consultation Consult Date: 10/30/18 Consult reason:: Palliative Care Consultation was requested for patient with metastatic colon cancer and bowel perforation. History of Present Illness Admission Date/PCP: 10/29/18 23:32 KEVIN FATIMA MD History of Present Illness: ALIYA LÓPEZ is a 73 year old male who has been fighting colorectal cancer for over a year. He was recently admitted to the hospital for bleeding at his ostomy site due to progression of his cancer. The bleeding was controlled and he was discharged. He was started on a new chemotherapy agent about 10 days ago, again due to rapidly progressive disease. However, according to patient's , he continued to have difficulty with blood pressure, blood sugar, constipation, and also had a recent fall. The stopped his coreg and states that this helped all his symptoms. Last night, about 8:30 pm, he had sudden onset of severe abdominal pain and family called 911. He was found in the ED to have a perforated bowel. Surgery was consulted, but did not feel he was a surgical candidate, and comfort measures were recommended. Currently, patient is unresponsive with "rattle" in his breathing. declined any morphine, as she did not wish to suppress his respirations. remains at bedside. 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 Port placement Social History Lives with: Family, Spouse/Significant other Smoking Status: Former Smoker Frequency of Alcohol Use: None Hx Recreational Drug Use: No Drugs: None Hx Prescription Drug Abuse: No - Advance Directive Resuscitation Status: Comfort Measures Only Family History Family History: Reviewed & Not Pertinent, CAD - Father, Malignancy - Brother with prostate cancer. Father with bladder cancer. Parental Family History Reviewed: No Children Family History Reviewed: No Sibling(s) Family History Reviewed.: No Medication/Allergy Home Medications: Amitriptyline HCl [Elavil 50 mg Tablet] 100 mg PO QHS 09/25/18 Ascorbic Acid [Vitamin C 500 mg Tablet] 500 mg PO DAILY 09/25/18 Fentanyl [Duragesic 50 Mcg/Hr Transdermal Patch] 1 each TD Q3D 30 Days #10 patch.td72 09/27/18 Amlodipine Besylate [Norvasc 10 mg Tablet] 10 mg PO DAILYP PRN 09/29/18 Cetirizine HCl [Zyrtec 10 mg Tablet] 10 mg PO WSUPPER 09/29/18 Glyburide 1.25 mg PO BID 09/29/18 Lidocaine HCl [Xylocaine 5% Ointment 35.44 gm] 1 applic TP DAILY 09/29/18 Magic Mouthwash (Diphenhydramine, Hydrocortisone, Nystatin) 10 ml PO QID 09/29/18 Megestrol Acetate 20 ml PO DAILY 09/29/18 Oxycodone HCl [Oxycodone HCl 10 MG Tablet] 10 mg PO Q4HP PRN 09/29/18 Metoprolol Tartrate [Lopressor 100 mg Tablet] 100 mg PO BIDP PRN 09/30/18 Sennosides [Ex-Lax Maximum Strength] 50 mg PO BID 09/30/18 Amlodipine Besylate [Norvasc 10 mg Tablet] 10 mg PO QHS #30 tablet 10/13/18 Amox Tr/Potassium Clavulanate [Augmentin "500" Tablet] 1 tab PO Q8 #15 tablet 1 12/14/17 Carvedilol [Coreg 12.5 mg Tablet] 12.5 mg PO Q12 #60 tablet 10/13/18 Fluconazole [Diflucan 100 mg Tablet] 100 mg PO DAILY #5 tablet 10/13/18 Glyburide [Diabeta 2.5 mg Tablet] 1.25 mg PO BID tablet 10/13/18 Lisinopril [Prinivil 10 mg Tablet] 40 mg PO DAILY #30 tablet 10/13/18 Lubiprostone [Amitiza 24 Mcg Capsule] 24 mcg PO BID capsule 10/13/18 Nystatin [Mycostatin Topical Powder 15 gm] 1 applic TP DAILY #1 bottle 10/13/18 Sennosides/Docusate 8.6-50 mg [Senna Plus Tablet] 2 each PO BID #30 tablet 10/13/18 Zinc Sulfate [Zinc-220 Capsule] 220 mg PO DAILY capsule 10/13/18 Allergies/Adverse Reactions: Iodinated Contrast- Oral and IV Dye Adverse Reaction (Mild, Verified 10/29/18 22:39) Hives Review of Systems ROS unobtainable: Due to mental status Physical Exam Vital Signs: Temp Pulse Resp BP Pulse Ox 98.6 F 30 H 172/89 H 88 L 10/29/18 21:24 10/30/18 01:45 10/29/18 22:22 10/30/18 01:45 Intake & Output 10/28/18 10/29/18 10/30/18 06:59 06:59 06:59 Intake Total 1783 Balance 1783 Weight 75.3 kg General appearance: PRESENT: thin Exam: cachectic 73 year old male. Respiratory exam: PRESENT: other - "rattle" from secretions in upper airway. Cardiovascular exam: PRESENT: other - Heart sounds obscured due to breathing. GI/Abdominal exam: PRESENT: other - Distended, ostomy in place. No evidence of bleeding large ventral hernia unchanged from previous. Neurological exam: PRESENT: other - Resting peacefully. I did not attempt to wake him. Skin exam: PRESENT: cyanosis, pallor Results Laboratory Results: 10/29/18 21:25 10/29/18 21:25 10/29/18 10/29/18 10/29/18 21:25 21:25 21:25 WBC 20.3 H RBC 3.48 L Hgb 10.6 L Hct 32.2 L MCV 93 MCH 30.6 MCHC 33.1 RDW 17.4 H Plt Count 307 Seg Neutrophils % Not Reportable Lymphocytes % Not Reportable Monocytes % Not Reportable Eosinophils % Not Reportable Basophils % Not Reportable Absolute Neutrophils Not Reportable Absolute Lymphocytes Not Reportable Absolute Monocytes Not Reportable Absolute Eosinophils Not Reportable Absolute Basophils Not Reportable Sodium 136.0 L Potassium 5.4 H Chloride 104 Carbon Dioxide 18 L Anion Gap 14 BUN 30 H Creatinine 1.06 Est GFR ( Amer) > 60 Est GFR (Non-Af Amer) > 60 Glucose 200 H Lactic Acid 2.8 H Calcium 10.1 Total Bilirubin 0.4 AST 38 ALT 26 Alkaline Phosphatase 215 H Total Protein 6.7 Albumin 3.1 L Lipase 80.0 Impressions: Abdomen/Pelvis CT 10/29/18 21:27 IMPRESSION: Moderate free intraperitoneal air. This is suspicious for bowel perforation. Mild wall thickening of the sigmoid colon noted which may be due to colitis. Marked thickening and inflammatory changes of the rectum, similar to the prior study. Worsening hepatic metastatic disease. Worsening lung metastases. Ventral hernias as described. Findings discussed with ER staff at the time of dictation. Status: Image reviewed by me Assessment & Plan - Diagnosis (1) Colorectal cancer, stage IV Is this a current diagnosis for this admission?: Yes Plan: All treatment has now been discontinued. (2) Bowel perforation Is this a current diagnosis for this admission?: Yes Plan: I agree that patient is not a surgical candidate. I agree with palliative treatment only. currently seems to be in agreement with this plan of care. She plans to use essential oils for his comfort. I do not believe that he is stable to move. Will continue comfort measures only while here in the hospital. - Plan Summary Plan Summary: I spent 30 minutes with patient and family in counselling in addition to the abo ve exam and coordination of his care. Family has requested no other visitors or physicians other than primary team.
--- NOTE | 2018-10-30 07:51 | EKG REPORT ---
SEVERITY:- OTHERWISE NORMAL ECG - SINUS TACHYCARDIA BORDERLINE RIGHT AXIS DEVIATION : Confirmed by: Zaki Camarena MD 30-Oct-2018 07:49:54
--- NOTE | 2018-10-30 10:23 | Death Summary ---
Summary Date : 10/30/18 Time of :: 09:36 Autopsy: No Resuscitation Status: Do Not Resuscitate Primary Care Provider: Dr.Nagesh Fletcher Mirza Consulting Provider: Dr.Nagesh Fletcher Mirza - Final Diagnosis (1) Bowel perforation Is this a current diagnosis for this admission?: Yes (2) Colorectal cancer, stage IV Is this a current diagnosis for this admission?: Yes (3) Septic shock Is this a current diagnosis for this admission?: Yes Hospital Course:: Mr. Mckeon is a very pleasant but unfortunate 73 years old male patient who has been battling stage IV colorectal cancer for more than a year presented with severe abdominal pain and his CT scan of the abdomen is positive for bowel perforation. Surgical consultation was made but the surgeon decided not to do any intervention because of patient is poor surgical candidate. After long discussion with the optical lathe operator who is his patient was made DNR and comfort care. Patient remained unresponsive and at 9:36 AM.
[2018-10-30 12:37] LABS: PATH REVIEW PATHOLOGIST REVIEWED
== END 2018-10-30 12:41 | disposition left against medical advice (07) | DRG 393 ==
LOC: ER 21:18 → OBSVTOIN 23:32 → EH 23:32 → 4S 10-30 02:15
PROVIDERS: ADMIT Internal Medicine; ATTEND Internal Medicine
DX: K63.1 Perforation of intestine (nontraumatic) (principal); A41.9 Sepsis, unspecified organism; R65.21 Severe sepsis with septic shock; C19 Malignant neoplasm of rectosigmoid junction; C78.7 Secondary malignant neoplasm of liver and intrahepatic bile duct; C78.00 Secondary malignant neoplasm of unspecified lung; Z66 Do not resuscitate; Z51.5 Encounter for palliative care; E11.42 Type 2 diabetes mellitus with diabetic polyneuropathy; M19.90 Unspecified osteoarthritis, unspecified site; I10 Essential (primary) hypertension; Z92.21 Personal history of antineoplastic chemotherapy; Z86.14 Personal history of Methicillin resistant Staphylococcus aureus infection; Z93.3 Colostomy status; Z87.891 Personal history of nicotine dependence; Z79.899 Other long term (current) drug therapy; Z91.041 Radiographic dye allergy status; Z90.49 Acquired absence of other specified parts of digestive tract; Z82.49 Family history of ischemic heart disease and other diseases of the circulatory system; Z80.52 Family history of malignant neoplasm of bladder; Z80.42 Family history of malignant neoplasm of prostate
CPT/HCPCS: 36415; 74177; 80053; 83605; 83690; 85025; 87040; 87077; 87186; 93005; 93010; 96361; 96374; 96375; 96376; 99285; J0360; J1170; J1200; J2060; J2930; J3010; J3490; J7030; S0028